=== PATIENT | male | born 1930 | race Caucasian/White ===

== ENCOUNTER 2017-02-02 10:00 | Inpatient (IN) | payer MEDICARE, BC ==
[~2017-02-02] VITALS: Ht 177.8 cm; Wt 102.8 kg
[2017-02-02] VITALS (46 sets, daily range): BP systolic 82–150; BP diastolic 52–92; PULSE 92–120; RESP 10–37; TEMP 97.6–97.9; O2SAT 94–99; Ht 177.8 cm; Wt 102.8 kg
[~2017-02-02 10:00] MED LIST: ASCO500T10 PO; ASPI325T PO; ATOR40TA64 PO; CALC-191 PO; CIPR-212 PO; CLOP75TA33 PO; FERR-67 PO; FEXO-118 PO; METF10002 PO; METO25TA6 PO; NITR0.4T PO; PANT40TA27 PO
--- OUTSIDE RECORDS SUMMARY | 2017-02-02 10:16 | XMS REPORT | Summary of Care ---
Author Author Dillan Rader M.D. Unknown Address [address] [place] [address] [place] [address] Phone Unavailable Care Team Providers Care Welding Setter Name Role Phone Dillan Rader M.D. 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9) Status: Active Presence of indwelling urethral catheter (V45.89, Z96.0) Status: Active Urethral 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, 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) Status: Active Urethral trauma (867.0, S37.30XA) Status: Active Mechanical complication of urethral catheter (996.31, T83.091A) Status: Active Clot retention of urine (788.29, R33.8) Status: Active Medications Name Dates Details Brenda TABS Active Aspirin EC 325 MG Oral Tablet Delayed Release * Refills: 0 Active Lipitor 40 MG Oral Tablet * Refills: 0 Active Calcium 500 + D TABS * Refills: 0 Active Plavix TABS * Refills: 0 Active Ferrous Sulfate 325 MG CAPS * Refills: 0 Active MetFORMIN HCl - 1000 MG Oral Tablet * Refills: 0 Active Metoprolol Tartrate TABS * Refills: 0 Active Milk of Magnesia SUSP * Refills: 0 Active Nitroglycerin 0.4 MG Sublingual Tablet Sublingual * Refills: 0 Active Erie 5-325 MG Oral Tablet * Refills: 0 Active Protonix 40 MG Oral Tablet Delayed Release * Refills: 0 Active Vitamin C Oral Liquid * Refills: 0 Active Allergies and Adverse Reactions Name Dates Details lisinopril (Allergy) Status: Active Past Medical History Name Dates Details History of BPH (benign prostatic hypertrophy) (600.00, N40.0) Status: Resolved History of bronchitis (V12.69, Z87.09) Status: Resolved History of Cataracts, bilateral (366.9, H26.9) Status: Resolved History of diabetes mellitus (V12.29, Z86.39) Status: Resolved History of Dyslipidemia (272.4, E78.5) Status: Resolved History of non-Hodgkin's lymphoma (V10.79, Z85.72) Status: Resolved History of osteoarthritis (V13.4, Z87.39) Status: Resolved Procedures Procedure Dates Details History of CABG History of Cataract Surgery History of Knee Surgery Procedures not documented Immunization Name Dates Details Immunizations not documented Family History Name Dates Details Family history of cerebrovascular accident (CVA) (V17.1, Z82.3) Status: Active Name Dates Details Family history of cerebrovascular accident (CVA) (V17.1, Z82.3) Status: Active Name Dates Details Family history of malignant neoplasm (V16.9, Z80.9) Status: Active Family history of diabetes mellitus (V18.0, Z83.3) Status: Active Social History Name Dates Details - Status: Name Dates Details Never smoker Vital Signs Date Test Result Details 01-Sep-2016 10:00 BP Systolic 131 mm[Hg] Status: Comments: Location: ; Position: BP Diastolic 105 mm[Hg] Status: Comments: Location: ; Position: Heart Rate 79 /min Status: Comments: Location: ; Height 70 in Status: Weight 210 lb Status: Body Mass Index Calculated 30.13 kg/m2 Status: Body Surface Area Calculated 2.13 m2 Status: 03-Aug-2016 14:09 BP Systolic 108 mm[Hg] Status: Comments: Location: ; Position: BP Diastolic 77 mm[Hg] Status: Comments: Location: ; Position: Heart Rate 105 /min Status: Comments: Location: ; Height 70 in Status: Weight 210 lb Status: Body Mass Index Calculated 30.13 kg/m2 Status: Body Surface Area Calculated 2.13 m2 Status: Results Date Description Value Details Results not documented Plan of Care Name Dates Details Planned Observations Planned Goals not documented Planned Encounters Appointment; Provider: Dillan Rader M.D. On 05-Oct-2016 10:15 Appointment; Provider: Dillan Rader M.D. On 02-Sep-2016 09:45 Instructions Name Dates Details Instructions not documented Encounters Appointment; Dillan Rader M.D. Encounter Diagnosis: Problem not documented On 03-Aug-2016 14:15
--- OUTSIDE RECORDS SUMMARY | 2017-02-02 10:16 | XMS REPORT | Continuity of Care Document ---
Author Author [facility] Organization [facility] Address Unknown Phone Unavailable Support Name Relationship Address Phone SWEETIE WALDROP MD Caregiver [address] [place] [address] [address] [place] [address] Unavailable SWEETIE WALDROP MD Caregiver [address] [place] [address] [place] [address] Unavailable FEBRUARY, CHARANJIT Mccauley DO Caregiver [address] [place] [address] Unavailable TEODORA TAVERAS DO Caregiver Unknown Unavailable LEE ANN ANTON Next Of Kin [address] [id number] Insurance Providers Guarantor Keegan Anton Address [address] [place], [place] [id number] G-DTR Email DENIED/NO TO PT PORTAL Payer Medicare Policy Number [id number] Subscriber's Name Keegan Anton Relationship 18 Self Effective Date 97 Payer [facility] Policy Number [id number] Subscriber's Name Keegan Anton Relationship 18 Self Group Number [id number] Advance Directives Directive Response Recorded Date/Time Advanced Directives Type Unable to Obtain 07/27/16 6:46pm Ordered Resuscitation Status Do Not Resuscitate 07/27/16 7:50pm Resuscitation Documents on File Y on file at [facility] 07/27/16 9:15pm DPOA for Healthcare Only Y Yue Zamora 07/28/16 11:03am Living Will No 07/27/16 9:15pm Chief Complaint and Reason for Visit Chief Complaint ATRIAL FIBRILLATION WITH RVR Reason for Visit Atrial fibrillation Chronic constipation Persistent atrial fibrillation Problems Active Problems Medical Problem Onset Date Status Abnormal urinalysis Unknown Acute Acute Coronary Syndrome Unknown Resolved Acute encephalopathy Unknown Resolved Acute hypokalemia Unknown Acute Allergic rhinitis Unknown Chronic Anemia ~05/10/2016 Acute Anemia due to GI blood loss Unknown Chronic Aortic stenosis, mild Unknown Chronic Aortic stenosis, moderate Unknown Chronic Atherosclerosis of coronary artery bypass graft of [place] heart without angina pectoris Unknown Chronic Atrial fibrillation Unknown Chronic BPH (benign prostatic hypertrophy) Unknown Chronic Back pain Unknown Acute Bacteremia due to Staphylococcus aureus ~02/2016 Resolved CAD (coronary artery disease) Unknown Chronic Cataracts, bilateral Unknown Chronic Chronic constipation Unknown Chronic Confusion Unknown Resolved Constipation Unknown Chronic Coronary artery disease Unknown Chronic Diabetes mellitus Unknown Chronic Elevated troponin Unknown Acute GERD (gastroesophageal reflux disease) Unknown Chronic History of CO (myocardial infarction) Unknown Chronic History of anemia Unknown Chronic History of non-Hodgkin's lymphoma Unknown Chronic History of non-ST elevation myocardial infarction (NSTEMI) Unknown Resolved History of non-ST elevation myocardial infarction (NSTEMI) Unknown Resolved Hypercalcemia Unknown Resolved Hypercholesterolemia Unknown Chronic Hypertension Unknown Chronic Hypokalemia Unknown Resolved Hypomagnesemia Unknown Acute Lumbar spinal stenosis Unknown Chronic Mixed hyperlipidemia Unknown Chronic NSTEMI (non-ST elevation myocardial infarction) Unknown Acute Nonrheumatic aortic valve stenosis Unknown Chronic OA (osteoarthritis) Unknown Chronic Paroxysmal atrial fibrillation Unknown Chronic Persistent atrial fibrillation Unknown Chronic Pulmonary edema cardiac cause Unknown Acute Rash and nonspecific skin eruption Unknown Resolved Scrotal mass Unknown Acute Sepsis Unknown Resolved Stage II pressure ulcer of buttock Unknown Chronic Thrombocytopenia Unknown Resolved Tricuspid valvular regurgitation Unknown Chronic Type II diabetes mellitus Unknown Chronic Urinary retention Unknown Chronic Urinary tract infection Unknown Acute Surgical Problem Onset Date Status S/P coronary artery stent placement Unknown Chronic Past Problems Medical Problem Onset Date Abnormal EKG Unknown Atrial fibrillation with RVR Unknown Atrial fibrillation with RVR Unknown Elevated troponin Unknown Encounter for urinary catheter Unknown Strong catheter problem Unknown Malfunction of Strong catheter Unknown Non-STEMI (non-ST elevated myocardial infarction) ~04/2016 Severe anemia Unknown UTI (urinary tract infection) Unknown UTI (urinary tract infection) due to urinary indwelling catheter Unknown Medications Current Home Medications Medication Dose Units Route Directions Days Qty Instructions Start Date Ascorbic Acid 500 Mg Tablet 500 Mg Oral Bedtime 05/10/16 Aspirin 325 Mg Tablet 325 Mg Oral Daily 01/11/16 Atorvastatin Calcium 40 Mg Tablet 40 Mg Oral Bedtime 05/10/16 Calcium Carbonate/Vitamin D3 (Calcium + Vitamin D Tablet) 1 Each Tablet 1 Tab Oral Bedtime 01/28/16 Ciprofloxacin Hcl (Cipro) 500 Mg Tablet 500 Mg Oral Every 12 Hours 20 Tablet 07/26/16 Clopidogrel Bisulfate (Clopidogrel) 75 Mg Tablet 75 Mg Oral Daily 05/10/16 Ferrous Sulfate (Iron Supplement) 325 Mg Tablet 325 Mg Oral Bedtime 05/10/16 Fexofenadine Hcl 180 Mg Tablet 180 Mg Oral Daily 05/10/16 Metformin Hcl 1,000 Mg Tablet 1,000 Mg Oral Twice Daily With Meals 01/28/16 Metoprolol Tartrate 25 Mg Tablet 25 Mg Oral Twice Daily With Meals 30 Days 60 Tablet 07/29/16 Nitroglycerin (Nitrostat) 0.4 Mg Tablet 0.4 Mg Oral Every 5 Minutes X 3 as needed for Chest Pain 07/27/16 Pantoprazole Sodium 40 Mg Tablet. 40 Mg Oral Before Meals Twice A Day 01/12/16 Past Home Medications Medication Directions Ordered Status Acetaminophen (Tylenol Extra Strength) 500 Mg Tablet, 500-1000 Mg Oral Every 8 Hours as needed for Pain 12/10/15 Discontinued Acetaminophen (Acetaminophen Extra Strength) 500 Mg Tablet, 1-2 Tab Oral Every 8 Hours as needed for Pain 09/13/15 Discontinued Acetaminophen (Tylenol Extra Strength) 500 Mg Tablet, 500 Mg Oral As Needed 04/01/10 Discontinued Allopurinol 300 Mg Tablet, 300 Mg Oral Daily 05/27/13 Discontinued Ascorbic Acid (Vitamin C) 500 Mg Tablet, 1 Tab Oral Give With Supper Discontinued Ascorbic Acid (Vitamin C) 500 Mg Tablet, 500 Mg Oral Daily 04/01/10 Discontinued Aspirin (Ecotrin) 81 Mg Tablet, 81 Mg Oral Daily 11/27/15 Discontinued Aspirin (Ecotrin) 325 Mg Tablet, 325 Mg Oral Daily 11/11/15 Discontinued Aspirin (Aspir 81) 81 Mg Tablet., 1 Tab Oral Daily 04/01/10 Discontinued Atorvastatin Calcium (Lipitor) 40 Mg Tablet, 1 Tab Oral Bedtime 02/02/15 Discontinued Bisacodyl (Dulcolax) 10 Mg Supp, 10 Mg Rectally Daily as needed for Constipation 12/10/15 Discontinued Bisacodyl (Dulcolax) 5 Mg Tablet, 5-10 Mg Oral Daily as needed for Constipation 12/10/15 Discontinued Bisacodyl (Dulcolax) 10 Mg Supp, 10 Mg Rectally As Needed as needed for Constipation 11/27/15 Discontinued Calcium Carbonate/Vitamin D3 (Calcium + Vitamin D Tablet) 1 Each Tablet, 1 Tab Oral Daily 02/02/15 Discontinued Calcium Carbonate/Vitamin D3 (Calcium + D 600 Mg Tablet) 1 Tab Tablet, 1 Tab Oral Daily 04/01/10 Discontinued Carvedilol 6.25 Mg Tablet, 0.5 Tab Oral Twice Daily With Meals 09/10/15 Discontinued Ciprofloxacin Hcl (Cipro) 250 Mg Tablet, 250 Mg Oral Every 12 Hours 11/27/15 Discontinued Clopidogrel Bisulfate (Plavix) 75 Mg Tablet, 1 Tab Oral Daily 11/10/15 Discontinued Clopidogrel Bisulfate (Plavix) 75 Mg Tablet, 1 Tab Oral Daily 02/02/15 Discontinued Diphenhydramine Hcl (Benadryl) 25 Mg Capsule, 25 Mg Oral Every 6 Hours as needed for Itching 03/02/16 Discontinued Ferrous Sulfate 325 Mg Tablet.dr, 1 Tab Oral Give With Breakfast for Anemia 09/13/15 Discontinued Fexofenadine Hcl (Brenda) 180 Mg Tablet, 1 Tab Oral Daily 03/12/13 Discontinued Finasteride 5 Mg Tablet, 1 Tab Oral Bedtime 02/02/15 Discontinued Glucos-Msm/Chondro Leonard A (Pvisaznyzhr-Qirwefsqe-Mdp Cap) 1 Cap Capsule, 1 Cap Oral Daily 04/01/10 Discontinued Hydrocodone/Acetaminophen (Hydrocodon-Acetaminophen 5-325) 1 Tab Tablet, 1-2 Tab Oral Every 5 Hours as needed for Pain 12/10/15 Discontinued Insulin Lispro (Humalog) 100 Unit/Ml Inj, 0 Unit Sub-Q Sliding Scale as needed for Diabetes 12/10/15 Discontinued Insulin Lispro (Humalog) 100 Unit/Ml Inj, 0 Unit Sub-Q Sliding Scale as needed for Diabetes 12/10/15 Discontinued Ipratropium/Albuterol Sulfate (Iprat-Albut 0.5-3(2.5) Mg/3 Ml) 3 Ml Solution, 3 Ml Aerosol Tx. Every 4 Hours as needed for Shortness Of Air 03/02/16 Discontinued Lidocaine (Lidoderm) 1 Removal Patch, 1 Removal Topically 2100 for Pain 03/02 Discontinued Lorazepam (Ativan) 0.5 Mg Tablet, 0.5-1 Mg Oral Every 4 Hours as needed for Angina 12/10/15 Discontinued Losartan Potassium 25 Mg Tablet, 0.5 Tab Oral Daily 03/12/13 Discontinued Magnesium Hydroxide (Milk Of Magnesia) 30 Ml Suspension, 30 Ml Oral Daily as needed for Constipation 12/10/15 Discontinued Magnesium Hydroxide (Milk Of Magnesia) 30 Ml Suspension, 30 Ml Oral As Needed as needed for Constipation 11/27/15 Discontinued Menthol/Zinc Oxide (Calmoseptine Ointment) 113 Applic/113 G Oint, 1 Applic Topically Three Times A Day 12/10/15 Discontinued Menthol/Zinc Oxide (Calmoseptine Ointment) 113 Applic/113 G Oint, 1 Applic Topically Three Times A Day 11/27/15 Discontinued Metformin Hcl 1,000 Mg Tablet, 1 Tab Oral Twice A Day 01/11/16 Discontinued Metformin Hcl 1,000 Mg Tablet, 1 Tab Oral Twice Daily With Meals 09/10/15 Discontinued Metoprolol Tartrate 25 Mg Tablet, 12.5 Mg Oral Twice Daily With Meals Discontinued Metoprolol Tartrate 25 Mg Tablet, 25 Mg Oral Twice Daily With Meals 03/02/16 Discontinued Nitroglycerin (Nitrostat) 0.4 Mg Tablet, 0.4 Mg Sublingual Every 5 Minutes X 3 as needed for Ang 11/27/15 Discontinued Nystatin 15 Applic/15 G Bottle, 1 Applic Topically Three Times A Day Discontinued Pantoprazole Sodium (Protonix) 40 Mg Tablet, 40 Mg Oral Twice A Day Breakfast & Supper 09/13/15 Discontinued Pantoprazole Sodium (Protonix) 40 Mg Tablet, 40 Mg Oral Before Meals Twice A Day 11/27/15 Discontinued Pantoprazole Sodium (Protonix) 40 Mg Tablet.dr, 1 Tab Oral Daily 02/02/15 Discontinued Polyethylene Glycol 3350 (Miralax) 17 Gm Packet, 17 Gm Oral Daily 11/27/15 Discontinued Prednisone 10 Mg Tablet, 10 Mg Oral Daily 11/15/11 Discontinued Renexa , 1000 Mg Oral Twice A Day 10/06/15 Discontinued Simvastatin 20 Mg Tablet, 20 Mg Oral Bedtime 04/01/10 Discontinued Sitagliptin Phos/Metformin Hcl (Janumet 50-500 Mg Tablet) 1 Tab Tablet, 1 Tab Oral Twice A Day 11/15/11 Discontinued Sitagliptin Phosphate (Januvia) 100 Mg Tablet, 50 Mg Oral Daily 01/11/16 Discontinued Sitagliptin Phosphate (Januvia) 100 Mg Tablet, 0.5 Tab Oral Daily 09/10/15 Discontinued Tamsulosin Hcl (Flomax) 0.4 Mg Cap.sr.24h, 1 Tab Oral Daily 03/12/13 Discontinued Tramadol Hcl 50 Mg Tablet, 50 Mg Oral As Needed 11/15/11 Discontinued Tramadol Hcl 50 Mg Tablet, 50 Mg Oral As Needed 04/01/10 Discontinued Social History Social History Problem Response Recorded Date/Time Onset Date Status Reason for Hospitalization NSTEMI, Afib with RVR 07/29/2016 9:41am Not Applicable Not Applicable Chewing Tobacco Status No 06/24/2013 3:28pm Not Applicable Not Applicable Hx Substance Use No 07/27/2016 8:12pm Not Applicable Not Applicable Hx Alcohol Use No 07/27/2016 8:12pm Not Applicable Not Applicable Has the pt used tobacco in the last 12 months No 07/27/2016 9:19pm Not Applicable Not Applicable Tobacco Usage none 05/11/2016 8:09am Not Applicable Not Applicable Query Response Start Date Stop Date Smoking Status Never smoker Hospital Discharge Instructions No hospital discharge instructions. Plan of Care Discharge Date 07/29/16 10:11am Disposition 01 DISCHARGED HOME, SELF-CARE Instructions/Education Provided [facility] Heart Cath Trans Rad Cardiac Catheterization Prescriptions See Medication Section Additional Instructions/Education Do NOT take Metformin until 07/31/16 then can resume at usual dose Functional Status Query Response Date Recorded Mobility Status Ambulatory w/assist July 29, 2016 9:41am Assistive Devices canes July 29, 2016 9:41am Activity Limitations Weakness July 29, 2016 9:41am Feeding Ability Independent July 29, 2016 9:41am Toileting Ability Assist July 29, 2016 9:41am Grooming Ability Independent July 29, 2016 9:41am Dressing Ability Independent July 29, 2016 9:41am Driving Ability Dependent July 29, 2016 9:41am Stair Climbing Ability Assist July 29, 2016 9:41am Ability to complete ADL's impeded by Impaired Mobility No change July 29, 2016 9:41am Cognitive/Perceptual Impairments None July 29, 2016 9:41am Allergies, Adverse Reactions, Alerts Allergen Type Severity Reaction Status Last Updated Lisinopril Adverse Reaction Unknown COUGH Active 07/27/16 Immunizations Immunization Event Date Type Not Given Reason Dose Number Lot Number Cleaner VIS Given Influenza, high dose seasonal 07/28/16 Administered 1 [id number] [employer] P[employer] 07/28/16 Query Response on File Recorded Date/Time Hx Influenza Vaccination Y 2014 per pt. (unknown date) 07/27/16 9:19pm Hx Pneumococcal Vaccination Y 2014 per pt. (unknown date) 07/27/16 9:19pm Hx Influenza Vaccination Y 2014 per pt. (unknown date) 07/27/16 9:19pm Influenza Vaccine Hx jul 28 2016 07/28/16 12:47pm Vital Signs Acute Vital Signs Vital Response Date/Time Temperature (Fahrenheit) 97.9 deg F (96.8 - 99.1) 07/29/2016 7:40am Temperature (Calculated Celsius) 36.01180 degrees C (36.0 - 37.3) 07/29/2016 7:40am Temperature Source Temporal 07/29/2016 7:38am Pulse Rate (adult) 97 bpm (60 - 100) 07/29/2016 7:41am Respiratory Rate 20 breaths/min (10 - 20) 07/29/2016 7:40am O2 Sat by Pulse Oximetry 97 % (90 - 100) 07/29/2016 7:40am Oxygen Delivery Method Room Air 07/29/2016 7:38am Oxygen Delivery Method Room Air 07/29/2016 7:40am Blood Pressure 121/83 mm Hg 07/29/2016 7:40am Blood Pressure Source Automatic Cuff 07/29/2016 7:40am Height (Feet) 5 feet 07/29/2016 9:31am Height (Inches) 10.00 inches 07/29/2016 9:31am Weight (Kilograms) 96.000 kg 07/29/2016 8:00am Body Mass Index (BMI) 30.7 07/27/2016 9:14pm Results Laboratory Results Test Name Result Units Flags Reference Collection Date/Time Result Date/ Time Comments Total Bilirubin 0.50 MG/DL 0.20-1.30 07/26/2016 10:33am 07/26/2016 11: 06am Alkaline Phosphatase 97 U/L 38-126 07/26/2016 10:33am 07/26/2016 11: 06am Total Protein 7.6 G/DL 6.3-8.2 07/26/2016 10:33am 07/26/2016 11:06am Albumin 3.7 G/DL 3.5-5.0 07/26/2016 10:33am 07/26/2016 11:06am Globulin 3.9 G/DL H 2.4-3.6 07/26/2016 10:33am 07/26/2016 11:06am Albumin/Globulin Ratio 0.9 RATIO L 1.1-2.2 07/26/2016 10:33am 2015 11:06am Aspartate Amino Transf (AST/SGOT) 20 U/L 17-59 07/26/2016 10:33am 07/26 11:06am Alanine Aminotransferase (ALT/SGPT) 26 U/L 21-72 07/26/2016 10:33am 01/2016 11:06am White Blood Count 9.4 T/MM3 4.5-11.0 07/29/2016 4:am 07/29/2016 5: 19am Red Blood Count 3.60 M/MM3 L 4.50-5.90 07/29/2016 4:19am 07/29/2016 5: 19am Hemoglobin 10.5 GM/DL L 13.5-17.5 07/29/2016 4:19am 07/29/2016 5:19am Hematocrit 33.3 % L 41-53 07/29/2016 4:19am 07/29/2016 5:19am Mean Corpuscular Volume 92.5 UM3 80-100 07/29/2016 4:am 07/29/2016 5: 19am Mean Corpuscular Hemoglobin 29.2 UUG 26-34 07/29/2016 4:am 2015 5:19am Mean Corpuscular Hemoglobin Concent 31.5 GM/DL 31-37 07/29/2016 4:am 07/29/2016 5:19am RDW Standard Deviation 46.3 FL 36.9-50.2 07/29/2016 4:am 07/29/2016 5 :19am Platelet Count 186 T/MM3 130-400 07/29/2016 4:am 07/29/2016 5:19am Mean Platelet Volume 11.1 UM3 9.4-12.4 07/29/2016 4:am 07/29/2016 5: 19am Neutrophils (%) (Auto) 62.1 % 33-66 07/29/2016 4:19am 07/29/2016 5: 19am Lymphocytes (%) (Auto) 20.1 % L 23-45 07/29/2016 4:am 07/29/2016 5: 19am Monocytes (%) (Auto) 14.7 % H 0-9.0 07/29/2016 4:19am 07/29/2016 5:19am Eosinophils (%) (Auto) 2.6 % 0-4 07/29/2016 4:19am 07/29/2016 5:19am Basophils (%) (Auto) 0.4 % 0-2 07/29/2016 4:19am 07/29/2016 5:19am Immature Granulocyte % (Auto) 0.1 % 0.0-0.5 07/29/2016 4:19am 2015 5:19am Absolute Neutrophils (auto) 5.8 T/MM3 1.8-7.7 07/29/2016 4:19am 2015 5:19am Absolute Lymphocytes (auto) 1.9 T/MM3 1-4.8 07/29/2016 4:19am 2015 5:19am Absolute Monocytes (auto) 1.4 T/MM3 H 0-0.8 07/29/2016 4:19am 2015 5:19am Absolute Eosinophils (auto) 0.2 T/MM3 0-0.5 07/29/2016 4:19am 2015 5:19am Absolute Basophils (auto) 0.0 T/MM3 0-0.2 07/29/2016 4:19am 07/29/2016 5:19am Absolute Immature Granulocyte (auto 0.01 T/MM3 0.00-0.03 07/29/2016 4: 19am 07/29/2016 5:19am Neutrophils % (Manual) 88.0 % H 33-66 07/27/2016 7:02pm 07/27/2016 7: 47pm Lymphocytes % (Manual) 11.0 % L 23-45 07/27/2016 7:02pm 07/27/2016 7: 47pm Monocytes % (Manual) 1.0 % 0-9.0 07/27/2016 7:02pm 07/27/2016 7:47pm Absolute Neutrophils (Manual) 14.7 T/MM3 H 1.8-7.7 07/27/2016 7:02pm 02/2016 7:47pm Lymphocytes # (Manual) 1.8 T/MM3 1-4.8 07/27/2016 7:02pm 07/27/2016 7: 47pm Monocytes # (Manual) 0.2 T/MM3 0-0.8 07/27/2016 7:02pm 07/27/2016 7: 47pm Red Cell Morphology Comment NORMAL 07/27/2016 7:02pm 07/27/2016 7: 47pm Icterus Index < 2 0-7 07/29/2016 4:07/29/2016 5:37am Chemistry Specimen Hemolysis < 15 0-25 07/29/2016 4:07/29/2016 5 :37am 0-25: Specimen Exhibited No Hemolysis. Turbidity < 20 0-20 07/29/2016 4:07/29/2016 5:37am Sodium Level 142 MEQ/L 134-144 07/29/2016 4:07/29/2016 5:37am Potassium Level 4.5 MEQ/L 3.6-5 07/29/2016 4:07/29/2016 5:37am Chloride Level 105 MEQ/L 98-107 07/29/2016 4:07/29/2016 5:37am Carbon Dioxide Level 24 MEQ/L 22-30 07/29/2016 4:07/29/2016 5: 37am Anion Gap 13 MEQ/L 5-15 07/29/2016 4:07/29/2016 5:37am Blood Urea Nitrogen 15.0 MG/DL 9-20 07/29/2016 4:07/29/2016 5: 37am Creatinine 0.7 MG/DL L 0.8-1.5 07/29/2016 4:07/29/2016 5:37am BUN/Creatinine Ratio 21 RATIO 6-26 07/29/2016 4:07/29/2016 5:37am Glomerular Filtration Rate Calc 107 07/29/2016 4:07/29/2016 5: 37am Glucose Level 140 MG/DL H 75-110 07/29/2016 4:07/29/2016 5:37am Calculated Osmolality 276 MOSM/KG 261-280 07/29/2016 4:07/29/2016 5:37am Calcium Level 9.0 MG/DL 8.4-10.2 07/29/2016 4:07/29/2016 5:37am Cholesterol Level 95 MG/DL L 132-199 07/28/2016 4:07/28/2016 5: 23am Triglycerides Level 57 MG/DL 40-160 07/28/2016 4:07/28/2016 5: 47am HDL Cholesterol Direct 35 MG/DL L 40-60 07/28/2016 4:07/28/2016 5: 23am LDL Cholesterol, Calculated 48.6 L 66-159 07/28/2016 4:26am 2015 5:47am VLDL Cholesterol 11.4 MG/DL 0-28 07/28/2016 4:26am 07/28/2016 5:47am Cholesterol/HDL Ratio 2.7 RATIO 0-5.0 07/28/2016 4:26am 07/28/2016 5: 23am Troponin I 0.920 ng/ml H 0-0.12 07/28/2016 3:49pm 07/28/2016 4:25pm Troponin values greater than 0.120 ng/ml are considered a critical value. Troponin values with a difference of 55% increase from orginal troponin value represent a true biological DELTA value. (%increase Calc=Orginal Troponin value, divided by subsequent Troponin value, multiplied by 100) Magnesium Level 1.6 MG/DL 1.6-2.3 07/28/2016 4:26am 07/28/2016 5:23am Thyroid Stimulating Hormone (TSH) 1.79 MIU/L 0.47-4.68 07/28/2016 4: 26am 07/28/2016 5:53am Urine Collection Type CLEANCATCH-MIDSTREAM 07/28/2016 5:33am 2015 5:59am Urine Color YELLOW YELLOW 07/28/2016 5:33am 07/28/2016 5:59am Urine Turbidity SL CLOUDY CLEAR 07/28/2016 5:33am 07/28/2016 5:59am Urine Specific [place] 1.025 1.015-1.025 07/28/2016 5:33am 2015 5:59am Urine pH 5.5 5.0-8.0 07/28/2016 5:33am 07/28/2016 5:59am Urine Leukocyte Esterase 1+ A NEGATIVE 07/28/2016 5:33am 07/28/2016 5: 59am Urine Nitrite NEGATIVE NEGATIVE 07/28/2016 5:33am 07/28/2016 5:59am Urine Protein 1+ A NEGATIVE 07/28/2016 5:33am 07/28/2016 5:59am Urine Glucose (UA) NEGATIVE NEGATIVE 07/28/2016 5:33am 07/28/2016 5: 59am Urine Ketones NEGATIVE NEGATIVE 07/28/2016 5:33am 07/28/2016 5:59am Urine Urobilinogen 0.2 EU/DL NORMAL 07/28/2016 5:33am 07/28/2016 5: 59am Urine Bilirubin NEGATIVE NEGATIVE 07/28/2016 5:33am 07/28/2016 5: 59am Urine Blood 3+ A NEGATIVE 07/28/2016 5:33am 07/28/2016 5:59am Urine WBC 30-50 /HPF H 0-5 07/28/2016 5:33am 07/28/2016 6:18am Urine WBC Clumps MODERATE H 07/28/2016 5:33am 07/28/2016 6:18am Urine RBC TNTC /HPF 0-3 07/28/2016 5:33am 07/28/2016 6:18am Urine Bacteria TRACE H NEGATIVE 07/28/2016 5:33am 07/28/2016 6:18am Urine Culture Indicated CULT NOT INDICATED 07/28/2016 5:33am 2015 6:18am Glucometer 143 mg/dL H 75-110 07/29/2016 5:49am 07/29/2016 5:57am Microbiology Results Procedure Source Organism/Result Collection Date/Time Result Date/Time Result Status Urine Culture Urine, Strong Indwelling PROVIDENCIA RETTGERI 07/26/2016 11: 06am 07/28/2016 11:27am Final Name: KEEGAN ANTON Unit #: [id number] : 1930 Sex: M DISCHARGE SUMMARY Admit Date: 07/28/16 Report #: [id number] [facility] GROSSSUZIE JARRELL MSASIMO 07/29/16 0931: General Date Date DATE: 07/29/16 TIME: 09:28 Attending Physician Sweetie Waldrop MD Admitting Physician Sweetie Waldrop MD Consulting Physician Marcela Mathur MD Admitting Diagnosis atrial fibrillation with RVR Discharge Diagnosis Afib with RVR, NSTEMI, CAD, Aortic stenosis, HTN, mixed hyperlipidemia, urine retention, urethral bleeding, scrotal mass, hx of non Hodgkins lymphoma Procedures July 28, 2016 The patient is a pleasant 85-year-old gentleman who was admitted with chest pain and non-ST elevation myocardial infarction and was referred for further evaluation by cardiac catheterization and possible intervention. Informed consent was obtained after explaining the procedure and the potential risks to the patient who agreed to proceed with the procedure. PROCEDURE 1. Left heart catheterization. 2. Coronary angiography. 3. PTCA and thrombectomy of the vein graft to RCA. TECHNIQUE The patient was prepped and draped in the usual sterile techniques. 1% lidocaine was used for local anesthesia. Using modified Seldinger technique, arterial access was obtained into the left radial artery with placement of a 6-Cam[place]onian arterial sheath. 3000 units of heparin, 2.5 mg of verapamil, and 300 mcg of nitroglycerin were given through the arterial sheath. CORONARY ANGIOGRAPHY Left main was free of significant lesions. Left anterior descending artery was occluded proximally. Left circumflex artery had about 20%-30% stenosis. Ramus intermedius had 80%-90 % eccentric lesion proximally. Right coronary artery was occluded from previous catheterization and it was not directly engaged. A vein graft to obtuse marginal was occluded. A vein graft to diagonal was occluded. A vein graft to right coronary artery was occluded which appeared to be the fresh occlusion recently. NAVARRO was not visualized since it was patent from previous cath. After reviewing the angiograms, we decided to proceed with intervention on vein graft to RCA. A 6- Cam[place]onian RCB guide was advanced to the ostium of the graft. A Whisper wire was used to recanalize the vessel. The wire was advanced into PDA. Multiple inflations were performed using a 2.0 x 20 balloon throughout the graft. However, we did not see opening of the vessel. Next, we used a thrombectomy catheter and we tried to aspirate thrombus. However, were not able to get any flow back and therefore the case was terminated. Patient tolerated the procedure well with no complications. IMPRESSION Coronary artery disease as described above. PLAN Will continue medical management for now. One might consider ramus intermedius percutaneous intervention in future. Laboratory Laboratory Tests Test 07/27/16 19:02 07/28/16 04:26 07/28/16 05:33 07/28/16 05:35 White Blood Count 16.7T/MM3 15.0T/MM3 Red Blood Count 4.23M/MM3 3.60M/MM3 Hemoglobin 12.5GM/DL 10.7GM/DL Hematocrit 38.4% 33.3% Mean Corpuscular Volume 90.8UM3 92.5UM3 Mean Corpuscular Hemoglobin 29.6UUG 29.7UUG Mean Corpuscular Hemoglobin Concent 32.6GM/DL 32.1GM/DL RDW Standard Deviation 45.9FL 46.0FL Platelet Count 229T/MM3 199T/MM3 Mean Platelet Volume 10.6UM3 11.1UM3 Immature Granulocyte % (Auto) % 0.2% Neutrophils (%) (Auto) % 72.9% Lymphocytes (%) (Auto) % 14.6% Monocytes (%) (Auto) % 11.4% Eosinophils (%) (Auto) % 0.6% Basophils (%) (Auto) % 0.3% Absolute Immature Granulocyte (auto T/MM3 0.03T/MM3 Absolute Neutrophils (auto) T/MM3 10.9T/MM3 Absolute Lymphocytes (auto) T/MM3 2.2T/MM3 Absolute Monocytes (auto) T/MM3 1.7T/MM3 Absolute Eosinophils (auto) T/MM3 0.1T/MM3 Absolute Basophils (auto) T/MM3 0.0T/MM3 Neutrophils % (Manual) 88.0% Lymphocytes % (Manual) 11.0% Monocytes % (Manual) 1.0% Absolute Neutrophils (Manual) 14.7T/MM3 Lymphocytes # (Manual) 1.8T/MM3 Monocytes # (Manual) 0.2T/MM3 Red Cell Morphology Comment Normal Turbidity < 20 < 20 Sodium Level 138MEQ/L 140MEQ/L Potassium Level 4.6MEQ/L 4.3MEQ/L Chloride Level 101MEQ/L 105MEQ/L Carbon Dioxide Level 20MEQ/L 24MEQ/L Anion Gap 17MEQ/L 11MEQ/L Blood Urea Nitrogen 23.0MG/DL 17.0MG/DL Creatinine 0.8MG/DL 0.7MG/DL Glomerular Filtration Rate Calc 92 107 BUN/Creatinine Ratio 29RATIO 24RATIO Glucose Level 247MG/DL 136MG/DL Calculated Osmolality 278MOSM/KG 273MOSM/KG Calcium Level 9.9MG/DL 9.6MG/DL Icterus Index < 2 < 2 Troponin I 0.022ng/ml 1.660ng/ml Chemistry Specimen Hemolysis < 15 < 15 Magnesium Level 1.6MG/DL Triglycerides Level 57MG/DL Cholesterol Level 95MG/DL LDL Cholesterol, Calculated 48.6 VLDL Cholesterol 11.4MG/DL HDL Cholesterol Direct 35MG/DL Cholesterol/HDL Ratio 2.7RATIO Thyroid Stimulating Hormone (TSH) 1.79MIU/L Urine Collection Type Cleancatch-midstream Urine Color Yellow Urine Turbidity Sl cloudy Urine pH 5.5 Urine Specific [place] 1.025 Urine Protein 1+ Urine Glucose (UA) Negative Urine Ketones Negative Urine Blood 3+ Urine Nitrite Negative Urine Bilirubin Negative Urine Urobilinogen 0.2EU/DL Urine Leukocyte Esterase 1+ Urine RBC Tntc/HPF Urine WBC 30-50/HPF Urine WBC Clumps Moderate Urine Bacteria Trace Urine Culture Indicated Cult not indicated Glucometer 157mg/dL Test 07/28/16 09:48 07/28/16 11:36 07/28/16 15:49 07/28/16 18:36 Troponin I 1.400ng/ml 0.920ng/ml Chemistry Specimen Hemolysis < 15 < 15 Glucometer 138mg/dL 156mg/dL Test 07/28/16 20:55 07/29/16 04:19 07/29/16 05:49 Glucometer 199mg/dL 143mg/dL White Blood Count 9.4T/MM3 Red Blood Count 3.60M/MM3 Hemoglobin 10.5GM/DL Hematocrit 33.3% Mean Corpuscular Volume 92.5UM3 Mean Corpuscular Hemoglobin 29.2UUG Mean Corpuscular Hemoglobin Concent 31.5GM/DL RDW Standard Deviation 46.3FL Platelet Count 186T/MM3 Mean Platelet Volume 11.1UM3 Immature Granulocyte % (Auto) 0.1% Neutrophils (%) (Auto) 62.1% Lymphocytes (%) (Auto) 20.1% Monocytes (%) (Auto) 14.7% Eosinophils (%) (Auto) 2.6% Basophils (%) (Auto) 0.4% Absolute Immature Granulocyte (auto 0.01T/MM3 Absolute Neutrophils (auto) 5.8T/MM3 Absolute Lymphocytes (auto) 1.9T/MM3 Absolute Monocytes (auto) 1.4T/MM3 Absolute Eosinophils (auto) 0.2T/MM3 Absolute Basophils (auto) 0.0T/MM3 Turbidity < 20 Sodium Level 142MEQ/L Potassium Level 4.5MEQ/L Chloride Level 105MEQ/L Carbon Dioxide Level 24MEQ/L Anion Gap 13MEQ/L Blood Urea Nitrogen 15.0MG/DL Creatinine 0.7MG/DL Glomerular Filtration Rate Calc 107 BUN/Creatinine Ratio 21RATIO Glucose Level 140MG/DL Calculated Osmolality 276MOSM/KG Calcium Level 9.0MG/DL Icterus Index < 2 Chemistry Specimen Hemolysis < 15 Laboratory Tests Test 07/28/16 04:26 07/28/16 05:33 07/28/16 05:35 07/28/16 09:48 White Blood Count 15.0T/MM3 (4.5-11.0) Red Blood Count 3.60M/MM3 (4.50-5.90) Hemoglobin 10.7GM/DL (13.5-17.5) Hematocrit 33.3% (41-53) Mean Corpuscular Volume 92.5UM3 (80-100) Mean Corpuscular Hemoglobin 29.7UUG (26-34) Mean Corpuscular Hemoglobin Concent 32.1GM/DL (31-37) RDW Standard Deviation 46.0FL (36.9-50.2) Platelet Count 199T/MM3 (130-400) Mean Platelet Volume 11.1UM3 (9.4-12.4) Immature Granulocyte % (Auto) 0.2% (0.0-0.5) Neutrophils (%) (Auto) 72.9% (33-66) Lymphocytes (%) (Auto) 14.6% (23-45) Monocytes (%) (Auto) 11.4% (0-9.0) Eosinophils (%) (Auto) 0.6% (0-4) Basophils (%) (Auto) 0.3% (0-2) Absolute Immature Granulocyte (auto 0.03T/MM3 (0.00-0.03) Absolute Neutrophils (auto) 10.9T/MM3 (1.8-7.7) Absolute Lymphocytes (auto) 2.2T/MM3 (1-4.8) Absolute Monocytes (auto) 1.7T/MM3 (0-0.8) Absolute Eosinophils (auto) 0.1T/MM3 (0-0.5) Absolute Basophils (auto) 0.0T/MM3 (0-0.2) Turbidity < 20 (0-20) Sodium Level 140MEQ/L (134-144) Potassium Level 4.3MEQ/L (3.6-5) Chloride Level 105MEQ/L (98-107) Carbon Dioxide Level 24MEQ/L (22-30) Anion Gap 11MEQ/L (5-15) Blood Urea Nitrogen 17.0MG/DL (9-20) Creatinine 0.7MG/DL (0.8-1.5) Glomerular Filtration Rate Calc 107 BUN/Creatinine Ratio 24RATIO (6-26) Glucose Level 136MG/DL (75-110) Calculated Osmolality 273MOSM/KG (261-280) Calcium Level 9.6MG/DL (8.4-10.2) Magnesium Level 1.6MG/DL (1.6-2.3) Icterus Index < 2 (0-7) Troponin I 1.660ng/ml (0-0.12) 1.400ng/ml (0-0.12) Triglycerides Level 57MG/DL (40-160) Cholesterol Level 95MG/DL (132-199) LDL Cholesterol, Calculated 48.6 (66-159) VLDL Cholesterol 11.4MG/DL (0-28) HDL Cholesterol Direct 35MG/DL (40-60) Cholesterol/HDL Ratio 2.7RATIO (0-5.0) Thyroid Stimulating Hormone (TSH) 1.79MIU/L (0.47-4.68) Chemistry Specimen Hemolysis < 15 (0-25) < 15 (0-25) Urine Collection Type Cleancatch-midstream Urine Color Yellow (YELLOW) Urine Turbidity Sl cloudy (CLEAR) Urine pH 5.5 (5.0-8.0) Urine Specific [place] 1.025 (1.015-1.025) Urine Protein 1+ (NEGATIVE) Urine Glucose (UA) Negative (NEGATIVE) Urine Ketones Negative (NEGATIVE) Urine Blood 3+ (NEGATIVE) Urine Nitrite Negative (NEGATIVE) Urine Bilirubin Negative (NEGATIVE) Urine Urobilinogen 0.2EU/DL (NORMAL) Urine Leukocyte Esterase 1+ (NEGATIVE) Urine RBC Tntc/HPF (0-3) Urine WBC 30-50/HPF (0-5) Urine WBC Clumps Moderate Urine Bacteria Trace (NEGATIVE) Urine Culture Indicated Cult not indicated Glucometer 157mg/dL (75-110) Test 07/28/16 11:36 07/28/16 15:49 07/28/16 18:36 07/28/16 20:55 Glucometer 138mg/dL (75-110) 156mg/dL (75-110) 199mg/dL (75-110) Troponin I 0.920ng/ml (0-0.12) Chemistry Specimen Hemolysis < 15 (0-25) Test 07/29/16 04:19 07/29/16 05:49 White Blood Count 9.4T/MM3 (4.5-11.0) Red Blood Count 3.60M/MM3 (4.50-5.90) Hemoglobin 10.5GM/DL (13.5-17.5) Hematocrit 33.3% (41-53) Mean Corpuscular Volume 92.5UM3 (80-100) Mean Corpuscular Hemoglobin 29.2UUG (26-34) Mean Corpuscular Hemoglobin Concent 31.5GM/DL (31-37) RDW Standard Deviation 46.3FL (36.9-50.2) Platelet Count 186T/MM3 (130-400) Mean Platelet Volume 11.1UM3 (9.4-12.4) Immature Granulocyte % (Auto) 0.1% (0.0-0.5) Neutrophils (%) (Auto) 62.1% (33-66) Lymphocytes (%) (Auto) 20.1% (23-45) Monocytes (%) (Auto) 14.7% (0-9.0) Eosinophils (%) (Auto) 2.6% (0-4) Basophils (%) (Auto) 0.4% (0-2) Absolute Immature Granulocyte (auto 0.01T/MM3 (0.00-0.03) Absolute Neutrophils (auto) 5.8T/MM3 (1.8-7.7) Absolute Lymphocytes (auto) 1.9T/MM3 (1-4.8) Absolute Monocytes (auto) 1.4T/MM3 (0-0.8) Absolute Eosinophils (auto) 0.2T/MM3 (0-0.5) Absolute Basophils (auto) 0.0T/MM3 (0-0.2) Turbidity < 20 (0-20) Sodium Level 142MEQ/L (134-144) Potassium Level 4.5MEQ/L (3.6-5) Chloride Level 105MEQ/L (98-107) Carbon Dioxide Level 24MEQ/L (22-30) Anion Gap 13MEQ/L (5-15) Blood Urea Nitrogen 15.0MG/DL (9-20) Creatinine 0.7MG/DL (0.8-1.5) Glomerular Filtration Rate Calc 107 BUN/Creatinine Ratio 21RATIO (6-26) Glucose Level 140MG/DL (75-110) Calculated Osmolality 276MOSM/KG (261-280) Calcium Level 9.0MG/DL (8.4-10.2) Icterus Index < 2 (0-7) Chemistry Specimen Hemolysis < 15 (0-25) Glucometer 143mg/dL (75-110) Radiology 07/28/16 US TESTICULAR REASON FOR EXAM: SCROTAL MASS FINDINGS: Both testicles are present in expected location. The testicles demonstrate a homogenous echotexture without intratesticular mass. The right testicle measures 4 x 2.5 x 3.3 cm, and the left testicle measures 4.7 x 2.2 x 2.5 cm. Color Doppler imaging demonstrates symmetric, arterial flow throughout both testicles. Normal pulsed Doppler arterial and venous waveforms were obtained from each testicle. Both epididymis are enlarged with thickening and hyperemia. No abnormal intrascrotal fluid collections. Scrotal skin thickening and edema. IMPRESSION: No testicular mass or evidence of testicular torsion. Abnormally enlarged hyperemic epididymal heads could be due to epididymitis, although the patient was reportedly nontender. 07/27/16 CHEST 1 VIEW Findings: Prior sternotomy changes with fractured sternotomy sutures. Worsening interstitial opacities bilaterally with pulmonary vascular congestion. No pneumothorax or definite effusion. Right costophrenic angle is not entirely included. Moderate enlargement of the cardiac silhouette is stable. Mediastinal contours are unchanged. Impression: Increased interstitial markings with suggestion of pulmonary vascular congestion could be due to mild CHF or possibly atypical/viral pneumonia. History of Present Illness Keegan is an 85 y/o male well known to Dr. Waldrop with CAD, multiple stents and Afib. He was brought to the ED last evening with c/o left scapular pain and feeling dizzy. His monitor in the ED showed Afib with RVR -- HR 130+ and was treated with IV Cardizem with improvement in his HR. The ED provider reported ST depression in V3-4-5. He had a slight elevation in his troponin so he was admitted for further evaluation and treatment. He states that his scapular discomfort started yesterday afternoon about 2 hours before coming in. It started at rest. He denies syncope, SOA or diaphoresis. Another problem that Keegan was experiencing was bleeding around his Strong catheter. He wears a chronic indwelling Strong for urinary retention and the ED provider thought that it had gotten pulled so replaced it. There were clots that required irrigation but this improved his urine flow. Dr. Devries had been his urologist. The family said that Keegan had been seen by Dr. [place] in [place] but he does not have privileges here at [facility]. The nurses this morning report concerns about patient having a scrotal mass. The patient denies knowledge of a mass nor does he report pain in his testicles or scrotum. He is on Plavix and Aspirin for his cardiac stents which can be contributing to his bleeding. Office records and previous hospitalization notes reviewed. Patient is NOT on anticoagulation for his Afib due to bleeding that has required transfusion as recently as April 2016. Objective Vital Signs Vital signs Vital Signs 07/29/16 07/29/16 07/29/16 07/29/16 00:38 04:06 07:38 07:40 Temp 98.1 97.8 97.9 97.9 Pulse 115 99 97 97 Resp 18 24 20 20 B/P 120/83 128/88 121/83 121/83 Pulse Ox 95 95 97 97 O2 Delivery Room Air Room Air Room Air Room Air 07/29/16 07:41 Pulse 97 Telemetry Rhythm: Atrial Fibrillation Height (Feet): 5 Height (Inches): 10.00 Weight (Kilograms): 96.000 General Alert, Cooperative, No Acute Distress Eyes (Brief) EOMI ENMT (Brief) mucosa moist Respiratory (Brief) clear all villaseñor, equal bilaterally, NOT FOUND: rales, wheezes Cardiovascular (Brief) murmur (3/6), NOT FOUND: pedal edema, peripheral edema (Brief) Comments No obvious clots in strong tubing. Still has some bleeding around urethral meatus Extremities (Brief) Extremity : Comments Left TR site w/o redness or drainage or hematoma. Radial pulse is strong. Fingers warm with intact sensation Psychiatric (Brief) alert, attentive, normal affect Laboratory Laboratory Laboratory Tests Test 07/27/16 19:02 07/28/16 04:26 07/28/16 05:33 07/28/16 05:35 White Blood Count 16.7T/MM3 15.0T/MM3 Red Blood Count 4.23M/MM3 3.60M/MM3 Hemoglobin 12.5GM/DL 10.7GM/DL Hematocrit 38.4% 33.3% Mean Corpuscular Volume 90.8UM3 92.5UM3 Mean Corpuscular Hemoglobin 29.6UUG 29.7UUG Mean Corpuscular Hemoglobin Concent 32.6GM/DL 32.1GM/DL RDW Standard Deviation 45.9FL 46.0FL Platelet Count 229T/MM3 199T/MM3 Mean Platelet Volume 10.6UM3 11.1UM3 Immature Granulocyte % (Auto) % 0.2% Neutrophils (%) (Auto) % 72.9% Lymphocytes (%) (Auto) % 14.6% Monocytes (%) (Auto) % 11.4% Eosinophils (%) (Auto) % 0.6% Basophils (%) (Auto) % 0.3% Absolute Immature Granulocyte (auto T/MM3 0.03T/MM3 Absolute Neutrophils (auto) T/MM3 10.9T/MM3 Absolute Lymphocytes (auto) T/MM3 2.2T/MM3 Absolute Monocytes (auto) T/MM3 1.7T/MM3 Absolute Eosinophils (auto) T/MM3 0.1T/MM3 Absolute Basophils (auto) T/MM3 0.0T/MM3 Neutrophils % (Manual) 88.0% Lymphocytes % (Manual) 11.0% Monocytes % (Manual) 1.0% Absolute Neutrophils (Manual) 14.7T/MM3 Lymphocytes # (Manual) 1.8T/MM3 Monocytes # (Manual) 0.2T/MM3 Red Cell Morphology Comment Normal Turbidity < 20 < 20 Sodium Level 138MEQ/L 140MEQ/L Potassium Level 4.6MEQ/L 4.3MEQ/L Chloride Level 101MEQ/L 105MEQ/L Carbon Dioxide Level 20MEQ/L 24MEQ/L Anion Gap 17MEQ/L 11MEQ/L Blood Urea Nitrogen 23.0MG/DL 17.0MG/DL Creatinine 0.8MG/DL 0.7MG/DL Glomerular Filtration Rate Calc 92 107 BUN/Creatinine Ratio 29RATIO 24RATIO Glucose Level 247MG/DL 136MG/DL Calculated Osmolality 278MOSM/KG 273MOSM/KG Calcium Level 9.9MG/DL 9.6MG/DL Icterus Index < 2 < 2 Troponin I 0.022ng/ml 1.660ng/ml Chemistry Specimen Hemolysis < 15 < 15 Magnesium Level 1.6MG/DL Triglycerides Level 57MG/DL Cholesterol Level 95MG/DL LDL Cholesterol, Calculated 48.6 VLDL Cholesterol 11.4MG/DL HDL Cholesterol Direct 35MG/DL Cholesterol/HDL Ratio 2.7RATIO Thyroid Stimulating Hormone (TSH) 1.79MIU/L Urine Collection Type Cleancatch-midstream Urine Color Yellow Urine Turbidity Sl cloudy Urine pH 5.5 Urine Specific [place] 1.025 Urine Protein 1+ Urine Glucose (UA) Negative Urine Ketones Negative Urine Blood 3+ Urine Nitrite Negative Urine Bilirubin Negative Urine Urobilinogen 0.2EU/DL Urine Leukocyte Esterase 1+ Urine RBC Tntc/HPF Urine WBC 30-50/HPF Urine WBC Clumps Moderate Urine Bacteria Trace Urine Culture Indicated Cult not indicated Glucometer 157mg/dL Test 07/28/16 09:48 07/28/16 11:36 07/28/16 15:49 07/28/16 18:36 Troponin I 1.400ng/ml 0.920ng/ml Chemistry Specimen Hemolysis < 15 < 15 Glucometer 138mg/dL 156mg/dL Test 07/28/16 20:55 07/29/16 04:19 07/29/16 05:49 Glucometer 199mg/dL 143mg/dL White Blood Count 9.4T/MM3 Red Blood Count 3.60M/MM3 Hemoglobin 10.5GM/DL Hematocrit 33.3% Mean Corpuscular Volume 92.5UM3 Mean Corpuscular Hemoglobin 29.2UUG Mean Corpuscular Hemoglobin Concent 31.5GM/DL RDW Standard Deviation 46.3FL Platelet Count 186T/MM3 Mean Platelet Volume 11.1UM3 Immature Granulocyte % (Auto) 0.1% Neutrophils (%) (Auto) 62.1% Lymphocytes (%) (Auto) 20.1% Monocytes (%) (Auto) 14.7% Eosinophils (%) (Auto) 2.6% Basophils (%) (Auto) 0.4% Absolute Immature Granulocyte (auto 0.01T/MM3 Absolute Neutrophils (auto) 5.8T/MM3 Absolute Lymphocytes (auto) 1.9T/MM3 Absolute Monocytes (auto) 1.4T/MM3 Absolute Eosinophils (auto) 0.2T/MM3 Absolute Basophils (auto) 0.0T/MM3 Turbidity < 20 Sodium Level 142MEQ/L Potassium Level 4.5MEQ/L Chloride Level 105MEQ/L Carbon Dioxide Level 24MEQ/L Anion Gap 13MEQ/L Blood Urea Nitrogen 15.0MG/DL Creatinine 0.7MG/DL Glomerular Filtration Rate Calc 107 BUN/Creatinine Ratio 21RATIO Glucose Level 140MG/DL Calculated Osmolality 276MOSM/KG Calcium Level 9.0MG/DL Icterus Index < 2 Chemistry Specimen Hemolysis < 15 Laboratory Tests 07/29/16 04:19 [Embedded Image Not Available] Laboratory Tests 07/29/16 04:19 [Embedded Image Not Available] EKG Telemetry shows Afib with HR in the 90s to 110s at rest that increases to 130s with exertion. Medications Current Medications Medications (Trade) Dose Ordered Sig/Jocelyne Start Time Stop Time Status Last Admin Dose Admin Morphine Sulfate (Morphine) 2-4 MG Q1H PRN 07/27/16 20:15 Ondansetron HCl (Zofran) 4 mg Q6H PRN 07/27/16 20:15 Enoxaparin Sodium (Lovenox) 40 mg DAILY 07/28/16 09:00 07/29/16 08:37 40 MG Ascorbic Acid (Vit. C) 500 mg HS 07/27/16 22:00 07/28/16 21:39 500 MG Aspirin (ASA) 325 mg DAILY 07/28/16 09:00 07/29/16 08:39 325 MG Atorvastatin Calcium (LIPITOR 40 mg) 40 mg HS 07/27/16 22:00 07/28/16 21:38 40 MG Ciprofloxacin (Cipro) 500 mg Q12HR 07/27/16 21:00 07/29/16 08:39 500 MG Clopidogrel Bisulfate (Plavix) 75 mg DAILY 10/6/16 09:00 07/29/16 08:39 75 MG Ferrous Sulfate (Feosol) 325 mg HS 07/27/16 22:00 07/28/16 06:24 DC 07/27/16 23:05 324 MG Fexofenadine HCl (Brenda) 180 mg DAILY 07/28/16 09:00 07/29/16 08:39 180 MG Metoprolol Tartrate (Lopressor) 12.5 mg BIDWM 07/28/16 08:00 07/29/16 08:36 DC 07/28/16 20:01 12.5 MG Nitroglycerin (Nitrostat) 0.4 mg Q5MIN PRN 07/27/16 20:30 Pantoprazole Sodium (Protonix) 40 mg ACBID 07/28/16 06:30 07/29/16 05:51 40 MG Ferrous Sulfate 324 mg 324 mg HS 07/28/16 06:24 07/28/16 21:39 324 MG Sodium Chloride (Normal Saline IV) 1,000 ml @ 75 mls/hr [id number] 07/28/16 13:00 07/29/16 02:19 DC 07/28/16 15:19 75 MLS/HR Atropine Sulfate (ATROPINE 1mg INJ) 0.5 mg Q5M PRN 07/28/16 17:15 Acetaminophen (Tylenol Regular Strength) 325-650 mg Q5H PRN 07/28/16 17:15 Morphine Sulfate (Morphine) 2-4 mg Q2H PRN 07/28/16 17:15 07/29/16 17:14 Morphine Sulfate (Morphine) 2-4 mg Q5MIN PRN 07/28/16 17:15 Acetaminophen/ Hydrocodone Bitart (Pequea 5/325) 1-2 tabs Q5H PRN 07/28/16 17:15 Promethazine HCl (Phenergan) 12.5-25 mg Q6H PRN 07/28/16 17:15 Nitroglycerin (Nitrostat) 0.4 mg Q5MIN PRN 07/28/16 17:15 Magnesium Hydroxide (Mom) 30 ml DAILY PRN 07/28/16 17:15 Bisacodyl (Dulcolax) 10 mg DAILY PRN 07/28/16 17:15 Bisacodyl (Dulcolax) 5-10 mg DAILY PRN 07/28/16 17:15 Al Hydroxide/Mg Hydroxide (Maalox) 30 ml Q3H PRN 07/28/16 17:15 Lorazepam (Ativan) 0.5-1 mg Q4H PRN 07/28/16 17:15 Lorazepam (Ativan) 0.5-1 mg Q4H PRN 07/28/16 17:15 Metoclopramide HCl (REGLAN Inj) 5-10 mg Q6H PRN 07/28/16 17:15 Ondansetron HCl (Zofran) 4 mg Q6H PRN 07/28/16 17:15 Metoprolol Tartrate (Lopressor) 25 mg BIDWM 07/29/16 17:30 Radiology 07/28/16 US TESTICULAR REASON FOR EXAM: SCROTAL MASS FINDINGS: Both testicles are present in expected location. The testicles demonstrate a homogenous echotexture without intratesticular mass. The right testicle measures 4 x 2.5 x 3.3 cm, and the left testicle measures 4.7 x 2.2 x 2.5 cm. Color Doppler imaging demonstrates symmetric, arterial flow throughout both testicles. Normal pulsed Doppler arterial and venous waveforms were obtained from each testicle. Both epididymis are enlarged with thickening and hyperemia. No abnormal intrascrotal fluid collections. Scrotal skin thickening and edema. IMPRESSION: No testicular mass or evidence of testicular torsion. Abnormally enlarged hyperemic epididymal heads could be due to epididymitis, although the patient was reportedly nontender. 07/27/16 CHEST 1 VIEW Findings: Prior sternotomy changes with fractured sternotomy sutures. Worsening interstitial opacities bilaterally with pulmonary vascular congestion. No pneumothorax or definite effusion. Right costophrenic angle is not entirely included. Moderate enlargement of the cardiac silhouette is stable. Mediastinal contours are unchanged. Impression: Increased interstitial markings with suggestion of pulmonary vascular congestion could be due to mild CHF or possibly atypical/viral pneumonia. Hospital Course 07/28/16 Not a candidate for anticoagulation for Afib due to anemia Afib rate controlled after IV Cardizem 10mg in ED; continue to monitor and adjust meds as indicated Slight elevation in troponin noted; already trending down this morning Has Hx CABG and multiple stents; kept NPO pending cath continue home statin and BP meds; hold metformin pending cath Consulted Dr. Mathur for urologist consult of bleeding around meatus and clots in catheter as well as for the scrotal mass. At his request I ordered a scrotal sonogram. The patient and family understand that Dr. Mathur will not be available to see the patient until tomorrow. (arrangements for this took approx 3 hours due to multiple phone calls and discussions as to urology coverage at [facility] today vs consulting hospitalist vs outpatient f/u). Problems: (1) NSTEMI (non-ST elevation myocardial infarction) Status: Acute Assessment & Plan: Had slight increase in troponin but no acute ST changes on EKG. (2) Elevated troponin Status: Acute Assessment & Plan: Slight elevation in troponin noted; already trending down this morning (3) Coronary artery disease Status: Chronic Assessment & Plan: See Heart cath report for details. (4) Atrial fibrillation with RVR Status: Chronic Assessment & Plan: Increased metoprolol to 25mg BID for better rate control (5) History of anemia Status: Chronic (6) Nonrheumatic aortic valve stenosis Status: Chronic (7) Hypertension Status: Chronic (8) Mixed hyperlipidemia Status: Chronic (9) Type II diabetes mellitus Status: Chronic (10) Urinary retention Status: Chronic (11) BPH (benign prostatic hypertrophy) Status: Chronic (12) Scrotal mass Status: Acute Assessment & Plan: Consulted Dr. Mathur on 07/28/16 but he is only available to see patient in the hospital on 2 days a week. At the patient's and family's request, I called and talked with him this morning regarding evaluation of his urethral bleeding and the scrotal mass. I read to him the US Scrotum report and he did not think that this needed attention in the hospital but will see in office next week. So I made appointment for Keegan to see Dr. Mathur at his [facility] on 08/03/16 at 2:15 p.m. Thank you, Dr. Mathur for your assistance! (13) History of non-Hodgkin's lymphoma Status: Chronic Code Status Do Not Resuscitate Home Meds Active Scripts Metoprolol Tartrate (Metoprolol Tartrate) 25 Mg Tablet, 25 MG PO BIDWM for 30 Days, #60 TAB 11 Refills Prov:SUZIE GROSS APRN 07/29/16 Ciprofloxacin HCl (Cipro) 500 Mg Tablet, 500 MG PO Q12HR, #20 TAB Prov:ROSITA BIRD MD 07/26/16 Reported Medications Nitroglycerin (Nitrostat) 0.4 Mg Tablet, 0.4 MG PO Q5MIN Y for CHEST PAIN 07/27/16 Ferrous Sulfate (Iron Supplement) 325 Mg Tablet, 325 MG PO HS 05/10/16 Ascorbic Acid (Ascorbic Acid) 500 Mg Tablet, 500 MG PO HS 05/10/16 Atorvastatin Calcium (Atorvastatin Calcium) 40 Mg Tablet, 40 MG PO HS 05/10/16 Clopidogrel Bisulfate (Clopidogrel) 75 Mg Tablet, 75 MG PO DAILY 05/10/16 Fexofenadine HCl (Fexofenadine HCl) 180 Mg Tablet, 180 MG PO DAILY 05/10/16 Calcium Carbonate/Vitamin D3 (Calcium + Vitamin D Tablet) 1 Each Tablet, 1 TAB PO HS 01/28/16 Metformin HCl (Metformin HCl) 1,000 Mg Tablet, 1000 MG PO BIDWM 01/28/16 Pantoprazole Sodium (Pantoprazole Sodium) 40 Mg Tablet.dr, 40 MG PO ACBID 01/12/16 Aspirin (Aspirin) 325 Mg Tablet, 325 MG PO DAILY 01/11/16 Discontinued Reported Medications Metoprolol Tartrate (Metoprolol Tartrate) 25 Mg Tablet, 12.5 MG PO BIDWM 05/10/16 Discharge Disposition Dismissed in good and stable condition to home with family assisting. Copies To 1: TEODORA TAVERAS DO Copies To 2: MARCELA MATHUR MD, HOSSEIN MD 07/29/16 1236: Hospital Course Home Meds Active Scripts Metoprolol Tartrate (Metoprolol Tartrate) 25 Mg Tablet, 25 MG PO BIDWM for 30 Days, #60 TAB 11 Refills Prov:SUZIE GROSS PIPE CLEANER 07/29/16 Ciprofloxacin HCl (Cipro) 500 Mg Tablet, 500 MG PO Q12HR, #20 TAB Prov:ROSITA BIRD MD 07/26/16 Reported Medications Nitroglycerin (Nitrostat) 0.4 Mg Tablet, 0.4 MG PO Q5MIN Y for CHEST PAIN 07/27/16 Ferrous Sulfate (Iron Supplement) 325 Mg Tablet, 325 MG PO HS 05/10/16 Ascorbic Acid (Ascorbic Acid) 500 Mg Tablet, 500 MG PO HS 05/10/16 Atorvastatin Calcium (Atorvastatin Calcium) 40 Mg Tablet, 40 MG PO HS 05/10/16 Clopidogrel Bisulfate (Clopidogrel) 75 Mg Tablet, 75 MG PO DAILY 05/10/16 Fexofenadine HCl (Fexofenadine HCl) 180 Mg Tablet, 180 MG PO DAILY 05/10/16 Calcium Carbonate/Vitamin D3 (Calcium + Vitamin D Tablet) 1 Each Tablet, 1 TAB PO HS 01/28/16 Metformin HCl (Metformin HCl) 1,000 Mg Tablet, 1000 MG PO BIDWM 01/28/16 Pantoprazole Sodium (Pantoprazole Sodium) 40 Mg Tablet.dr, 40 MG PO ACBID 01/12/16 Aspirin (Aspirin) 325 Mg Tablet, 325 MG PO DAILY 01/11/16 Discontinued Reported Medications Metoprolol Tartrate (Metoprolol Tartrate) 25 Mg Tablet, 12.5 MG PO BIDWM 05/10/16 Discharge Disposition After examining the patient I agree with the above assessment. I am involved in the formulation of the patient's plan of care. Copies To 1: TEODORA TAVERAS DO Copies To 2: MARCELA MATHUR MD, KAREN S APRN Jul 29, 2016 09:31 SWEETIE WALDROP MD Jul 29, 2016 12:36 Procedures Procedure Status Date Provider(s) CARDIAC REHAB/MONITOR Completed 01/28/16 CARDIAC REHAB/MONITOR Completed 01/28/16 CARDIAC REHAB/MONITOR Completed 01/28/16 CARDIAC REHAB/MONITOR Completed 01/28/16 CARDIAC REHAB/MONITOR Completed 01/28/16 CARDIAC REHAB/MONITOR Completed 01/28/16 CARDIAC REHAB/MONITOR Completed 01/28/16 CARDIAC REHAB/MONITOR Completed 01/28/16 CARDIAC REHAB/MONITOR Completed 01/28/16 URINALYSIS AUTO W/SCOPE Completed 07/04/16 URINE CULTURE/COLONY COUNT Completed 07/04/16 EMERGENCY DEPT VISIT Completed 07/04/16 [id number] ITEM OR SERVICE Completed 07/04/16 EMERGENCY DEPT VISIT Completed 07/14/16 URINALYSIS AUTO W/SCOPE Completed 07/17/16 EMERGENCY DEPT VISIT Completed 07/17/16 ROUTINE VENIPUNCTURE Completed 07/26/16 COMPREHEN METABOLIC PANEL Completed 07/26/16 URINALYSIS AUTO W/SCOPE Completed 07/26/16 COMPLETE CBC W/AUTO DIFF WBC Completed 07/26/16 CULTURE AEROBIC IDENTIFY Completed 07/26/16 URINE CULTURE/COLONY COUNT Completed 07/26/16 MICROBE SUSCEPTIBLE SUMMER Completed 07/26/16 EMERGENCY DEPT VISIT Completed 07/26/16 Encounters Encounter Location Arrival/Admit Date Discharge/Depart Date Attending Provider Discharged Inpatient [facility] 07/28/16 9:57am 07/29/16 10:11am SWEETIE WALDROP MD Departed Emergency Room [facility] 07/26/16 8:53am 07/26/16 12: 18pm ROSITA BIRD MD Departed Emergency Room [facility] 07/17/16 2:30pm 07/17/16 5: 25pm GWEN LAFLEUR MD Departed Emergency Room [facility] 07/14/16 1:36pm 07/14/16 4: 38pm FEBRUARYCHARANJIT DO Departed Emergency Room [facility] 07/04/16 2:36am 07/04/16 4: 53am KERRY EDWARDS MD Discharged Recurring [facility] 01/28/16 10:31am 06/21/16 11: 59pm ALEX HERMAN MD Recent Diagnosis Atrial fibrillation Chronic constipation Persistent atrial fibrillation
--- OUTSIDE RECORDS SUMMARY | 2017-02-02 10:18 | XMS REPORT ---
Author Author [facility], [facility] Unknown Address Unknown Phone Unavailable Allergies, Adverse Reactions, Alerts * lisinopril causes Cough. * No Latex Allergy. * No IV Contrast Allergy. Problems * Diabetes Mellitus* Status:Active. * Pain* Status:Active. * Tissue Perfusion Impairment* Status:Active. Procedures No relevant procedures performed. Medication It is the responsibility of the patient or patient advertising sales representative to confirm the list of medications with either the patient's personal care provider or the patient's follow-up care provider to ensure the patient has an appropriate list of medications to take at home. Discharge medications* ascorbic acid 500 mg Tablet, Ordered By: Leeanne Faria Directions: 1 tablet oral daily at bedtime * aspirin 81 mg tablet,delayed release (DR/EC), Ordered By: Leeanne Hicks Faria Directions: 1 tablet oral daily * ferrous sulfate 325 mg (65 mg iron) Tablet, Ordered By: Leeanne Cheung Directions: 1 tablet oral daily every evening * fexofenadine (Brenda) 180 mg Tablet, Ordered By: Leeanne Cheung Directions: 1 tablet oral daily * finasteride 5 mg Tablet, Ordered By: Leeanne HicksFaria Directions: 1 tablet oral daily at bedtime * losartan 25 mg Tablet, Ordered By: Leeanne Cheung Directions: 0.5 tablet oral daily at bedtime * metFORMIN 500 mg Tablet, Ordered By: Leeanne Cheung Directions: 1 tablet oral twice a day Additional Instructions: START 9-6 * sitaGLIPtin (JanUVIA) 100 mg Tablet, Ordered By: Leeanne Cheung Directions: 0.5 tablet oral daily * tamsuLOSIN (FLOmax) 0.4 mg capsule,extended release 24hr, Ordered By: Leeanne Cheung Directions: 1 capsule oral daily * atorvastatin (Lipitor) 20 mg Tablet, Ordered By: Leeanne Cheung Directions: 1 tablet oral daily at bedtime Additional Instructions: FORMULARY SUB FOR SIMVASTATIN 40 MG DAILY (ZOCOR) * carvedilol 3.125 mg Tablet, Ordered By: Leeanne Cheung Directions: 1 tablet oral twice a day during meal HOLD FOR SBP < 90 OR HR < 55 * clopidogrel (Plavix) 75 mg Tablet, Ordered By: Leeanne Cheung Directions: 1 tablet oral daily * isosorbide mononitrate (Imdur) 30 mg Tablet Extended Release 24 hr, Ordered By : Leeanne Cheung Directions: 0.5 tablet oral daily HOLD FOR SBP < 90 * pantoprazole 40 mg tablet,delayed release (DR/EC), Ordered By: Leeanne Cleaning Directions: 1 tablet oral daily before breakfast * warfarin (Coumadin) 5 mg Tablet, Ordered By: Leeanne Cheung Directions: 1 tablet oral Daily at 5 PM _ Stopped medications* OTC CENTRUM SILVER-MEN, 1 TABLET TAKEN ORALLY DAILY LAST TAKEN AT HOME 06/24/2013 AM * omeprazole (PriLOSEC) 20 mg capsule,delayed release(DR/EC) Directions: 1 capsule oral daily * OMEGA Q PLUS, 1 CAPSULE TAKEN ORALLY TWICE DAILY LAST TAKEN AT HOME 06/24/2013 AM * OTC VITAMIN D 1 CAPSULE TAKEN ORALLY DAILY LAST TAKEN AT HOME 06/24/2013 AM * simvastatin (Zocor) 40 mg Tablet Directions: 1 tablet oral daily at bedtime * atenolol 25 mg Tablet Directions: 0.5 tablet oral daily every evening Results LAB--BEDSIDE TESTING from 06/25/2013 1:00 PMActivated Clotting Time NPT 164 secs H (100-146 secs) LAB--BEDSIDE TESTING from 06/25/2013 2:03 PMActivated Clotting Time NPT 125 secs ( 100-146 secs) LAB--CHEMISTRY from 06/25/2013 3:58 PMCKMB Mass 3.6 ng/ml (0.0-6.3 ng/ml) CKMB Index 4.9 % H (0.0-2.5 %) Creatine Kinase (CPK) 74 U/L (49-397 U/L) Troponin 0.11 ng/mL HH (-<0.06 ng/mL) LAB--CHEMISTRY from 06/26/2013 11:46 AMAnion Gap 6 (3-20 ) BUN 11 mg/dL (4-20 mg/dL) Calcium 9.5 mg/dL (8.6-10.0 mg/dL) Chloride 106 mEq/L (99-109 mEq/L) CO2 29 mEq/L (22-32 mEq/L) Creatinine 0.72 mg/dL (0.64-1.27 mg/dL) eGFR >60 (>60- ) Glucose 145 mg/dL H (70-100 mg/dL) Potassium 4.4 mEq/L (3.6-5.1 mEq/L) Sodium 141 mEq/L (136-144 mEq/L) LAB--COAG STUDIES from 06/25/2013 10:43 AMINR 1.0 (0.9-1.2 ) PTT 78.8 sec H (25.0-35.0 sec) LAB--COAG STUDIES from 06/26/2013 11:46 AMINR 1.0 (0.9-1.2 ) LAB--COAG STUDIES from 06/27/2013 5:18 AMINR 1.0 (0.9-1.2 ) LAB--HEMATOLOGY from 06/26/2013 11:46 AMHCT 39.5 % L (42.0-52.0 %) HGB 13.0 g/dl L (14.0-18.0 g/dl) MCH 28.9 pg (27.0-32.0 pg) MCHC 32.9 g/dL (32.0-36.0 g/dL) MCV 87.8 fL (82.0-99.0 fL) MPV 10.7 fL (9.4-12.3 fL) Platelet Count 182 K/uL (150-400 K/uL) RBC 4.50 M/uL L (4.60-6.20 M/uL) RDW 16.4 % H (11.5-14.5 %) WBC 7.9 K/uL (4.8-10.8 K/uL) LAB--HEMATOLOGY from 06/27/2013 5:18 AMHCT 38.8 % L (42.0-52.0 %) HGB 12.5 g/dl L (14.0-18.0 g/dl) MCH 28.4 pg (27.0-32.0 pg) MCHC 32.2 g/dL (32.0-36.0 g/dL) MCV 88.2 fL (82.0-99.0 fL) MPV 10.8 fL (9.4-12.3 fL) Platelet Count 177 K/uL (150-400 K/uL) RBC 4.40 M/uL L (4.60-6.20 M/uL) RDW 16.4 % H (11.5-14.5 %) WBC 6.5 K/uL (4.8-10.8 K/uL)
--- OUTSIDE RECORDS SUMMARY | 2017-02-02 10:18 | XMS REPORT | Summary of Care ---
Author Author Dillan Rader M.D. Unknown Address [address] [place] [address] [place] [address] Phone Unavailable Care Team Providers Care Heating Element Builder Name Role Phone Dillan Rader M.D. 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: Active Clot retention of urine (788.29, R33.8) Status: Active Hematuria (599.70, R31.9) Status: Active Urinary retention (788.20, R33.9) Status: Active Presence of indwelling urethral catheter (V45.89, Z96.0) Status: Active Medications Name Dates Details Brenda [...] Sublingual Tablet Sublingual * Refills: 0 Active [place] 5-325 MG Oral Tablet * Refills: 0 [...] smoker Vital Signs Date Test Result Details No Known Vitals to report Results Date Description Value Details Results not documented Plan of Care Name Dates Details Planned Observations Planned Goals not documented Planned Encounters Appointment; Provider: Dillan Rader M.D. On 04-Nov-2016 10:30 Instructions Name Dates Details Instructions not documented Encounters Appointment; Dillan Rader M.D. Encounter Diagnosis: Problem not documented On 01-Sep-2016 10:15 Appointment; Dillan Rader M.D. Encounter Diagnosis: Problem not documented On 03-Aug-2016 14:15
--- OUTSIDE RECORDS SUMMARY | 2017-02-02 10:18 | XMS REPORT | Continuity of Care Document ---
Author Author [facility] Organization [facility] Address Unknown Phone Unavailable Support Name Relationship Address Phone GRACE VICTOR MD Caregiver [facility] [address] , [facility] [address] [place] [phone] DONOVAN CARRILLO MD Caregiver [address] [place] [address] [address] [place] [phone] LEE ANN BEE Next Of Kin [address] [place] [address] Insurance Providers Payer Name Policy Number Subscriber Name Relationship Medicare [id number] Keegan Bee 19 Self [facility] [id number] Keegan Bee 19 Self Advance Directives Directive Response Recorded Date/Time Ordered Resuscitation Status Full Code 02/02/15 3:45pm Resuscitation Documents on File No 02/02/15 3:20pm Problems Medical Problems Problem Onset Date Status Acute Coronary Syndrome Unknown Active Medications Medication Dose Route Sig Days/Qty Instructions Order Date Discontinued Date Status Simvastatin 20 Mg PO BEDTIME 04/01/10 03/12/13 Discontinued Aspirin 81 Mg PO DAILY 04/01/10 Active Acetaminophen 500 Mg PO NEEDED 04/01/10 11/14/11 Discontinued Tramadol Hcl 50 Mg PO NEEDED 04/01/10 11/14/11 Discontinued Calcium Carbonate/Vitamin D3 1 Tab PO DAILY 04/01/10 03/13/13 Discontinued Ascorbic Acid 500 Mg PO DAILY 04/01/10 03/12/13 Discontinued Glucos-Msm/Chondro Leonard A 1 Cap PO DAILY 04/01/10 03/12/13 Discontinued Sitagliptin Phos/Metformin Hcl 1 Tab PO TWICE A DAY 11/15/11 Discontinued Prednisone 10 Mg PO DAILY 11/15/11 03/12/13 Discontinued Tramadol Hcl 50 Mg PO NEEDED 11/15/11 03/12/13 Discontinued Tamsulosin Hcl 0.4 Mg PO DAILY 03/12/13 Active Losartan Potassium 12.5 Mg PO DAILY 03/12/13 Active Fexofenadine Hcl 180 Mg PO DAILY 03/12/13 Active Metformin Hcl 1,000 Mg PO TWICE A DAY 03/12/13 Active Allopurinol 300 Mg PO DAILY 05/27/13 05/28/13 Discontinued Ascorbic Acid 500 Mg PO DAILY 05/27/13 Active Sitagliptin Phosphate 50 Mg PO DAILY 02/02/15 Active Clopidogrel Bisulfate 75 Mg PO DAILY 02/02/15 Active Isosorbide Mononitrate 15 Mg PO DAILY 02/02/15 Active Pantoprazole Sodium 40 Mg PO BEFORE BREAKFAST Take 1 tablet, by mouth, one time a day before breakfast. 02/02/15 Active Carvedilol 1 Tab PO TWICE DAILY WITH MEALS 02/02/15 Active Atorvastatin Calcium 40 Mg PO BEDTIME 02/02/15 Active Finasteride 1 Tab PO BEDTIME 02/02/15 Active Ferrous Sulfate 1 Tab PO BEDTIME BEST WITH FOOD. 02/02/15 Active Calcium Carbonate/Vitamin D3 1 Tab PO DAILY 02/02/15 Active Ranolazine 1,000 Mg PO TWICE A DAY 02/02/15 Active Social History Social History Problem Response Recorded Date/Time Chewing Tobacco Status No 06/24/2013 3:28pm Hx Substance Use No 02/02/2015 3:21pm Hx Alcohol Use No 02/02/2015 3:21pm Has the pt used tobacco in the last 12 months No 02/02/2015 3:21pm Query Response Start Date Stop Date Smoking Status Never smoker Hospital Discharge Instructions No hospital discharge instructions. Plan of Care No plan of care. Functional Status No functional status results. Allergies, Adverse Reactions, Alerts Allergen Type Severity Reaction Status Last Updated Lisinopril Adverse Reaction COUGH Active 05/27/13 Immunizations Name Given Type Hx Influenza Vaccination No Historical Hx Pneumococcal Vaccination No Historical Hx Influenza Vaccination No Historical Vital Signs Acute Vital Signs Vital Response Date/Time Temperature (Fahrenheit) 97.0 deg F (96.8 - 99.1) Temperature (Calculated Celsius) 36.49383 degrees C (36.0 - 37.3) Temperature Source Temporal Pulse Rate (adult) 56 bpm (60 - 100) Respiratory Rate 16 breaths/min (10 - 20) O2 Sat by Pulse Oximetry 100 % (90 - 100) Oxygen Delivery Method Room Air Blood Pressure 142/78 mm Hg Blood Pressure Source Automatic Cuff Height 5 ft 9 in Weight 226 lb Body Mass Index 33.0 kg/m^2 Results Test Source Date Result Interp. Ref. Range Comments Platelet Function P2Y12 React Units February 03, 2015 6:29am 239 PRU - PRU reference range for non-treated is 194-418.Post Drug Results: Lower PRU levels are associated with antiplatelet effect. PRU results <194 are highly indicative of a P2Y12 inhibitor effect. PRU of >237 corresponds to previously recommended pre-surgical level of <20% inhibition. NOTE: Test not reliable with NSAID use or low platelet counts. Not for use with inherited platelet disorders. Activated Partial Thromboplast Time June 24, 2013 3:50pm 29.7 SEC N 24-36 Alanine Aminotransferase (ALT/SGPT) June 24, 2013 3:50pm 34 U/L N 21-72 Albumin June 24, 2013 3:50pm 4.1 G/DL N 3.5-5.0 Albumin/Globulin Ratio June 24, 2013 3:50pm 1.5 RATIO N 1.1-2.2 Alkaline Phosphatase June 24, 2013 3:50pm 89 U/L N 38-126 Anion Gap January 14, 2015 10:25am 12 MEQ/L N 5-15 Aspartate Amino Transf (AST/SGOT) June 24, 2013 3:50pm 28 U/L N 17- 59 BUN/Creatinine Ratio January 14, 2015 10:25am 18 RATIO N 6-26 Band Neutrophils # January 09, 2013 4:25am 1.3 T/MM3 - Band Neutrophils % January 09, 2013 4:25am 9.0 % H 0-6 Basophils # (Auto) May 28, 2013 6:15am 0.1 T/MM3 N 0-0.2 COMMENT SCU WILL CALL Basophils # (Manual) June 23, 2010 8:50am 0.0 T/MM3 N 0-0.2 Basophils % (Manual) June 23, 2010 8:50am 0.0 % N 0-2 Basophils (%) (Auto) May 28, 2013 6:15am 0.7 % N 0-2 COMMENT SCU WILL CALL Blood Urea Nitrogen January 14, 2015 10:25am 14.0 MG/DL N 9-20 C-Reactive Protein April 30, 2013 5:58am 39.6 MG/L H 0-9 Calcium Level January 14, 2015 10:25am 9.4 MG/DL N 8.4-10.2 Calculated Osmolality January 14, 2015 10:25am 255 MOSM/KG L 261-280 Carbon Dioxide Level January 14, 2015 10:25am 26 MEQ/L N 22-30 Chemistry Specimen Hemolysis January 14, 2015 10:25am < 15 0-25 0-25: No Hemolysis.26-70: Slight Hemolysis - can falsely elevate K and Urine Protein. 71-285: Moderate Hemolysis - can falsely elevate K, Troponin I, CA 19-9, PTH, CSF GLucose, and Urine Protein, and can falsely decrease Phenytoin. 286-999: Gross Hemolysis - can falsely elevate K, Troponin I, CA 19-9, PTH, CSF Glucose, and Urine Protine, and can falsely decrease Phenytoin. Recommend specimen recollection. Chloride Level January 14, 2015 10:25am 93 MEQ/L L 98-107 Creatinine January 14, 2015 10:25am 0.8 MG/DL N 0.8-1.5 Differential Total Cells Counted October 19, 2010 3:00pm 100 % - Eosinophils # (Auto) May 28, 2013 6:15am 0.3 T/MM3 N 0-0.5 COMMENT SCU WILL CALL Eosinophils # (Manual) June 24, 2013 3:50pm 0.3 T/MM3 N 0-0.5 Eosinophils % (Manual) June 24, 2013 3:50pm 4.0 % N 0-4 Eosinophils (%) (Auto) May 28, 2013 6:15am 4.5 % H 0-4 COMMENT SCU WILL CALL Erythrocyte Sedimentation Rate April 30, 2013 5:58am 31 MM/HR H 0-15 Ferritin April 27, 2013 1:00pm 37.1 NG/ML N 18-464 COMMENT juan Globulin June 24, 2013 3:50pm 2.7 G/DL N 2.4-3.6 Glomerular Filtration Rate Calc January 14, 2015 10:25am 92 - Glucometer February 03, 2015 6:29am 136 mg/dL H 75-110 Glucose Level January 14, 2015 10:25am 113 MG/DL H 75-110 Hematocrit June 24, 2013 3:50pm 39.0 % L 41-53 Hemoglobin June 24, 2013 3:50pm 13.2 GM/DL L 13.5-17.5 Icterus Index January 14, 2015 10:25am < 2 0-7 Immature Granulocyte # (Auto) May 28, 2013 6:15am 0.01 T/MM3 N 0.00- 0.03 COMMENT SCU WILL CALL Immature Granulocyte % (Auto) May 28, 2013 6:15am 0.1 % N 0.0-0.5 COMMENT SCU WILL CALL Iron Level April 27, 2013 1:00pm 41 UG/DL L 49-181 COMMENT juan Lab Scanned Report January 14, 2015 10:47am LAB TEST FORM REQUEST - Lactate Dehydrogenase June 10, 2010 9:40am 459 U/L N 313-618 Lymphocytes # (Auto) May 28, 2013 6:15am 2.6 T/MM3 N 1-4.8 COMMENT SCU WILL CALL Lymphocytes # (Manual) June 24, 2013 3:50pm 1.8 T/MM3 N 1-4.8 Lymphocytes % (Manual) June 24, 2013 3:50pm 23.0 % N 23-45 Lymphocytes (%) (Auto) May 28, 2013 6:15am 34.4 % N 23-45 COMMENT SCU WILL CALL MRSA Specimen Source April 27, 2013 9:58am Nasal - COMMENT NASAL SWAB FOR MRSA Magnesium Level June 24, 2013 3:50pm 1.9 MG/DL N 1.6-2.3 Mean Corpuscular Hemoglobin June 24, 2013 3:50pm 29.4 UUG N 26-34 Mean Corpuscular Hemoglobin Concent June 24, 2013 3:50pm 33.8 GM/DL N 31-37 Mean Corpuscular Volume June 24, 2013 3:50pm 86.9 UM3 N 80-100 Mean Platelet Volume June 24, 2013 3:50pm 10.9 UM3 N 9.4-12.4 Metamyelocytes # October 12, 2010 9:30am 0.2 T/MM3 - Metamyelocytes % October 12, 2010 9:30am 2.0 % H 0-0 Methicillin-Resist S.aureus DNA PCR April 27, 2013 9:58am Negative - COMMENT NASAL SWAB FOR MRSA Monocytes # (Auto) May 28, 2013 6:15am 1.0 T/MM3 H 0-0.8 COMMENT SCU WILL CALL Monocytes # (Manual) June 24, 2013 3:50pm 0.5 T/MM3 N 0-0.8 Monocytes % (Manual) June 24, 2013 3:50pm 7.0 % N 0-9.0 Monocytes (%) (Auto) May 28, 2013 6:15am 13.4 % H 0-9.0 COMMENT SCU WILL CALL HL-Iof-X-Type Natriuretic Peptide January 14, 2015 10:25am 203 PG/ML H 0- 175 Rule in cut points: <50 years old=450; 50-75 years old=900; >75 years old=1800; When utilizing ProBNP rule-in cut points, adjustment for impaired renal function is typically not required. Neutrophils # (Auto) May 28, 2013 6:15am 3.6 T/MM3 N 1.8-7.7 COMMENT SCU WILL CALL Neutrophils # (Manual) June 24, 2013 3:50pm 5.1 T/MM3 N 1.8-7.7 Neutrophils % (Manual) June 24, 2013 3:50pm 66.0 % N 33-66 Neutrophils (%) (Auto) May 28, 2013 6:15am 46.9 % N 33-66 COMMENT SCU WILL CALL Platelet Count June 24, 2013 3:50pm 181 T/MM3 N 130-400 Potassium Level January 14, 2015 10:25am 4.7 MEQ/L N 3.6-5 Prealbumin January 07, 2013 3:48pm 15.8 MG/DL L 17.6-36.0 Prostate Specific Antigen March 08, 2010 10:49am 1.05 NG/ML N 0-4.0 Prothromb Time International Ratio June 24, 2013 3:50pm 0.97 N 0.86 -1.10 THERAPUTIC RANGE=2.00-3.00 FOR ANTI-THROMBOSIS THERAPUTIC RANGE=2.50- 3.50 FOR IMPLANTED VALVE RDW Standard Deviation June 24, 2013 3:50pm 50.9 FL H 36.9-50.2 Reactive Lymphocytes # October 12, 2010 9:30am 0.2 T/MM3 H 0-0 Reactive Lymphocytes % October 19, 2010 3:00pm 1.0 % H 0-0 Red Blood Count June 24, 2013 3:50pm 4.49 M/MM3 L 4.50-5.90 Serum Immunofixation March 08, 2010 10:49am Send out - Sodium Level January 14, 2015 10:25am 131 MEQ/L L 134-144 Thyroid Stimulating Hormone (TSH) January 07, 2013 3:48pm 2.41 MIU/L N 0.47-4.68 Total Bilirubin June 24, 2013 3:50pm 0.30 MG/DL N 0.20-1.30 Total Iron Binding Capacity April 27, 2013 1:00pm 277 UG/DL N 261-497 COMMENT juan Total Protein June 24, 2013 3:50pm 6.8 G/DL N 6.3-8.2 Toxic Granulation July 13, 2010 2:55pm 1+ - Troponin I June 24, 2013 3:50pm 0.125 ng/ml PH 0-0.12 Y@ DAGOBERTO (Y or N): Turbidity January 14, 2015 10:25am < 20 0-20 Urine Bacteria January 07, 2013 4:30pm 4+ H - COMMENT *SET UP CULTURE IF INDICATED*Has specimen been collected/obtained? Y Urine Bilirubin January 07, 2013 4:30pm Negative - COMMENT *SET UP CULTURE IF INDICATED*Has specimen been collected/obtained? Y Urine Blood January 07, 2013 4:30pm 4+ H - COMMENT *SET UP CULTURE IF INDICATED*Has specimen been collected/obtained? Y Urine Collection Type January 07, 2013 4:30pm Voided - COMMENT *SET UP CULTURE IF INDICATED*Has specimen been collected/obtained? Y Urine Color January 07, 2013 4:30pm Brown - COMMENT *SET UP CULTURE IF INDICATED*Has specimen been collected/obtained? Y Urine Culture Indicated January 07, 2013 4:30pm Cult reflexed &setup - COMMENT *SET UP CULTURE IF INDICATED*Has specimen been collected/obtained? Y Urine Glucose (UA) January 07, 2013 4:30pm Negative - COMMENT *SET UP CULTURE IF INDICATED*Has specimen been collected/obtained? Y Urine Ketones January 07, 2013 4:30pm Negative - COMMENT *SET UP CULTURE IF INDICATED*Has specimen been collected/obtained? Y Urine Leukocyte Esterase January 07, 2013 4:30pm 2+ H - COMMENT *SET UP CULTURE IF INDICATED*Has specimen been collected/obtained? Y Urine Nitrite January 07, 2013 4:30pm Positive H - COMMENT *SET UP CULTURE IF INDICATED*Has specimen been collected/obtained? Y Urine Protein January 07, 2013 4:30pm 3+ H - COMMENT *SET UP CULTURE IF INDICATED*Has specimen been collected/obtained? Y Urine RBC January 07, 2013 4:30pm 50-200 /HPF H - COMMENT *SET UP CULTURE IF INDICATED*Has specimen been collected/obtained? Y Urine Specific Hannacroix January 07, 2013 4:30pm 1.020 - COMMENT *SET UP CULTURE IF INDICATED*Has specimen been collected/obtained? Y Urine Turbidity January 07, 2013 4:30pm Bloody - COMMENT *SET UP CULTURE IF INDICATED*Has specimen been collected/obtained? Y Urine Urobilinogen January 07, 2013 4:30pm Normal EU/DL - COMMENT *SET UP CULTURE IF INDICATED*Has specimen been collected/obtained? Y Urine WBC January 07, 2013 4:30pm Tntc /HPF H - COMMENT *SET UP CULTURE IF INDICATED*Has specimen been collected/obtained? Y Urine pH January 07, 2013 4:30pm 6.0 - COMMENT *SET UP CULTURE IF INDICATED*Has specimen been collected/obtained? Y Vancomycin Level Trough April 29, 2013 3:54am 13.67 UG/ML L 15-20 Vitamin B12 Level January 07, 2013 3:48pm 880 PG/ML N 239-931 White Blood Count June 24, 2013 3:50pm 7.8 T/MM3 N 4.5-11.0 Urine Culture Urine, Clean Catch Voided January 07, 2013 5:04pm Staphylococcus Aureus Gram Stain Finger-Left Second May 28, 2013 8:16am Procedures Procedure Status Date Provider(s) METABOLIC PANEL TOTAL CA completed 01/14/15 ASSAY OF NATRIURETIC PEPTIDE completed 01/14/15 Colonoscopy completed 02/03/15 GRACE VICTOR MD Encounters Encounter Location Date/Time Registered Clinic [facility] 01/14/15 10:33am
--- OUTSIDE RECORDS SUMMARY | 2017-02-02 10:19 | XMS REPORT | Summary of Care ---
Author Author Dillan Rader M.D. Unknown Address [address] [place] [address] [place] [address] Phone Unavailable Care Team Providers Care Board Certified Music Therapist Name Role Phone Dillan Rader M.D. Unavailable [...] Status: Active Hematuria (599.70, R31.9) Status: Active Chronic anticoagulation (V58.61, Z79.01) Status: Active Urinary retention (788.20, R33.9) Status: Active Urinary catheter (Alvarez) change required (V53.6, Z46.6) Status: Active Presence of indwelling urethral catheter [...] Sublingual Tablet Sublingual * Refills: 0 Active [place] 5-325 MG Oral Tablet * Refills: 0 [...] Encounters Appointment; Provider: Dillan Rader M.D. On 03-Feb-2017 10:30 Instructions Name Dates Details Instructions not documented Encounters Appointment; Dillan Rader M.D. Encounter Diagnosis: Problem not documented On 02-Dec-2016 09:00 Appointment; Dillan Rader M.D. Encounter Diagnosis: Problem not documented On 04-Nov-2016 10:30 Appointment; Dillan Rader M.D. Encounter Diagnosis: Problem not documented On 05-Oct-2016 10:15 Appointment; Dillan Rader M.D. Encounter Diagnosis: Problem not documented On 01-Sep-2016 10:15 Appointment; Dillan Rader M.D. Encounter Diagnosis: Problem not documented On 03-Aug-2016 14:15
--- OUTSIDE RECORDS SUMMARY | 2017-02-02 10:19 | XMS REPORT | Summary of Care ---
Author Author Dillan Rader M.D. Unknown Address [address] [place] [address] [place] [address] Phone Unavailable Care Team Providers Care Molder Name Role Phone Dillan Rader M.D. Unavailable [...] Status: Active Hematuria (599.70, R31.9) Status: Active Presence of indwelling urethral catheter (V45.89, Z96.0) Status: Active Urinary catheter (Alvarez) change required (V53.6, Z46.6) Status: Active Urinary retention (788.20, R33.9) Status: Active Chronic anticoagulation (V58.61, Z79.01) Status: Active Medications Name Dates Details Brenda [...] Sublingual Tablet Sublingual * Refills: 0 Active [place] 5-325 MG Oral Tablet * Refills: 0 [...] Encounters Appointment; Provider: Dillan Rader M.D. On 02-Dec-2016 09:00 Instructions Name Dates Details Instructions not documented Encounters Appointment; Dillan Rader M.D. Encounter Diagnosis: Problem not documented On 05-Oct-2016 10:15 Appointment; Dillan Rader M.D. Encounter Diagnosis: Problem not documented On 01-Sep-2016 10:15 Appointment; Dillan Rader M.D. Encounter Diagnosis: Problem not documented On 03-Aug-2016 14:15
--- OUTSIDE RECORDS SUMMARY | 2017-02-02 10:19 | XMS REPORT | Continuity of Care Document ---
Author Author [facility] Organization [facility] Address Unknown Phone Unavailable Allergies Active Description Code Type Severity Reaction Onset Reported/Identified Relationship to Patient Clinical Status Yes lisinopril NKMA N/A Cough 02/19/2014 Medications Problems Procedures Results Test Result Range CBC With Platelet and Differential - 05/20/16 09:23 Absolute Basophils 0.04 10*3/uL 0.00- 0.30 Absolute Eosinophils 0.14 10*3 0.00-0.60 Absolute Lymphocytes 1.58 10*3 1.00-4.00 Absolute Monocytes 0.94 10*3 0.20-0.80 Absolute Neutrophils 3.83 10*3 2.50-7.00 Basophils 1 % 0-2 Eosinophils 2 % 0-6 HCT 33.8 % 40.0-54.0 HGB 10.7 g/dL 12.0-16.0 Lymphocytes 24 % 20-40 MCH 30.8 pg 26.0-34.0 MCHC 31.7 g/dL 32.0-36.0 MCV 97.4 fL 80.0-96.0 Monocytes 14 % 4-8 MPV 9.8 fL 8.8-14.8 Neutrophils 59 % 50-70 Platelet Count 230 K/uL 150-400 RBC 3.47 10*6/uL 3.70-5.20 RDW 17.0 % 0.0-14.5 WBC 6.5 K/uL 5.0-10.0 Hemoglobin A1C - 05/30/16 11:06 Hemoglobin A1C 5.1 % 4.1-5.6 Estimated Average Glucose - 05/30/16 11:06 Estimated Average Glucose 99.7 mg/dL Encounters ACCT No. Visit Date/Time Discharge Status Pt. Type Provider Facility Loc./Unit Complaint [id number] 12/09/2013 09:18:00 12/09/2013 23 :59:59 [facility] Outpatient [id number] 12/03/2013 10:08:00 12/03/2013 23 :59:59 [facility] [id number] 11/25/2013 10:04:00 11/25/2013 23 :59:59 [facility] [id number] 09/24/2013 16:11:00 09/24/2013 23 :59:59 [facility] Out[facility] [id number] 08/14/2013 11:17:00 08/14/2013 23 :59:59 [facility] Out[facility]
--- OUTSIDE RECORDS SUMMARY | 2017-02-02 10:20 | XMS REPORT | Summary of Care ---
Author Author Dillan Rader M.D. Unknown Address [address] [place] [address] [place] [address] Phone Unavailable Care Team Providers Care Manufacturing Assistant Name Role Phone Dillan Rader M.D. Unavailable [...] Status: Active Hematuria (599.70, R31.9) Status: Active Medications Name Dates Details Brenda [...] Sublingual Tablet Sublingual * Refills: 0 Active [place] 5-325 MG Oral Tablet * Refills: 0 [...] of Cataract Surgery History of Knee Surgery URINE CULTURE [id number] Ordered: 01-Sep-2016 Immunization Name Dates Details Immunizations not documented [...] Provider: Dillan Rader M.D. On 05-Oct-2016 10:15 Interventions Provided Labs/Procedures/Imaging* URINE CULTURE [id number]; To be Done: 01 Sep 2016 Instructions Name Dates Details Instructions not documented Encounters Appointment; Dillan Rader M.D. Encounter Diagnosis: Problem not documented On 03-Aug-2016 14:15
--- OUTSIDE RECORDS SUMMARY | 2017-02-02 10:20 | XMS REPORT | Summary of Care ---
Author Author Dillan Rader M.D. Unknown Address [address] [place] [address] [place] [address] Phone Unavailable Care Team Providers Care Review Analyst Name Role Phone Dillan Rader M.D. Unavailable [...] indwelling urethral catheter (V45.89, Z96.0) Status: Active Chronic anticoagulation (V58.61, Z79.01) Status: Active Urinary catheter (Alvaerz) change required (V53.6, Z46.6) Status: Active Urinary retention (788.20, R33.9) Status: Active Medications Name Dates Details Brenda [...] Sublingual Tablet Sublingual * Refills: 0 Active [place] 5-325 MG Oral Tablet * Refills: 0 [...] Encounters Appointment; Provider: Dillan Rader M.D. On 30-Dec-2016 08:30 Instructions Name Dates Details Instructions not documented Encounters Appointment; Dillan Rader M.D. Encounter Diagnosis: Problem not documented On 04-Nov-2016 10:30 Appointment; Dillan Rader M.D. Encounter Diagnosis: Problem not documented On 05-Oct-2016 10:15 Appointment; Dillan Rader M.D. Encounter Diagnosis: Problem not documented On 01-Sep-2016 10:15 Appointment; Dillan Rader M.D. Encounter Diagnosis: Problem not documented On 03-Aug-2016 14:15
--- OUTSIDE RECORDS SUMMARY | 2017-02-02 10:21 | XMS REPORT | Summary of Care ---
Author Author Dillan Rader M.D. Unknown Address [address] [place] [address] [place] [address] Phone Unavailable Care Team Providers Care Manager Materials Management Name Role Phone Hank Maddenley Unavailable Unavailable Unavailable Unavailable Functional Status Name [...] Sublingual Tablet Sublingual * Refills: 0 Active [place] 5-325 MG Oral Tablet * Refills: 0 [...] m2 Status: Results Date Description Value Details 03-Sep-2016 15:56 URINE CULTURE [id number] Comments: [employer] [facility], [address] [place] [address], [address], Elastic Tape Inserter: Dillan Downey D.O., MPHQuest Collection Date/Time: [id number] Results Received Date/Time: [id number] Reported Date/Time: [id number] FASTING:[employer] performed at: [facility], [address] [place], [address], Elastic Tape Inserter: Dillan Downey D.O., MPHQuest Collection Date/Time: [id number] Results Received Date/Time: [id number] Reported Date/Time: FASTING:NO CULTURE, URINE, ROUTINE SEE NOTE (Abnormal) Comments: CULTURE, URINE, ROUTINE MICRO NUMBER: [id number] TEST STATUS: FINAL SPECIMEN SOURCE : URINE, CATHETER SPECIMEN QUALITY: ADEQUATE RESULT: Greater than 100,000 CFU/mL of Enterococcus species Enterococcus sp. INT SUMMER AMPICILLIN S <=2 NITROFURANTOIN S <=16 VANCOMYCIN S 1S=Susceptible I=Intermediate R= Resistant *=Not TestedNR=Not Reported NN=See Therapy Comments[IN]----- Plan of Care Name Dates Details Planned Observations Planned Goals not documented Planned Encounters Appointment; Provider: Dillan Rader M.D. On 05-Oct-2016 10:15 Instructions Name Dates Details Instructions not documented Encounters Appointment; Dillan Rader M.D. Encounter Diagnosis: Problem not documented On 01-Sep-2016 10:15 Appointment; Dillan Rader M.D. Encounter Diagnosis: Problem not documented On 03-Aug-2016 14:15
--- OUTSIDE RECORDS SUMMARY | 2017-02-02 10:21 | XMS REPORT | Referral Summary ---
Author Author [facility] Organization [facility] Address Unknown Phone Unavailable Care Team Providers Care Mold Clamper Name Role Phone Leah Madden Primary Care Physician [phone] Encounter VC Date(s): 07/18/16 - 07/18/16 [facility] [address] [place] [address] ROSA Par[place] [id number] Discharge Diagnosis: Gross hematuria Discharge Diagnosis: Urinary retention Discharge Disposition: 01-Home or Self Care Attending Physician: Terrance Beltran MD Admitting Physician: Terrance Beltran MD Vital Signs Most recent to 1 oldest [Reference Range]: Peripheral Pulse 84 bpm Rate [60-100 bpm] (07/18/16 2:26 PM) Blood Pressure 104/78 mmHg [90-140/60-90 mmHg] (07/18/16 2:26 PM) Problem List Condition Effective Dates Status Health Status Informant Allergic rhinitis Active (disorder)(Confirmed ) Allergic Active rhinitis/Hay Fever(Confirmed) Allergy(Confirmed) Resolved Anemia(Confirmed) Active Angina Active pectoris(Confirmed) BPH(Confirmed) Resolved Bronchitis(Confirmed Resolved ) Cataracts(Confirmed) Resolved Constipation Active (disorder)(Confirmed ) CAD (coronary artery Active disease)(Confirmed) Coronary Active atherosclerosis of unspecified type of bypass graft(Confirmed) Generalized Active osteoarthritis (disorder)(Confirmed ) Diabetes(Confirmed) Resolved Hearing loss Active (disorder)(Confirmed ) Hearing Resolved loss(Confirmed) Dyslipidemia, goal Resolved LDL below 70(Confirmed) Non-Hodgkins Resolved lymphoma(Confirmed) Urinary Active retention(Confirmed) Obesity(Confirmed) Active patient Osteoarthritis(Confi Resolved rmed) Paroxysmal atrial Active fibrillation(Confirm ed) PSVT (paroxysmal Active supraventricular tachycardia)(Confirm ed) Sacral decubitus Active ulcer, stage II(Confirmed) Decubitus ulcer of Active buttock, stage 2(Confirmed) Prostatism(Confirmed Active )1, 2 sun exposure Active mild/severe sunburn(Confirmed) UTI with Active MRSA(Confirmed) 1please ignored previous comment. 2misspelled - please check Chart Abs Allergies, Adverse Reactions, Alerts Substance Reaction Severity Status lisinopril Cough Active Medications Brenda 180 mg, Oral, Daily, 0 Refill(s) Start Date: 03/25/14 Status: Ordered Aspirin Low Dose 325 mg, Oral, Daily, 0 Refill(s) Start Date: 10/30/15 Status: Ordered atorvastatin 40 mg oral tablet 40 mg 1 tabs, Oral, Daily, # 90 tabs, 3 Refill(s), Pharmacy: [facility] [id number], 1 tabs Oral Daily Start Date: 09/10/15 Status: Ordered calcium (as carbonate)-vitamin D 500 mg-400 intl units oral tablet 1 tabs, Oral, Daily, 0 Refill(s) Start Date: 03/18/16 Status: Ordered clopidogrel 75 mg oral tablet 75 mg 1 tabs, Oral, Daily, # 30 tabs, 0 Refill(s) Start Date: 10/30/15 Status: Ordered ferrous sulfate 325 mg, Oral, Daily, 0 Refill(s) Start Date: 10/21/15 Status: Ordered finasteride 5 mg oral tablet See Instructions, TAKE ONE TABLET BY MOUTH ONCE DAILY, # 30 tabs, 2 Refill(s), eRx: [facility], TAKE ONE TABLET BY MOUTH ONCE DAILY Start Date: 03/30/16 Status: Ordered metFORMIN 1000 mg oral tablet See Instructions, TAKE ONE TABLET BY MOUTH TWICE DAILY, # 60 tabs, 2 Refill(s), eRx: [facility], TAKE ONE TABLET BY MOUTH TWICE DAILY Start Date: 06/30/16 Status: Ordered metoprolol tartrate 25 mg oral tablet 12.5 mg, Oral, BID, # 30 tabs, 3 Refill(s), Pharmacy: [facility] [address] Start Date: 04/26/16 Status: Ordered Milk of Magnesia 8% oral suspension 2.4 g 30 mL, Oral, Bedtime (once a day), 0 Refill(s) Start Date: 12/14/15 Status: Ordered Miscellaneous DME DME Item Catheter Overnight Bag/Bedtime/Continuous, See Instructions, # 4 Each, 2 Refill(s), Pharmacy: [facility], Catheter Overnight Bag/Bedtime/Continuous , Supply, MAIL TO PATIENT AT: [address] [place] [address] Start Date: 02/02/16 Status: Ordered Miscellaneous DME DME Item Catheter Leg Bag/Daily/Continuous, See Instructions, # 4 Each, 2 Refill (s), Pharmacy: [facility], Catheter Leg Bag/Daily/Continuous, Supply, MAIL TO PATIENT AT: [address] [place] [address] Start Date: 02/02/16 Status: Ordered Nitrostat 0.4 mg sublingual tablet 0.4 mg 1 tabs, SubLingual, q5min, as needed for chest pain, # 25 tabs, 1 Refill( s), Pharmacy: [facility], 1 tabs SubLingual q5min,PRN:as needed for chest pain Start Date: 09/10/15 Status: Ordered [place] 5 mg-325 mg oral tablet 1-2 tabs, Oral, q5hr, as needed for pain, # 120 tabs, 0 Refill(s) Start Date: 12/15/15 Status: Ordered pantoprazole 40 mg oral delayed release tablet 40 mg 1 tabs, Oral, BID, # 60 tabs, 11 Refill(s), Pharmacy: [facility], 1 tabs Oral BID Start Date: 12/30/15 Status: Ordered tamsulosin 0.4 mg oral capsule See Instructions, TAKE ONE CAPSULE BY MOUTH ONCE DAILY 1/2 HOUR FOLLOWING THE SAME MEAL EACH DAY., # 30 caps, 1 Refill(s), Pharmacy: [facility], TAKE ONE CAPSULE BY MOUTH ONCE DAILY 1/2 HOUR FOLLOWING THE SAME MEAL EACH DAY. Start Date: 06/30/16 Status: Ordered Vitamin C 500 mg, Oral, Daily, 0 Refill(s) Start Date: 03/25/14 Status: Ordered Results No data available for this section Immunizations Vaccine Date Refusal Reason influenza virus vaccine, live 08/05/13 influenza virus vaccine, live 08/08/12 pneumococcal 13-valent conjugate vaccine1 12/04/15 pneumococcal 23-polyvalent vaccine 09/25/14 pneumococcal 23-polyvalent vaccine 06/03/11 tetanus-diphth toxoids (Td) adult/adol 08/15/01 1Location History: given at [facility] Procedures Procedure Date Related Diagnosis Body Site CABG - Coronary artery bypass graft Cataract extraction for both left and right [facility] Joint replacement2 Knee replacement3 1UTI with MRSA 2See Conversion document 3Right knee Social History Social History Type Response Smoking Status Never smoker Assessment and Plan Extracted from: Title: Office Visit Note Author: Terrance Beltran MD Date: 07/18/16 Assessment/Plan Gross hematuria Now subsided. Advised him regarding hydration. If he develops hematuria with large clotsoccluding the cathetershe didn't go to the emergency her come and see me in the office. Urinary retention We willtry to get the connecting tubing between the catheter and a leg bagto prevent episodes of leakage. There follow up with me in 2 weeks for her next catheter change.
--- NOTE | 2017-02-02 10:24 | NUR ---
PROVIDER DR. BACH AT BEDSIDE FOR EXAM.
[2017-02-02] MEDS ORDERED: METO25TA6 PO (10:48)
--- NOTE | 2017-02-02 10:49 | NUR ---
XRAY PORTABLE XRAY AT BEDSIDE.
[2017-02-02 10:50] LABS: BASOPHILS % (AUTO) 0.1 % (0-2); EOSINOPHILS % (AUTO) 0.3 % (0-4); HCT - HEMATOCRIT 29.4 % (41-53); HGB - HEMOGLOBIN 9.4 GM/DL (13.5-17.5); IMMATURE GRANULOCYTE # (AUTO) 0.03 T/MM3 (0.00-0.03); IMMATURE GRANULOCYTE % (AUTO) 0.2 % (0.0-0.5); LYMPHOCYTES # (AUTO) 2.3 T/MM3 (1-4.8); LYMPHOCYTES % (AUTO) 17.1 % (23-45); MEAN CORPUSCULAR HGB 30.9 UUG (26-34); MEAN CORPUSCULAR VOLUME 96.7 UM3 (80-100); MEAN PLATELET VOLUME 11.5 UM3 (9.4-12.4); MONOCYTES # (AUTO) 1.4 T/MM3 (0-0.8); MONOCYTES % (AUTO) 10.6 % (0-9.0); NEUTROPHILS #(AUTO)-ABSOLUTE 9.6 T/MM3 (1.8-7.7); NEUTROPHILS % (AUTO) 71.7 % (33-66); RED BLOOD COUNT 3.04 M/MM3 (4.50-5.90); WBC - WHITE BLOOD COUNT 13.4 T/MM3 (4.5-11.0)
--- OUTSIDE RECORDS SUMMARY | 2017-02-02 10:52 | XMS REPORT | Continuity of Care Document ---
Author Author [facility] Organization [facility] Address Unknown Phone Unavailable Support Name Relationship Address Phone GRACE VICTOR MD Caregiver [facility] [address] , [facility] [address] [place] [phone] DONOVAN CARRILLO MD Caregiver [address] [place] [address] [address] [place] [phone] LEE ANN BEE Next Of Kin [address] [place] [address] Insurance Providers Payer Name Policy Number Subscriber Name Relationship Medicare [id number] Keegan Bee 19 Self [facility] [id number] Keegan Bee 19 Self Advance Directives Directive [...] F (96.8 - 99.1) Temperature (Calculated Celsius) 36.61204 degrees C (36.0 - 37.3) Temperature Source [...] % H 0-9.0 COMMENT SCU WILL CALL UN-Xym-D-Type Natriuretic Peptide January 14, 2015 10:25am 203 [...] INDICATED*Has specimen been collected/obtained? Y Urine Specific [place] January 07, 2013 4:30pm 1.020 - COMMENT [...] MD Encounters Encounter Location Date/Time Registered Clinic [facility] 01/14/15 10:33am
--- OUTSIDE RECORDS SUMMARY | 2017-02-02 10:52 | XMS REPORT ---
Author Author [facility], [facility] Unknown Address Unknown Phone Unavailable Allergies, Adverse Reactions, Alerts * lisinopril causes Cough. * No Latex Allergy. * No IV Contrast Allergy. Problems * Diabetes Mellitus* Status:Active. * Pain* Status:Active. * Tissue Perfusion Impairment* Status:Active. Procedures No relevant procedures performed. Medication It is the responsibility of the patient or patient outside energy sales representatives to confirm the list of medications with [...] metFORMIN 500 mg Tablet, Ordered By: Leeanne Chenug Directions: 1 tablet oral twice a day [...]
--- OUTSIDE RECORDS SUMMARY | 2017-02-02 10:53 | XMS REPORT | Continuity of Care Document ---
Author Author [facility] Organization [facility] Address Unknown Phone Unavailable Allergies Active Description [...] Status Pt. Type Provider Facility Loc./Unit Complaint [id number] 12/09/2013 09:18:00 12/09/2013 23 :59:59 [facility] Outpatient [id number] 12/03/2013 10:08:00 12/03/2013 23 :59:59 [facility] Out[facility] [id number] 11/25/2013 10:04:00 11/25/2013 23 :59:59 [facility] Outpatient [id number] 09/24/2013 16:11:00 09/24/2013 23 :59:59 [facility] Outpatient [id number] 08/14/2013 11:17:00 08/14/2013 23 :59:59 [facility] Outpatient
--- NOTE | 2017-02-02 11:04 | NUR ---
CT PT TO CT BY CART AT THIS TIME.
--- NOTE | 2017-02-02 11:11 | NUR ---
RETURN PT RETURNED FROM CT BY CART AT THIS TIME.
--- NOTE | 2017-02-02 11:13 | DI ---
Indication: ITS.REASON: sob PROCEDURE: CHEST 1 VIEW: Encounter: Initial Comparison: July 27, 2016 Findings: Prior CABG. Large hiatal hernia with a partially intrathoracic stomach. No focal pneumonia, pleural effusion or pneumothorax. Moderate enlargement of the cardiac silhouette is unchanged. Mediastinal contours are stable. Pulmonary vascularity appears normal. Impression: No focal pneumonia or congestive failure. .
[2017-02-02 11:28] LABS: BLOOD, URINE TRACE-LYSED (NEGATIVE); LEUKOCYTE ESTERASE ,URINE TRACE (NEGATIVE); NITRITE,URINE POSITIVE (NEGATIVE); UROBILINOGEN,URINE 0.2 EU/DL (NORMAL)
--- NOTE | 2017-02-02 11:31 | DI ---
Indication: ITS.REASON: confusion PROCEDURE: CT HEAD W/O CONTRAST: Encounter: Initial Comparison: Brain MRI dated March 31, 2011 Technique: Axial CT images through the head were performed without contrast. Iterative Reconstruction dose reducing technique was utilized. FINDINGS: Mild generalized atrophy. 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 The ventricles are of normal size, shape, and contour for the patient's age. There are scattered areas of low attenuation in the white matter which most likely represent changes from chronic microvascular ischemia. The brainstem, cerebellum, and cerebral hemispheres otherwise have a normal morphology and CT attenuation. There is no evidence of midline displacement. No hemorrhage, signs of acute territorial stroke, mass effect, mass lesions, or edema is evident. The visualized portions of the skull base, midface, and calvarium demonstrate no abnormality. The paranasal sinuses are well aerated and free of significant disease. The tympanic and mastoid cavities appear normal. IMPRESSION: No acute intracranial abnormality or hemorrhage. .
[2017-02-02 11:36] LABS: BACTERIA,URINE 4+ (NEGATIVE); COLOR,URINE YELLOW (YELLOW); RBC,URINE NONE SEEN /HPF (0-3); TRIPLE PHOSPHATE CRYSTAL,UR MANY
[2017-02-02 11:38] LABS: ALBUMIN 3.7 G/DL (3.5-5.0); ALBUMIN/GLOBULIN RATIO 1.2 RATIO (1.1-2.2); ALKALINE PHOSPHATASE 69 U/L (38-126); ALT (SGPT) 23 U/L (21-72); ANION GAP 19 MEQ/L (5-15); AST (SGOT) 27 U/L (17-59); BUN/CREATININE RATIO 66 RATIO (6-26); CALCIUM 10.3 MG/DL (8.4-10.2); CHLORIDE 106 MEQ/L (98-107); CO2 - CARBON DIOXIDE 16 MEQ/L (22-30); CREATININE 0.9 MG/DL (0.8-1.5); GLOMERULAR FILTRATION RATE 80; GLUCOSE 317 MG/DL (75-110); POTASSIUM 4.9 MEQ/L (3.6-5); SODIUM 141 MEQ/L (134-144); TOTAL PROTEIN 6.9 G/DL (6.3-8.2)
--- NOTE | 2017-02-02 12:02 | NUR ---
LAB AT BEDSIDE FOR BLOOD CULTURES.
[2017-02-02] MEDS ORDERED: CEFTRIAXONE I.V. (ER USE ONLY) 1 G in NORMAL SALINE 100 ML IV ONE (12:15)
[2017-02-02] MEDS ORDERED: NORMAL SALINE 1,000 ML IV ONE ×4 (12:15→12:30)
[2017-02-02] MEDS ORDERED: PANTOPRAZOLE 40mg INJECTION IV ONE (12:30)
[2017-02-02] MEDS ORDERED: NORMAL SALINE 100 ML IV ONE (12:30)
--- OUTSIDE RECORDS SUMMARY | 2017-02-02 12:36 | XMS REPORT | Continuity of Care Document ---
Author Author [facility] Organization [facility] Address Unknown Phone Unavailable Allergies Active Description [...] Status Pt. Type Provider Facility Loc./Unit Complaint [id number] 12/09/2013 09:18:00 12/09/2013 23 :59:59 [facility] Outpatient [id number] 12/03/2013 10:08:00 12/03/2013 23 :59:59 [facility] Outpatient [id number] 11/25/2013 10:04:00 11/25/2013 23 :59:59 [facility] Outpatient [id number] 09/24/2013 16:11:00 09/24/2013 23 :59:59 [facility] Outpatient [id number] 08/14/2013 11:17:00 08/14/2013 23 :59:59 [facility] Outpatient
--- OUTSIDE RECORDS SUMMARY | 2017-02-02 12:36 | XMS REPORT | Continuity of Care Document ---
Author Author [facility] Organization [facility] Address Unknown Phone Unavailable Support Name Relationship Address Phone GRACE VICTOR MD Caregiver [facility] [address] , [facility] [address] [place] [phone] DONOVAN CARRILLO MD Caregiver [address] [place] [address] [address] [place] [phone] LEE ANN BEE Next Of Kin [address] [place] [address] Insurance Providers Payer Name Policy Number Subscriber Name Relationship Medicare [id number] Keegan Bee 19 Self [facility] [id number] Keegan Bee 19 Self Advance Directives Directive [...] F (96.8 - 99.1) Temperature (Calculated Celsius) 36.55168 degrees C (36.0 - 37.3) Temperature Source [...] % H 0-9.0 COMMENT SCU WILL CALL ET-Api-W-Type Natriuretic Peptide January 14, 2015 10:25am 203 [...] INDICATED*Has specimen been collected/obtained? Y Urine Specific [place] January 07, 2013 4:30pm 1.020 - COMMENT [...] MD Encounters Encounter Location Date/Time Registered Clinic [facility] 01/14/15 10:33am
--- OUTSIDE RECORDS SUMMARY | 2017-02-02 12:36 | XMS REPORT ---
Author Author [place], [facility] Unknown Address Unknown Phone Unavailable Allergies, Adverse Reactions, Alerts * lisinopril causes Cough. * No Latex Allergy. * No IV Contrast Allergy. Problems * Diabetes Mellitus* Status:Active. * Pain* Status:Active. * Tissue Perfusion Impairment* Status:Active. Procedures No relevant procedures performed. Medication It is the responsibility of the patient or patient retail wireless sales representative to confirm the list of [...]
--- NOTE | 2017-02-02 12:46 | ERPDOC ---
Departure Disposition Decision Date: Feb 02, 2017 Disposition Decision Time: 12:00 Disposition: 02 TO [facility] Impression Impression Impression: Primary Impression: Urinary tract infection Urinary tract infection type: site unspecified Hematuria presence: with hematuria Qualified Codes: N39.0 - Urinary tract infection, site not specified ; R31.9 - Hematuria, unspecified Additional Impressions: Sepsis Sepsis type: sepsis due to unspecified organism Qualified Codes: A41.9 - Sepsis, unspecified organism Atrial fibrillation Atrial fibrillation type: chronic Qualified Codes: I48.2 - Chronic atrial fibrillation Elevated troponin Severity: Severe Condition: Improved Seen By: Physician only Referrals: TEODORA TAVERAS DO (Family) Problems/Meds/Labs Reviewed?: Yes Medications reviewed and manag: Yes Follow up care ordered?: Yes Mental Status: Alert, Oriented Critical Care Note Total Time (mins): 42 Critical Care Spent: [id number] care of pt, Reviewing test results, Discuss the case w/staff, Documenting the MR, Discussion w/ family/DPOA During this visit the pt was: Critically Ill, At Risk of Deterioration Sepsis SIRS Criteria: Pulse >= 90 beats/min, WBC >=12,000 or <=4,000 Severe Sepsis Criteria: Lactate >=2.0 mg/dL Septic Shock Criteria: Lactate >4 HPI - General Medical General Chief Complaint: Dyspnea/Respdistress Stated Complaint: UTI, SEPSIS Time Seen by Provider: 10:13 Source: patient, family Exam Limitations: no limitations HPI - General Medical Initial Comments 86-year-old male presents to the emergency department with a chief complaint of dyspnea. Patient states that he has been more short of breath with exertion over the past "couple of days.". Patient lives at home with his grand-daughter who helps watch over the patient. Patient denies any current pain or discomfort. Patient states that his dyspnea improves with rest. Patient denies being ill recently. Patient was at home when his symptoms began. Symptoms have had a gradual progression in nature since onset. Patient's granddaughter arrives to the emergency department note that the patient has been more confused than normal over the past several days. She states that the patient behaves this way when he has a urinary tract infection or is ill. No other complaints or associated symptoms are currently present. Patient is noted to have a chronic indwelling Alvarez catheter. Occurred At: home Onset: Gradual Allergies: Coded Allergies: lisinopril (Verified Adverse Reaction, Unknown, COUGH, 02/02/17) Past History Patient Surgical History RUDY was negative for vegetation on 02/29/16 Multiple recent cardiac catheterizations per Dr. Lovell: 01/19/16: PTCA and stent of vein graft to RCA and posterolateral artery using drug-eluting stents and 1 bare metal stent 01/12/16: Unsuccessful attempt at PTCA of the graft to the RCA. 11/10/15: Ramus intermedius PTCA and stent with a drug-eluting stent. 10/19/15: Multivessel coronary artery disease EGD 10/06/15: normal except for GERD (Dr. Paula) Colonoscopy 02/03/15 (Dr Paula); multiple colonoscopies; 2005 colonoscopy showed redundant colon and sigmoid colon diverticulosis; other colonosopy in 2011 resulted in polypectomy for 2 tubular adenoma colon polyps Barium enema in 09/15/2015 showed redundant colon and sigmoid colon diverticulosis CABG--4 vessel-1992 Dr. Acosta Right Total Knee Replacement 2009 Dr. Sparrow Bone biopsy right pelvis 2009 Dr. 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 Landrum for osteomyelitis Cardiac catheterization in [address] Dickinson for NSTEMI. EF 40-45%. Past Medical History Metabolic: cancer, diabetes, hypercholesterolemia, hypertension ENMT: allergies, cataracts Cardiac: A-fib, CAD, CHF, PR, echocardiogram, other GI: GERD, constipation Male: BPH, other Musculoskeletal: back pain, osteoarthritis Hematologic: anemia Surgical History General: EGD, colonoscopy Cardiac: cardiac bypass, cardiac stent Joint: knee Family History Family PMH: FOUND: CVA, cancer, diabetes, hypertension, other Vaccines Hx Influenza Vaccination: Yes (2015 per pt. (unknown date)) Hx Pneumococcal Vaccination: Yes (2015 per pt. (unknown date)) Social History Smoking Status: Never smoker Does patient use chewing tobac: No Second Hand Exposure: No Substance Use Type: does not use Alcohol Intake: none Marital Status: Single Housing: apartment Review of Systems Constitutional Constitutional: DENIES: chills, fever Eyes General: DENIES: erythema, exudate Lids/Accessories: DENIES: erythema, swelling Vision: DENIES: acuity, blurring ENMT Ears: DENIES: drainage, erythema Hearing: DENIES: hearing loss Balance: DENIES: ataxia, falling to one side Sinuses: DENIES: congestion, pain Nose: DENIES: nosebleeds, pain Mouth/Throat: DENIES: painful swallowing, sore throat Teeth: DENIES: pain Jaw: DENIES: pain Cardiovascular Cardiac: dyspnea on exertion, DENIES: chest pain Rhythm/Rate: DENIES: irregular beat, palpitations Vascular: DENIES: pedal edema, unilateral swelling Pulmonary Respiratory: dyspnea, DENIES: cough, pleuritic chest pain, sputum GI Upper Abdomen: DENIES: nausea, pain, vomiting Lower Abdomen: DENIES: diarrhea, pain General: DENIES: dysuria, frequency Musculoskeletal General: DENIES: joint pain, tenderness Integumentary Skin: DENIES: itching, rash Neurological General: DENIES: headache, numbness, weakness Psychiatric Psychiatric: DENIES: emotional instability, irritability Endocrine Endocrine: DENIES: polydipsia, polyphagia Hematologic/Lymphatic Hematologic/Lymphatic: DENIES: frequent nosebleeds, lymphadenopathy Allergic/Immunological Allergic/Immunoligical: DENIES: allergic reactions, hives Physical Exam General General Nourishment: well nourished, well developed, appears stated age, no acute distress, adult General Body Habitus: well groomed Vitals and Pain First Documented Vital Signs Date Time Temp Pulse Resp B/P Pulse Ox O2 Delivery O2 Flow Rate FiO2 02/02/17 10:11 98.0 126 18 127/87 97 Room Air Weight: Kilograms: 101.900 Height (feet): 5 Height (inches): 10.00 Triage Pain Scale: RN VS reviewed by Provider: Yes Normal Exams: Head: Normocephalic w/o trauma Eyes: Pupils are PERRLA w/ EOMI, No scleral icterus, irritation, or foreign bodies noted ENMT: No facial trauma, nasal exudates, pharyngeal erythema, or exudates are noted Dental: No fractured, loose, or missing teeth noted Neck: Full range of motion, without adenopathy, JVD, bruits or thyromegaly Chest/Resp: Clear all villaseñor, with good airflow, and symmetry bilaterally CV: Regular rate and rhythm, without murmur or gallop, Pulses 2+ all extremities, capillary refill, <2 seconds all ext., no pedal edema noted Abdomen: Bowel sounds positive, soft, non-tender, non-distended, no hepatosplenomegaly, masses or bruits noted Lymphatic: No lymphadenopathy, or lymphedema noted Musculoskeletal: No tenderness, or deformity noted, good range of motion, all extremities Integumentary: No rashes, hives, or bruising noted, hair and nails, without abnormality Neurologic: Patient is alert, and oriented, cranial nerves, motor/sensory/ cerebellar, exams w/o gross deficits, to observation Psychiatric: Patient exhibits, appropriate attention, emotion and affect (brief) Comments Rectal Exam - heme positive black stool noted on rectal examination. Differential Diagnoses Considering: Acute PR, Hypo/Hyperglycemia, Meningitis, Metabolic, UTI Progress Results/Orders Orders Procedure Category Date Status Time Cbc W/Auto LAB 02/02/17 Complete Diff-Reflex Manual Cmp - Comprehensive LAB 02/02/17 Complete Metabolic Troponin I W LAB 02/02/17 Complete Hemolysis Index EKG EKG 02/02/17 Taken Chest 1 View RAD 02/02/17 Resulted 10:21 Probnp LAB 02/02/17 Complete 10:21 Ct Head W/O Contrast CT 02/02/17 Resulted 10:30 Rejected Specimen LAB 02/02/17 Complete 10:52 UA, LAB 02/02/17 Complete Dip&Micro(Complete) & 11:22 Urine Culture SUMMER 02/02/17 In Process 11:37 Blood Culture SUMMER 02/02/17 In Process 11:49 Procalcitonin LAB 02/02/17 Complete 11:49 Lactate - Lactic Acid LAB 02/02/17 Complete Lactate - Lactic Acid LAB 02/02/17 Logged 16:19 Lab Results Laboratory Tests Test 02/02/17 10:38 02/02/17 10:52 02/02/17 11:02 02/02/17 11:22 White Blood Count 13.4T/MM3 Red Blood Count 3.04M/MM3 Hemoglobin 9.4GM/DL Hematocrit 29.4% Mean Corpuscular Volume 96.7UM3 Mean Corpuscular Hemoglobin 30.9UUG Mean Corpuscular Hemoglobin Concent 32.0GM/DL RDW Standard Deviation 49.6FL Platelet Count 156T/MM3 Mean Platelet Volume 11.5UM3 Immature Granulocyte % (Auto) 0.2% Neutrophils (%) (Auto) 71.7% Lymphocytes (%) (Auto) 17.1% Monocytes (%) (Auto) 10.6% Eosinophils (%) (Auto) 0.3% Basophils (%) (Auto) 0.1% Absolute Immature Granulocyte (auto 0.03T/MM3 Absolute Neutrophils (auto) 9.6T/MM3 Absolute Lymphocytes (auto) 2.3T/MM3 Absolute Monocytes (auto) 1.4T/MM3 Absolute Eosinophils (auto) 0.0T/MM3 Absolute Basophils (auto) 0.0T/MM3 Specimen Comment (Misc) Lab to recollect Tests Not Done Trop bmp bnp Reason Tests Not Done Hemolyzed specimen Turbidity < 20 Sodium Level 141MEQ/L Potassium Level 4.9MEQ/L Chloride Level 106MEQ/L Carbon Dioxide Level 16MEQ/L Anion Gap 19MEQ/L Blood Urea Nitrogen 59.0MG/DL Creatinine 0.9MG/DL Glomerular Filtration Rate Calc 80 BUN/Creatinine Ratio 66RATIO Glucose Level 317MG/DL Calculated Osmolality 300MOSM/KG Calcium Level 10.3MG/DL Total Bilirubin 0.60MG/DL Icterus Index < 2 Aspartate Amino Transf (AST/SGOT) 27U/L Alanine Aminotransferase (ALT/SGPT) 23U/L Alkaline Phosphatase 69U/L Troponin I 0.202ng/ml DD-Ffs-L-Type Natriuretic Peptide 1190PG/ML Total Protein 6.9G/DL Albumin 3.7G/DL Globulin 3.2G/DL Albumin/Globulin Ratio 1.2RATIO Chemistry Specimen Hemolysis < 15 Urine Collection Type Alvarez indwelling Urine Color Yellow Urine Turbidity Cloudy Urine pH 8.5 Urine Specific [place] 1.010 Urine Protein Trace Urine Glucose (UA) 3+ Urine Ketones Negative Urine Blood Trace-lysed Urine Nitrite Positive Urine Bilirubin Negative Urine Urobilinogen 0.2EU/DL Urine Leukocyte Esterase Trace Urine RBC None seen/HPF Urine WBC 5-10/HPF Urine Triple Phosphate Crystals Many Urine Amorphous Phosphates Many Urine Bacteria 4+ Urine Culture Indicated Cult reflexed &setup Test 02/02/17 12:08 Plasma Lactate 4.6MMOL/L Procalcitonin < 0.05NG/ML Progress Progress Labs / imaging were discussed in detail with the patient and family and questions are answered. Patient has already taken his aspirin and Plavix medications today prior to arrival to the emergency Department. Patient was noted to have heme positive black stool on rectal examination which was performed after noting the elevated BUN and anemia lab draw. Patient is given Protonix 40 mg IV times one. Type and screen is ordered. Patient is admitted to the intensive care unit in improved condition. Patient will receive the 30 mL/kg IV of normal saline due to a lactic acid of 4.6. Repeat lactic acid is pending. Patient was ordered Rocephin 1 g intravenously at approximately 12:15 when sepsis was considered. Source of the sepsis is a urinary tract infection. Patient is admitted to the intensive care unit in improved condition. No further orders from accepting or consulting physicians who are in agreement with the current plan of management. Patient is discussed with his granulator operator Dr. Lovell who is in agreement with the current plan of management. He will see the patient in consultation. Critical care time was assessed to the patient in the amount of 42 minutes due to the elevated troponin. Patient was admitted to the ICU. Patient required repeated assessment at bedside, complex medical decision-making, and had potential for decompensation. Patient will be admitted to the service of Dr. Bashir Denise after discussion with Dr. Catalan. EKG EKG : Rate: >100 Rhythm: atrial fibrillation Kennan: left ST/T: other (ST depression in V4/5/6 consistent with prior EKG. No STEMI.) Interpreted by: signing physician Xray Xray : Xray: CXR Portable Interpretation: Normal, Reviewed Written Report CT CT : CT: Head no contrast Interpretation: Normal, Reviewed Written Report AMOL BACH DO Feb 02, 2017 12:46
--- NOTE | 2017-02-02 12:58 | NUR ---
REPORT THIS NURSE RECEIVED REPORT FROM SABRA POST AT THIS TIME.
--- NOTE | 2017-02-02 13:19 | NUR ---
ROOM SPOKE WITH SEJAL WETZEL ON CCU. ADVISED PT WILL GO TO BED 2 ON ARRIVAL.
--- NOTE | 2017-02-02 13:20 | NUR ---
PROVIDER Liu JEAN BAPTISTE APRN AT BEDSIDE.
--- NOTE | 2017-02-02 13:52 | HPPDOC ---
ARY JEAN BAPTISTE V DOVETAILER 02/02/17 1352: HPI - Adult Date DATE: 02/02/17 TIME: 13:40 General Chief Complaint: weakness, shortness of breath, back pain History of Present Illness Patient is a 86-year-old male who resides independently at home and [place]. It is reported that he had an onset of shortness of breath and back pain with weakness starting yesterday. He contacted EMS today for transport to [facility] emergency room for further evaluation and treatment. Laboratory studies did reveal severe sepsis with an elevated white count of 13.4, RBCs 3.04 , hemoglobin 9.4, hematocrit 29.4, platelet count 156, neutrophils 71%. Sodium is 141, potassium 4.9, BUN 59, creatinine 0.9, carbon dioxide 16, and in 19, glucose 317. Calcium is found to be elevated at 10.3. This lactate was found to be significantly elevated at 4.6, pro calcitonin less than 0.05. Troponin is 0.202, proBNP 1190. Patient does have a chronic indwelling Strong catheter and a urinalysis was obtained showing a pH of 8.0, specific gravity 1.010, trace protein, 3+ glucose, trace blood, positive nitrates, trace leukocyte esterase with 5-10 WBCs and 4+ bacteria. Chest x-ray was obtained showing no acute pneumonia or failure. CT scan of the head did not reveal any intracranial abnormality or hemorrhage. He is tachycardic on arrival with a heart rate in the 120s and he is found to be in atrial fibrillation with RVR. He is afebrile at 98.0, blood pressure 127/87, room air saturations are adequate at 97%. He is mildly tachypnea at 26 per minute. Rectal exam did reveal guaiac positive. He was started with IV fluid bolus and given IV Rocephin for antimicrobial coverage. And findings of severe sepsis, UTI, tachycardia, leukocytosis and elevated lactate. The hospitalist services were contacted and accepted patient for inpatient admission for further evaluation and treatment. It is expected that his stay will be greater than 2 overnights. Past Medical History Past Medical History Non-Hodgkin's lympthoma [place]-age 62 NIDDM Hypertension Hypercholesterolemia Allergic rhinitis Cataracts Atrial Fibrillation Aortic stenosis CAD Constipation GERD Osteoarthritis Lumbar stenosis Anemia MRSA bacteremia in 02/2016 Surgical History Patient's Surgical History: RUDY was negative for vegetation on 02/29/16 Multiple recent cardiac catheterizations per Dr. Lovell: 01/19/16: PTCA and stent of vein graft to RCA and posterolateral artery using drug-eluting stents and 1 bare metal stent 01/12/16: Unsuccessful attempt at PTCA of the graft to the RCA. 11/10/15: Ramus intermedius PTCA and stent with a drug-eluting stent. 10/19/15: Multivessel coronary artery disease EGD 10/06/15: normal except for GERD (Dr. Paula) Colonoscopy 02/03/15 (Dr Paula); multiple colonoscopies; 2005 colonoscopy showed redundant colon and sigmoid colon diverticulosis; other colonosopy in 2011 resulted in polypectomy for 2 tubular adenoma colon polyps Barium enema in 09/15/2015 showed redundant colon and sigmoid colon diverticulosis CABG--4 vessel-1992 Dr. Acosta Right Total Knee Replacement 2009 Dr. Sparrow Bone biopsy right pelvis 2009 Dr. 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 Landrum for osteomyelitis Cardiac catheterization [place] [address] Dickinson for NSTEMI. EF 40-45%. Current Medications Home Meds Reported Medications Metoprolol Tartrate (Metoprolol Tartrate) 25 Mg Tablet, 25 MG PO BID 02/02/17 Nitroglycerin (Nitrostat) 0.4 Mg Tablet, 0.4 MG PO Q5MIN Y for CHEST PAIN 07/27/16 Ferrous Sulfate (Iron Supplement) 325 Mg Tablet, 325 MG PO HS 05/10/16 Ascorbic Acid (Ascorbic Acid) 500 Mg Tablet, 500 MG PO HS 05/10/16 Atorvastatin Calcium (Atorvastatin Calcium) 40 Mg Tablet, 40 MG PO HS 05/10/16 Clopidogrel Bisulfate (Clopidogrel) 75 Mg Tablet, 75 MG PO AM 05/10/16 Fexofenadine HCl (Fexofenadine HCl) 180 Mg Tablet, 180 MG PO AM 05/10/16 Calcium Carbonate/Vitamin D3 (Calcium + Vitamin D Tablet) 1 Each Tablet, 1 TAB PO HS 01/28/16 Metformin HCl (Metformin HCl) 1,000 Mg Tablet, 1000 MG PO BID 01/28/16 Pantoprazole Sodium (Pantoprazole Sodium) 40 Mg Tablet.dr, 40 MG PO BID 01/12/16 Aspirin (Aspirin) 325 Mg Tablet, 325 MG PO AM 01/11/16 Allergies: Coded Allergies: lisinopril (Verified Adverse Reaction, Unknown, COUGH, 02/02/17) Family History Family History: Mother-hypertension, CVA, diabetes Fatherdiabetes Brotherliver cancer Brotherlung cancer Brother - colon carcinoma Social History Does patient use chewing tobac: No Second Hand Exposure: No Substance Use Type: does not use Alcohol Intake: none Marital Status: Single Housing: apartment Social History Comments PCP Dr Madden Cardiology Dr Lovell Review of Systems Constitutional: REPORTS: fatigue, weakness GI Upper Abdomen: vomiting (last evening) All Other Systems All Other Systems: Reviewed (remainder of 10-point ROS Neg.) Physical Exam General General Nourishment: well nourished, well developed Vital Signs Vital Signs Date Time Temp Pulse Resp B/P Pulse Ox O2 Delivery O2 Flow Rate FiO2 02/02/17 13:00 114 25 121/73 99 Room Air 02/02/17 10:11 98.0 Height (Feet): 5 Height (Inches): 10.00 Eyes Brief: FOUND: PERRL Respiratory Brief: FOUND: clear all villaseñor, equal bilaterally Cardiovascular (brief) Cardiac Brief: FOUND: regular rate, regular rhythm Abdomen (brief) Abdominal Brief: FOUND: BS normo active x4, soft Integumentary (brief) Integumentary Brief: FOUND: dry, pink, warm Neurologic (brief) Neurological Brief: FOUND: cranial 2-12 intact Neurologic RN Documented GCS Eye Opening: (4)Spontaneous Verbal: (4)Confused Motor: (6)Obeys Commands Total: Psychiatric (brief) FOUND: alert, attentive, normal affect, oriented Laboratory Laboratory Tests Test 02/02/17 10:38 02/02/17 10:52 02/02/17 11:02 02/02/17 11:22 White Blood Count 13.4T/MM3 Red Blood Count 3.04M/MM3 Hemoglobin 9.4GM/DL Hematocrit 29.4% Mean Corpuscular Volume 96.7UM3 Mean Corpuscular Hemoglobin 30.9UUG Mean Corpuscular Hemoglobin Concent 32.0GM/DL RDW Standard Deviation 49.6FL Platelet Count 156T/MM3 Mean Platelet Volume 11.5UM3 Immature Granulocyte % (Auto) 0.2% Neutrophils (%) (Auto) 71.7% Lymphocytes (%) (Auto) 17.1% Monocytes (%) (Auto) 10.6% Eosinophils (%) (Auto) 0.3% Basophils (%) (Auto) 0.1% Absolute Immature Granulocyte (auto 0.03T/MM3 Absolute Neutrophils (auto) 9.6T/MM3 Absolute Lymphocytes (auto) 2.3T/MM3 Absolute Monocytes (auto) 1.4T/MM3 Absolute Eosinophils (auto) 0.0T/MM3 Absolute Basophils (auto) 0.0T/MM3 Specimen Comment ([facility] [place]) Lab to recollect Tests Not Done Trop bmp bnp Reason Tests Not Done Hemolyzed specimen Turbidity < 20 Sodium Level 141MEQ/L Potassium Level 4.9MEQ/L Chloride Level 106MEQ/L Carbon Dioxide Level 16MEQ/L Anion Gap 19MEQ/L Blood Urea Nitrogen 59.0MG/DL Creatinine 0.9MG/DL Glomerular Filtration Rate Calc 80 BUN/Creatinine Ratio 66RATIO Glucose Level 317MG/DL Calculated Osmolality 300MOSM/KG Calcium Level 10.3MG/DL Total Bilirubin 0.60MG/DL Icterus Index < 2 Aspartate Amino Transf (AST/SGOT) 27U/L Alanine Aminotransferase (ALT/SGPT) 23U/L Alkaline Phosphatase 69U/L Troponin I 0.202ng/ml FH-Obc-H-Type Natriuretic Peptide 1190PG/ML Total Protein 6.9G/DL Albumin 3.7G/DL Globulin 3.2G/DL Albumin/Globulin Ratio 1.2RATIO Chemistry Specimen Hemolysis < 15 Urine Collection Type Strong indwelling Urine Color Yellow Urine Turbidity Cloudy Urine pH 8.5 Urine Specific [place] 1.010 Urine Protein Trace Urine Glucose (UA) 3+ Urine Ketones Negative Urine Blood Trace-lysed Urine Nitrite Positive Urine Bilirubin Negative Urine Urobilinogen 0.2EU/DL Urine Leukocyte Esterase Trace Urine RBC None seen/HPF Urine WBC 5-10/HPF Urine Triple Phosphate Crystals Many Urine Amorphous Phosphates Many Urine Bacteria 4+ Urine Culture Indicated Cult reflexed &setup Test 02/02/17 12:08 Plasma Lactate 4.6MMOL/L Procalcitonin < 0.05NG/ML Sepsis Diagnostic Criteria Sepsis Confirmed/Suspected Infection: Yes SIRS Criteria: Pulse >= 90 beats/min, WBC >=12,000 or <=4,000, RR > or = to 20 Septic Shock Septic Shock Criteria: Lactate >4 Assessment & Plan Problems: (1) Severe sepsis Status: Acute Assessment & Plan: Manifestations of severe sepsis include the following 1. Urinary tract infection. 2. Leukocytosis, white blood count 13.3. 3. Tachycardia, 125 4. Elevated venous lactate - 4.6 (2) Urinary tract infection Status: Acute Assessment & Plan: Present on admission, indwelling Strong catheter present (3) Atrial fibrillation with RVR Status: Acute (4) GI bleed Status: Acute Assessment & Plan: Present on admission, Hemoccult positive (5) Aortic stenosis, mild Status: Chronic (6) Elevated troponin Status: Acute Assessment & Plan: Present on admission, troponin 0.202 (7) Aortic stenosis, moderate Status: Chronic (8) CAD (coronary artery disease) Status: Chronic (9) Hypertension Status: Chronic (10) Diabetes mellitus Status: Chronic (11) Hypercholesterolemia Status: Chronic (12) Allergic rhinitis Status: Chronic (13) GERD (gastroesophageal reflux disease) Status: Chronic (14) OA (osteoarthritis) Status: Chronic (15) BPH (benign prostatic hypertrophy) Status: Chronic (16) History of [place] (myocardial infarction) Status: Resolved Plan/Intensity of Service Admit patient to inpatient status under the care of Dr. Bird pmo consultant hospitalist for severe sepsis, urinary tract infection and elevated troponin. That is protocol was initiated in the emergency room, blood cultures drawn, IV fluid boluses given and patient initiated on Rocephin IV daily for antimicrobial coverage. Cultures and urine culture pending. Obtain serial lactate levels. In light of sepsis protocol. In light of atrial fibrillation with RVR and elevated troponin. Will consult patient's cardiology, Dr. Lovell for further cardiac evaluation and recommendations. Will recheck serial troponins 3 every 6 hours and monitor patient on cardiac telemetry. Hemoccult was positive in the emergency room. Hemoglobin low at 9.4. Patient does have a history of anemia. Will need to hold off on anticoagulation at this time. Will discuss further with attending. Protonix 40 milligrams IV twice a day for GI protection. Once severe sepsis and atrial fibrillation RVR are more controlled. Will need to further evaluate heme-positive stools and GI bleed Monitor Accu-Cheks fasting and 2 hours postprandial. Will hold home Metformin and utilize sliding scale NovoLog. She may have 2000 calorie ADA diet SCDs to bilateral lower extremity for DVT prophylaxis Recheck CBC and BMP tomorrow morning to follow blood counts, renal function and electrolytes. We'll discuss further orders and plan of care with attending, At time of discharge medical care will return to primary care provider, Dr. Madden DVT Prophylaxis: SCD'S Code Status Full Code Hospital Course Summary Disclaimer The hospital course summary below is not to be considered part of the above Progress Note. Hospital Course Summary Admit patient to inpatient status under the care of Dr. Bird pmo consultant hospitalist for severe sepsis, urinary tract infection and elevated troponin. That is protocol was initiated in the emergency room, blood cultures drawn, IV fluid boluses given and patient initiated on Rocephin IV daily for antimicrobial coverage. Cultures and urine culture pending. Obtain serial lactate levels. In light of sepsis protocol. In light of atrial fibrillation with RVR and elevated troponin. Will consult patient's cardiology, Dr. Lovell for further cardiac evaluation and recommendations. Will recheck serial troponins 3 every 6 hours and monitor patient on cardiac telemetry. Hemoccult was positive in the emergency room. Hemoglobin low at 9.4. Patient does have a history of anemia. Will need to hold off on anticoagulation at this time. Will discuss further with attending. Protonix 40 milligrams IV twice a day for GI protection. Once severe sepsis and atrial fibrillation RVR are more controlled. Will need to further evaluate heme-positive stools and GI bleed Monitor Accu-Cheks fasting and 2 hours postprandial. Will hold home Metformin and utilize sliding scale NovoLog. She may have 2000 calorie ADA diet SCDs to bilateral lower extremity for DVT prophylaxis Recheck CBC and BMP tomorrow morning to follow blood counts, renal function and electrolytes. We'll discuss further orders and plan of care with attending, At time of discharge medical care will return to primary care provider, Dr. Maryanne BIRD,ROSITA Bowman MD 02/02/17 8825: Past Medical History Current Medications Home Meds Reported Medications Metoprolol Tartrate (Metoprolol Tartrate) 25 Mg Tablet, 25 MG PO BID 02/02/17 Nitroglycerin (Nitrostat) 0.4 Mg Tablet, 0.4 MG PO Q5MIN Y for CHEST PAIN 07/27/16 Ferrous Sulfate (Iron Supplement) 325 Mg Tablet, 325 MG PO HS 05/10/16 Ascorbic Acid (Ascorbic Acid) 500 Mg Tablet, 500 MG PO HS 05/10/16 Atorvastatin Calcium (Atorvastatin Calcium) 40 Mg Tablet, 40 MG PO HS 05/10/16 Clopidogrel Bisulfate (Clopidogrel) 75 Mg Tablet, 75 MG PO AM 05/10/16 Fexofenadine HCl (Fexofenadine HCl) 180 Mg Tablet, 180 MG PO AM 05/10/16 Calcium Carbonate/Vitamin D3 (Calcium + Vitamin D Tablet) 1 Each Tablet, 1 TAB PO HS 01/28/16 Metformin HCl (Metformin HCl) 1,000 Mg Tablet, 1000 MG PO BID 01/28/16 Pantoprazole Sodium (Pantoprazole Sodium) 40 Mg Tablet.dr, 40 MG PO BID 01/12/16 Aspirin (Aspirin) 325 Mg Tablet, 325 MG PO AM 01/11/16 Allergies: Coded Allergies: lisinopril (Verified Adverse Reaction, Unknown, COUGH, 02/02/17) Assessment & Plan Assessment Addendum: I have independently interviewed and examined patient. Above note reviewed, case discussed with Ary Jean Baptiste APRN. Consulted Dr. Watts and discussed case with him as well. CC: weakness HPI:86 yo male presents with SOA and weakness increasing over 36 hours. Pt has indwelling strong cath and hx of GI bleed. Stool noted to be tarry black. Pt nauseated and has not had any fluids for >24 hours. PMH, MEDS, ALL, SOC, FX and ROS reviewed in above note and agree with note. PHYSICAL: Lungs clear to auscultation, cardiac regular irregular rate and rhythm, abdomen mildly tender suprapubic. Labs reviewed, initial hemoglobin 9.4, white count elevated, lactate greater than 4. Assessment and plan 1 sepsis. Patient started on Rocephin and Levaquin for urosepsis. Blood cultures and urine culture obtained. Strong catheter was changed due to indwelling status. Urine repeated and no improvement noted. Patient given fluid resuscitation of 3 L through the ER. 2 anemia. Hemoglobin repeated at 6 hour don to rule out GI bleed, guaiac positive stool noted in ED. 3 SCDs for prophylaxis. Rosita Bird M.D. 5:45 PM as history and physical was being dictated, labs were reviewed. Hemoglobin decreased to 7.6. Patient's blood pressure is stable, but systolic at [address] Watts was consulted regarding GI bleed, we will continue with every 6 hours hemoglobin overnight and he will see the patient in the morning assuming patient stable overnight. This was reviewed with the patient and his daughter are both aware of the plan and approve of it. Rosita Bird M.D. Hospital Course Summary Hospital Course Summary 5:45 PM as history and physical was being dictated, labs were reviewed. Hemoglobin decreased to 7.6. Patient's blood pressure is stable, but systolic at [address] Watts was consulted regarding GI bleed, we will continue with every 6 hours hemoglobin overnight and he will see the patient in the morning assuming patient stable overnight. This was reviewed with the patient and his daughter are both aware of the plan and approve of it. ARY Hager M.D., APRN Feb 02, 2017 13:52 ROSITA BIRD MD Feb 02, 2017 17:45
--- NOTE | 2017-02-02 14:00 | NUR ---
ADMIT PT TAKEN TO CCU, BED 2 BY CART WITH FLUIDS CONTINUING TO INFUSE. BEDSIDE REPORT GIVEN TO SEJAL STEVEN. DENIES QUESTIONS. PT TRANSFERRED TO CCU BED WITH SLIDE BOARD, PT TOLERATES ACTIVITY WELL.
[2017-02-02] MEDS ORDERED: DILTIAZEM 25mg/5ml INJECTION IV ONE (14:15)
--- NOTE | 2017-02-02 15:13 | CONSPD ---
ZULEIMA EDMONDS DARKLIGHT INSPECTOR 02/02/17 1403: Consultation Info Date DATE: 02/02/17 TIME: 14:02 Date of Consultation: Feb 02, 2017 Attending Physician: Trenton Denise MD Reason for Consultation: elevated troponin, afib RVR HPI - Adult Date DATE: 02/02/17 TIME: 14:02 General Date of Admission Date of Admission: Feb 02, 2017 at 12:11 Chief Complaint: weakness, shortness of breath, back pain History of Present Illness Keegan is a 86-year-old male who is well known to Dr. Waldrop with a history of persistent atrial fibrillation, non rheumatic aortic valve stenosis, HTN, HLDand DM II who resides independently at home in [place]. He had an onset of shortness of breath and back pain with weakness starting yesterday. He contacted EMS today for transport to [facility] for further evaluation and treatment. Laboratory studies did reveal severe sepsis, Troponin is 0.202, and proBNP 1190. He has a chronic indwelling Alvarez catheter and a urinalysis showed a pH of 8.0, specific gravity 1.010, trace protein, 3+ glucose, trace blood, positive nitrates, trace leukocyte esterase with 5-10 WBCs and 4+ bacteria. Chest x-ray shows no acute pneumonia or failure. He is tachycardic on arrival with a heart rate in the 120s and he is found to be in atrial fibrillation with RVR. He is mildly tachypnea at 26 per minute. Rectal exam did reveal guaiac positive. The hospitalist services were contacted and accepted patient for inpatient admission for further evaluation and treatment. Dr. Waldrop is being consulted for elevated troponin and AFib RVR. Past Medical History Past Medical History Metabolic: cancer, diabetes, hypercholesterolemia, hypertension ENMT: allergies, cataracts Cardiac: A-fib, CAD, CHF, UT, echocardiogram, other GI: GERD, constipation Male: BPH, other Musculoskeletal: back pain, osteoarthritis Hematologic: anemia Surgical History General: EGD, colonoscopy Cardiac: cardiac bypass, cardiac stent Joint: knee Current Medications Home Meds Reported Medications Oxymetazoline HCl (Afrin) 15 Ml Mist, 1 SPRAY NS DAILY 02/05/17 Metoprolol Tartrate (Metoprolol Tartrate) 25 Mg Tablet, 25 MG PO BID 02/02/17 Nitroglycerin (Nitrostat) 0.4 Mg Tablet, 0.4 MG PO Q5MIN Y for CHEST PAIN 07/27/16 Ferrous Sulfate (Iron Supplement) 325 Mg Tablet, 325 MG PO HS 05/10/16 Ascorbic Acid (Ascorbic Acid) 500 Mg Tablet, 500 MG PO HS 05/10/16 Atorvastatin Calcium (Atorvastatin Calcium) 40 Mg Tablet, 40 MG PO HS 05/10/16 Clopidogrel Bisulfate (Clopidogrel) 75 Mg Tablet, 75 MG PO AM 05/10/16 Fexofenadine HCl (Fexofenadine HCl) 180 Mg Tablet, 180 MG PO AM 05/10/16 Calcium Carbonate/Vitamin D3 (Calcium + Vitamin D Tablet) 1 Each Tablet, 1 TAB PO HS 01/28/16 Metformin HCl (Metformin HCl) 1,000 Mg Tablet, 1000 MG PO BID 01/28/16 Pantoprazole Sodium (Pantoprazole Sodium) 40 Mg Tablet.dr, 40 MG PO BID 01/12/16 Aspirin (Aspirin) 325 Mg Tablet, 325 MG PO AM 01/11/16 Allergies: Coded Allergies: lisinopril (Verified Adverse Reaction, Unknown, COUGH, 02/02/17) Family History FOUND: CVA, cancer, diabetes, hypertension, other Vaccines 07/2016 wants PN vac if needed 2014 per pt. (unknown date) Social History Does patient use chewing tobac: No Second Hand Exposure: No Substance Use Type: does not use Alcohol Intake: none Marital Status: Single Housing: apartment Review of Systems Constitutional: DENIES: chills, dizziness, fever, weakness ENMT Balance: DENIES: vertigo Sinuses: NOT FOUND: rhinorrhea Mouth/Throat: DENIES: sore throat Cardiovascular chest pain (a couple days ago), dyspnea on exertion, murmur (12/26), DENIES: paroxysmal nocturnal dysp Rhythm/Rate: irregular beat, tachycardia, DENIES: palpitations Vascular: pedal edema Pulmonary Respiratory: cough, sputum (brown) GI Upper Abdomen: nausea, vomiting Lower Abdomen: blood in stool, diarrhea Integumentary Skin: rash Neurological General: DENIES: headache, numbness, seizures, syncope, weakness All Other Systems All Other Systems: Reviewed (remainder of 10-point ROS Neg.) Physical Exam General General Nourishment: well nourished, obese, apparent age Vital Signs Vital Signs Date Time Temp Pulse Resp B/P Pulse Ox O2 Delivery O2 Flow Rate FiO2 02/02/17 13:00 114 25 121/73 99 Room Air 02/02/17 10:11 98.0 Height (Feet): 5 Height (Inches): 10.00 Telemetry Rhythm: Atrial Fibrillation ENMT Brief: FOUND: mucosa moist Neck Brief: NOT FOUND: JVD, carotid bruits Respiratory Brief: FOUND: equal bilaterally, rales (bibasilar), NOT FOUND: clear all villaseñor Cardiovascular (brief) Cardiac Brief: FOUND: murmur (3/6), pedal edema, NOT FOUND: regular rate, regular rhythm Abdomen (brief) Abdominal Brief: FOUND: BS normo active x4, soft, NOT FOUND: tender Integumentary (brief) Integumentary Brief: FOUND: dry, warm Neurologic RN Documented GCS Eye Opening: (4)Spontaneous Verbal: (4)Confused Motor: (6)Obeys Commands Total: Psychiatric (brief) FOUND: alert, attentive, oriented Laboratory Laboratory Tests Test 02/02/17 10:38 02/02/17 10:52 02/02/17 11:02 02/02/17 11:22 White Blood Count 13.4T/MM3 Red Blood Count 3.04M/MM3 Hemoglobin 9.4GM/DL Hematocrit 29.4% Mean Corpuscular Volume 96.7UM3 Mean Corpuscular Hemoglobin 30.9UUG Mean Corpuscular Hemoglobin Concent 32.0GM/DL RDW Standard Deviation 49.6FL Platelet Count 156T/MM3 Mean Platelet Volume 11.5UM3 Immature Granulocyte % (Auto) 0.2% Neutrophils (%) (Auto) 71.7% Lymphocytes (%) (Auto) 17.1% Monocytes (%) (Auto) 10.6% Eosinophils (%) (Auto) 0.3% Basophils (%) (Auto) 0.1% Absolute Immature Granulocyte (auto 0.03T/MM3 Absolute Neutrophils (auto) 9.6T/MM3 Absolute Lymphocytes (auto) 2.3T/MM3 Absolute Monocytes (auto) 1.4T/MM3 Absolute Eosinophils (auto) 0.0T/MM3 Absolute Basophils (auto) 0.0T/MM3 Specimen Comment (Misc) Lab to recollect Tests Not Done Trop bmp bnp Reason Tests Not Done Hemolyzed specimen Turbidity < 20 Sodium Level 141MEQ/L Potassium Level 4.9MEQ/L Chloride Level 106MEQ/L Carbon Dioxide Level 16MEQ/L Anion Gap 19MEQ/L Blood Urea Nitrogen 59.0MG/DL Creatinine 0.9MG/DL Glomerular Filtration Rate Calc 80 BUN/Creatinine Ratio 66RATIO Glucose Level 317MG/DL Calculated Osmolality 300MOSM/KG Calcium Level 10.3MG/DL Total Bilirubin 0.60MG/DL Icterus Index < 2 Aspartate Amino Transf (AST/SGOT) 27U/L Alanine Aminotransferase (ALT/SGPT) 23U/L Alkaline Phosphatase 69U/L Troponin I 0.202ng/ml AR-Xsm-L-Type Natriuretic Peptide 1190PG/ML Total Protein 6.9G/DL Albumin 3.7G/DL Globulin 3.2G/DL Albumin/Globulin Ratio 1.2RATIO Chemistry Specimen Hemolysis < 15 Urine Collection Type Alvarez indwelling Urine Color Yellow Urine Turbidity Cloudy Urine pH 8.5 Urine Specific [place] 1.010 Urine Protein Trace Urine Glucose (UA) 3+ Urine Ketones Negative Urine Blood Trace-lysed Urine Nitrite Positive Urine Bilirubin Negative Urine Urobilinogen 0.2EU/DL Urine Leukocyte Esterase Trace Urine RBC None seen/HPF Urine WBC 5-10/HPF Urine Triple Phosphate Crystals Many Urine Amorphous Phosphates Many Urine Bacteria 4+ Urine Culture Indicated Cult reflexed &setup Test 02/02/17 12:08 Plasma Lactate 4.6MMOL/L Procalcitonin < 0.05NG/ML Laboratory Tests Test 02/02/17 10:38 02/02/17 10:52 02/02/17 11:02 02/02/17 11:22 White Blood Count 13.4T/MM3 Red Blood Count 3.04M/MM3 Hemoglobin 9.4GM/DL Hematocrit 29.4% Mean Corpuscular Volume 96.7UM3 Mean Corpuscular Hemoglobin 30.9UUG Mean Corpuscular Hemoglobin Concent 32.0GM/DL RDW Standard Deviation 49.6FL Platelet Count 156T/MM3 Mean Platelet Volume 11.5UM3 Immature Granulocyte % (Auto) 0.2% Neutrophils (%) (Auto) 71.7% Lymphocytes (%) (Auto) 17.1% Monocytes (%) (Auto) 10.6% Eosinophils (%) (Auto) 0.3% Basophils (%) (Auto) 0.1% Absolute Immature Granulocyte (auto 0.03T/MM3 Absolute Neutrophils (auto) 9.6T/MM3 Absolute Lymphocytes (auto) 2.3T/MM3 Absolute Monocytes (auto) 1.4T/MM3 Absolute Eosinophils (auto) 0.0T/MM3 Absolute Basophils (auto) 0.0T/MM3 Specimen Comment (Misc) Lab to recollect Tests Not Done Trop bmp bnp Reason Tests Not Done Hemolyzed specimen Turbidity < 20 Sodium Level 141MEQ/L Potassium Level 4.9MEQ/L Chloride Level 106MEQ/L Carbon Dioxide Level 16MEQ/L Anion Gap 19MEQ/L Blood Urea Nitrogen 59.0MG/DL Creatinine 0.9MG/DL Glomerular Filtration Rate Calc 80 BUN/Creatinine Ratio 66RATIO Glucose Level 317MG/DL Calculated Osmolality 300MOSM/KG Calcium Level 10.3MG/DL Total Bilirubin 0.60MG/DL Icterus Index < 2 Aspartate Amino Transf (AST/SGOT) 27U/L Alanine Aminotransferase (ALT/SGPT) 23U/L Alkaline Phosphatase 69U/L Troponin I 0.202ng/ml OM-Rwm-Y-Type Natriuretic Peptide 1190PG/ML Total Protein 6.9G/DL Albumin 3.7G/DL Globulin 3.2G/DL Albumin/Globulin Ratio 1.2RATIO Chemistry Specimen Hemolysis < 15 Urine Collection Type Alvarez indwelling Urine Color Yellow Urine Turbidity Cloudy Urine pH 8.5 Urine Specific [place] 1.010 Urine Protein Trace Urine Glucose (UA) 3+ Urine Ketones Negative Urine Blood Trace-lysed Urine Nitrite Positive Urine Bilirubin Negative Urine Urobilinogen 0.2EU/DL Urine Leukocyte Esterase Trace Urine RBC None seen/HPF Urine WBC 5-10/HPF Urine Triple Phosphate Crystals Many Urine Amorphous Phosphates Many Urine Bacteria 4+ Urine Culture Indicated Cult reflexed &setup Test 02/02/17 12:08 Plasma Lactate 4.6MMOL/L Procalcitonin < 0.05NG/ML EKG AFib RVR, HR 112, LAD Radiology DATE OF EXAM: 02/02/17 ORDERING DOCTOR: AMOL BACH DO TYPE OF EXAM: CHEST 1 VIEW REASON FOR EXAM: sob Indication: ITS.REASON: sob PROCEDURE: CHEST 1 VIEW: Encounter: Initial Comparison: July 27, 2016 Findings: Prior CABG. Large hiatal hernia with a partially intrathoracic stomach. No focal pneumonia, pleural effusion or pneumothorax. Moderate enlargement of the cardiac silhouette is unchanged. Mediastinal contours are stable. Pulmonary vascularity appears normal. Impression: No focal pneumonia or congestive failure. Impression/Recommendation Problems: (1) Persistent atrial fibrillation Status: Chronic Assessment & Plan: Cardizem 10mg IV given X1 (2) Elevated troponin Status: Acute Assessment & Plan: Reports chest pain a couple of days ago. Heart cath last July showed CAD. Left main was free of significant lesions. Left anterior descending artery was occluded proximally. Left circumflex artery had about 20%-30% stenosis. Ramus intermedius had 80%-90 % eccentric lesion proximally. Right coronary artery was occluded from previous catheterization and it was not directly engaged. A vein graft to obtuse marginal was occluded. A vein graft to diagonal was occluded. A vein graft to right coronary artery was occluded which appeared to be the fresh occlusion recently. NAVARRO was not visualized since it was patent from previous cath. After reviewing the angiograms, we decided to proceed with intervention on vein graft to RCA. A 6-Grenadian RCB guide was advanced to the ostium of the graft. A Whisper wire was used to recanalize the vessel. The wire was advanced into PDA. Multiple inflations were performed using a 2.0 x 20 balloon throughout the graft. However, we did not see opening of the vessel. Next, we used a thrombectomy catheter and we tried to aspirate thrombus. However, were not able to get any flow back and therefore the case was terminated. Patient tolerated the procedure well with no complications. Will trend troponin levels and continue to monitor. (3) History of non-ST elevation myocardial infarction (NSTEMI) Status: Resolved (4) Atherosclerosis of coronary artery bypass graft of [place] heart without angina pectoris Status: Chronic Assessment & Plan: Heart cath last July showed CAD. Left main was free of significant lesions. Left anterior descending artery was occluded proximally. Left circumflex artery had about 20%-30% stenosis. Ramus intermedius had 80%-90 % eccentric lesion proximally. Right coronary artery was occluded from previous catheterization and it was not directly engaged. A vein graft to obtuse marginal was occluded. A vein graft to diagonal was occluded. A vein graft to right coronary artery was occluded which appeared to be the fresh occlusion recently. NAVARRO was not visualized since it was patent from previous cath. After reviewing the angiograms, we decided to proceed with intervention on vein graft to RCA. A 6-Grenadian RCB guide was advanced to the ostium of the graft. A Whisper wire was used to recanalize the vessel. The wire was advanced into PDA. Multiple inflations were performed using a 2.0 x 20 balloon throughout the graft. However, we did not see opening of the vessel. Next, we used a thrombectomy catheter and we tried to aspirate thrombus. However, were not able to get any flow back and therefore the case was terminated. Patient tolerated the procedure well with no complications. 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 Needs PRBCs Recommendation AFib RVR: Rate 120s, Cardizem 10mg IV X1 given. HR now 90-100. Will trend troponin levels and continue to monitor. With patient's degree of CAD his HGB should be kept around 10. Needs PRBCs. Thank you for allowing us to participate in the care of this patient, we will follow along with you SWEETIE WALDROP MD 02/06/17 1636: Past Medical History Current Medications Home Meds Reported Medications Oxymetazoline HCl (Afrin) 15 Ml Mist, 1 SPRAY NS DAILY 02/05/17 Metoprolol Tartrate (Metoprolol Tartrate) 25 Mg Tablet, 25 MG PO BID 02/02/17 Nitroglycerin (Nitrostat) 0.4 Mg Tablet, 0.4 MG PO Q5MIN Y for CHEST PAIN 07/27/16 Ferrous Sulfate (Iron Supplement) 325 Mg Tablet, 325 MG PO HS 05/10/16 Ascorbic Acid (Ascorbic Acid) 500 Mg Tablet, 500 MG PO HS 05/10/16 Atorvastatin Calcium (Atorvastatin Calcium) 40 Mg Tablet, 40 MG PO HS 05/10/16 Clopidogrel Bisulfate (Clopidogrel) 75 Mg Tablet, 75 MG PO AM 05/10/16 Fexofenadine HCl (Fexofenadine HCl) 180 Mg Tablet, 180 MG PO AM 05/10/16 Calcium Carbonate/Vitamin D3 (Calcium + Vitamin D Tablet) 1 Each Tablet, 1 TAB PO HS 01/28/16 Metformin HCl (Metformin HCl) 1,000 Mg Tablet, 1000 MG PO BID 01/28/16 Pantoprazole Sodium (Pantoprazole Sodium) 40 Mg Tablet.dr, 40 MG PO BID 01/12/16 Aspirin (Aspirin) 325 Mg Tablet, 325 MG PO AM 01/11/16 Allergies: Coded Allergies: lisinopril (Verified Adverse Reaction, Unknown, COUGH, 02/02/17) Impression/Recommendation Recommendation After examining the patient I agree with the above assessment. I am involved in the formulation of the patient's plan of care. ZULEIMA EDMONDS APRN Feb 02, 2017 14:03 SWEETIE WALDROP MD Feb 06, 2017 16:36
--- NOTE | 2017-02-02 15:57 | NUR ---
Admit/Status Pt admitted to CCU bed 2 from ER. Pt was brought over via cart and slide board was used to transfer pt over into bed. IV fluids running wide open, pt on RA, VS and pulse was tachy upon arrival. Bath was provided as well as extensive jes care. Jes area is bright red with yellow mucous like drainage. Alvarez was completely changed per orders. Pt tolerated well. Pt also has a red spot on bottom. Shins bilaterally are scratched up. Pt is a/o x3 and has been having appropriate conversations with staff and family. a 1 time Cardizem push was given per orders HR has come down some, sitting mostly at 95 bpm. Family has remained at bedside. RN visited with pt regarding DNR status. Pt had signed one in February of 2016. Pt re-read DNR with granddaughter-DPOA and stated he wished to continue as DNR. Will continue to monitor.
[2017-02-02 16:00] LABS: BLOOD, URINE 2+ (NEGATIVE); COLOR,URINE YELLOW (YELLOW); LEUKOCYTE ESTERASE ,URINE 3+ (NEGATIVE); NITRITE,URINE POSITIVE (NEGATIVE); UROBILINOGEN,URINE 0.2 EU/DL (NORMAL)
[2017-02-02] MEDS: LEVOFLOXACIN 750 mg IVPB 750 MG in D5W 150 ML IV SCH (16:10)
[2017-02-02 16:21] LABS: BACTERIA,URINE 4+ (NEGATIVE); RBC,URINE TNTC /HPF (0-3); SQUAMOUS EPITHELIAL CELL,UR NONE SEEN; WBC,URINE 30-50 /HPF (0-5)
[2017-02-02 16:22] LABS: TRIPLE PHOSPHATE CRYSTAL,UR MANY
[2017-02-02 17:08] LABS: HCT - HEMATOCRIT 23.6 % (41-53); HGB - HEMOGLOBIN 7.6 GM/DL (13.5-17.5); MEAN CORPUSCULAR HGB CONC(MCHC 32.2 GM/DL (31-37); MEAN CORPUSCULAR VOLUME 96.3 UM3 (80-100); MEAN PLATELET VOLUME 11.6 UM3 (9.4-12.4); RED BLOOD COUNT 2.45 M/MM3 (4.50-5.90); WBC - WHITE BLOOD COUNT 10.7 T/MM3 (4.5-11.0)
[2017-02-02] MEDS: INSULIN ASPART 100 UNIT/ML SQ PRN (17:13)
[2017-02-02] MEDS: PANTOPRAZOLE 40mg INJECTION IV SCH (21:24)
[2017-02-02] MEDS: ATORVASTATIN 40 MG TABLET PO SCH (21:25)
[2017-02-02 22:59] LABS: BASOPHILS % (AUTO) 0.3 % (0-2); EOSINOPHILS # (AUTO) 0.2 T/MM3 (0-0.5); EOSINOPHILS % (AUTO) 2.2 % (0-4); HCT - HEMATOCRIT 23.1 % (41-53); HGB - HEMOGLOBIN 7.5 GM/DL (13.5-17.5); IMMATURE GRANULOCYTE # (AUTO) 0.03 T/MM3 (0.00-0.03); IMMATURE GRANULOCYTE % (AUTO) 0.3 % (0.0-0.5); LYMPHOCYTES # (AUTO) 2.5 T/MM3 (1-4.8); LYMPHOCYTES % (AUTO) 27.7 % (23-45); MEAN CORPUSCULAR HGB 31.1 UUG (26-34); MEAN CORPUSCULAR HGB CONC(MCHC 32.5 GM/DL (31-37); MEAN CORPUSCULAR VOLUME 95.9 UM3 (80-100); MEAN PLATELET VOLUME 11.2 UM3 (9.4-12.4); MONOCYTES # (AUTO) 1.2 T/MM3 (0-0.8); MONOCYTES % (AUTO) 12.8 % (0-9.0); NEUTROPHILS #(AUTO)-ABSOLUTE 5.2 T/MM3 (1.8-7.7); NEUTROPHILS % (AUTO) 56.7 % (33-66); RED BLOOD COUNT 2.41 M/MM3 (4.50-5.90); WBC - WHITE BLOOD COUNT 9.1 T/MM3 (4.5-11.0)
[2017-02-03] VITALS (70 sets, daily range): BP systolic 73–128; BP diastolic 40–78; PULSE 79–105; RESP 0–33; TEMP 97.7–98.3; O2SAT 84–98
[2017-02-03] MEDS: NORMAL SALINE 1,000 ML IV SCH ×3 (03:00→17:11)
[2017-02-03 03:42] LABS: BASOPHILS % (AUTO) 0.2 % (0-2); EOSINOPHILS # (AUTO) 0.2 T/MM3 (0-0.5); EOSINOPHILS % (AUTO) 1.7 % (0-4); HCT - HEMATOCRIT 25.2 % (41-53); HGB - HEMOGLOBIN 8.2 GM/DL (13.5-17.5); IMMATURE GRANULOCYTE # (AUTO) 0.01 T/MM3 (0.00-0.03); IMMATURE GRANULOCYTE % (AUTO) 0.1 % (0.0-0.5); LYMPHOCYTES # (AUTO) 2.1 T/MM3 (1-4.8); LYMPHOCYTES % (AUTO) 24.6 % (23-45); MEAN CORPUSCULAR HGB 30.9 UUG (26-34); MEAN CORPUSCULAR HGB CONC(MCHC 32.5 GM/DL (31-37); MEAN CORPUSCULAR VOLUME 95.1 UM3 (80-100); MEAN PLATELET VOLUME 11.6 UM3 (9.4-12.4); MONOCYTES % (AUTO) 11.9 % (0-9.0); NEUTROPHILS #(AUTO)-ABSOLUTE 5.3 T/MM3 (1.8-7.7); NEUTROPHILS % (AUTO) 61.5 % (33-66); RED BLOOD COUNT 2.65 M/MM3 (4.50-5.90); WBC - WHITE BLOOD COUNT 8.7 T/MM3 (4.5-11.0)
--- NOTE | 2017-02-03 07:39 | CONSPD ---
Consultation Info Date DATE: 02/03/17 TIME: 07:26 Date of Consultation: Feb 03, 2017 HPI - Adult Date DATE: 02/03/17 TIME: 07:26 General Chief Complaint: weakness, shortness of breath, back pain History of Present Illness Per Dr. Watts Past Medical History Past Medical History Non-Hodgkin's lympthoma [place]-age 62 NIDDM Hypertension Hypercholesterolemia Allergic rhinitis Cataracts Atrial Fibrillation Aortic stenosis CAD Constipation GERD Osteoarthritis Lumbar stenosis Anemia MRSA bacteremia in 02/2016 Surgical History Patient's Surgical History: 10-06-15 EGD for anemia, =normal =Chai 02-03-15 colonoscopy, diverticulosis F/H colon cancer= Angelika 09-15-15 barium enema =showed redundant colon and sigmoid colon diverticulosis 11-15-11 colonoscopy, tubular adenomas x2, diverticulosis = Chai 2005 colonoscopy =Chai RUDY was negative for vegetation on 02/29/16 Multiple recent cardiac catheterizations per Dr. Lovell: 01/19/16: PTCA and stent of vein graft to RCA and posterolateral artery using drug-eluting stents and 1 bare metal stent 01/12/16: Unsuccessful attempt at PTCA of the graft to the RCA. 11/10/15: Ramus intermedius PTCA and stent with a drug-eluting stent. 10/19/15: Multivessel coronary artery disease CABG--4 vessel-1992 Dr. Acosta Right Total Knee Replacement 2009 Dr. Sparrow Bone biopsy right pelvis 2009 Dr. 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 Landrum for osteomyelitis Cardiac catheterization in [address] Dickinson for NSTEMI. EF 40-45%. Current Medications Home Meds Reported Medications Metoprolol Tartrate (Metoprolol Tartrate) 25 Mg Tablet, 25 MG PO BID 02/02/17 Nitroglycerin (Nitrostat) 0.4 Mg Tablet, 0.4 MG PO Q5MIN Y for CHEST PAIN 07/27/16 Ferrous Sulfate (Iron Supplement) 325 Mg Tablet, 325 MG PO HS 05/10/16 Ascorbic Acid (Ascorbic Acid) 500 Mg Tablet, 500 MG PO HS 05/10/16 Atorvastatin Calcium (Atorvastatin Calcium) 40 Mg Tablet, 40 MG PO HS 05/10/16 Clopidogrel Bisulfate (Clopidogrel) 75 Mg Tablet, 75 MG PO AM 05/10/16 Fexofenadine HCl (Fexofenadine HCl) 180 Mg Tablet, 180 MG PO AM 05/10/16 Calcium Carbonate/Vitamin D3 (Calcium + Vitamin D Tablet) 1 Each Tablet, 1 TAB PO HS 01/28/16 Metformin HCl (Metformin HCl) 1,000 Mg Tablet, 1000 MG PO BID 01/28/16 Pantoprazole Sodium (Pantoprazole Sodium) 40 Mg Tablet.dr, 40 MG PO BID 01/12/16 Aspirin (Aspirin) 325 Mg Tablet, 325 MG PO AM 01/11/16 Allergies: Coded Allergies: lisinopril (Verified Adverse Reaction, Unknown, COUGH, 02/02/17) Family History Family History: Mother-hypertension, CVA, diabetes Fatherdiabetes Brotherliver cancer Brotherlung cancer Brother - colon carcinoma Social History Smoking Status: Never smoker Does patient use chewing tobac: No Second Hand Exposure: No Substance Use Type: does not use Alcohol Intake: none Marital Status: Single Housing: apartment Advance Directives: Yes DPOA for Healthcare Only (Yue Neil) Review of Systems Ear, Nose, and Throat REPORTS hearing problems Cardiovascular REPORTS other (murmur) Respiratory REPORTS sleep apnea Gastrointestional REPORTS other (see HPI) Genitourinary REPORTS difficulty urinating (BPH) Musculoskeletal REPORTS back pain, REPORTS joint pain (feet) Endocrine REPORTS diabetes Hematologic REPORTS easy bruising, REPORTS use of blood thinners 10-point Review of Systems otherwise negative except HPI GS Physical Exam Vital Signs Date Time Temp Pulse Resp B/P Pulse Ox O2 Delivery O2 Flow Rate FiO2 02/03/17 06:00 88 25 110/64 96 Room Air 02/03/17 03:15 97.7 Height (Feet): 5 Height (Inches): 10.00 Weight (Kilograms): 98.700 BMI 31.2 Laboratory Laboratory Tests 02/02/17 11:02 Laboratory Tests 02/02/17 10:38 02/02/17 16:49 02/02/17 22:51 02/03/17 03:26 AURELIO BAILEY 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
[2017-02-03 08:16] LABS: ANION GAP 9 MEQ/L (5-15); BUN/CREATININE RATIO 49 RATIO (6-26); CALCIUM 8.5 MG/DL (8.4-10.2); CHLORIDE 112 MEQ/L (98-107); CO2 - CARBON DIOXIDE 22 MEQ/L (22-30); CREATININE 0.7 MG/DL (0.8-1.5); GLOMERULAR FILTRATION RATE 107; GLUCOSE 161 MG/DL (75-110); POTASSIUM 3.7 MEQ/L (3.6-5); SODIUM 143 MEQ/L (134-144)
[2017-02-03] MEDS: PANTOPRAZOLE 40mg INJECTION IV SCH ×2 (08:29→21:36)
[2017-02-03] MEDS: LEVOFLOXACIN 750 mg IVPB 750 MG in D5W 150 ML IV SCH (08:29)
[2017-02-03] MEDS: FEXOFENADINE 180 MG TABLET PO SCH ×2 (08:29→10:13)
--- NOTE | 2017-02-03 09:28 | NUR ---
Physician: Dr. Denise is here to see the patient and talk with the family. See orders.
[2017-02-03] MEDS ORDERED: NITROGLYCERIN 0.4 MG SUBLINGUAL TABLET SL PRN (09:30)
--- NOTE | 2017-02-03 10:13 | ECHOF ---
ECHOCARDIOGRAM REPORT DATE OF PROCEDURE February 02, [address] Alonso Catalan This is a two-dimensional echo with spectral Doppler, color-flow and M-mode. It was obtained in a patient with elevated troponin. Left atrial dimension is increased. Left ventricle end-diastolic dimension is normal. Left ventricle wall thickness is increased. LV systolic function is reduced with inferior septum and posterior [id number] with ejection fraction of about 25-30%. Right atrium is dilated. Right ventricle is normal. Aortic root dimension is increased. Mitral valve annulus is calcified. Mitral valve leaflets are sclerotic with no stenosis. Mild mitral regurgitation is present. Aortic valve shows fibrocalcific changes with restriction on opening motion. Transaortic velocities are increased at 3 m/sec with a peak gradient of 35 and mean gradient of 25. Aortic valve area is calculated at 1.03 cm2. Mild aortic insufficiency is present. Tricuspid valve shows mild tricuspid regurgitation with normal estimated pulmonary artery systolic pressure of 31. Pulmonary valve shows mild pulmonary insufficiency. There is no pericardial effusion. IMPRESSION 1. Wall motion abnormalities as described above with ejection fraction of about 25-30%. 2. Biatrial dilation. 3. Left ventricular hypertrophy. 4. Aortic root dilation. 5. Mitral annulus calcification with mitral sclerosis and mild mitral regurgitation. 6. Moderate aortic stenosis with a valve area of 1.03 cm2 with mild aortic insufficiency. 7. Mild tricuspid regurgitation with normal estimated pulmonary artery systolic pressure of 31. 8. Mild pulmonary insufficiency. MTDD
[2017-02-03 10:31] LABS: BASOPHILS % (AUTO) 0.3 % (0-2); EOSINOPHILS # (AUTO) 0.2 T/MM3 (0-0.5); EOSINOPHILS % (AUTO) 1.9 % (0-4); HCT - HEMATOCRIT 26.1 % (41-53); HGB - HEMOGLOBIN 8.4 GM/DL (13.5-17.5); IMMATURE GRANULOCYTE # (AUTO) 0.02 T/MM3 (0.00-0.03); IMMATURE GRANULOCYTE % (AUTO) 0.2 % (0.0-0.5); LYMPHOCYTES # (AUTO) 1.9 T/MM3 (1-4.8); LYMPHOCYTES % (AUTO) 21.2 % (23-45); MEAN CORPUSCULAR HGB CONC(MCHC 32.2 GM/DL (31-37); MEAN CORPUSCULAR VOLUME 96.3 UM3 (80-100); MONOCYTES # (AUTO) 0.9 T/MM3 (0-0.8); NEUTROPHILS #(AUTO)-ABSOLUTE 5.9 T/MM3 (1.8-7.7); NEUTROPHILS % (AUTO) 66.4 % (33-66); RED BLOOD COUNT 2.71 M/MM3 (4.50-5.90); WBC - WHITE BLOOD COUNT 8.9 T/MM3 (4.5-11.0)
--- NOTE | 2017-02-03 11:49 | PNPDOC ---
Subjective Date DATE: 02/03/17 TIME: 11:23 Subjective Resting comfortably this am. No chest pain, no n/v. Had blood transfusion with out issue overnight. Alvarez draining. Objective Vital Signs Vital signs Vital Signs Date Time Temp Pulse Resp B/P Pulse Ox O2 Delivery O2 Flow Rate FiO2 02/03/17 08:15 90 16 02/03/17 08:12 98.1 107/65 97 Room Air Telemetry Rhythm: Atrial Fibrillation Height (Feet): 5 Height (Inches): 10.00 Weight (Kilograms): 98.600 General General Appearance: Alert, Orientated x 3 Respiratory (Brief) Respiratory: FOUND: clear all villaseñor, equal bilaterally, NOT FOUND: rales, wheezes Cardiovascular (Brief) Cardiac: FOUND: pedal edema, regular rate, regular rhythm Capillary Refill: <2 sec Abdomen (Brief) Abdominal: FOUND: BS normo active x4, soft, tender (mild, diffuse) (Brief) Comments Alvarez in place. Draining Extremities (Brief) Extremity : Comments trade edema bilat, no c/c Lymphatic (Brief) Lymphatic: NOT FOUND: adenopathy Laboratory Laboratory Laboratory Tests 02/02/17 11:02 02/03/17 07:58 Laboratory Tests 02/02/17 10:38 02/02/17 16:49 02/02/17 22:51 02/03/17 03:26 02/03/17 10:18 Microbiology Microbiology Microbiology Date/Time Source Procedure Growth Status 02/02/17 12:08 Peripheral/Iv Start Blood Culture - Preliminary CULTURE INITIATED - RESULTS PENDING Resulted 02/02/17 12:08 Peripheral/Iv Start Blood Culture - Preliminary CULTURE INITIATED - RESULTS PENDING Resulted 02/02/17 16:22 Urine, Alvarez Indwelling Urine Culture - Preliminary CULTURE INITIATED - RESULTS PENDING Resulted 02/02/17 11:37 Urine, Alvarez Indwelling Urine Culture - Preliminary CULTURE INITIATED - RESULTS PENDING Resulted Sepsis Diagnostic Criteria Sepsis Confirmed/Suspected Infection: Yes SIRS Criteria: Pulse >= 90 beats/min, WBC >=12,000 or <=4,000, RR > or = to 20 Severe Sepsis Lactate >=2.0 mg/dL Septic Shock Septic Shock Criteria: Lactate >4 Additional Information Comments Symptoms improving today. Vitals improved. Assessment & Plan Problems: (1) Severe sepsis Status: Acute Assessment & Plan: Manifestations of severe sepsis include the following 1. Urinary tract infection. 2. Leukocytosis, white blood count 13.3. 3. Tachycardia, 125 4. Elevated venous lactate - 4.6 (2) Urinary tract infection Status: Acute Assessment & Plan: Present on admission, indwelling Alvarez catheter present (3) Atrial fibrillation with RVR Status: Acute (4) GI bleed Status: Acute Assessment & Plan: Present on admission, Hemoccult positive (5) Aortic stenosis, mild Status: Chronic (6) Elevated troponin Status: Acute Assessment & Plan: Present on admission, troponin 0.202 (7) Aortic stenosis, moderate Status: Chronic (8) CAD (coronary artery disease) Status: Chronic (9) Hypertension Status: Chronic (10) Diabetes mellitus Status: Chronic (11) Hypercholesterolemia Status: Chronic (12) Allergic rhinitis Status: Chronic (13) GERD (gastroesophageal reflux disease) Status: Chronic (14) OA (osteoarthritis) Status: Chronic (15) BPH (benign prostatic hypertrophy) Status: Chronic (16) History of NC (myocardial infarction) Status: Resolved Assessment Addendum: I have independently interviewed and examined patient. Above note reviewed, case discussed with Caron Ayoub APRN. Consulted Dr. Watts and discussed case with him as well. Plan/Intensity of Service GI bleed--patient was stable overnight after getting one unit of PRBC. Hemoglobin 8.7 this morning. No abdominal pain, no nausea vomiting. Diet advanced as tolerated. Continue with every 6 hours H&H today. Continue Protonix IV. UTI/ sepsis--lactate reordered and is decreasing, down to 2.6 today. Recheck lactate again tomorrow. Urine culture and blood culture neg at this time, 48 hour results pending. AFIB with RVR--Rate stable, Cardiology on consult. Elevated troponin- began trending down this am, no chest pain. D/C plan-- Pt will require admission until 48 hour cultures return and he is stable. AM labs ordered. Trenton iBrd MD Code Status Do Not Resuscitate Hospital Course Summary Disclaimer The hospital course summary below is not to be considered part of the above Progress Note. Hospital Course Summary Admit patient to inpatient status under the care of Dr. Bird sew on operator hospitalist for severe sepsis, urinary tract infection and elevated troponin. That is protocol was initiated in the emergency room, blood cultures drawn, IV fluid boluses given and patient initiated on Rocephin IV daily for antimicrobial coverage. Cultures and urine culture pending. Obtain serial lactate levels. In light of sepsis protocol. In light of atrial fibrillation with RVR and elevated troponin. Will consult patient's cardiology, Dr. Lovell for further cardiac evaluation and recommendations. Will recheck serial troponins 3 every 6 hours and monitor patient on cardiac telemetry. Hemoccult was positive in the emergency room. Hemoglobin low at 9.4. Patient does have a history of anemia. Will need to hold off on anticoagulation at this time. Will discuss further with attending. Protonix 40 milligrams IV twice a day for GI protection. Once severe sepsis and atrial fibrillation RVR are more controlled. Will need to further evaluate heme-positive stools and GI bleed Monitor Accu-Cheks fasting and 2 hours postprandial. Will hold home Metformin and utilize sliding scale NovoLog. She may have 2000 calorie ADA diet SCDs to bilateral lower extremity for DVT prophylaxis Recheck CBC and BMP tomorrow morning to follow blood counts, renal function and electrolytes. We'll discuss further orders and plan of care with attending, 5:45 PM as history and physical was being dictated, labs were reviewed. Hemoglobin decreased to 7.6. Patient's blood pressure is stable, but systolic at [address] Watts was consulted regarding GI bleed, we will continue with every 6 hours hemoglobin overnight and he will see the patient in the morning assuming patient stable overnight. This was reviewed with the patient and his daughter are both aware of the plan and approve of it. Trenton Bird M.D. 02/03/17 GI bleed--patient was stable overnight after getting one unit of PRBC. Hemoglobin 8.7 this morning. No abdominal pain, no nausea vomiting. Diet advanced as tolerated. Continue with every 6 hours H&H today. Continue Protonix IV. UTI/ sepsis--lactate reordered and is decreasing, down to 2.6 today. Recheck lactate again tomorrow. Urine culture and blood culture neg at this time, 48 hour results pending. AFIB with RVR--Rate stable, Cardiology on consult. Elevated troponin- began trending down this am, no chest pain. D/C plan-- Pt will require admission until 48 hour cultures return and he is stable. Trenton BIRD,TRENTON Bowman MD Feb 03, 2017 11:26
[2017-02-03] MEDS: INSULIN ASPART 100 UNIT/ML SQ PRN ×3 (12:18→21:46)
--- NOTE | 2017-02-03 13:42 | NUR ---
Dm screen Diet: CC 1999; intake: 100%; Home DM meds: Metformin, 2000 mg; BGM: 142-216 mg/dl. Pt lives alone. Does not SMBG; frequently eats out for BF. Eats two meals daily, supper in the late afternoon.
--- NOTE | 2017-02-03 14:34 | PNPDOC ---
ZULEIMA EDMONDS ANATOMIC PATHOLOGY ASSISTANT 02/03/17 1418: Subjective Date DATE: 02/03/17 TIME: 14:13 Subjective Keegan is in his bed in CCU, he is alert and oriented. He denies cardiac complaints Objective Vital Signs Vital signs Vital Signs 02/03/17 02/03/17 02/03/17 02/03/17 02:15 02:30 02:45 03:00 Pulse 97 89 92 93 Resp 17 24 26 B/P 113/59 102/56 116/61 110/59 Pulse Ox 97 94 92 94 O2 Delivery Room Air Room Air Room Air Room Air 02/03/17 02/03/17 02/03/17 02/03/17 03:15 03:30 03:30 03:45 Temp 97.7 Pulse 92 98 89 92 Resp 14 15 B/P 98/55 108/63 106/63 Pulse Ox 97 97 96 O2 Delivery Room Air Room Air Room Air 02/03/17 02/03/17 02/03/17 02/03/17 04:00 04:15 04:30 05:00 Pulse 86 85 93 91 Resp 26 25 23 20 B/P 106/72 113/63 109/64 109/69 Pulse Ox 95 94 94 94 O2 Delivery Room Air Room Air Room Air Room Air 02/03/17 02/03/17 02/03/17 02/03/17 05:15 05:30 05:45 06:00 Pulse 84 92 88 88 Resp 24 26 23 25 B/P 111/65 126/71 126/60 110/64 Pulse Ox 96 92 97 96 O2 Delivery Room Air Room Air Room Air Room Air 02/03/17 02/03/17 02/03/17 02/03/17 07:01 07:30 08:12 08:15 Temp 98.1 Pulse 101 92 97 90 Resp 26 19 20 16 B/P 117/60 121/65 107/65 Pulse Ox 93 96 97 O2 Delivery Room Air Room Air Room Air 02/03/17 02/03/17 02/03/17 02/03/17 09:00 09:30 10:00 10:30 Pulse 104 100 105 96 Resp 20 29 31 25 B/P 112/56 121/78 107/61 96/60 Pulse Ox 94 84 O2 Delivery Room Air Room Air Room Air Room Air 02/03/17 02/03/17 02/03/1717 11:00 11:30 12:00 12:03 Temp 97.7 Pulse 79 79 82 80 Resp 22 28 B/P 87/67 82/51 73/40 100/55 Pulse Ox 95 98 96 96 O2 Delivery Room Air Room Air Room Air Room Air 02/03/17 12:12 Pulse 82 Resp 24 Telemetry Rhythm: Atrial Fibrillation Height (Feet): 5 Height (Inches): 10.00 Weight (Kilograms): 98.600 General Alert, Orientated x 3, Cooperative ENMT (Brief) mucosa moist Neck (Brief) NOT FOUND: JVD, carotid bruits Respiratory (Brief) equal bilaterally, rales (bibasilar), NOT FOUND: clear all villaseñor, wheezes Cardiovascular (Brief) murmur (3/6), pedal edema (trace), regular rate, NOT FOUND: click, gallop, regular rhythm, rub Abdomen (Brief) BS normo active x4, soft, NOT FOUND: tender Integumentary (Brief) dry, pink, warm Psychiatric (Brief) alert, oriented Laboratory Laboratory Laboratory Tests Test 02/02/17 10:38 02/02/17 10:52 02/02/17 11:02 02/02/17 11:22 White Blood Count 13.4T/MM3 Red Blood Count 3.04M/MM3 Hemoglobin 9.4GM/DL Hematocrit 29.4% Mean Corpuscular Volume 96.7UM3 Mean Corpuscular Hemoglobin 30.9UUG Mean Corpuscular Hemoglobin Concent 32.0GM/DL RDW Standard Deviation 49.6FL Platelet Count 156T/MM3 Mean Platelet Volume 11.5UM3 Immature Granulocyte % (Auto) 0.2% Neutrophils (%) (Auto) 71.7% Lymphocytes (%) (Auto) 17.1% Monocytes (%) (Auto) 10.6% Eosinophils (%) (Auto) 0.3% Basophils (%) (Auto) 0.1% Absolute Immature Granulocyte (auto 0.03T/MM3 Absolute Neutrophils (auto) 9.6T/MM3 Absolute Lymphocytes (auto) 2.3T/MM3 Absolute Monocytes (auto) 1.4T/MM3 Absolute Eosinophils (auto) 0.0T/MM3 Absolute Basophils (auto) 0.0T/MM3 Specimen Comment (Misc) Lab to recollect Tests Not Done Trop bmp bnp Reason Tests Not Done Hemolyzed specimen Turbidity < 20 Sodium Level 141MEQ/L Potassium Level 4.9MEQ/L Chloride Level 106MEQ/L Carbon Dioxide Level 16MEQ/L Anion Gap 19MEQ/L Blood Urea Nitrogen 59.0MG/DL Creatinine 0.9MG/DL Glomerular Filtration Rate Calc 80 BUN/Creatinine Ratio 66RATIO Glucose Level 317MG/DL Calculated Osmolality 300MOSM/KG Calcium Level 10.3MG/DL Total Bilirubin 0.60MG/DL Icterus Index < 2 Aspartate Amino Transf (AST/SGOT) 27U/L Alanine Aminotransferase (ALT/SGPT) 23U/L Alkaline Phosphatase 69U/L Troponin I 0.202ng/ml [id number] Natriuretic Peptide 1190PG/ML Total Protein 6.9G/DL Albumin 3.7G/DL Globulin 3.2G/DL Albumin/Globulin Ratio 1.2RATIO Chemistry Specimen Hemolysis < 15 Urine Collection Type Alvarez indwelling Urine Color Yellow Urine Turbidity Cloudy Urine pH 8.5 Urine Specific [place] 1.010 Urine Protein Trace Urine Glucose (UA) 3+ Urine Ketones Negative Urine Blood Trace-lysed Urine Nitrite Positive Urine Bilirubin Negative Urine Urobilinogen 0.2EU/DL Urine Leukocyte Esterase Trace Urine RBC None seen/HPF Urine WBC 5-10/HPF Urine Triple Phosphate Crystals Many Urine Amorphous Phosphates Many Urine Bacteria 4+ Urine Culture Indicated Cult reflexed &setup Test 02/02/17 12:08 02/02/17 15:49 02/02/17 16:48 02/02/17 16:49 Plasma Lactate 4.6MMOL/L 3.1MMOL/L Procalcitonin < 0.05NG/ML Urine Collection Type Alvarez indwelling Urine Color Yellow Urine Turbidity Cloudy Urine pH 8.5 Urine Specific [place] 1.015 Urine Protein 2+ Urine Glucose (UA) Trace Urine Ketones Negative Urine Blood 2+ Urine Nitrite Positive Urine Bilirubin Negative Urine Urobilinogen 0.2EU/DL Urine Leukocyte Esterase 3+ Urine RBC Tntc/HPF Urine WBC 30-50/HPF Urine Squamous Epithelial Cells None seen Urine Triple Phosphate Crystals Many Urine Amorphous Phosphates Many Urine Bacteria 4+ Urine Culture Indicated Cult reflexed &setup White Blood Count 10.7T/MM3 Red Blood Count 2.45M/MM3 Hemoglobin 7.6GM/DL Hematocrit 23.6% Mean Corpuscular Volume 96.3UM3 Mean Corpuscular Hemoglobin 31.0UUG Mean Corpuscular Hemoglobin Concent 32.2GM/DL RDW Standard Deviation 48.2FL Platelet Count 124T/MM3 Mean Platelet Volume 11.6UM3 Troponin I 0.380ng/ml Chemistry Specimen Hemolysis < 15 Test 02/02/17 17:05 02/02/17 21:23 02/02/17 22:51 02/03/17 03:26 Glucometer 209mg/dL 142mg/dL White Blood Count 9.1T/MM3 8.7T/MM3 Red Blood Count 2.41M/MM3 2.65M/MM3 Hemoglobin 7.5GM/DL 8.2GM/DL Hematocrit 23.1% 25.2% Mean Corpuscular Volume 95.9UM3 95.1UM3 Mean Corpuscular Hemoglobin 31.1UUG 30.9UUG Mean Corpuscular Hemoglobin Concent 32.5GM/DL 32.5GM/DL RDW Standard Deviation 48.4FL 48.2FL Platelet Count 116T/MM3 108T/MM3 Mean Platelet Volume 11.2UM3 11.6UM3 Immature Granulocyte % (Auto) 0.3% 0.1% Neutrophils (%) (Auto) 56.7% 61.5% Lymphocytes (%) (Auto) 27.7% 24.6% Monocytes (%) (Auto) 12.8% 11.9% Eosinophils (%) (Auto) 2.2% 1.7% Basophils (%) (Auto) 0.3% 0.2% Absolute Immature Granulocyte (auto 0.03T/MM3 0.01T/MM3 Absolute Neutrophils (auto) 5.2T/MM3 5.3T/MM3 Absolute Lymphocytes (auto) 2.5T/MM3 2.1T/MM3 Absolute Monocytes (auto) 1.2T/MM3 1.0T/MM3 Absolute Eosinophils (auto) 0.2T/MM3 0.2T/MM3 Absolute Basophils (auto) 0.0T/MM3 0.0T/MM3 Troponin I 0.573ng/ml Chemistry Specimen Hemolysis < 15 Test 02/03/17 06:06 02/03/17 07:58 02/03/17 10:15 02/03/17 10:18 Glucometer 163mg/dL Turbidity < 20 Sodium Level 143MEQ/L Potassium Level 3.7MEQ/L Chloride Level 112MEQ/L Carbon Dioxide Level 22MEQ/L Anion Gap 9MEQ/L Blood Urea Nitrogen 34.0MG/DL Creatinine 0.7MG/DL Glomerular Filtration Rate Calc 107 BUN/Creatinine Ratio 49RATIO Glucose Level 161MG/DL Calculated Osmolality 286MOSM/KG Calcium Level 8.5MG/DL Icterus Index < 2 Troponin I 0.487ng/ml Chemistry Specimen Hemolysis < 15 Plasma Lactate 2.6MMOL/L White Blood Count 8.9T/MM3 Red Blood Count 2.71M/MM3 Hemoglobin 8.4GM/DL Hematocrit 26.1% Mean Corpuscular Volume 96.3UM3 Mean Corpuscular Hemoglobin 31.0UUG Mean Corpuscular Hemoglobin Concent 32.2GM/DL RDW Standard Deviation 48.7FL Platelet Count 125T/MM3 Mean Platelet Volume 11.0UM3 Immature Granulocyte % (Auto) 0.2% Neutrophils (%) (Auto) 66.4% Lymphocytes (%) (Auto) 21.2% Monocytes (%) (Auto) 10.0% Eosinophils (%) (Auto) 1.9% Basophils (%) (Auto) 0.3% Absolute Immature Granulocyte (auto 0.02T/MM3 Absolute Neutrophils (auto) 5.9T/MM3 Absolute Lymphocytes (auto) 1.9T/MM3 Absolute Monocytes (auto) 0.9T/MM3 Absolute Eosinophils (auto) 0.2T/MM3 Absolute Basophils (auto) 0.0T/MM3 Test 02/03/17 12:04 Glucometer 216mg/dL Laboratory Tests 02/03/17 07:58 Laboratory Tests 02/02/17 16:49 02/02/17 22:51 02/03/17 03:26 02/03/17 10:18 Medications Current Medications Ceftriaxone Sodium/Sodium Chloride (Rocephin/NS) 100 ml @ 100 mls/hr O ONCE IV Last administered on 02/02/17 12:38; Start 02/02/17 at 12:15; Stop at 13:14; Status DC Pantoprazole Sodium 40 mg 40 mg O ONCE IV Last administered on 02/02/17 12:35 ; Start 02/02/17 at 12:30; Stop 02/02/17 at 12:31; Status DC Sodium Chloride (NS) 100 ml @ 999 mls/hr Q6M ONCE IV Last administered on 02/02 14:18; Start 02/02/17 at 12:30; Stop 02/02/17 at 12:35; Status DC Pantoprazole Sodium (Protonix Iv) 40 mg BID IV Last administered on 02/03/17 08:29; Start 02/02/17 at 21:00 Diltiazem HCl (Cardizem) 10 mg O ONCE IV Last administered on 02/02/17 14:24 ; Start 02/02/17 at 14:15; Stop 02/02/17 at 14:25; Status DC Atorvastatin Calcium (LIPITOR 40 mg) 40 mg HS PO Last administered on 21:25; Start 02/02/17 at 22:00 Fexofenadine HCl (Brenda) 180 mg DAILY PO Last administered on 02/03/17 10:13 ; Start 02/03/17 at 09:00 Insulin Aspart SS PRN SQ Last administered on 02/03/17 12:18; Start at 15:00 Levofloxacin 750 mg/Dextrose/Water 150 ml @ 100 mls/hr DAILY IV Last administered on 02/03/17 08:29; Start 02/02/17 at 15:45 Sodium Chloride (Normal Saline IV) 1,000 ml @ 100 mls/hr Q10H IV Last administered on 02/03/17 06:01; Start 02/03/17 at 03:00 Metformin HCl (Glucophage) 1,000 mg BIDWM PO ; Start 02/03/17 at 17:30 Metoprolol Tartrate (Lopressor) 25 mg BIDWM PO Last administered on 02/03/17 10:13; Start 02/03/17 at 17:30 Nitroglycerin (Nitrostat) 0.4 mg Q5MIN PRN SL CHEST PAIN; Start 02/03/17 at 09: 30 Microbiology Microbiology Microbiology Date/Time Source Procedure Growth Status 02/02/17 12:08 Peripheral/Iv Start Blood Culture - Preliminary NO GROWTH AFTER 24 HOURS Resulted 02/02/17 12:08 Peripheral/Iv Start Blood Culture - Preliminary NO GROWTH AFTER 24 HOURS Resulted 02/02/17 11:37 Urine, Alvarez Indwelling Urine Culture - Preliminary Gram Negative Wilmer Resulted Sepsis Diagnostic Criteria Sepsis Confirmed/Suspected Infection: Yes SIRS Criteria: Pulse >= 90 beats/min, WBC >=12,000 or <=4,000, RR > or = to 20 Severe Sepsis Lactate >=2.0 mg/dL Septic Shock Septic Shock Criteria: Lactate >4 Assessment & Plan Problems: (1) Persistent atrial fibrillation Status: Chronic Assessment & Plan: Cardizem 10mg IV given X1 (2) Elevated troponin Status: Acute Assessment & Plan: Reports chest pain a couple of days ago. Heart cath last July showed CAD. Left main was free of significant lesions. Left anterior descending artery was occluded proximally. Left circumflex artery had about 20%-30% stenosis. Ramus intermedius had 80%-90 % eccentric lesion proximally. Right coronary artery was occluded from previous catheterization and it was not directly engaged. A vein graft to obtuse marginal was occluded. A vein graft to diagonal was occluded. A vein graft to right coronary artery was occluded which appeared to be the fresh occlusion recently. NAVARRO was not visualized since it was patent from previous cath. After reviewing the angiograms, we decided to proceed with intervention on vein graft to RCA. A 6-[place] RCB guide was advanced to the ostium of the graft. A Whisper wire was used to recanalize the vessel. The wire was advanced into PDA. Multiple inflations were performed using a 2.0 x 20 balloon throughout the graft. However, we did not see opening of the vessel. Next, we used a thrombectomy catheter and we tried to aspirate thrombus. However, were not able to get any flow back and therefore the case was terminated. Patient tolerated the procedure well with no complications. Will trend troponin levels and continue to monitor. 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 Left main was free of significant lesions. Left anterior descending artery was occluded proximally. Left circumflex artery had about 20%-30% stenosis. Ramus intermedius had 80%-90 % eccentric lesion proximally. Right coronary artery was occluded from previous catheterization and it was not directly engaged. A vein graft to obtuse marginal was occluded. A vein graft to diagonal was occluded. A vein graft to right coronary artery was occluded which appeared to be the fresh occlusion recently. NAVARRO was not visualized since it was patent from previous cath. After reviewing the angiograms, we decided to proceed with intervention on vein graft to RCA. A 6-[place] RCB guide was advanced to the ostium of the graft. A Whisper wire was used to recanalize the vessel. The wire was advanced into PDA. Multiple inflations were performed using a 2.0 x 20 balloon throughout the graft. However, we did not see opening of the vessel. Next, we used a thrombectomy catheter and we tried to aspirate thrombus. However, were not able to get any flow back and therefore the case was terminated. Patient tolerated the procedure well with no complications. 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 Needs PRBCs Plan/Intensity of Service 02/03/17 AFib RVR: Rate 120s, Cardizem 10mg IV X1 given. HR now 90-100. Will trend troponin levels and continue to monitor. With patient's degree of CAD his HGB should be kept around 10. Needs PRBCs. 02/04/17 stop Metoprolol. Goal hemoglobin is 10 or above Thank you for allowing us to participate in the care of this patient, we will follow along with you SWEETIE WALDROP MD 02/06/17 1641: Assessment & Plan Plan/Intensity of Service After examining the patient I agree with the above assessment. I am involved in the formulation of the patient's plan of care. ZULEIMA EDMONDS APRN Feb 03, 2017 14:18 SWEETIE WALDROP MD Feb 06, 2017 16:41
[2017-02-03] MEDS ORDERED: NORMAL SALINE 500 ML IV SCH (14:36)
--- NOTE | 2017-02-03 15:58 | CONSF ---
DATE OF CONSULTATION 02/03/2017 FINDINGS Mr. Cazares is an 86-year-old gentleman who I was asked to see as a result of his finding of progressive anemia upon laboratory evaluation. The patient was actually brought into our emergency room facility yesterday as a result of increasing shortness of breath, back pain and increasing weakness. During the process of evaluation the patient was found to have urosepsis and was admitted to the hospital for further evaluation. The patient did receive several liters of IV fluids during the process of resuscitation of his sepsis. It was noted that the patient's hemoglobin did drift downward fairly precipitously and therefore a consult was put forth to myself. Upon my entering the room today the patient was sitting upright. He was conversant and did not appear to be in acute distress. Upon questioning, the patient denies any prior history for peptic ulcer disease. The patient's family member states that he has undergone a colonoscopy in the not too distant past. He denied any element of abdominal pain or discomfort. Patient does have a known history for significant coronary artery disease. Patient denied any recent history for melena, hematochezia, nor does he have any history for hematemesis. He states he has been having some "loose stools." PAST MEDICAL HISTORY Performed by my nurse practitioner, Jace Hua. PAST SURGICAL HISTORY Performed by my nurse practitioner, Jace Hua. MEDICATIONS Performed by my nurse practitioner, Jace Hua. ALLERGIES Performed by my nurse practitioner, Jace Hua. SOCIAL HISTORY Performed by my nurse practitioner, Jace Hua. FAMILY HISTORY Performed by my nurse practitioner, Jace Hua. REVIEW OF SYSTEMS Performed by my nurse practitioner, Jace Hua. PHYSICAL EXAMINATION Mr. Cazares is an 86-year-old gentleman who does not appear to be in acute distress. VITALS: Temperature 97.7, pulse 82, respirations 24, blood pressure 100/55, SaO2 96% on room air. HEENT: Normocephalic. Pupils equal, round, reactive to light and accommodation. NECK: Supple without lymphadenopathy. CHEST: Clear to auscultation bilaterally. HEART: Regular rate and rhythm. Normal S1 and S2 without gallops, murmurs or clicks. ABDOMEN: Soft, nontender throughout. No evidence for hepatomegaly or other abnormal masses. EXTREMITIES: Without clubbing, cyanosis, or edema. NEURO: Cranial nerves II-XII grossly intact. Patient is without focal motor or sensory deficits. LABORATORY/RADIOGRAPH EVALUATION Patient was admitted with a hemoglobin of 9.4. After receiving about 3 liters of fluid, his hemoglobin did drift down to 7.6. The patient has received some blood given his known significant coronary artery disease. His hemoglobin today was 8.4. BMP and troponin level were obtained. Troponin level has been elevated at 0.573. Plasma lactate was elevated today at 2.6. I did go back and review the chart electronically and found that in 2017 the patient had a history of severe anemia at that time with a hemoglobin around 6. I do see that Dr. Paula had performed a prior colonoscopy upon the patient. Colonoscope was unable to be completely advanced to the cecum and a subsequent barium enema was obtained that did not reveal any additional abnormalities. EGD was also performed that did not reveal any abnormalities. There appeared to be no GI source for his anemia at that time. ASSESSMENT An 86-year-old gentleman with significant associated medical comorbidities who presented with urosepsis and was to have progressive anemia following fluid resuscitation. Patient without signs of active GI bleed. Patient with known history for anemia. PLAN Agree with current management of this patient. The patient has been treated empirically for peptic ulcer disease and was placed on Protonix 40 mg IV b.i.d. I would not recommend EGD at this point in time given the fact that he is on Plavix, the elevated troponin level, the fact that he has a known history for anemia in the past and has in the not too distant past underwent bidirectional endoscopy for evaluation of his anemia. If the patient would begin to develop richa melena, hematochezia or hematemesis or if his hemoglobin would continue on a downward trend, then at that point time and one may wish to proceed with endoscopic evaluation if he is deemed stable from a medical standpoint. I would recommend following the patient at this point in time from a clinical and laboratory standpoint. I will not plan on seeing the patient over the course of the upcoming holiday weekend. Please contact Dr. Paula who will be on surgical call over the weekend if needed. DEBI
[2017-02-03] MEDS: METFORMIN 1,000 MG TABLET PO SCH (17:08)
--- NOTE | 2017-02-03 17:44 | NUR ---
CM SPOKE WITH PT, INTRODUCED SELF, EXPLAINED ROLE, PROVIDED CONTACT INFO. PT STATED HE LIVES ALONE IN [place]. HE SAID HE WANTS TO RETURN HOME BUT IS WORRIED BECAUSE HE FEELS WEAK. THIS WORKER EXPLAINED THIS WILL BE ADDRESSED DURING HIS STAY. HE HAD NO QUESTIONS/NEEDS FOR THIS WORKER. Addendum: 02/03/17 at 1745 by ELIZA VENCES Amended: Links added.
--- NOTE | 2017-02-03 17:47 | NUR ---
MESERET BATES IS 9 Addendum: 02/03/17 at 1748 by ELZIA VENCES Amended: Links added.
[2017-02-03 17:48] LABS: BASOPHILS % (AUTO) 0.2 % (0-2); EOSINOPHILS # (AUTO) 0.2 T/MM3 (0-0.5); EOSINOPHILS % (AUTO) 2.1 % (0-4); HCT - HEMATOCRIT 26.4 % (41-53); HGB - HEMOGLOBIN 8.6 GM/DL (13.5-17.5); IMMATURE GRANULOCYTE # (AUTO) 0.02 T/MM3 (0.00-0.03); IMMATURE GRANULOCYTE % (AUTO) 0.2 % (0.0-0.5); LYMPHOCYTES # (AUTO) 2.9 T/MM3 (1-4.8); LYMPHOCYTES % (AUTO) 28.7 % (23-45); MEAN CORPUSCULAR HGB 31.3 UUG (26-34); MEAN CORPUSCULAR HGB CONC(MCHC 32.6 GM/DL (31-37); MEAN PLATELET VOLUME 10.7 UM3 (9.4-12.4); NEUTROPHILS #(AUTO)-ABSOLUTE 5.9 T/MM3 (1.8-7.7); NEUTROPHILS % (AUTO) 58.8 % (33-66); RED BLOOD COUNT 2.75 M/MM3 (4.50-5.90)
--- NOTE | 2017-02-03 18:00 | NUR ---
Status: The patient is sitting up in the bed and eating. Voices no c/o at this time.
[2017-02-03] MEDS: ATORVASTATIN 40 MG TABLET PO SCH (21:36)
[2017-02-03 22:56] LABS: HGB - HEMOGLOBIN 9.1 GM/DL (13.5-17.5)
--- NOTE | 2017-02-03 23:00 | NUR ---
Blood 1 unit blood transfused without incident. Increased Hgb to 9.1 from 8.6.
[2017-02-04] VITALS (30 sets, daily range): BP systolic 89–147; BP diastolic 52–85; PULSE 87–113; RESP 14–34; TEMP 97.6–98.4; O2SAT 84–98
[2017-02-04] MEDS: NORMAL SALINE 1,000 ML IV SCH ×2 (04:11→11:19)
[2017-02-04 04:42] LABS: BASOPHILS % (AUTO) 0.2 % (0-2); EOSINOPHILS # (AUTO) 0.2 T/MM3 (0-0.5); EOSINOPHILS % (AUTO) 1.9 % (0-4); HCT - HEMATOCRIT 29.5 % (41-53); HGB - HEMOGLOBIN 9.6 GM/DL (13.5-17.5); IMMATURE GRANULOCYTE # (AUTO) 0.03 T/MM3 (0.00-0.03); IMMATURE GRANULOCYTE % (AUTO) 0.3 % (0.0-0.5); LYMPHOCYTES % (AUTO) 18.4 % (23-45); MEAN CORPUSCULAR HGB CONC(MCHC 32.5 GM/DL (31-37); MEAN CORPUSCULAR VOLUME 95.2 UM3 (80-100); MEAN PLATELET VOLUME 11.3 UM3 (9.4-12.4); MONOCYTES # (AUTO) 1.3 T/MM3 (0-0.8); MONOCYTES % (AUTO) 11.6 % (0-9.0); NEUTROPHILS #(AUTO)-ABSOLUTE 7.4 T/MM3 (1.8-7.7); NEUTROPHILS % (AUTO) 67.6 % (33-66); WBC - WHITE BLOOD COUNT 10.9 T/MM3 (4.5-11.0)
[2017-02-04 04:57] LABS: LACTATE - LACTIC ACID 1.8 MMOL/L (0.6-2.2)
[2017-02-04 05:01] LABS: ALBUMIN 2.9 G/DL (3.5-5.0); ALKALINE PHOSPHATASE 62 U/L (38-126); ALT (SGPT) 31 U/L (21-72); ANION GAP 11 MEQ/L (5-15); AST (SGOT) 31 U/L (17-59); BUN/CREATININE RATIO 33 RATIO (6-26); C-REACTIVE PROTEIN 14.1 MG/L (0-9); CALCIUM 8.3 MG/DL (8.4-10.2); CHLORIDE 112 MEQ/L (98-107); CO2 - CARBON DIOXIDE 20 MEQ/L (22-30); CREATININE 0.7 MG/DL (0.8-1.5); GLOMERULAR FILTRATION RATE 107; GLUCOSE 148 MG/DL (75-110); POTASSIUM 3.5 MEQ/L (3.6-5); SODIUM 143 MEQ/L (134-144); TOTAL PROTEIN 5.8 G/DL (6.3-8.2)
--- NOTE | 2017-02-04 05:34 | NUR ---
Shift Report Patient has slept well during the night and hasn't reported pain, nausea, or SOA. VSS. BP 110-130s/60-70s, HR 90-100s AFib, O2 low 90s at RA, Resp 20-30s. Wheezes heard right upper lobe posterior. Urine output has been adequate. No BM during the night. Hgb this morning after 1 unit of blood was 9.6. Patient is confused at times, but has been orientated to person, place.
[2017-02-04] MEDS: INSULIN ASPART 100 UNIT/ML SQ PRN ×2 (06:14→17:53)
[2017-02-04] MEDS: LEVOFLOXACIN 750 mg IVPB 750 MG in D5W 150 ML IV SCH (08:16)
[2017-02-04] MEDS: PANTOPRAZOLE 40mg INJECTION IV SCH ×2 (08:16→22:04)
[2017-02-04] MEDS: METFORMIN 1,000 MG TABLET PO SCH ×2 (08:16→18:04)
[2017-02-04] MEDS: FEXOFENADINE 180 MG TABLET PO SCH (08:16)
--- NOTE | 2017-02-04 11:56 | PNPDOC ---
Subjective Date DATE: 02/04/17 TIME: 11:44 Subjective The patient states that he is feeling well. He states he ate 3 large meals yesterday. He denies having any chest pains or shortness of breath. He denies any abdominal pain, nausea or vomiting. He states his stools were dark about 3 days ago. He did not see any gross blood. He has a chronic indwelling Alvarez and it was changed when he came in to the hospital this admission. He does admit to feeling weak and is not certain he can get up out of bed without help. Objective Vital Signs Vital signs Vital Signs Date Time Temp Pulse Resp B/P Pulse Ox O2 Delivery O2 Flow Rate FiO2 02/04/17 10:00 100 31 120/71 97 Room Air 02/04/17 08:01 98.4 I&O yesterday equals 3455/1334 GEN-alert, oriented, no acute distress HEENT-sclera anicteric, pupils equal, oropharynx is moist NECK-supple, no JVD, no bruits CV-irregularly irregular with controlled rate in the 90s CHEST-clear to auscultation bilaterally ABD-soft, obese, nontender, nondistended with positive bowel sounds -Alvarez in place with good colored urine EXT-trace edema NEURO-alert, no focal deficits SKIN-warm and dry and without rashes Telemetry Rhythm: Atrial Fibrillation Height (Feet): 5 Height (Inches): 10.00 Weight (Kilograms): 94.200 Laboratory Laboratory Item Value Date Time Troponin I 0.487 ng/ml H 02/03/17 0758 Troponin I 0.573 ng/ml H 02/02/17 2251 Troponin I 0.380 ng/ml H # 02/02/17 1649 Plasma Lactate 1.8 MMOL/L 02/04/17 0410 Plasma Lactate 2.6 MMOL/L H 02/03/17 1015 Plasma Lactate 3.1 MMOL/L H 02/02/17 1648 Plasma Lactate 4.6 MMOL/L *H 02/02/17 1208 Laboratory Tests 02/03/17 07:58 02/04/17 04:10 Laboratory Tests 02/02/17 16:49 02/02/17 22:51 02/03/17 03:26 02/03/17 10:18 02/03/17 17:37 02/03/17 22:48 02/04/17 04:10 Microbiology Microbiology Microbiology Date/Time Source Procedure Growth Status 02/02/17 12:08 Peripheral/Iv Start Blood Culture - Preliminary NO GROWTH AFTER 24 HOURS Resulted 02/02/17 12:08 Peripheral/Iv Start Blood Culture - Preliminary NO GROWTH AFTER 24 HOURS Resulted 02/02/17 11:37 Urine, Alvarez Indwelling Urine Culture - Final Providencia Rettgeri Complete Sepsis Diagnostic Criteria Sepsis Confirmed/Suspected Infection: Yes SIRS Criteria: Pulse >= 90 beats/min, WBC >=12,000 or <=4,000, RR > or = to 20 Severe Sepsis Lactate >=2.0 mg/dL Septic Shock Septic Shock Criteria: Lactate >4 Assessment & Plan Problems: (1) Septic shock Status: Resolved Assessment & Plan: Manifestations of severe sepsis include the following 1. Urinary tract infection. 2. Leukocytosis, white blood count 13.3. 3. Tachycardia, 125 4. Elevated venous lactate - 4.6 (2) Urinary tract infection Status: Acute Assessment & Plan: Present on admission, indwelling Alvarez catheter present (3) Atrial fibrillation with RVR Status: Acute (4) GI bleed Status: Acute Assessment & Plan: Present on admission, Hemoccult positive (5) Aortic stenosis, mild Status: Chronic (6) Elevated troponin Status: Acute Assessment & Plan: Present on admission, troponin 0.202 (7) Aortic stenosis, moderate Status: Chronic (8) CAD (coronary artery disease) Status: Chronic (9) Hypertension Status: Chronic (10) Diabetes mellitus Status: Chronic (11) Hypercholesterolemia Status: Chronic (12) Allergic rhinitis Status: Chronic (13) GERD (gastroesophageal reflux disease) Status: Chronic (14) OA (osteoarthritis) Status: Chronic (15) BPH (benign prostatic hypertrophy) Status: Chronic (16) History of AK (myocardial infarction) Status: Resolved Assessment 02/04/2017-Dr. Reza Septic shock with lactate over 4-resolved UTI with providentia-sensitive to Levaquin currently on day 3 GI bleed-patient has received 2 units of blood total. Hemoglobin is up to 9.6. No signs of active bleeding. He did have elevated BUN up to 59 that is now down to 23. No abdominal pain, no nausea vomiting. Tolerating regular diet. Recheck hemoglobin at 2 PM. Continue Protonix IV. AFIB with RVR--rate improved. Metoprolol on hold. Discuss with cardiology today. Elevated troponin- Dr. Lovell following Generalized weakness-PT OT consult CAD/A. fib-aspirin and Plavix are still on hold due to possible GI bleed Mild aortic stenosis Diabetes-metformin restarted, patient is tolerating well. Probable transfer out of the unit today. Start nystatin powder for yeast infection of groin Recheck lab tomorrow. DVT Prophylaxis: SCD'S Code Status Do Not Resuscitate Hospital Course Summary Disclaimer The hospital course summary below is not to be considered part of the above Progress Note. Hospital Course Summary Admit patient to inpatient status under the care of Dr. Denise information security consultant hospitalist for severe sepsis, urinary tract infection and elevated troponin. That is protocol was initiated in the emergency room, blood cultures drawn, IV fluid boluses given and patient initiated on Rocephin IV daily for antimicrobial coverage. Cultures and urine culture pending. Obtain serial lactate levels. In light of sepsis protocol. In light of atrial fibrillation with RVR and elevated troponin. Will consult patient's cardiology, Dr. Lovell for further cardiac evaluation and recommendations. Will recheck serial troponins 3 every 6 hours and monitor patient on cardiac telemetry. Hemoccult was positive in the emergency room. Hemoglobin low at 9.4. Patient does have a history of anemia. Will need to hold off on anticoagulation at this time. Will discuss further with attending. Protonix 40 milligrams IV twice a day for GI protection. Once severe sepsis and atrial fibrillation RVR are more controlled. Will need to further evaluate heme-positive stools and GI bleed Monitor Accu-Cheks fasting and 2 hours postprandial. Will hold home Metformin and utilize sliding scale NovoLog. She may have 2000 calorie ADA diet SCDs to bilateral lower extremity for DVT prophylaxis Recheck CBC and BMP tomorrow morning to follow blood counts, renal function and electrolytes. We'll discuss further orders and plan of care with attending, 5:45 PM as history and physical was being dictated, labs were reviewed. Hemoglobin decreased to 7.6. Patient's blood pressure is stable, but systolic at [address] Watts was consulted regarding GI bleed, we will continue with every 6 hours hemoglobin overnight and he will see the patient in the morning assuming patient stable overnight. This was reviewed with the patient and his daughter are both aware of the plan and approve of it. Trenton Denise M.D. 02/03/17 GI bleed--patient was stable overnight after getting one unit of PRBC. Hemoglobin 8.7 this morning. No abdominal pain, no nausea vomiting. Diet advanced as tolerated. Continue with every 6 hours H&H today. Continue Protonix IV. UTI/ sepsis--lactate reordered and is decreasing, down to 2.6 today. Recheck lactate again tomorrow. Urine culture and blood culture neg at this time, 48 hour results pending. AFIB with RVR--Rate stable, Cardiology on consult. Elevated troponin- began trending down this am, no chest pain. D/C plan-- Pt will require admission until 48 hour cultures return and he is stable. DIANE Lopez MD, MD Feb 04, 2017 11:47
--- NOTE | 2017-02-04 14:50 | NUR ---
transfer Pt transferred from CCU bed 2 to medical room 140 via . Pt used BSC without success prior to going via to medical. Pt stood and pivoted with assistance of 2 from into bed. All personal belongings sent with pt. Report given prior.
--- NOTE | 2017-02-04 14:55 | NUR ---
TRANSFER PT TO RM 140 PER W/C AFTER REPORT RECEIVED FROM SEJAL STEVEN. PT ALERT AND ORIENTED. DENIES PAIN OR SHORTNESS OF BREATH. VITALS OBTAINED. RESPIRATIONS ELEVATED AT 24/MINUTE. O2 SAT 97% ROOM AIR. PT ORIENTED TO CALL BARBER. PT DENIES NEEDS. WILL MONITOR.
[2017-02-04] MEDS: NYSTATIN POWDER 15gm BOTTLE TOP SCH ×2 (15:00→22:05)
--- NOTE | 2017-02-04 18:30 | NUR ---
STATUS PT EATING SUPPER. SLIDING SCALE INSULIN GIVEN FOR ELEVATED BGM BEFORE [id number]. PT CONTINUES TO DENY C/O'S. NO NEW CONCERNS.
[2017-02-04] MEDS: ASCORBIC ACID 500 MG TABLET PO SCH (22:03)
[2017-02-04] MEDS: ATORVASTATIN 40 MG TABLET PO SCH (22:03)
[2017-02-04] MEDS: FERROUS SULFATE 324 MG TABLET PO SCH (22:03)
[2017-02-05] VITALS (9 sets, daily range): BP systolic 96–133; BP diastolic 63–80; PULSE 76–100; RESP 18–28; TEMP 97.2–99.4; O2SAT 93–100
[2017-02-05 05:43] LABS: HCT - HEMATOCRIT 29.1 % (41-53); HGB - HEMOGLOBIN 9.4 GM/DL (13.5-17.5); MEAN CORPUSCULAR HGB 30.7 UUG (26-34); MEAN CORPUSCULAR HGB CONC(MCHC 32.3 GM/DL (31-37); MEAN CORPUSCULAR VOLUME 95.1 UM3 (80-100); MEAN PLATELET VOLUME 11.4 UM3 (9.4-12.4); RED BLOOD COUNT 3.06 M/MM3 (4.50-5.90); WBC - WHITE BLOOD COUNT 9.6 T/MM3 (4.5-11.0)
[2017-02-05 05:52] LABS: ANION GAP 13 MEQ/L (5-15); BUN/CREATININE RATIO 20 RATIO (6-26); CHLORIDE 109 MEQ/L (98-107); CO2 - CARBON DIOXIDE 21 MEQ/L (22-30); CREATININE 0.7 MG/DL (0.8-1.5); GLOMERULAR FILTRATION RATE 107; POTASSIUM 3.3 MEQ/L (3.6-5); SODIUM 143 MEQ/L (134-144)
[2017-02-05 05:53] LABS: CALCIUM 8.6 MG/DL (8.4-10.2); GLUCOSE 134 MG/DL (75-110)
[2017-02-05 06:36] LABS: EOSINOPHILS # (MANUAL) 0.1 T/MM3 (0-0.5); LYMPHOCYTES # (MANUAL) 1.5 T/MM3 (1-4.8); MONOCYTES # (MANUAL) 1.2 T/MM3 (0-0.8); NEUTROPHILS #(MANUAL)-ABSOLUTE 6.8 T/MM3 (1.8-7.7); NUCLEATED RED BLOOD CELLS 2; TOTAL CELLS COUNTED 100 %
[2017-02-05 06:37] LABS: ANISOCYTOSIS 1+
[2017-02-05] MEDS: INSULIN ASPART 100 UNIT/ML SQ PRN ×3 (06:57→23:42)
[2017-02-05] MEDS: LEVOFLOXACIN 750 MG TABLET PO SCH (06:57)
[2017-02-05] MEDS: POTASSIUM CHLORIDE 20 MEQ TABLET PO SCH (06:57)
--- NOTE | 2017-02-05 08:41 | NUR ---
shift summary pt is a/o x2-3 and up with 2 stand and pivot. pt takes pills well and IVL. pt denies any soa, n/v or pain. pt assist x1 for being turned in bed and on RA. Addendum: 02/05/17 at 0844 by SAYRA MARTINO RN pt had adequate output in [place].
[2017-02-05] MEDS: FEXOFENADINE 180 MG TABLET PO SCH (08:56)
[2017-02-05] MEDS: METFORMIN 1,000 MG TABLET PO SCH ×2 (08:56→18:24)
[2017-02-05] MEDS: PANTOPRAZOLE 40mg INJECTION IV SCH ×2 (08:57→20:30)
[2017-02-05] MEDS: NYSTATIN POWDER 15gm BOTTLE TOP SCH ×3 (08:57→20:29)
--- NOTE | 2017-02-05 15:22 | PNPDOC ---
ARY JEAN BAPTISTE V MASSIMO 02/05/17 1517: Subjective Date DATE: 02/05/17 TIME: 15:14 Subjective Mr Cazares is seen today in follow up while finishing up lunch. He is alert, orientated and pleasant. He remembers seeing me several days ago in the CCU. He is currently on room air at 96% and without evidence of distress. He denies having pain or feeling short of breath. He is concerned that he is weak and is worried about discharge home independently. Hemoglobin was stable. 9.4. Objective Vital Signs Vital signs Vital Signs Date Time Temp Pulse Resp B/P Pulse Ox O2 Delivery O2 Flow Rate FiO2 02/05/17 12:00 98.0 95 20 128/79 96 Room Air Telemetry Rhythm: Atrial Fibrillation Height (Feet): 5 Height (Inches): 10.00 Weight (Kilograms): 104.300 General General Appearance: Alert, Orientated x 3, Cooperative, No Acute Distress Eyes (Brief) Eyes: FOUND: EOMI ENMT (Brief) ENMT: FOUND: mucosa moist, normal dentition, NOT FOUND: pharnyx erythema Neck (Brief) Neck: FOUND: midline, NOT FOUND: adenopathy, carotid bruits, tracheal deviation Respiratory (Brief) Respiratory: FOUND: clear all villaseñor, equal bilaterally, NOT FOUND: wheezes Cardiovascular (Brief) Cardiac: FOUND: regular rate, regular rhythm, NOT FOUND: murmur, pedal edema Capillary Refill: <2 sec Abdomen (Brief) Abdominal: FOUND: BS normo active x4, soft, NOT FOUND: distended, tender Lymphatic (Brief) Lymphatic: NOT FOUND: adenopathy Musculoskeletal (Brief) Musculoskeletal: NOT FOUND: tenderness Integumentary (Brief) Integumentary: FOUND: dry, pink, warm Neurologic (Brief) Neurological: FOUND: cranial 2-12 intact Psychiatric (Brief) Psychiatric: FOUND: alert, attentive, normal affect, oriented Laboratory Laboratory Laboratory Tests 02/04/17 04:10 02/05/17 04:30 Laboratory Tests 02/03/17 17:37 02/03/17 22:48 02/04/17 04:10 02/05/17 04:30 Sepsis Diagnostic Criteria Sepsis Confirmed/Suspected Infection: Yes SIRS Criteria: Pulse >= 90 beats/min, WBC >=12,000 or <=4,000, RR > or = to 20 Severe Sepsis Lactate >=2.0 mg/dL Septic Shock Septic Shock Criteria: Lactate >4 Assessment & Plan Problems: (1) Septic shock Status: Resolved Assessment & Plan: Manifestations of severe sepsis include the following 1. Urinary tract infection. 2. Leukocytosis, white blood count 13.3. 3. Tachycardia, 125 4. Elevated venous lactate - 4.6 (2) Urinary tract infection Status: Acute Assessment & Plan: Present on admission, indwelling Alvarez catheter present (3) Atrial fibrillation with RVR Status: Acute (4) GI bleed Status: Acute Assessment & Plan: Present on admission, Hemoccult positive (5) Aortic stenosis, mild Status: Chronic (6) Elevated troponin Status: Acute Assessment & Plan: Present on admission, troponin 0.202 (7) Aortic stenosis, moderate Status: Chronic (8) CAD (coronary artery disease) Status: Chronic (9) Hypertension Status: Chronic (10) Diabetes mellitus Status: Chronic (11) Hypercholesterolemia Status: Chronic (12) Allergic rhinitis Status: Chronic (13) GERD (gastroesophageal reflux disease) Status: Chronic (14) OA (osteoarthritis) Status: Chronic (15) BPH (benign prostatic hypertrophy) Status: Chronic (16) History of VT (myocardial infarction) Status: Resolved Plan/Intensity of Service 02/05/17 Day 4 of Levaquin for treatment of Providencia Rettgeri UTI. Hgb has remained stable at 9.4. No active GI bleeding. Continue on PPI Protonix BID for Gi protection. Monitor blood sugars. Metformin BID. Fasting BGM this morning was 134. Patient verbalized concern about being weak and returning home independently. Will have PT/OT evaluate again tomorrow. May need to increase activity. Continue mild Hypokalemia. Continue with oral potassium supplementation Recheck CBC and BMP tomorrow to follow blood counts, renal function and electrolytes. Code Status Do Not Resuscitate Hospital Course Summary Disclaimer The hospital course summary below is not to be considered part of the above Progress Note. Hospital Course Summary Admit patient to inpatient status under the care of Dr. Denise documentation engineer hospitalist for severe sepsis, urinary tract infection and elevated troponin. That is protocol was initiated in the emergency room, blood cultures drawn, IV fluid boluses given and patient initiated on Rocephin IV daily for antimicrobial coverage. Cultures and urine culture pending. Obtain serial lactate levels. In light of sepsis protocol. In light of atrial fibrillation with RVR and elevated troponin. Will consult patient's cardiology, Dr. Lovell for further cardiac evaluation and recommendations. Will recheck serial troponins 3 every 6 hours and monitor patient on cardiac telemetry. Hemoccult was positive in the emergency room. Hemoglobin low at 9.4. Patient does have a history of anemia. Will need to hold off on anticoagulation at this time. Will discuss further with attending. Protonix 40 milligrams IV twice a day for GI protection. Once severe sepsis and atrial fibrillation RVR are more controlled. Will need to further evaluate heme-positive stools and GI bleed Monitor Accu-Cheks fasting and 2 hours postprandial. Will hold home Metformin and utilize sliding scale NovoLog. She may have 2000 calorie ADA diet SCDs to bilateral lower extremity for DVT prophylaxis Recheck CBC and BMP tomorrow morning to follow blood counts, renal function and electrolytes. We'll discuss further orders and plan of care with attending, 5:45 PM as history and physical was being dictated, labs were reviewed. Hemoglobin decreased to 7.6. Patient's blood pressure is stable, but systolic at [address] Watts was consulted regarding GI bleed, we will continue with every 6 hours hemoglobin overnight and he will see the patient in the morning assuming patient stable overnight. This was reviewed with the patient and his daughter are both aware of the plan and approve of it. Trenton Denise M.D. 02/03/17 GI bleed--patient was stable overnight after getting one unit of PRBC. Hemoglobin 8.7 this morning. No abdominal pain, no nausea vomiting. Diet advanced as tolerated. Continue with every 6 hours H&H today. Continue Protonix IV. UTI/ sepsis--lactate reordered and is decreasing, down to 2.6 today. Recheck lactate again tomorrow. Urine culture and blood culture neg at this time, 48 hour results pending. AFIB with RVR--Rate stable, Cardiology on consult. Elevated troponin- began trending down this am, no chest pain. D/C plan-- Pt will require admission until 48 hour cultures return and he is stable. Trenton Denise MD 02/04/2017-Dr. Reza Septic shock with lactate over 4-resolved UTI with providentia-sensitive to Levaquin currently on day 3 GI bleed-patient has received 2 units of blood total. Hemoglobin is up to 9.6. No signs of active bleeding. He did have elevated BUN up to 59 that is now down to 23. No abdominal pain, no nausea vomiting. Tolerating regular diet. Recheck hemoglobin at 2 PM. Continue Protonix IV. AFIB with RVR--rate improved. Metoprolol on hold. Discuss with cardiology today. Elevated troponin- Dr. Lovell following Generalized weakness-PT OT consult CAD/A. fib-aspirin and Plavix are still on hold due to possible GI bleed Mild aortic stenosis Diabetes-metformin restarted, patient is tolerating well. Probable transfer out of the unit today. Start nystatin powder for yeast infection of groin Recheck lab tomorrow. 02/05/17 Day 4 of Levaquin for treatment of Providencia Rettgeri UTI. Hgb has remained stable at 9.4. No active GI bleeding. Continue on PPI Protonix BID for Gi protection. Monitor blood sugars. Metformin BID. Fasting BGM this morning was 134. Patient verbalized concern about being weak and returning home independently. Will have PT/OT evaluate again tomorrow. May need to increase activity. Continue mild Hypokalemia. Continue with oral potassium supplementation Recheck CBC and BMP tomorrow to follow blood counts, renal function and electrolytes. DIANE REZA MD 02/05/17 4191: Assessment & Plan Assessment 02/05/2017-I reviewed this chart, the patient history, and the ATM SERVICER's/PA's documented findings as above. We discussed and formulated the assessment and plan as above with the additions below.-Dr. Reza Patient feels better today. He is eating and drinking well. He denies any pain today. He states he did have some low back pain yesterday but that has resolved. He states his legs are pretty weak and it's hard for him to stand. He denies any shortness of breath. He denies any nausea or vomiting. He has a chronic indwelling Alvarez. On exam he is alert and oriented. Chest is clear to auscultation. Cardiovascular reveals a 2/6 systolic murmur with a regular rhythm. Abdomen is soft, obese, nontender and nondistended with positive bowel sounds. Extremities are free of edema. The patient is able to lift both legs off the bed without difficulties. Continue with Levaquin for UTI. Continue to hold Plavix and aspirin for now due to recent GI bleed. A. fib is rate controlled. Regarding weakness, recommend PT and OT to see tomorrow. Check phosphorus and magnesium today. If he is too weak to discharge to home, I would recommend either an IRU screen or consideration for group home. Patient states that he would probably rather go back to the group home unit in [place]. If weakness is significant, may need to consider neurology consult. ARY JEAN BAPTISTE V ATM SERVICER Feb 05, 2017 15:17 DIANE REZA MD Feb 05, 2017 16:21
[2017-02-05] MEDS ORDERED: OXYM15MI2 NS (15:41)
[2017-02-05 16:35] LABS: MAGNESIUM 1.7 MG/DL (1.6-2.3); PHOSPHORUS 3.1 MG/DL (2.5-4.5)
--- NOTE | 2017-02-05 18:42 | NUR ---
SHIFT PT HAS BEEN PLEASANT AND COOPERATIVE ALL SHIFT. PT IS A&OX2, OCCASIONALLY TIMES 3. PT DENIES PAIN, N/V AND SOA. PT IS ON ROOM AIR. PT HAS BEEN TURNED Q2H AND HAS BEEN UP TO COMMODE WITH SIT TO STAND. BACA IN PLACE TO DD, DRAINING CLEAR YELLOW URINE IN LARGE AMOUNTS. NO OTHER CHANGES SINCE PREVIOUS SHIFT. ALARMS IN USE AND CALL LIGHT WITH IN REACH.
[2017-02-05] MEDS: ASCORBIC ACID 500 MG TABLET PO SCH (21:12)
[2017-02-05] MEDS: FERROUS SULFATE 324 MG TABLET PO SCH (21:13)
[2017-02-05] MEDS: ATORVASTATIN 40 MG TABLET PO SCH (21:13)
--- NOTE | 2017-02-05 22:01 | NUR ---
TELEMETRY - LONG PAUSE: TELEMETRY CALLED TO SAY THAT THE PATIENT HAD A LONG PAUSE (6.6). ASSESSED PT, PT STATED NO PAIN (I HAD JUST BEEN IN THE PT'S ROOM AND ADMINISTERED PT'S EVENING MEDICATIONS). PAGED DR. WALDROP'S OFFICE, REC'D CALL BACK FROM ZULEIMA EDMONDS. SHE SAID TO MONITOR AND CALL HER IF PT IS SYMPTOMATIC. WILL CONTINUE TO MONITOR.
[2017-02-06] VITALS (14 sets, daily range): BP systolic 116–142; BP diastolic 69–82; PULSE 75–107; RESP 17–22; TEMP 96.1–98.6; O2SAT 95–98
--- NOTE | 2017-02-06 04:56 | NUR ---
SHIFT SUMMARY: PT IS A&OX2, PLEASANT AND COOPERATIVE, SLEPT WELL DURING THE NIGHT. PT HAD A 6 RUN ASYSTOLE (SEE PREVIOUS NURSE NOTE). PT DENIES PAIN, N/V, OR SOA. 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 PT IS ON TELEMETRY, HAS BGM'S, AND IS TURNED Q2HRS. 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 BOWEL MOVEMENT WAS BLACK AND WATERY. CALL LIGHT WITHIN REACH, BED ALARM ON.
[2017-02-06] MEDS: LEVOFLOXACIN 750 MG TABLET PO SCH (05:52)
[2017-02-06] MEDS: FEXOFENADINE 180 MG TABLET PO SCH (08:03)
[2017-02-06] MEDS: POTASSIUM CHLORIDE 20 MEQ TABLET PO SCH (08:04)
[2017-02-06] MEDS: PANTOPRAZOLE 40mg INJECTION IV SCH (08:04)
[2017-02-06] MEDS: METFORMIN 1,000 MG TABLET PO SCH ×2 (08:05→18:59)
[2017-02-06] MEDS: NYSTATIN POWDER 15gm BOTTLE TOP SCH ×3 (08:06→23:16)
--- NOTE | 2017-02-06 11:16 | PNPDOC ---
SUZIE CHRISTINE CURRICULUM DEVELOPMENT SPECIALIST 02/06/17 1107: Subjective Date DATE: 02/06/17 TIME: 11:04 Subjective Keegan is feeling much better overall, but is still a little weak. His granddaughter and needle loom operator helper, Yue, is visiting, and stated that he walked to the nursing station today. That's the first time he's been out walking since . He did fairly well, but got a little short of breath. He denies any chest pain. No abdominal pain or GI complaints. He's had a good appetite. He denies feeling dizzy or lightheaded. He would very much like to go home, if possible. His granddaughter is concerned about his safety at home, and wants to make sure he can ambulate and use stairs before he's dismissed. Neither of them are opposed to rehab or a care home facility if needed. Objective Vital Signs Vital signs Vital Signs Date Time Temp Pulse Resp B/P Pulse Ox O2 Delivery O2 Flow Rate FiO2 02/06/17 08:14 81 18 02/06/17 07:41 96.3 125/74 98 Room Air Telemetry Rhythm: Atrial Fibrillation Height (Feet): 5 Height (Inches): 10.00 Weight (Kilograms): 104.300 General General Appearance: Alert, Orientated x 3, Well Nourished, Well Developed, No Acute Distress Eyes (Brief) Eyes: FOUND: PERRL, NOT FOUND: scleral icterus ENMT (Brief) ENMT: FOUND: mucosa moist, NOT FOUND: pharnyx erythema Respiratory (Brief) Respiratory: FOUND: clear all villaseñor, equal bilaterally Cardiovascular (Brief) Cardiac: FOUND: murmur, regular rate, regular rhythm Abdomen (Brief) Abdominal: FOUND: BS normo active x4, soft, NOT FOUND: distended, tender (Brief) Comments Alvarez in place Extremities (Brief) Extremity : Side: Bilateral Extremity Finding: NOT FOUND: edema Musculoskeletal (Brief) Musculoskeletal: NOT FOUND: deformity, tenderness Integumentary (Brief) Integumentary: FOUND: dry, pink, warm Psychiatric (Brief) Psychiatric: FOUND: alert, attentive, normal affect, oriented Laboratory Laboratory Laboratory Tests 02/05/17 04:30 Laboratory Tests 02/05/17 04:30 Sepsis Diagnostic Criteria Sepsis Confirmed/Suspected Infection: Yes SIRS Criteria: Pulse >= 90 beats/min, WBC >=12,000 or <=4,000, RR > or = to 20 Severe Sepsis Lactate >=2.0 mg/dL Septic Shock Septic Shock Criteria: Lactate >4 Assessment & Plan Problems: (1) Urinary tract infection Status: Acute Assessment & Plan: Present on admission, indwelling Alvarez catheter present (2) Septic shock Status: Resolved Assessment & Plan: Manifestations of severe sepsis include the following 1. Urinary tract infection. 2. Leukocytosis, white blood count 13.3. 3. Tachycardia, 125 4. Elevated venous lactate - 4.6 (3) Atrial fibrillation with RVR Status: Acute (4) GI bleed Status: Acute Assessment & Plan: Present on admission, Hemoccult positive (5) Aortic stenosis, mild Status: Chronic (6) Elevated troponin Status: Acute Assessment & Plan: Present on admission, troponin 0.202 (7) Aortic stenosis, moderate Status: Chronic (8) CAD (coronary artery disease) Status: Chronic (9) Hypertension Status: Chronic (10) Diabetes mellitus Status: Chronic (11) Hypercholesterolemia Status: Chronic (12) Allergic rhinitis Status: Chronic (13) GERD (gastroesophageal reflux disease) Status: Chronic (14) OA (osteoarthritis) Status: Chronic (15) BPH (benign prostatic hypertrophy) Status: Chronic (16) History of CT (myocardial infarction) Status: Resolved Plan/Intensity of Service Sinus pause of 6.6 seconds - awaiting Dr. Lovell's recommendations. GI bleed - hgb improved to 9.4 as of yesterday. Will change Protonix to oral route. Repeat CBC now. Plavix and ASA on hold. Hypokalemic yesterday with oral replacement - re-assess BMP now. PT/OT eval pending. This will help determine discharge plans - home, home with home health, SNF, or IRU. Levaquin Day #5 for UTI. T2DM with hyperglycemia - he's on Metformin; may need to begin long-acting insulin. discussed with Dr. Catalan. DVT Prophylaxis: SCD'S Code Status Do Not Resuscitate Hospital Course Summary Disclaimer The hospital course summary below is not to be considered part of the above Progress Note. Hospital Course Summary Admit patient to inpatient status under the care of Dr. Denise weatherization specialist hospitalist for severe sepsis, urinary tract infection and elevated troponin. That is protocol was initiated in the emergency room, blood cultures drawn, IV fluid boluses given and patient initiated on Rocephin IV daily for antimicrobial coverage. Cultures and urine culture pending. Obtain serial lactate levels. In light of sepsis protocol. In light of atrial fibrillation with RVR and elevated troponin. Will consult patient's cardiology, Dr. Lovell for further cardiac evaluation and recommendations. Will recheck serial troponins 3 every 6 hours and monitor patient on cardiac telemetry. Hemoccult was positive in the emergency room. Hemoglobin low at 9.4. Patient does have a history of anemia. Will need to hold off on anticoagulation at this time. Will discuss further with attending. Protonix 40 milligrams IV twice a day for GI protection. Once severe sepsis and atrial fibrillation RVR are more controlled. Will need to further evaluate heme-positive stools and GI bleed Monitor Accu-Cheks fasting and 2 hours postprandial. Will hold home Metformin and utilize sliding scale NovoLog. She may have 2000 calorie ADA diet SCDs to bilateral lower extremity for DVT prophylaxis Recheck CBC and BMP tomorrow morning to follow blood counts, renal function and electrolytes. We'll discuss further orders and plan of care with attending, 5:45 PM as history and physical was being dictated, labs were reviewed. Hemoglobin decreased to 7.6. Patient's blood pressure is stable, but systolic at [address] Watts was consulted regarding GI bleed, we will continue with every 6 hours hemoglobin overnight and he will see the patient in the morning assuming patient stable overnight. This was reviewed with the patient and his daughter are both aware of the plan and approve of it. Trenton Denise M.D. 02/03/17 GI bleed--patient was stable overnight after getting one unit of PRBC. Hemoglobin 8.7 this morning. No abdominal pain, no nausea vomiting. Diet advanced as tolerated. Continue with every 6 hours H&H today. Continue Protonix IV. UTI/ sepsis--lactate reordered and is decreasing, down to 2.6 today. Recheck lactate again tomorrow. Urine culture and blood culture neg at this time, 48 hour results pending. AFIB with RVR--Rate stable, Cardiology on consult. Elevated troponin- began trending down this am, no chest pain. D/C plan-- Pt will require admission until 48 hour cultures return and he is stable. Trenton Denise MD 02/04/2017-Dr. Reza Septic shock with lactate over 4-resolved UTI with providentia-sensitive to Levaquin currently on day 3 GI bleed-patient has received 2 units of blood total. Hemoglobin is up to 9.6. No signs of active bleeding. He did have elevated BUN up to 59 that is now down to 23. No abdominal pain, no nausea vomiting. Tolerating regular diet. Recheck hemoglobin at 2 PM. Continue Protonix IV. AFIB with RVR--rate improved. Metoprolol on hold. Discuss with cardiology today. Elevated troponin- Dr. Lovell following Generalized weakness-PT OT consult CAD/A. fib-aspirin and Plavix are still on hold due to possible GI bleed Mild aortic stenosis Diabetes-metformin restarted, patient is tolerating well. Probable transfer out of the unit today. Start nystatin powder for yeast infection of groin Recheck lab tomorrow. 02/05/17 Day 4 of Levaquin for treatment of Providencia Rettgeri UTI. Hgb has remained stable at 9.4. No active GI bleeding. Continue on PPI Protonix BID for Gi protection. Monitor blood sugars. Metformin BID. Fasting BGM this morning was 134. Patient verbalized concern about being weak and returning home independently. Continue mild Hypokalemia. Continue with oral potassium supplementation 02/06/17 Sinus pause of 6.6 seconds - awaiting Dr. Lovell's recommendations. GI bleed - hgb improved to 9.4 as of yesterday. Will change Protonix to oral route. Repeat CBC now. Plavix and ASA on hold. Hypokalemic yesterday with oral replacement - re-assess BMP now. PT/OT eval pending. This will help determine discharge plans - home, home with home health, SNF, or IRU. Levaquin Day #5 for UTI. T2DM with hyperglycemia - he's on Metformin; may need to begin long-acting insulin. RICHMOND CATALAN MD 02/06/171941: Assessment & Plan Problems: (1) Urinary tract infection Status: Acute Assessment & Plan: Present on admission, indwelling Alvarez catheter present (2) Sinus pause Status: Acute Assessment & Plan: 02/06-Pacemaker placed (3) Septic shock Status: Resolved Assessment & Plan: Manifestations of severe sepsis include the following 1. Urinary tract infection. 2. Leukocytosis, white blood count 13.3. 3. Tachycardia, 125 4. Elevated venous lactate - 4.6 (4) Atrial fibrillation with RVR Status: Acute (5) GI bleed Status: Acute Assessment & Plan: Present on admission, Hemoccult positive (6) Aortic stenosis, mild Status: Chronic (7) Elevated troponin Status: Acute Assessment & Plan: Present on admission, troponin 0.202 (8) Aortic stenosis, moderate Status: Chronic (9) CAD (coronary artery disease) Status: Chronic (10) Hypertension Status: Chronic (11) Diabetes mellitus Status: Chronic (12) Hypercholesterolemia Status: Chronic (13) Allergic rhinitis Status: Chronic (14) GERD (gastroesophageal reflux disease) Status: Chronic (15) OA (osteoarthritis) Status: Chronic (16) BPH (benign prostatic hypertrophy) Status: Chronic (17) History of CT (myocardial infarction) Status: Resolved Plan/Intensity of Service Have independently interviewed and examined pt. Chart reviewed. Case discussed with Dr Lovell and my CURRICULUM DEVELOPMENT SPECIALIST. Care plan developed with my supervision; agree with above. 6 second sinus pause earlier. Taken for pacemaker this evening. Tolerated procedure well. Lungs: decrease, no distress CV: irregular Plan: Post pacemaker care. Concern with upper ext restrictions post pacemaker, functional ability will be limited. Discussed with family about need for more therapy before return to home (likely longterm). Will follow up with CM tomorrow regarding this. Monitor lab. SUZIE CHRISTINE APRN Feb 06, 2017 11:07 RICHMOND CATALAN MD Feb 06, 2017 19:42
[2017-02-06 11:51] LABS: BASOPHILS % (AUTO) 0.4 % (0-2); EOSINOPHILS # (AUTO) 0.4 T/MM3 (0-0.5); EOSINOPHILS % (AUTO) 4.4 % (0-4); HCT - HEMATOCRIT 29.9 % (41-53); HGB - HEMOGLOBIN 9.8 GM/DL (13.5-17.5); IMMATURE GRANULOCYTE # (AUTO) 0.03 T/MM3 (0.00-0.03); IMMATURE GRANULOCYTE % (AUTO) 0.4 % (0.0-0.5); LYMPHOCYTES # (AUTO) 1.8 T/MM3 (1-4.8); LYMPHOCYTES % (AUTO) 21.7 % (23-45); MEAN CORPUSCULAR HGB 31.4 UUG (26-34); MEAN CORPUSCULAR HGB CONC(MCHC 32.8 GM/DL (31-37); MEAN CORPUSCULAR VOLUME 95.8 UM3 (80-100); MEAN PLATELET VOLUME 10.9 UM3 (9.4-12.4); MONOCYTES % (AUTO) 12.7 % (0-9.0); NEUTROPHILS % (AUTO) 60.4 % (33-66); RED BLOOD COUNT 3.12 M/MM3 (4.50-5.90); WBC - WHITE BLOOD COUNT 8.2 T/MM3 (4.5-11.0)
[2017-02-06 12:05] LABS: ANION GAP 12 MEQ/L (5-15); BUN/CREATININE RATIO 20 RATIO (6-26); CALCIUM 8.4 MG/DL (8.4-10.2); CHLORIDE 108 MEQ/L (98-107); CO2 - CARBON DIOXIDE 22 MEQ/L (22-30); CREATININE 0.7 MG/DL (0.8-1.5); GLOMERULAR FILTRATION RATE 107; GLUCOSE 126 MG/DL (75-110); SODIUM 142 MEQ/L (134-144)
--- NOTE | 2017-02-06 12:17 | PNPDOC ---
ZULEIMA EDMONDS BOTANICAL TECHNICAL OFFICER 02/06/17 1212: Subjective Date DATE: 02/06/17 TIME: 10:09 Subjective Keegan is sitting up in the recliner this morning. When asked how he feels he states "not good but not too bad." He denies chest pain, palpitations, dyspnea or dizziness. Objective Vital Signs Vital signs Vital Signs 02/06/17 02/06/17 02/06/17 02/06/17 04:10 07:41 08:14 11:34 Temp 97.1 96.3 96.8 Pulse 75 81 81 80 Resp 18 B/P 116/76 125/74 119/69 Pulse Ox 97 98 98 O2 Delivery Room Air Room Air Room Air Telemetry Rhythm: Sinus Rhythm Comments had 6.6 second pause this morning Height (Feet): 5 Height (Inches): 10.00 Weight (Kilograms): 104.300 General Alert, Orientated x 3, Cooperative ENMT (Brief) mucosa moist Neck (Brief) NOT FOUND: JVD, carotid bruits Respiratory (Brief) clear all villaseñor, equal bilaterally, NOT FOUND: rales, wheezes Cardiovascular (Brief) murmur (3/6), pedal edema (trace), regular rate, regular rhythm, NOT FOUND: click, gallop, rub Abdomen (Brief) BS normo active x4, soft Integumentary (Brief) dry, pink, warm Psychiatric (Brief) alert, oriented Laboratory Laboratory Laboratory Tests Test 02/04/17 17:00 02/04/17 21:48 02/05/17 04:27 02/05/17 04:30 Glucometer 171mg/dL 198mg/dL Phosphorus Level 3.1MG/DL Magnesium Level 1.7MG/DL White Blood Count 9.6T/MM3 Red Blood Count 3.06M/MM3 Hemoglobin 9.4GM/DL Hematocrit 29.1% Mean Corpuscular Volume 95.1UM3 Mean Corpuscular Hemoglobin 30.7UUG Mean Corpuscular Hemoglobin Concent 32.3GM/DL RDW Standard Deviation 47.6FL Platelet Count 164T/MM3 Mean Platelet Volume 11.4UM3 Neutrophils % (Manual) 71.0% Lymphocytes % (Manual) 16.0% Monocytes % (Manual) 12.0% Eosinophils % (Manual) 1.0% Absolute Neutrophils (Manual) 6.8T/MM3 Lymphocytes # (Manual) 1.5T/MM3 Monocytes # (Manual) 1.2T/MM3 Eosinophils # (Manual) 0.1T/MM3 Nucleated Red Blood Cells 2 Anisocytosis 1+ Red Cell Morphology Comment Abnormal Turbidity < 20 Sodium Level 143MEQ/L Potassium Level 3.3MEQ/L Chloride Level 109MEQ/L Carbon Dioxide Level 21MEQ/L Anion Gap 13MEQ/L Blood Urea Nitrogen 14.0MG/DL Creatinine 0.7MG/DL Glomerular Filtration Rate Calc 107 BUN/Creatinine Ratio 20RATIO Glucose Level 134MG/DL Calculated Osmolality 278MOSM/KG Calcium Level 8.6MG/DL Icterus Index < 2 Chemistry Specimen Hemolysis < 15 Test 02/05/17 06:06 02/05/17 11:13 02/05/17 17:34 02/05/17 21:19 Glucometer 154mg/dL 188mg/dL 144mg/dL 200mg/dL Test 02/06/17 05:59 02/06/17 11:26 02/06/17 11:38 Glucometer 137mg/dL 139mg/dL White Blood Count 8.2T/MM3 Red Blood Count 3.12M/MM3 Hemoglobin 9.8GM/DL Hematocrit 29.9% Mean Corpuscular Volume 95.8UM3 Mean Corpuscular Hemoglobin 31.4UUG Mean Corpuscular Hemoglobin Concent 32.8GM/DL RDW Standard Deviation 49.0FL Platelet Count 170T/MM3 Mean Platelet Volume 10.9UM3 Immature Granulocyte % (Auto) 0.4% Neutrophils (%) (Auto) 60.4% Lymphocytes (%) (Auto) 21.7% Monocytes (%) (Auto) 12.7% Eosinophils (%) (Auto) 4.4% Basophils (%) (Auto) 0.4% Absolute Immature Granulocyte (auto 0.03T/MM3 Absolute Neutrophils (auto) 5.0T/MM3 Absolute Lymphocytes (auto) 1.8T/MM3 Absolute Monocytes (auto) 1.0T/MM3 Absolute Eosinophils (auto) 0.4T/MM3 Absolute Basophils (auto) 0.0T/MM3 Turbidity < 20 Sodium Level 142MEQ/L Potassium Level 4.0MEQ/L Chloride Level 108MEQ/L Carbon Dioxide Level 22MEQ/L Anion Gap 12MEQ/L Blood Urea Nitrogen 14.0MG/DL Creatinine 0.7MG/DL Glomerular Filtration Rate Calc 107 BUN/Creatinine Ratio 20RATIO Glucose Level 126MG/DL Calculated Osmolality 276MOSM/KG Calcium Level 8.4MG/DL Icterus Index < 2 Chemistry Specimen Hemolysis < 15 Laboratory Tests 02/06/17 11:26 Laboratory Tests 02/06/17 11:26 Medications Current Medications Ceftriaxone Sodium/Sodium Chloride (Rocephin/NS) 100 ml @ 100 mls/hr O ONCE IV Last administered on 02/02/17 12:38; Start 02/02/17 at 12:15; Stop at 13:14; Status DC Pantoprazole Sodium (Protonix Iv) 40 mg BID IV Last administered on 02/06/17 08:04; Start 02/02/17 at 21:00; Stop 02/06/17 at 11:13; Status DC Diltiazem HCl (Cardizem) 10 mg O ONCE IV Last administered on 02/02/17 14:24 ; Start 02/02/17 at 14:15; Stop 02/02/17 at 14:25; Status DC Atorvastatin Calcium (LIPITOR 40 mg) 40 mg HS PO Last administered on 21:13; Start 02/02/17 at 22:00 Fexofenadine HCl (Brenda) 180 mg DAILY PO Last administered on 02/06/17 08:03 ; Start 02/03/17 at 09:00 Insulin Aspart SS PRN SQ Last administered on 02/05/17 23:42; Start at 15:00 Levofloxacin 750 mg/Dextrose/Water 150 ml @ 100 mls/hr DAILY IV Last administered on 02/04/17 08:16; Start 02/02/17 at 15:45; Stop 02/04/17 at 13:05 ; Status DC Sodium Chloride (Normal Saline IV) 1,000 ml @ 100 mls/hr Q10H IV Last administered on 02/04/17 04:11; Start 02/03/17 at 03:00; Stop 02/04/17 at 11:21 ; Status DC Metformin HCl (Glucophage) 1,000 mg BIDWM PO Last administered on 02/06/17 08: 05; Start 02/03/17 at 17:30; Status Future hold Nitroglycerin 0.4 mg 0.4 mg Q5MIN PRN SL CHEST PAIN; Start 02/03/17 at 09:30 Sodium Chloride (NS) 500 ml @ 0 mls/hr Q0M IV ; Start 02/03/17 at 14:36 Nystatin (Nystatin Powder) 1 applic TID TOP Last administered on 02/06/17 08: 06; Start 02/04/17 at 15:00 Metoprolol Tartrate (Lopressor) 25 mg BIDWM PO Last administered on 02/06/17 08:05; Start 02/04/17 at 17:30 Levofloxacin (LEVAQUIN 750 mg tablet) 750 mg ACB PO Last administered on 05:52; Start 02/05/17 at 06:30 Ascorbic Acid (VITAMIN C 500 mg Tablet) 500 mg HS PO Last administered on 21:12; Start 02/04/17 at 22:00 Potassium Chloride (Kdur) 20 meq WB PO Last administered on 02/06/17 08:04; Start 02/05/17 at 08:00 Ferrous Sulfate (Feosol) 324 mg HS PO ; Start 02/06/17 at 22:00 Pantoprazole Sodium (Protonix) 40 mg ACBID PO ; Start 02/06/17 at 17:00 Radiology DATE OF EXAM: 02/02/17 ORDERING DOCTOR: AMOL BACH DO TYPE OF EXAM: CT HEAD W/O CONTRAST REASON FOR EXAM: confusion Indication: ITS.REASON: confusion PROCEDURE: CT HEAD W/O CONTRAST: Encounter: Initial Comparison: Brain MRI dated March 31, 2011 Technique: Axial CT images through the head were performed without contrast. Iterative Reconstruction dose reducing technique was utilized. FINDINGS: Mild generalized atrophy. 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 The ventricles are of normal size, shape, and contour for the patient's age. There are scattered areas of low attenuation in the white matter which most likely represent changes from chronic microvascular ischemia. The brainstem, cerebellum, and cerebral hemispheres otherwise have a normal morphology and CT attenuation. There is no evidence of midline displacement. No hemorrhage, signs of acute territorial stroke, mass effect, mass lesions, or edema is evident. The visualized portions of the skull base, midface, and calvarium demonstrate no abnormality. The paranasal sinuses are well aerated and free of significant disease. The tympanic and mastoid cavities appear normal. IMPRESSION: No acute intracranial abnormality or hemorrhage. DATE OF EXAM: 02/02/17 ORDERING DOCTOR: AMOL BACH DO TYPE OF EXAM: CHEST 1 VIEW REASON FOR EXAM: sob Indication: ITS.REASON: sob PROCEDURE: CHEST 1 VIEW: Encounter: Initial Comparison: July 27, 2016 Findings: Prior CABG. Large hiatal hernia with a partially intrathoracic stomach. No focal pneumonia, pleural effusion or pneumothorax. Moderate enlargement of the cardiac silhouette is unchanged. Mediastinal contours are stable. Pulmonary vascularity appears normal. Impression: No focal pneumonia or congestive failure. Sepsis Diagnostic Criteria Sepsis Confirmed/Suspected Infection: Yes SIRS Criteria: Pulse >= 90 beats/min, WBC >=12,000 or <=4,000, RR > or = to 20 Severe Sepsis Lactate >=2.0 mg/dL Septic Shock Septic Shock Criteria: Lactate >4 Assessment & Plan Problems: (1) Sinus pause Status: Resolved Assessment & Plan: 6.6 second pause. Plan to place single chamber permanent pacemaker today (2) Persistent atrial fibrillation Status: Chronic Assessment & Plan: Cardizem 10mg IV given X1 (3) Elevated troponin Status: Acute Assessment & Plan: Reports chest pain a couple of days ago. Heart cath last July showed CAD. Left main was free of significant lesions. Left anterior descending artery was occluded proximally. Left circumflex artery had about 20%-30% stenosis. Ramus intermedius had 80%-90 % eccentric lesion proximally. Right coronary artery was occluded from previous catheterization and it was not directly engaged. A vein graft to obtuse marginal was occluded. A vein graft to diagonal was occluded. A vein graft to right coronary artery was occluded which appeared to be the fresh occlusion recently. NAVARRO was not visualized since it was patent from previous cath. After reviewing the angiograms, we decided to proceed with intervention on vein graft to RCA. A 6-[place] RCB guide was advanced to the ostium of the graft. A Whisper wire was used to recanalize the vessel. The wire was advanced into PDA. Multiple inflations were performed using a 2.0 x 20 balloon throughout the graft. However, we did not see opening of the vessel. Next, we used a thrombectomy catheter and we tried to aspirate thrombus. However, were not able to get any flow back and therefore the case was terminated. Patient tolerated the procedure well with no complications. Will trend troponin levels and continue to monitor. 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 Left main was free of significant lesions. Left anterior descending artery was occluded proximally. Left circumflex artery had about 20%-30% stenosis. Ramus intermedius had 80%-90 % eccentric lesion proximally. Right coronary artery was occluded from previous catheterization and it was not directly engaged. A vein graft to obtuse marginal was occluded. A vein graft to diagonal was occluded. A vein graft to right coronary artery was occluded which appeared to be the fresh occlusion recently. NAVARRO was not visualized since it was patent from previous cath. After reviewing the angiograms, we decided to proceed with intervention on vein graft to RCA. A 6-[place] RCB guide was advanced to the ostium of the graft. A Whisper wire was used to recanalize the vessel. The wire was advanced into PDA. Multiple inflations were performed using a 2.0 x 20 balloon throughout the graft. However, we did not see opening of the vessel. Next, we used a thrombectomy catheter and we tried to aspirate thrombus. However, were not able to get any flow back and therefore the case was terminated. Patient tolerated the procedure well with no complications. 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 Needs PRBCs Plan/Intensity of Service 02/03/17 AFib RVR: Rate 120s, Cardizem 10mg IV X1 given. HR now 90-100. Will trend troponin levels and continue to monitor. With patient's degree of CAD his HGB should be kept around 10. Needs PRBCs. 02/04/17 stop Metoprolol. Goal hemoglobin is 10 or above 02/06/17 6.6 second pause[address] Plan to place single chamber permanent pacemaker today. Plan to not restart Plavix as it was 1 year post stent in 12/2016. Thank you for allowing us to participate in the care of this patient, we will follow along with you SWEETIE WALDROP MD 02/10/17 1333: Assessment & Plan Plan/Intensity of Service After examining the patient I agree with the above assessment. I am involved in the formulation of the patient's plan of care. ZULEIMA EDMONDS APRN Feb 06, 2017 12:12 SWEETIE WALDROP MD Feb 10, 2017 13:33
--- NOTE | 2017-02-06 12:19 | NUR ---
Status Received call from staff reported that Yue from cardiology told them that pt. is to be NPO. Went in to speak with pt. and he informed this RN that they are thinking about putting in a pacemaker. Informed pt. and dietary about NPO status. Will continue to monitor.
--- NOTE | 2017-02-06 14:53 | NUR ---
Status Received word from Christine Cole from [employer] that pt. is going to have pacemaker placement this afternoon. Will notify pt. and family. Will continue to monitor.
--- NOTE | 2017-02-06 16:00 | NUR ---
Dr./Procedure Dr. Lovell and Yue Wilson in to see pt. and family to explain pacemaker procedure. This RN asked Yue about pre-op orders and she said this RN could go ahead and start NS @ 75cc/hr. Will continue to monitor.
[2017-02-06] MEDS ORDERED: NORMAL SALINE 500 ML IV ONE (16:06)
[2017-02-06] MEDS ORDERED: CEFAZOLIN 1 GRAM INJECTION IV ONE (16:15)
--- NOTE | 2017-02-06 16:20 | NUR ---
Consent Reviewed consent with pt. and daughter. Pt. requested daughter sign consent since she is the DPOA. Reviewed and had daughter sign consent for procedure and blood transfusion. Will continue to monitor.
[2017-02-06] MEDS ORDERED: BISACODYL 5 MG E.C. TABLET PO PRN (17:30)
[2017-02-06] MEDS ORDERED: ACETAMINOPHEN 325 MG TABLET PO PRN (17:30)
[2017-02-06] MEDS ORDERED: MAG-AL + SIM LIQUID 30 ML UDC PO PRN (17:30)
[2017-02-06] MEDS ORDERED: ACETAMINOPHEN/CODEINE 300mg/30mg TABLET PO PRN (17:30)
[2017-02-06] MEDS: NORMAL SALINE 1,000 ML IV SCH (17:47)
[2017-02-06] MEDS ORDERED: WATER FOR INJECTION 20 ML ONE (18:30)
[2017-02-06] MEDS ORDERED: FENTANYL 100mcg/2ml INJECTION ONE (18:30)
[2017-02-06] MEDS ORDERED: CEFAZOLIN 1 GRAM INJECTION ONE ×2 (18:30→18:34)
[2017-02-06] MEDS ORDERED: MIDAZOLAM 2mg/2ml INJECTION ONE ×2 (18:31→19:01)
[2017-02-06] MEDS ORDERED: LIDOCAINE 1% (10mg/ml) 30ml SDV ONE (18:31)
[2017-02-06] MEDS ORDERED: BACITRACIN INJ. 50,000 UNITS VL ONE (18:31)
[2017-02-06] MEDS ORDERED: SALINE FLUSH 10ml SYRINGE ONE (18:31)
--- NOTE | 2017-02-06 18:36 | NUR ---
Surgery VS's stable. Pt. has denied pain all shift. Family is present. I/O adequate. Pt. is taken to pre-op via cart for pacemaker placement at this time. Will pass on report.
[2017-02-06] MEDS: PANTOPRAZOLE 40 MG TABLET PO SCH (18:58)
--- NOTE | 2017-02-06 19:55 | NUR ---
RETURN FROM PACEMAKER PLACEMENT. @ 1955 DENIES PAIN, DENIES SOA, DENIES NAUSEA.
[2017-02-06] MEDS ORDERED: FERROUS SULFATE 324 MG TABLET PO SCH (22:00)
[2017-02-06] MEDS: ASCORBIC ACID 500 MG TABLET PO SCH (23:08)
[2017-02-06] MEDS: ATORVASTATIN 40 MG TABLET PO SCH (23:08)
[2017-02-06] MEDS: CEFAZOLIN 1 G in NORMAL SALINE 100 ML IV SCH (23:15)
[2017-02-07] MEDS: NORMAL SALINE 1,000 ML IV SCH ×2 (03:28→13:28)
[2017-02-07 04:35] VITALS: BP 126/76; PULSE 80; RESP 18; TEMP 98.1; O2SAT 96
[2017-02-07 05:29] LABS: ANION GAP 12 MEQ/L (5-15); BUN/CREATININE RATIO 23 RATIO (6-26); CALCIUM 8.4 MG/DL (8.4-10.2); CHLORIDE 110 MEQ/L (98-107); CO2 - CARBON DIOXIDE 20 MEQ/L (22-30); CREATININE 0.6 MG/DL (0.8-1.5); GLOMERULAR FILTRATION RATE 128; GLUCOSE 117 MG/DL (75-110); POTASSIUM 3.7 MEQ/L (3.6-5); SODIUM 142 MEQ/L (134-144)
[2017-02-07 05:39] LABS: BASOPHILS % (AUTO) 0.3 % (0-2); EOSINOPHILS # (AUTO) 0.3 T/MM3 (0-0.5); EOSINOPHILS % (AUTO) 3.7 % (0-4); HCT - HEMATOCRIT 30.4 % (41-53); HGB - HEMOGLOBIN 9.6 GM/DL (13.5-17.5); IMMATURE GRANULOCYTE # (AUTO) 0.04 T/MM3 (0.00-0.03); IMMATURE GRANULOCYTE % (AUTO) 0.4 % (0.0-0.5); LYMPHOCYTES # (AUTO) 1.6 T/MM3 (1-4.8); MEAN CORPUSCULAR HGB 30.8 UUG (26-34); MEAN CORPUSCULAR HGB CONC(MCHC 31.6 GM/DL (31-37); MEAN CORPUSCULAR VOLUME 97.4 UM3 (80-100); MEAN PLATELET VOLUME 10.7 UM3 (9.4-12.4); MONOCYTES # (AUTO) 1.1 T/MM3 (0-0.8); MONOCYTES % (AUTO) 12.1 % (0-9.0); NEUTROPHILS #(AUTO)-ABSOLUTE 5.9 T/MM3 (1.8-7.7); NEUTROPHILS % (AUTO) 65.5 % (33-66); RED BLOOD COUNT 3.12 M/MM3 (4.50-5.90)
--- NOTE | 2017-02-07 05:46 | NUR ---
SUMMARY PT IS ALERT AND ORIENTED, DENIES PAIN, DENIES SOA. SURGICAL INCISION TO THE UPPER LEFT CHEST, DRESSING DRY AND INTACT. IV IN THE RIGHT HAND RUNNING NS AT 100 ML/HR. IVL IN THE LEFT FOREARM, FLUSHES WELL.
[2017-02-07] MEDS: PANTOPRAZOLE 40 MG TABLET PO SCH (07:13)
[2017-02-07] MEDS: LEVOFLOXACIN 750 MG TABLET PO SCH (07:13)
[2017-02-07] MEDS: CEFAZOLIN 1 G in NORMAL SALINE 100 ML IV SCH (07:15)
[2017-02-07 07:49] VITALS: BP 116/75; PULSE 90; RESP 24; TEMP 96.8; O2SAT 97
[2017-02-07 08:00] VITALS: RESP 17
[2017-02-07] MEDS: FEXOFENADINE 180 MG TABLET PO SCH (08:12)
[2017-02-07] MEDS: POTASSIUM CHLORIDE 20 MEQ TABLET PO SCH (08:13)
[2017-02-07] MEDS: METFORMIN 1,000 MG TABLET PO SCH (08:13)
[2017-02-07] MEDS: NYSTATIN POWDER 15gm BOTTLE TOP SCH (08:14)
[2017-02-07] MEDS ORDERED: MINOCYCLINE 100 MG CAPSULE PO SCH (09:00)
[2017-02-07 09:01] VITALS: PULSE 90; RESP 18; O2SAT 97
--- NOTE | 2017-02-07 09:20 | DI ---
Indication: ITS.REASON: PPM PROCEDURE: CHEST 1 VIEW: Encounter: Initial Comparison: February 02, 2017 Findings: New single lead left pacemaker with a right ventricular lead. Prior CABG. No visible pneumothorax. Lungs are stable with some emphysema and mild fibrotic change. Cardiac silhouette remains enlarged. Prominent hiatal hernia. Pulmonary vascularity is stable. Impression: No pneumothorax. .
--- NOTE | 2017-02-07 09:22 | DI ---
INDICATION: ITS.REASON: PPM PROCEDURE: CHEST 2-VIEWS UPRIGHT (PA \T\ LAT) Encounter: Initial COMPARISON: February 06, 2017 FINDINGS: Single lead left cardiac pacemaker is unchanged in appearance. No pneumothorax seen. Lungs are stable. Small effusions. Cardiac silhouette remains enlarged. Mildly prominent central pulmonary vascularity. Impression: 1. No pneumothorax. 2. Mild congestive failure. .
--- NOTE | 2017-02-07 10:34 | NUR ---
IRU referral received. Met with patient and patient's daughter Lori at 1025. Reviewed programmatic expectations of IRU and patient acknowledged expectation of 3 hours of therapy, 5 days/week. Patient reported he has been at [facility] before. Daughter asked about [facility] and I acknowledged that patient has a choice on where he goes. Provided information on the differences between IRU and skilled. Discussed pacemaker implantation and associated restrictions. Will coordinate with medical and PT to see how long restrictions are in place. Provided contact information and will remain in contact as needed. Checked with PT/OT and they are comfortable to work w/ patient given his recent pacemaker implantation and subsequent restrictions. CM notified. Will coordinate admission w/ Dr. Denise if patient chooses IRU.
--- NOTE | 2017-02-07 10:37 | PNPDOC ---
SUZIE CHRISTINE CUSTOMER SUPPORT ANALYST 02/07/17 1021: Subjective Date DATE: 02/07/17 TIME: 10:18 Subjective Keegan is feeling pretty good this morning. His left arm is in a sling & he denies much soreness to the pacemaker site. He denies feeling short of breath. He denies abdominal pain or GI complaints, and has been eating well. He had a small liquid black BM this morning (and other mornings, but hgb has been stable) . He is a bit weak in general, and both Keegan and his granddaughter don't feel he is safe to go home since he has restrictions to his left arm. They are interested in IRU or going to [facility]. Objective Vital Signs Vital signs Vital Signs Date Time Temp Pulse Resp B/P Pulse Ox O2 Delivery O2 Flow Rate FiO2 02/07/17 09:01 90 18 97 Room Air 02/07/17 07:49 96.8 116/75 Telemetry Rhythm: Sinus Rhythm Height (Feet): 5 Height (Inches): 10.00 Weight (Kilograms): 102.800 General General Appearance: Alert, Orientated x 3, Well Nourished, Well Developed, No Acute Distress Eyes (Brief) Eyes: FOUND: PERRL, NOT FOUND: scleral icterus ENMT (Brief) ENMT: FOUND: mucosa moist, NOT FOUND: pharnyx erythema Respiratory (Brief) Respiratory: FOUND: clear all villaseñor, equal bilaterally, other (dressing to left upper chest - c/d/i) Cardiovascular (Brief) Cardiac: FOUND: murmur, regular rate, regular rhythm Abdomen (Brief) Abdominal: FOUND: BS normo active x4, soft, NOT FOUND: distended, tender (Brief) Comments Strong catheter Extremities (Brief) Extremity : Side: Bilateral Extremity Finding: NOT FOUND: edema Comments sling to left arm Musculoskeletal (Brief) Musculoskeletal: NOT FOUND: tenderness (calves nontender) Integumentary (Brief) Integumentary: FOUND: dry, pink, warm Psychiatric (Brief) Psychiatric: FOUND: alert, attentive, normal affect, oriented Laboratory Laboratory Laboratory Tests 02/06/17 11:26 02/07/17 04:41 Laboratory Tests 02/06/17 11:26 02/07/17 04:41 Sepsis Diagnostic Criteria Sepsis Confirmed/Suspected Infection: Yes SIRS Criteria: Pulse >= 90 beats/min, WBC >=12,000 or <=4,000, RR > or = to 20 Severe Sepsis Lactate >=2.0 mg/dL Septic Shock Septic Shock Criteria: Lactate >4 Assessment & Plan Problems: (1) Urinary tract infection Status: Acute Assessment & Plan: Present on admission, indwelling Strong catheter present (2) Sinus pause Status: Resolved Assessment & Plan: 02/06-Pacemaker placed (3) Septic shock Status: Resolved Assessment & Plan: Manifestations of severe sepsis include the following 1. Urinary tract infection. 2. Leukocytosis, white blood count 13.3. 3. Tachycardia, 125 4. Elevated venous lactate - 4.6 (4) Atrial fibrillation with RVR Status: Acute (5) GI bleed Status: Acute Assessment & Plan: Present on admission, Hemoccult positive (6) Aortic stenosis, mild Status: Chronic (7) Elevated troponin Status: Acute Assessment & Plan: Present on admission, troponin 0.202 (8) Aortic stenosis, moderate Status: Chronic (9) CAD (coronary artery disease) Status: Chronic (10) Hypertension Status: Chronic (11) Diabetes mellitus Status: Chronic (12) Hypercholesterolemia Status: Chronic (13) Allergic rhinitis Status: Chronic (14) GERD (gastroesophageal reflux disease) Status: Chronic (15) OA (osteoarthritis) Status: Chronic (16) BPH (benign prostatic hypertrophy) Status: Chronic (17) History of AK (myocardial infarction) Status: Resolved Plan/Intensity of Service UTI - continue Levaquin (day #6) S/P [employer] Single chamber Pacemaker for 6 sec sinus pause - precautions and care per Dr. Lovell. Will ask [employer] rep to help Yue with syncing the pacemaker with her phone. 7-day course of Minocycline and IVF started yesterday per cardiology. GI bleed - goal hgb is 10 d/t cardiac disease; remains stable at 9.6 following PRBC transfusion x2 on 02/03/17. Per Dr. Lovell, do not restart plavix (1 year post stent in 12/2016). Generalized debility with left arm limitations - IRU consult placed. 2nd preference is SNF at [facility]. DVT Prophylaxis: SCD'S Code Status Do Not Resuscitate Hospital Course Summary Disclaimer The hospital course summary below is not to be considered part of the above Progress Note. Hospital Course Summary Admit patient to inpatient status under the care of Dr. Denise community organization aide hospitalist for severe sepsis, urinary tract infection and elevated troponin. That is protocol was initiated in the emergency room, blood cultures drawn, IV fluid boluses given and patient initiated on Rocephin IV daily for antimicrobial coverage. Cultures and urine culture pending. Obtain serial lactate levels. In light of sepsis protocol. In light of atrial fibrillation with RVR and elevated troponin. Will consult patient's cardiology, Dr. Lovell for further cardiac evaluation and recommendations. Will recheck serial troponins 3 every 6 hours and monitor patient on cardiac telemetry. Hemoccult was positive in the emergency room. Hemoglobin low at 9.4. Patient does have a history of anemia. Will need to hold off on anticoagulation at this time. Will discuss further with attending. Protonix 40 milligrams IV twice a day for GI protection. Once severe sepsis and atrial fibrillation RVR are more controlled. Will need to further evaluate heme-positive stools and GI bleed Monitor Accu-Cheks fasting and 2 hours postprandial. Will hold home Metformin and utilize sliding scale NovoLog. She may have 2000 calorie ADA diet SCDs to bilateral lower extremity for DVT prophylaxis Recheck CBC and BMP tomorrow morning to follow blood counts, renal function and electrolytes. We'll discuss further orders and plan of care with attending, 5:45 PM as history and physical was being dictated, labs were reviewed. Hemoglobin decreased to 7.6. Patient's blood pressure is stable, but systolic at [address] Watts was consulted regarding GI bleed, we will continue with every 6 hours hemoglobin overnight and he will see the patient in the morning assuming patient stable overnight. This was reviewed with the patient and his daughter are both aware of the plan and approve of it. Trenton Denise M.D. 02/03/17 GI bleed--patient was stable overnight after getting one unit of PRBC. Hemoglobin 8.7 this morning. No abdominal pain, no nausea vomiting. Diet advanced as tolerated. Continue with every 6 hours H&H today. Continue Protonix IV. UTI/ sepsis--lactate reordered and is decreasing, down to 2.6 today. Recheck lactate again tomorrow. Urine culture and blood culture neg at this time, 48 hour results pending. AFIB with RVR--Rate stable, Cardiology on consult. Elevated troponin- began trending down this am, no chest pain. D/C plan-- Pt will require admission until 48 hour cultures return and he is stable. Trenton Denise MD 02/04/2017-Dr. Reza Septic shock with lactate over 4-resolved UTI with providentia-sensitive to Levaquin currently on day 3 GI bleed-patient has received 2 units of blood total. Hemoglobin is up to 9.6. No signs of active bleeding. He did have elevated BUN up to 59 that is now down to 23. No abdominal pain, no nausea vomiting. Tolerating regular diet. Recheck hemoglobin at 2 PM. Continue Protonix IV. AFIB with RVR--rate improved. Metoprolol discontinued per Dr. Lovell. Elevated troponin- Dr. Lovell following Generalized weakness-PT OT consult CAD/A. fib-aspirin and Plavix are still on hold due to possible GI bleed Mild aortic stenosis Diabetes-metformin restarted, patient is tolerating well. Probable transfer out of the unit today. Start nystatin powder for yeast infection of groin 02/05/17 Day 4 of Levaquin for treatment of Providencia Rettgeri UTI. Hgb has remained stable at 9.4. No active GI bleeding. Continue on PPI Protonix BID for Gi protection. Monitor blood sugars. Metformin BID. Fasting BGM this morning was 134. Patient verbalized concern about being weak and returning home independently. Continue mild Hypokalemia. Continue with oral potassium supplementation 02/06/17 Sinus pause of 6.6 seconds - Dr. Lovell placed a pacemaker. GI bleed - hgb improved to 9.4 as of yesterday. Will change Protonix to oral route. Repeat CBC now. Plavix and ASA on hold. Hypokalemic yesterday with oral replacement - re-assess BMP now. PT/OT eval pending. This will help determine discharge plans - home, home with home health, SNF, or IRU. Levaquin Day #5 for UTI. T2DM with hyperglycemia - he's on Metformin; may need to begin long-acting insulin. 02/07/17 UTI - continue Levaquin (day #6) S/P [employer] Single chamber Pacemaker for 6 sec sinus pause - precautions and care per Dr. Lovell. Will ask [employer] [facility] to help Yue with syncing the pacemaker with her phone. 7-day course of Minocycline and IVF started yesterday per cardiology. GI bleed - goal hgb is 10 d/t cardiac disease; remains stable at 9.6 following PRBC transfusion x2 on 02/03/17. Per Dr. Lovell, do not restart plavix (1 year post stent in 12/2016). Generalized debility with left arm limitations - IRU consult placed. 2nd preference is SNF at [facility]. RICHMOND WOODWARD MD 02/07/17 1148: Assessment & Plan Plan/Intensity of Service Have independently interviewed and examined pt. Chart reviewed. Case discussed with CM and my CUSTOMER SUPPORT ANALYST. Care plan developed with my supervision; agree with above. Doing well. No pain or discomfort at pacemaker site. Breathing well. No chest pressure or pain. No nausea. Passing stool-notes some dark stool. Lungs: clear CV: regular AB: Soft nt/nd +BS MSE: awake alert appropriate Plan; Will d/c to IRU for restorative care. Replace strong today. Continue Levaquin for 1 more day. Complete course of Minocycline. Post pacemaker upper ext restrictions. Add Carafate to Protonix to help GI protection. Hold ASA and Plavix due to anemia. Will start low dose Cozaar due to his cardiomyopathy - need to monitor electrolytes and renal status. Continue to monitor hemoglobin. Medically stable for IRU floor activities. SUZIE CHRISTINE APRN Feb 07, 2017 10:21 RICHMOND WOODWARD MD Feb 07, 2017 11:48
--- NOTE | 2017-02-07 11:00 | NUR ---
CM CM VISITED WITH PT AND FAMILY. PT HAS CHOSEN IRU. ADAN FROM IRU IS AWARE. DR BIRD HAS ACCEPTED PT. ADAN IS AWARE THAT DR LIRIANO IS ANTICIPATING D/C FOR TODAY. PT AND FAMILY ARE AWARE TO CONTACT CM IF NEEDS [facility]ISE.
--- NOTE | 2017-02-07 11:06 | PNPDOC ---
ZULEIMA EDMONDS BEADER TENDER 02/07/17 1102: Subjective Date DATE: 02/07/17 TIME: 10:58 Subjective Keegan is in his bed in his room, his family is at the bedside and has many questions about the restrictions and use of the pacemaker reader. I answered the questions to the best of my ability. Keegan denies pain, chest pain or dyspnea. Objective Vital Signs Vital signs Vital Signs 02/06/17 02/07/17 02/07/17 02/07/17 23:10 04:35 07:49 08:00 Temp 98.5 98.1 96.8 Pulse 83 80 90 Resp 18 24 17 B/P 135/80 126/76 116/75 Pulse Ox 97 96 97 O2 Delivery Room Air Room Air Room Air 02/07/17 09:01 Pulse 90 Resp 18 Pulse Ox 97 O2 Delivery Room Air Telemetry Rhythm: Sinus Rhythm Height (Feet): 5 Height (Inches): 10.00 Weight (Kilograms): 102.800 General Alert, Orientated x 3, Cooperative ENMT (Brief) mucosa moist Neck (Brief) NOT FOUND: JVD, carotid bruits Respiratory (Brief) clear all villaseñor, equal bilaterally, NOT FOUND: rales, wheezes Cardiovascular (Brief) murmur (3/6), regular rate, regular rhythm, NOT FOUND: click, gallop, pedal edema (trace), rub Abdomen (Brief) BS normo active x4, soft, NOT FOUND: tender Integumentary (Brief) dry, warm Psychiatric (Brief) alert, oriented Laboratory Laboratory Laboratory Tests Test 02/05/17 11:13 02/05/17 17:34 02/05/17 21:19 02/06/17 05:59 Glucometer 188mg/dL 144mg/dL 200mg/dL 137mg/dL Test 02/06/17 11:26 02/06/17 11:38 02/06/17 17:22 02/07/17 04:41 White Blood Count 8.2T/MM3 9.0T/MM3 Red Blood Count 3.12M/MM3 3.12M/MM3 Hemoglobin 9.8GM/DL 9.6GM/DL Hematocrit 29.9% 30.4% Mean Corpuscular Volume 95.8UM3 97.4UM3 Mean Corpuscular Hemoglobin 31.4UUG 30.8UUG Mean Corpuscular Hemoglobin Concent 32.8GM/DL 31.6GM/DL RDW Standard Deviation 49.0FL 50.3FL Platelet Count 170T/MM3 185T/MM3 Mean Platelet Volume 10.9UM3 10.7UM3 Immature Granulocyte % (Auto) 0.4% 0.4% Neutrophils (%) (Auto) 60.4% 65.5% Lymphocytes (%) (Auto) 21.7% 18.0% Monocytes (%) (Auto) 12.7% 12.1% Eosinophils (%) (Auto) 4.4% 3.7% Basophils (%) (Auto) 0.4% 0.3% Absolute Immature Granulocyte (auto 0.03T/MM3 0.04T/MM3 Absolute Neutrophils (auto) 5.0T/MM3 5.9T/MM3 Absolute Lymphocytes (auto) 1.8T/MM3 1.6T/MM3 Absolute Monocytes (auto) 1.0T/MM3 1.1T/MM3 Absolute Eosinophils (auto) 0.4T/MM3 0.3T/MM3 Absolute Basophils (auto) 0.0T/MM3 0.0T/MM3 Turbidity < 20 < 20 Sodium Level 142MEQ/L 142MEQ/L Potassium Level 4.0MEQ/L 3.7MEQ/L Chloride Level 108MEQ/L 110MEQ/L Carbon Dioxide Level 22MEQ/L 20MEQ/L Anion Gap 12MEQ/L 12MEQ/L Blood Urea Nitrogen 14.0MG/DL 14.0MG/DL Creatinine 0.7MG/DL 0.6MG/DL Glomerular Filtration Rate Calc 107 128 BUN/Creatinine Ratio 20RATIO 23RATIO Glucose Level 126MG/DL 117MG/DL Calculated Osmolality 276MOSM/KG 275MOSM/KG Calcium Level 8.4MG/DL 8.4MG/DL Icterus Index < 2 < 2 Chemistry Specimen Hemolysis < 15 17 Glucometer 139mg/dL 107mg/dL Test 02/07/17 06:03 Glucometer 116mg/dL Laboratory Tests 02/06/17 11:26 02/07/17 04:41 Laboratory Tests 02/06/17 11:26 02/07/17 04:41 Medications Current Medications Ceftriaxone Sodium/Sodium Chloride (Rocephin/NS) 100 ml @ 100 mls/hr O ONCE IV Last administered on 02/02/17 12:38; Start 02/02/17 at 12:15; Stop at 13:14; Status DC Pantoprazole Sodium (Protonix Iv) 40 mg BID IV Last administered on 02/06/17 08:04; Start 02/02/17 at 21:00; Stop 02/06/17 at 11:13; Status DC Diltiazem HCl (Cardizem) 10 mg O ONCE IV Last administered on 02/02/17 14:24 ; Start 02/02/17 at 14:15; Stop 02/02/17 at 14:25; Status DC Atorvastatin Calcium (LIPITOR 40 mg) 40 mg HS PO Last administered on 23:08; Start 02/02/17 at 22:00 Fexofenadine HCl (Brenda) 180 mg DAILY PO Last administered on 02/07/17 08:12 ; Start 02/03/17 at 09:00 Insulin Aspart SS PRN SQ Last administered on 02/05/17 23:42; Start at 15:00 Levofloxacin/ Dextrose/Water (LEVAQUIN 750 mg IVPB/D5W) 150 ml @ 100 mls/hr DAILY IV Last administered on 02/04/17 08:16; Start 02/02/17 at 15:45; Stop at 13:05; Status DC Metformin HCl (Glucophage) 1,000 mg BIDWM PO Last administered on 02/07/17 08: 13; Start 02/03/17 at 17:30; Status Future hold Nitroglycerin 0.4 mg 0.4 mg Q5MIN PRN SL CHEST PAIN; Start 02/03/17 at 09:30 Sodium Chloride (NS) 500 ml @ 0 mls/hr Q0M IV ; Start 02/03/17 at 14:36; Stop at 16:08; Status DC Nystatin (Nystatin Powder) 1 applic TID TOP Last administered on 02/07/17 08: 14; Start 02/04/17 at 15:00 Metoprolol Tartrate (Lopressor) 25 mg BIDWM PO Last administered on 02/07/17 08:13; Start 02/04/17 at 17:30 Levofloxacin (LEVAQUIN 750 mg tablet) 750 mg ACB PO Last administered on 07:13; Start 02/05/17 at 06:30 Ascorbic Acid (VITAMIN C 500 mg Tablet) 500 mg HS PO Last administered on 23:08; Start 02/04/17 at 22:00 Potassium Chloride (Kdur) 20 meq WB PO Last administered on 02/07/17 08:13; Start 02/05/17 at 08:00 Ferrous Sulfate (Feosol) 324 mg HS PO Last administered on 02/06/17 23:08; Start 02/06/17 at 22:00 Pantoprazole Sodium 40 mg 40 mg ACBID PO Last administered on 02/07/17 07:13; Start 02/06/17 at 17:00 Sodium Chloride (Normal Saline IV) 1,000 ml @ 100 mls/hr Q10H IV Last administered on 02/06/17 17:47; Start 02/06/17 at 17:28 Al Hydroxide/Mg Hydroxide 30 ml 30 ml Q3H PRN PO INDIGESTION; Start 02/06/17 at 17:30 Cefazolin Sodium/ Sodium Chloride (Kefzol/NS) 100 ml @ 200 mls/hr Q8H IV Last administered on 02/07/17 07:15; Start 02/06/17 at 23:00; Stop 02/07/17 at 07:29 ; Status DC Acetaminophen (Tylenol Regular Strength) 650 mg Q4H PRN PO PAIN; Start at 17:30 Acetaminophen/ Codeine Phosphate (Tylenol #3) prn Q4H PRN PO PAIN; Start at 17:30 Minocycline HCl (Minocin) 100 mg BID PO Last administered on 02/07/17 08:13; Start 02/07/17 at 09:00; Stop 02/14/17 at 08:59 Bisacodyl (Dulcolax) prn DAILY PRN PO ; Start 02/06/17 at 17:30 Cefazolin Sodium 1 g 1 g STK-MED ONCE .ROUTE ; Start 02/06/17 at 18:30; Stop at 18:31; Status DC Sterile Water (Sterile Water) 20 ml @ As Directed STK-MED ONCE .ROUTE ; Start at 18:30; Stop 02/06/17 at 18:31; Status DC Fentanyl (Fentanyl) 100 mcg STK-MED ONCE .ROUTE ; Start 02/06/17 at 18:30; Stop 02/06/17 at 18:31; Status DC Sodium Chloride (Iv Flush) 10 ml STK-MED ONCE .ROUTE ; Start 02/06/17 at 18:31; Stop 02/06/17 at 18:32; Status DC Lidocaine HCl (Xylocaine 1%) 300 mg STK-MED ONCE .ROUTE ; Start 02/06/17 at 18: 31; Stop 02/06/17 at 18:32; Status DC Bacitracin (Bacitracin) 50,000 unit STK-MED ONCE .ROUTE ; Start 02/06/17 at 18: 31; Stop 02/06/17 at 18:32; Status DC Cefazolin Sodium (Kefzol) 1 g STK-MED ONCE .ROUTE ; Start 02/06/17 at 18:34; Stop 02/06/17 at 18:35; Status DC Midazolam HCl (Versed) 2 mg STK-MED ONCE .ROUTE ; Start 02/06/17 at 19:01; Stop 02/06/17 at 19:02; Status DC Radiology DATE OF EXAM: 02/07/17 ORDERING DOCTOR: ZULEIMA EDMONDS APRN TYPE OF EXAM: CHEST, PA & LATERAL REASON FOR EXAM: PPM INDICATION: ITS.REASON: PPM PROCEDURE: CHEST 2-VIEWS UPRIGHT (PA \T\ LAT) Encounter: Initial COMPARISON: February 06, 2017 FINDINGS: Single lead left cardiac pacemaker is unchanged in appearance. No pneumothorax seen. Lungs are stable. Small effusions. Cardiac silhouette remains enlarged. Mildly prominent central pulmonary vascularity. Impression: 1. No pneumothorax. 2. Mild congestive failure. Sepsis Diagnostic Criteria Sepsis Confirmed/Suspected Infection: Yes SIRS Criteria: Pulse >= 90 beats/min, WBC >=12,000 or <=4,000, RR > or = to 20 Severe Sepsis Lactate >=2.0 mg/dL Septic Shock Septic Shock Criteria: Lactate >4 Assessment & Plan Problems: (1) Sinus pause Status: Resolved Assessment & Plan: 6.6 second pause. Plan to place single chamber permanent pacemaker today (2) Persistent atrial fibrillation Status: Chronic Assessment & Plan: Cardizem 10mg IV given X1 (3) Elevated troponin Status: Acute Assessment & Plan: Reports chest pain a couple of days ago. Heart cath last July showed CAD. Left main was free of significant lesions. Left anterior descending artery was occluded proximally. Left circumflex artery had about 20%-30% stenosis. Ramus intermedius had 80%-90 % eccentric lesion proximally. Right coronary artery was occluded from previous catheterization and it was not directly engaged. A vein graft to obtuse marginal was occluded. A vein graft to diagonal was occluded. A vein graft to right coronary artery was occluded which appeared to be the fresh occlusion recently. NAVARRO was not visualized since it was patent from previous cath. After reviewing the angiograms, we decided to proceed with intervention on vein graft to RCA. A 6-Italian RCB guide was advanced to the ostium of the graft. A Whisper wire was used to recanalize the vessel. The wire was advanced into PDA. Multiple inflations were performed using a 2.0 x 20 balloon throughout the graft. However, we did not see opening of the vessel. Next, we used a thrombectomy catheter and we tried to aspirate thrombus. However, were not able to get any flow back and therefore the case was terminated. Patient tolerated the procedure well with no complications. Will trend troponin levels and continue to monitor. 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 Left main was free of significant lesions. Left anterior descending artery was occluded proximally. Left circumflex artery had about 20%-30% stenosis. Ramus intermedius had 80%-90 % eccentric lesion proximally. Right coronary artery was occluded from previous catheterization and it was not directly engaged. A vein graft to obtuse marginal was occluded. A vein graft to diagonal was occluded. A vein graft to right coronary artery was occluded which appeared to be the fresh occlusion recently. NAVARRO was not visualized since it was patent from previous cath. After reviewing the angiograms, we decided to proceed with intervention on vein graft to RCA. A 6-Italian RCB guide was advanced to the ostium of the graft. A Whisper wire was used to recanalize the vessel. The wire was advanced into PDA. Multiple inflations were performed using a 2.0 x 20 balloon throughout the graft. However, we did not see opening of the vessel. Next, we used a thrombectomy catheter and we tried to aspirate thrombus. However, were not able to get any flow back and therefore the case was terminated. Patient tolerated the procedure well with no complications. 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 Needs PRBCs Plan/Intensity of Service 02/03/17 AFib RVR: Rate 120s, Cardizem 10mg IV X1 given. HR now 90-100. Will trend troponin levels and continue to monitor. With patient's degree of CAD his HGB should be kept around 10. Needs PRBCs. 02/04/17 stop Metoprolol. Goal hemoglobin is 10 or above 02/06/17 6.6 second pause[address] Plan to place single chamber permanent pacemaker today. Plan to not restart Plavix as it was 1 year post stent in 12/2016. 02/07/17 Keegan is doing well. Dressing removed, incision well approximated. Discussed with the patient and family his restrictions and when he should wear the sling. I also spoke to Keegan on IRU, Girma from case management and Elina in PT as well regarding when patient is to wear sling and restrictions. SWEETIE WALDROP MD 02/10/17 9735: Assessment & Plan Plan/Intensity of Service After examining the patient I agree with the above assessment. I am involved in the formulation of the patient's plan of care. ZULEIMA EDMONDS APRN Feb 07, 2017 11:02 SWEETIE WALDROP MD Feb 10, 2017 13:45
[2017-02-07 11:18] VITALS: BP 109/66; PULSE 76; RESP 20; TEMP 97.4; O2SAT 97
[2017-02-07] MEDS ORDERED: MINO100C43 PO (11:54)
[2017-02-07] MEDS ORDERED: LEVO750T20 PO (11:54)
[2017-02-07] MEDS ORDERED: SUCR1TAB PO (11:54)
[2017-02-07] MEDS ORDERED: NYST10PO TOP (11:54)
[2017-02-07] MEDS ORDERED: LOSA25TA2 PO (11:54)
[2017-02-07] MEDS ORDERED: ACET1TAB25 PO (11:54)
[2017-02-07] MEDS ORDERED: METO25TA6 PO (11:54)
[2017-02-07] MEDS ORDERED: METF1000 PO (11:54)
--- NOTE | 2017-02-07 12:18 | NUR ---
JUAN Received order to replace strong catheter. This RN provided direct supervision and direction as state tested nursing assistant Gricelda discontinued catheter and replaced with new 16 uzbek catheter per sterile technique. Patient tolerated well.
[2017-02-07] MEDS: INSULIN ASPART 100 UNIT/ML SQ PRN (12:32)
--- NOTE | 2017-02-07 14:20 | NUR ---
UPDATE PT IS GIVEN DISMISSAL INSTRUCTIONS, HE STATES UNDERSTANDING. PT STILL HAS IV TO R HAND BY IRU RN REQUEST. REPORT IS CALLED TO [facility] FOR CONTINUED CARE. PT IS A&OX3 AND DENIES ANY PAIN.
--- NOTE | 2017-02-07 14:46 | NUR ---
DISMISSAL UPDATE PT TRANSFERRED TO IRU AT THIS TIME BY WHEELCHAIR ALONG WITH BELONGINGS, [employer] BOX AND CARD, AND FOLDER WITH DISMISSAL INSTRUCTIONS.
--- NOTE | 2017-02-08 11:15 | DSF ---
ADMISSION DIAGNOSIS Severe sepsis. DISCHARGE DIAGNOSIS Severe sepsis/septic shock - resolved. ASSOCIATED CONDITIONS AND COMPLICATIONS Urinary tract infection with Providencia rettgeri. Atrial fibrillation with rapid ventricular response. Acute GI bleed. Anemia secondary acute GI blood loss. NSTEMI - type 2 ID secondary to sepsis. Sinus pause - status post pacemaker placement. Moderate aortic stenosis. Cardiomyopathy. Coronary artery disease. Hypertension. Type 2 diabetes mellitus. Hypercholesterolemia. Allergic rhinitis. GERD. Osteoarthritis. BPH . Chronic indwelling Alvarez catheter. Obesity. CONSULTS Ryan Lovell. - Cardiology Ty Watts MD - Surgery PT, OT. PROCEDURES 02/03/2017: Transfusion two units packed red cells. 02/06/2017: Pacemaker placement secondary to sinus pause. CLINICAL RESUME Mr. Cazares is an 87-year-old gentleman who resides independently at home in [place]. He presents to [facility] emergency room secondary to weakness, shortness of breath and back pain. It is reported he had onset of shortness of breath and back pain and weakness starting yesterday. He did contact [facility] and was transported to [facility] emergency room. There he was evaluated. White count was elevated at 13.4. Hemoglobin was 9.4. Calcium was elevated at 10.3. Lactate was elevated at 4.6. Troponin-I 0.202. He does have chronic indwelling Alvarez catheter. 5-10 WBC and 4+ bacteria were noted. Chest x-ray did not show acute pneumonia or failure. CT scan of brain did not show any intracranial abnormality. Upon arrival he was tachycardic with a heart rate in the 120s - was found to be in atrial fibrillation with RVR. He was guaiac positive per rectal exam. In the emergency room he was given IV fluid bolus and started on Rocephin for antimicrobial coverage. Given his findings of severe sepsis/septic shock, UTI, tachycardia leukocytosis, elevated lactate, hospitalist service was contacted and patient was subsequently placed in inpatient admission status at [facility] CCU for further evaluation and treatment. For complete details of the H&P refer to that document. LABORATORY White blood count 13.4 with hemoglobin 9.4, hematocrit 29.4, MCV 96.7 and platelets 156,000. Serum sodium is 141, potassium 4.9, chloride 106, CO2 16, BUN 59 with creatinine 0.9, GFR 80 and blood glucose 317. Transaminases are unremarkable. Troponin-I is 0.202. C-reactive protein is 14.1. ProBNP is 1190. Lactate is 4.6 with procalcitonin less than 0.05. UA reveals elevated pH at 8.5 with low specific gravity at 1.010 along with trace protein, 3+ glucose, trace blood, positive nitrite, trace leukocyte esterase with 5-10 WBC/HPF and 4+ bacteria; urine culture did grow out Providencia rettgeri resistant to ampicillin, cefazolin and nitrofurantoin. HOSPITAL COURSE The patient was placed in inpatient admission status at [facility] under the care of the hospitalist. He was placed in CCU for close monitoring and supportive measures. IV fluid resuscitation was given. He was initially started on Rocephin 1 g IV daily for antimicrobial coverage of urinary pathogens. Serial lactates were monitored. In light of his atrial fibrillation with RVR, Dr. Lovell was consulted for further evaluation. We did monitor serial troponins. In light of his heme-positive stool in the emergency room and low hemoglobin, we did hold off on anticoagulation for suspected GI bleed. Protonix was initiated at 40 mg IV b.i.d. for GI protection. Blood sugars were monitored. SCDs were initiated for DVT prophylaxis. Hemoglobin was monitored and by afternoon of day of presentation, hemoglobin dropped down to 7.6 with recheck being 7.5. Transfusion was ordered which was given pyrotechnician of hospital day #1. Transfusion was tolerated well and hemoglobin did improve to 8.4 following. Hemoglobin remained stable thereafter and he did not require further transfusion. Dr. Watts was consulted secondary to potential GI blood loss. In light of severe sepsis and NSTEMI. Dr. Watts did not feel endoscopic procedures were prudent secondary to his overall cardiovascular status. Fortunately, hemoglobin did stabilize and no further transfusion was needed. Antimicrobial therapy was changed to Levaquin for better coverage. PT and OT were consulted to help increase strength and functional status. Sepsis did resolve. Initially his metformin was held but we were able to reinstitute this once sepsis syndrome improved. He gradually did make interval gains in strength and functional ability. Conversation was made with the patient about discharge options; he was hopeful to be able to return home but in light of his acute illness we did wonder about possible need for longterm versus IRU. Unfortunately, on 02/06/2017 he did develop sinus pause of 6.[address] Lovell was notified and arrangements for pacemaker placement were made. He did receive informed consent prior to pacemaker placement. Pacemaker was placed on the evening of the without adverse effect. In light of need for diminished upper extremity movements following pacemaker placement, we did feel more care than just what could be provided at home would be prudent. We did look into IRU and skilled. The patient was accepted to IRU and we did feel this would be a good transition for him. He is able to be discharged there on the . By the , he has had six days of Levaquin which should almost provide complete coverage for his urinary tract infection. We did ask nursing to re-change Alvarez catheter (new catheter had been placed at time of presentation) with the hope that re-changing Alvarez catheter would decrease likelihood of further urinary infection. His hemoglobin was stable and he was eating and drinking well. He was afebrile. His vitals were stable as well. In light of his interval improvement, he was able to be discharged to IRU where he will maximize his strength and functional abilities. Narrative disclaimer: Above narrative is a brief summary of the patient's hospitalization; for complete details of the hospital course, refer to the medical record. DISCHARGE CONDITION Stable/good. DIET 2000 kilocalorie ADA low sodium. ACTIVITIES Increase as able; routine post pacemaker restrictions. MEDICATIONS Levaquin 750 mg p.o. x1 - and then may discontinue. Minocycline 100 mg p.o. b.i.d. x 13 doses. Losartan 25 mg daily secondary to cardiomyopathy. Tylenol #3 one to two q.4h. p.r.n. pain. Metformin 1000 mg b.i.d. with meals. Metoprolol tartrate 25 mg b.i.d. with meals. Nystatin topically t.i.d. Carafate 1 g a.c. and h.s. Vitamin C 500 mg q.h.s. Lipitor 40 mg q.h.s. Calcium with vitamin D q.h.s. Ferrous sulfate 325 mg q.h.s. Brenda 180 mg daily. Protonix 40 mg b.i.d. NTG 0.4 mg p.r.n. chest pain. HOLD aspirin secondary to GI bleed. HOLD Plavix secondary GI bleed. FOLLOWUP The patient will followed by Dr. Denise for rehabilitation needs. Hospitalist service will follow for medical needs. The patient will follow with Dr. Caroline Concepcion one week after discharge from IRU. INSTRUCTIONS TO PATIENT Patient was instructed on his diagnosis and treatments provided. He received informed consent prior to blood product transfusion as well as pacemaker placement. We encouraged him on medication adherence. Encouraged on participating well with therapy to maximize his strength and functional status. He will watch for temperature elevation, difficulty breathing or problems with his pacemaker site. Should other problems or need occur he can be in contact with the nursing staff at IRU as well as his care providers. He voiced understanding of the above. Time spent with discharge greater than 35 minutes. DEBI
== END 2017-02-07 14:46 | DRG 871 ==
LOC: ED 10:00 → CCU 12:11 → EDHOLD 12:11 → MED 02-04 14:45
PROVIDERS: ADMIT Family Medicine; ATTEND Hospitalist
PROC: 30233N1 Transfusion of Nonautologous Red Blood Cells into Peripheral Vein, Percutaneous Approach (ICD-10-PCS; 2017-02-03)
PROC: 0JH604Z Insertion of Pacemaker, Single Chamber into Chest Subcutaneous Tissue and Fascia, Open Approach (ICD-10-PCS; principal; 2017-02-06)
PROC: 02HK3JZ Insertion of Pacemaker Lead into Right Ventricle, Percutaneous Approach (ICD-10-PCS; 2017-02-06)
DX: A41.9 Sepsis, unspecified organism (principal); I21.4 Non-ST elevation (NSTEMI) myocardial infarction; N39.0 Urinary tract infection, site not specified; K92.2 Gastrointestinal hemorrhage, unspecified; I48.1 Persistent atrial fibrillation; I42.9 Cardiomyopathy, unspecified; R65.20 Severe sepsis without septic shock; I49.5 Sick sinus syndrome; Z66 Do not resuscitate; D64.9 Anemia, unspecified; I11.0 Hypertensive heart disease with heart failure; I50.9 Heart failure, unspecified; I25.10 Atherosclerotic heart disease of native coronary artery without angina pectoris; I35.0 Nonrheumatic aortic (valve) stenosis; E78.00 Pure hypercholesterolemia, unspecified; K21.9 Gastro-esophageal reflux disease without esophagitis; K59.00 Constipation, unspecified; N40.0 Benign prostatic hyperplasia without lower urinary tract symptoms; M19.91 Primary osteoarthritis, unspecified site; I25.2 Old myocardial infarction; Z95.1 Presence of aortocoronary bypass graft; Z79.82 Long term (current) use of aspirin; E66.9 Obesity, unspecified; Z68.32 Body mass index [BMI] 32.0-32.9, adult
CPT/HCPCS: 36415; 80048; 80053; 81001; 82948; 83605; 83735; 83880; 84100; 84145; 84484; 85007; 85018; 85025; 85027; 86140; 86850; 86900; 86901; 86922; 87040; 87077; 87086; 87186; 93005; 93306

== ENCOUNTER 2017-02-07 14:47 | Inpatient (IN) | payer MEDICARE, BC ==
[~2017-02-07] VITALS: Ht 175.3 cm; Wt 102.1 kg
[~2017-02-07 14:47] MED LIST changes: +ACET1TAB25 PO; -CIPR-212 PO; +LEVO750T20 PO; +LOSA25TA2 PO; +METF1000 PO; +MINO100C43 PO; +NYST10PO TOP; +OXYM15MI2 NS; +SUCR1TAB PO
--- NOTE | 2017-02-07 14:47 | NUR ---
ADMIT NOTE PT ARRIVED FROM MEDICAL UNIT VIA WHEELCHAIR. PT WAS TRANSFERRED WITH [id number] LIFT. VS AND WEIGHT WERE GOTTEN. PT'S PERSONAL ITEMS INCLUDED THE PACEMAKER MONITOR. PT HAS IV TO RIGHT HAND, AND TELEMETRY. PT ALSO HAS CHRONIC BACA PLACED.
[2017-02-07 14:50] VITALS: BP 109/67; PULSE 79; RESP 14; TEMP 97.4; O2SAT 98; Ht 175.3 cm; Wt 102.1 kg
--- OUTSIDE RECORDS SUMMARY | 2017-02-07 15:47 | XMS REPORT ---
Author Author [place], [facility], [place] Unknown Address Unknown Phone Unavailable Allergies, Adverse Reactions, Alerts * lisinopril causes Cough. * No Latex Allergy. * No IV Contrast Allergy. Problems * Diabetes Mellitus* Status:Active. * Pain* Status:Active. * Tissue Perfusion Impairment* Status:Active. Procedures No relevant procedures performed. Medication It is the responsibility of the patient or patient medical center representative to confirm the list of medications [...]
--- OUTSIDE RECORDS SUMMARY | 2017-02-07 15:48 | XMS REPORT | Continuity of Care Document ---
Author Author [facility] Organization [facility] Address Unknown Phone Unavailable Allergies Active [...] Status Pt. Type Provider Facility Loc./Unit Complaint [id number] 12/09/2013 09:18:00 12/09/2013 23 :59:59 [facility] Outpatient [id number] 12/03/2013 10:08:00 12/03/2013 23 :59:59 [facility] [id number] 11/25/2013 10:04:00 11/25/2013 23 :59:59 [facility] Outpatient [id number] 09/24/2013 16:11:00 09/24/2013 23 :59:59 [facility] Outpatient [id number] 08/14/2013 11:17:00 08/14/2013 23 :59:59 [facility] Out[facility]
--- OUTSIDE RECORDS SUMMARY | 2017-02-07 15:48 | XMS REPORT | Continuity of Care Document ---
Author Author [facility] Organization [facility] Address Unknown Phone Unavailable Support Name Relationship Address Phone GRACE VICTOR MD Caregiver [facility] [address] , [facility] [address] [place] [phone] DONOVAN CARRILLO MD Caregiver [address] [place] [address] [address] [place] [phone] LEE ANN BEE Next Of Kin [address] [place] [address] Insurance Providers Payer Name Policy Number Subscriber Name Relationship Medicare [id number] Keegan Bee 19 Self [facility] [id number] Keegan Bee 19 Self Advance Directives Directive [...] F (96.8 - 99.1) Temperature (Calculated Celsius) 36.68549 degrees C (36.0 - 37.3) Temperature Source [...] % H 0-9.0 COMMENT SCU WILL CALL LW-Aac-W-Type Natriuretic Peptide January 14, 2015 10:25am 203 [...] INDICATED*Has specimen been collected/obtained? Y Urine Specific [place] January 07, 2013 4:30pm 1.020 - COMMENT [...] MD Encounters Encounter Location Date/Time Registered Clinic [facility] 01/14/15 10:33am
--- OUTSIDE RECORDS SUMMARY | 2017-02-07 15:51 | XMS REPORT | Continuity of Care Document ---
Author Author [facility] Organization [facility] Address Unknown Phone Unavailable Support Name Relationship Address Phone RICHMOND WOODWARD MD Caregiver [address] [place] [address] [place] [address] Unavailable AMOL BACH DO Caregiver [address] [place] [address] [place] [address] Unavailable ROSITA BIRD MD Caregiver [address] [place] [id number] Unavailable TEODORA MADDEN DO Caregiver Unknown Unavailable LEE ANN BEE Next Of Kin [address] [phone] Insurance Providers Guarantor Keegan Bee Address [address] [place], [place] [id number] G-DTR Email DENIED 17 Payer Medicare Policy Number [id number] Subscriber's Name Keegan Bee Relationship 18 Self Effective Date 97 Payer [facility] Policy Number [id number] Subscriber's Name Keegan Bee Relationship 18 Self Group Number [id number] Advance Directives Directive Response Recorded Date/Time Advanced Directives Type DNR Documentation Living Will DPOA for Healthcare 02/02/17 10:11am Dr Snow Resuscitation Status Do Not Resuscitate 02/02/17 4:18pm Resuscitation Documents on File Y DNR 02/02/17 3:11pm DPOA for Healthcare Only Y Yue Neil 02/03/17 7:39am Living Will Yes 02/02/17 3:11pm Chief Complaint and Reason for Visit Chief Complaint UTI, SEPSIS Reason for Visit 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 Problems Active Problems Medical Problem Onset Date Status Abnormal urinalysis Unknown Acute Acute Coronary Syndrome Unknown Resolved Acute encephalopathy Unknown Resolved Acute hypokalemia Unknown Acute Allergic rhinitis Unknown Chronic Anemia ~05/10/2016 Acute Anemia due to GI blood loss Unknown Chronic Aortic stenosis, mild Unknown Chronic Aortic stenosis, moderate Unknown Chronic 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 Chronic Atrial fibrillation Unknown Chronic Atrial fibrillation with RVR Unknown Acute BPH (benign prostatic hypertrophy) Unknown Chronic Back pain Unknown Acute Bacteremia due to Staphylococcus aureus ~02/2016 Resolved CAD (coronary artery disease) Unknown Chronic Cataracts, bilateral Unknown Chronic Chronic constipation Unknown Chronic Confusion Unknown Resolved Constipation Unknown Chronic Coronary artery disease Unknown Chronic Diabetes mellitus Unknown Chronic Elevated troponin Unknown Acute Elevated troponin Unknown GERD (gastroesophageal reflux disease) Unknown Chronic GI bleed Unknown Acute History of GA (myocardial infarction) Unknown Resolved History of anemia Unknown Chronic History of [...] Scrotal mass Unknown Acute Sepsis Unknown Resolved Septic shock Unknown Resolved Severe sepsis Unknown Acute Sinus pause Unknown Resolved Stage II pressure ulcer of buttock Unknown Chronic Thrombocytopenia Unknown Resolved Tricuspid valvular regurgitation Unknown Chronic Type II diabetes mellitus Unknown Chronic Urinary retention Unknown Chronic Urinary tract infection Unknown Acute Urinary tract infection Unknown Acute Surgical Problem Onset Date Status S/P coronary artery stent placement Unknown Chronic Past Problems Medical Problem Onset Date Abnormal EKG Unknown Atrial fibrillation with RVR Unknown Atrial fibrillation with RVR Unknown Elevated troponin Unknown Encounter for urinary catheter Unknown Baca catheter problem Unknown Malfunction of Baca catheter Unknown Non-STEMI (non-ST elevated myocardial infarction) ~04/2016 Severe anemia Unknown UTI (urinary tract infection) Unknown UTI (urinary tract infection) due to urinary indwelling catheter Unknown Medications Current Home Medications Medication Dose Units Route Directions Days Qty Instructions Start Date Acetaminophen With Codeine (Acetaminophen-Cod #3 Tablet) 300-30 Tablet 1-2 Tab Oral Every 4 Hours as needed for Pain 20 Tablet 02/07/17 Ascorbic Acid 500 Mg Tablet 500 Mg Oral Bedtime 05/10/16 Atorvastatin Calcium 40 Mg Tablet 40 Mg Oral Bedtime 05/10/16 Calcium Carbonate/Vitamin D3 (Calcium + Vitamin D Tablet) 1 Each Tablet 1 Tab Oral Bedtime 01/28/16 Ferrous Sulfate (Iron Supplement) 325 Mg Tablet 325 Mg Oral Bedtime 05/10/16 Fexofenadine Hcl 180 Mg Tablet 180 Mg Oral Am 05/10/16 Levofloxacin (Levaquin) 750 Mg Tablet 750 Mg Oral Before Breakfast 1 Tablet 02/07/17 Losartan Potassium (Cozaar) 25 Mg Tablet 25 Mg Oral Daily for Cardiomyopathy 30 02/07/17 Metformin Hcl (Glucophage) 1,000 Mg Tablet 1,000 Mg Oral Twice Daily With Meals 60 Tablet 02/07/17 Metoprolol Tartrate 25 Mg Tablet 25 Mg Oral Twice Daily With Meals 60 Tablet 02/07/17 Minocycline Hcl (Minocin) 100 Mg Capsule 100 Mg Oral Twice A Day 13 Capsule 02/07/17 Nitroglycerin (Nitrostat) 0.4 Mg Tablet 0.4 Mg Oral Every 5 Minutes X 3 as needed for Chest Pain 07/27/16 Nystatin 50,000,000 Unit Powder.ea. 1 Applic Topically Three Times A Day 1 Bottle 02/07/17 Pantoprazole Sodium 40 Mg Tablet.dr 40 Mg Oral Twice A Day Sucralfate 1 Gm Tablet 1 Gm Oral Before Meals And At Bedtime 120 Tablet Take 1 tablet, by mouth, 4 times a day (Before meals and at BEDTIME). 02/07/17 Past Home Medications Medication Directions Ordered Status Acetaminophen (Tylenol Extra Strength) 500 Mg Tablet, 500-1000 Mg Oral Every 8 Hours as needed for Pain 12/10/15 Discontinued Acetaminophen (Acetaminophen Extra Strength) 500 Mg Tablet, 1-2 Tab Oral Every 8 Hours as needed for Pain 09/13/15 Discontinued Acetaminophen (Tylenol Extra Strength) 500 Mg Tablet, 500 Mg Oral As Needed 04/01/10 Discontinued Acetaminophen/Hydrocodone Bitart (Geronimo 5-325 Tablet) 1 Tab Tablet, 1-2 Tab Oral Every 5 Hours as needed for Pain 12/10/15 Discontinued Allopurinol 300 Mg Tablet, 300 Mg Oral Daily 05/27/13 Discontinued Ascorbic Acid (Vitamin C) 500 Mg Tablet, 1 Tab Oral Give With Supper Discontinued Ascorbic Acid (Vitamin C) 500 Mg Tablet, 500 Mg Oral Daily 04/01/10 Discontinued Aspirin 325 Mg Tablet, 325 Mg Oral Am 01/11/16 Discontinued Aspirin (Ecotrin) 81 Mg Tablet, 81 Mg Oral Daily 11/27/15 Discontinued Aspirin (Ecotrin) 325 Mg Tablet, 325 Mg Oral Daily 11/11/15 Discontinued Aspirin (Aspir 81) 81 Mg Tablet.dr, 1 Tab Oral Daily 04/01/10 Discontinued Atorvastatin [...] Every 12 Hours 11/27/15 Discontinued Clopidogrel Bisulfate (Clopidogrel) 75 Mg Tablet, 75 Mg Oral Am 05/10/16 Discontinued Clopidogrel Bisulfate (Plavix) 75 Mg Tablet, [...] Oral Bedtime 02/02/15 Discontinued Glucos-Msm/Chondro Leonard A (Gwwlashmqmd-Rrzxuwfuh-Hvd Cap) 1 Cap Capsule, 1 Cap Oral Daily 04/01/10 Discontinued Insulin Lispro (Humalog) 100 Unit/Ml Inj, [...] 11/27/15 Discontinued Metformin Hcl 1,000 Mg Tablet, 1000 Mg Oral Twice A Day 01/28/16 Discontinued Metformin Hcl 1,000 Mg Tablet, 1 Tab Oral Twice A Day 01/11/16 Discontinued Metformin Hcl 1,000 Mg Tablet, 1 Tab Oral Twice Daily With Meals 09/10/15 Discontinued Metoprolol Tartrate 25 Mg Tablet, 25 Mg Oral Twice A Day 02/02/17 Discontinued Metoprolol Tartrate 25 Mg Tablet, 12.5 Mg Oral Twice Daily With Meals Discontinued Metoprolol Tartrate 25 Mg Tablet, 25 Mg Oral Twice Daily With Meals 03/02/16 Discontinued Nitroglycerin (Nitrostat) 0.4 Mg Tablet, 0.4 Mg Sublingual Every 5 Minutes X 3 as needed for Ang 11/27/15 Discontinued Nystatin 15 Applic/15 G Bottle, 1 Applic Topically Three Times A Day Discontinued Oxymetazoline Hcl (Afrin) 15 Ml Mist, 1 [place] Nasal Daily 02/05/17 Discontinued Pantoprazole Sodium (Protonix) 40 Mg Tablet, [...] Date/Time Onset Date Status Reason for Hospitalization Sepsis 02/07/2017 1:50pm Not Applicable Not Applicable Chewing Tobacco Status No 06/24/2013 3:28pm Not Applicable Not Applicable Hx Substance Use No 02/02/2017 10:30am Not Applicable Not Applicable Hx Alcohol Use No 02/02/2017 10:30am Not Applicable Not Applicable Has the pt used tobacco in the last 12 months No 02/02/2017 3:18pm Not Applicable Not Applicable Tobacco Usage none 05/11/2016 8:09am Not Applicable Not Applicable Query Response Start Date Stop Date Smoking Status Never smoker Hospital Discharge Instructions Instructions: Care Instructions: Reason for Hospitalization: Sepsis I was in the hospital because (patient own words): "i was getting weaker" Discharge Diet: 2000 KCAL ADA Discharge Activity: Up with assistance. Left arm in sling. Routine post pacemaker activities Follow Up Appointments: Dr Bird to follow for IRU care Hospitalist Service to follow for medical care F/U with Dr Madden 1 week post discharge from IRU Pending Lab / Results: No Pending Lab Wound/Incision Care: Routine post pacemaker wound care. Pain Management/Treatment: Tylenol #3/Tylenol as needed. Expected Signs/Symptoms: Improvement of functional status. Notify Physician If: Temp >100.4. Chest pain. Pain/Drainage at pacemaker site During Business Hours:: Nursing staff at IRU After Business Hours:: Nursing staff at IRU Condition at time of discharge: Good Plan of Care Discharge Date 02/07/17 2:46pm Disposition 63 TO [facility] Instructions/Education Provided Urinary Tract Infection in Men (DC) Sepsis (GEN) Prescriptions See Medication Section Care Plan and Goals See Discharge Instructions Section Functional Status Query Response Date Recorded Mobility Status Transfer w/assist February 07, 2017 1:50pm Assistive Devices Wheelchair February 07, 2017 1:50pm Activity Limitations Weakness Shortness of breath February 07, 2017 1:50pm Feeding Ability Independent February 07, 2017 1:50pm Toileting Ability Independent February 05, 2017 1:05pm Grooming Ability Independent February 07, 2017 1:50pm Dressing Ability Independent February 07, 2017 1:50pm Driving Ability Dependent February 07, 2017 1:50pm Housework Ability Dependent February 07, 2017 1:50pm Meal Preparation Ability Dependent February 07, 2017 1:50pm Stair Climbing Ability Dependent February 07, 2017 1:50pm Ability to complete ADL's impeded by Change in Behavior Impaired Mobility Change in Cognition Home Env. Factor February 07, 2017 1:50pm Cognitive/Perceptual Impairments Impaired vision February 07, 2017 1:50pm Visual Assistive Devices Glasses With patient February 05, 2017 1:05pm Allergies, Adverse Reactions, Alerts Allergen Type Severity Reaction Status Last Updated Lisinopril Adverse Reaction Unknown COUGH Active 02/02/17 Immunizations Query Response on File Recorded Date/Time Hx Influenza Vaccination Y 07/28/2016 02/02/17 3:18pm Hx Pneumococcal Vaccination No 02/02/17 3:18pm Hx Influenza Vaccination Y 07/28/2016 02/02/17 3:18pm Influenza Vaccine Hx 07/201602/03/17 12:42pm Vital Signs Acute Vital Signs Vital Response Date/Time Temperature (Fahrenheit) 97.4 deg F (96.8 - 99.1) 02/07/2017 11:18am Temperature (Calculated Celsius) 36.69982 degrees C (36.0 - 37.3) 02/07/2017 11:18am Pulse Rate (adult) 76 bpm (60 - 100) 02/07/2017 11:18am Respiratory Rate 20 breaths/min (10 - 20) 02/07/2017 11:18am O2 Sat by Pulse Oximetry 97 % (90 - 100) 02/07/2017 11:18am Oxygen Delivery Method Room Air 02/07/2017 11:18am Blood Pressure 109/66 mm Hg 02/07/2017 11:18am Blood Pressure Source Automatic Cuff 02/07/2017 11:18am Height (Feet) 5 feet 02/07/2017 11:06am Height (Inches) 10.00 inches 02/07/2017 11:06am Weight (Kilograms) 102.800 kg 02/07/2017 7:51am Body Mass Index (BMI) 31.2 02/02/2017 3:11pm Results Laboratory Results Test Name Result Units Flags Reference Collection Date/Time Result Date/ Time Comments White Blood Count 9.0 T/MM3 4.5-11.0 02/07/2017 4:41am 02/07/2017 5: 39am Red Blood Count 3.12 M/MM3 L 4.50-5.90 02/07/2017 4:41am 02/07/2017 5: 39am Hemoglobin 9.6 GM/DL L 13.5-17.5 02/07/2017 4:41am 02/07/2017 5:39am Hematocrit 30.4 % L 41-53 02/07/2017 4:41am 02/07/2017 5:39am Mean Corpuscular Volume 97.4 UM3 80-100 02/07/2017 4:41am 02/07/2017 5: 39am Mean Corpuscular Hemoglobin 30.8 UUG 26-34 02/07/2017 4:41am 2016 5:39am Mean Corpuscular Hemoglobin Concent 31.6 GM/DL 31-37 02/07/2017 4:41am 02/07/2017 5:39am RDW Standard Deviation 50.3 FL H 36.9-50.2 02/07/2017 4:41am 02/07/2017 5:39am Platelet Count 185 T/MM3 130-400 02/07/2017 4:41am 02/07/2017 5:39am Mean Platelet Volume 10.7 UM3 9.4-12.4 02/07/2017 4:41am 02/07/2017 5: 39am Neutrophils (%) (Auto) 65.5 % 33-66 02/07/2017 4:41am 02/07/2017 5: 39am Lymphocytes (%) (Auto) 18.0 % L 23-45 02/07/2017 4:41am 02/07/2017 5: 39am Monocytes (%) (Auto) 12.1 % H 0-9.0 02/07/2017 4:41am 02/07/2017 5:39am Eosinophils (%) (Auto) 3.7 % 0-4 02/07/2017 4:41am 02/07/2017 5:39am Basophils (%) (Auto) 0.3 % 0-2 02/07/2017 4:41am 02/07/2017 5:39am Immature Granulocyte % (Auto) 0.4 % 0.0-0.5 02/07/2017 4:41am 2016 5:39am Absolute Neutrophils (auto) 5.9 T/MM3 1.8-7.7 02/07/2017 4:41am 2016 5:39am Absolute Lymphocytes (auto) 1.6 T/MM3 1-4.8 02/07/2017 4:41am 2016 5:39am Absolute Monocytes (auto) 1.1 T/MM3 H 0-0.8 02/07/2017 4:41am 2016 5:39am Absolute Eosinophils (auto) 0.3 T/MM3 0-0.5 02/07/2017 4:41am 2016 5:39am Absolute Basophils (auto) 0.0 T/MM3 0-0.2 02/07/2017 4:41am 02/07/2017 5:39am Absolute Immature Granulocyte (auto 0.04 T/MM3 H 0.00-0.03 02/07/2017 4: 41am 02/07/2017 5:39am Neutrophils % (Manual) 71.0 % H 33-66 02/05/2017 4:30am 02/05/2017 6: 37am Lymphocytes % (Manual) 16.0 % L 23-45 02/05/2017 4:30am 02/05/2017 6: 37am Monocytes % (Manual) 12.0 % H 0-9.0 02/05/2017 4:30am 02/05/2017 6:37am Eosinophils % (Manual) 1.0 % 0-4 02/05/2017 4:30am 02/05/2017 6:37am Absolute Neutrophils (Manual) 6.8 T/MM3 1.8-7.7 02/05/2017 4:30am 02/05 6:37am Lymphocytes # (Manual) 1.5 T/MM3 1-4.8 02/05/2017 4:30am 02/05/2017 6: 37am Monocytes # (Manual) 1.2 T/MM3 H 0-0.8 02/05/2017 4:30am 02/05/2017 6: 37am Eosinophils # (Manual) 0.1 T/MM3 0-0.5 02/05/2017 4:30am 02/05/2017 6: 37am Nucleated Red Blood Cells 2 02/05/2017 4:30am 02/05/2017 6:37am Red Cell Morphology Comment ABNORMAL 02/05/2017 4:3002/05/2017 6 :37am Anisocytosis 1+ 02/05/2017 4:30am 02/05/2017 6:37am Icterus Index < 2 0-7 02/07/2017 4:4102/07/2017 5:29am Chemistry Specimen Hemolysis 17 0-25 02/07/2017 4:4102/07/2017 5: 29am 0-25: Specimen Exhibited No Hemolysis. Turbidity < 20 0-20 02/07/2017 4:4102/07/2017 5:29am Sodium Level 142 MEQ/L 134-144 02/07/2017 4:4102/07/2017 5:29am Potassium Level 3.7 MEQ/L 3.6-5 02/07/2017 4:4102/07/2017 5:29am Chloride Level 110 MEQ/L H 98-107 02/07/2017 4:4102/07/2017 5:29am Carbon Dioxide Level 20 MEQ/L L 22-30 02/07/2017 4:4102/07/2017 5: 29am Anion Gap 12 MEQ/L 5-15 02/07/2017 4:4102/07/2017 5:29am Blood Urea Nitrogen 14.0 MG/DL 9-20 02/07/2017 4:4102/07/2017 5: 29am Creatinine 0.6 MG/DL L 0.8-1.5 02/07/2017 4:41am 02/07/2017 5:29am BUN/Creatinine Ratio 23 RATIO 6-26 02/07/2017 4:41am 02/07/2017 5:29am Glomerular Filtration Rate Calc 128 02/07/2017 4:41am 02/07/2017 5: 29am Glucose Level 117 MG/DL H 75-110 02/07/2017 4:41am 02/07/2017 5:29am Calculated Osmolality 275 MOSM/KG 261-280 02/07/2017 4:4102/07/2017 5:29am Calcium Level 8.4 MG/DL 8.4-10.2 02/07/2017 4:41am 02/07/2017 5:29am Phosphorus Level 3.1 MG/DL 2.5-4.5 02/05/2017 4:27am 02/05/2017 4:35pm Total Bilirubin 0.60 MG/DL 0.20-1.30 02/04/2017 4:10a02/04/2017 5: 01am Alkaline Phosphatase 62 U/L 38-126 02/04/2017 4:02/04/2017 5:01am Total Protein 5.8 G/DL L 6.3-8.2 02/04/2017 4:02/04/2017 5:01am Albumin 2.9 G/DL L 3.5-5.0 02/04/2017 4:02/04/2017 5:01am Globulin 2.9 G/DL 2.4-3.6 02/04/2017 4:02/04/2017 5:01am Albumin/Globulin Ratio 1.0 RATIO L 1.1-2.2 02/04/2017 4:02/04/2017 5:01am Aspartate Amino Transf (AST/SGOT) 31 U/L 17-59 02/04/2017 4:2016 5:01am Alanine Aminotransferase (ALT/SGPT) 31 U/L 21-72 02/04/2017 4: 5:01am Troponin I 0.487 ng/ml H 0-0.12 02/03/2017 7:58am 02/03/2017 8:26am Troponin values greater than 0.120 ng/ml are considered a critical value. Troponin values with a difference of 55% increase from orginal troponin value represent a true biological DELTA value. (%increase Calc=Orginal Troponin value, divided by subsequent Troponin value, multiplied by 100) C-Reactive Protein 14.1 MG/L H 0-9 02/04/2017 4:10am 02/04/2017 5:01am GU-Bie-K-Type Natriuretic Peptide 1190 PG/ML H 0-175 02/02/2017 11:02am 02/02/2017 11:26am Rule in cut points: <50 years old=450; 50-75 years old=900; >75 years old=1800; When utilizing ProBNP rule-in cut points, adjustment for impaired renal function is typically not required. Magnesium Level 1.7 MG/DL 1.6-2.3 02/05/2017 4:27am 02/05/2017 4:35pm Plasma Lactate 1.8 MMOL/L 0.6-2.2 02/04/2017 4:10am 02/04/2017 4:57am Procalcitonin < 0.05 NG/ML 02/02/2017 12:08pm 02/02/2017 12:39pm PCT </=0.5 ng/mL - sepsis not likely; PCT >0.5 and </=2 ng/mL - sepsis possible; PCT >2 ng/mL - sepsis likely; PCT >/=10 ng/mL - systemic inflammatory response - sepsis or septic shock highly indicated. Reason Tests Not Done HEMOLYZED SPECIMEN 02/02/2017 10:52am 2016 10:53am Tests Not Done TROP BMP BNP 02/02/2017 10:52am 02/02/2017 10:53am Specimen Comment ([facility] [place] LAB TO RECOLLECT 02/02/2017 10:52am 2016 10:53am Urine Collection Type BACA INDWELLING 02/02/2017 3:49pm 2016 4:00pm Urine Color YELLOW YELLOW 02/02/2017 3:49pm 02/02/2017 4:00pm Urine Turbidity CLOUDY CLEAR 02/02/2017 3:49pm 02/02/2017 4:00pm Urine Specific [place] 1.015 1.015-1.025 02/02/2017 3:49pm 2016 4:00pm Urine pH 8.5 H 5.0-8.0 02/02/2017 3:49pm 02/02/2017 4:00pm Urine Leukocyte Esterase 3+ A NEGATIVE 02/02/2017 3:49pm 02/02/2017 4: 00pm Urine Nitrite POSITIVE A NEGATIVE 02/02/2017 3:49pm 02/02/2017 4:00pm Urine Protein 2+ A NEGATIVE 02/02/2017 3:49pm 02/02/2017 4:00pm Urine Glucose (UA) TRACE A NEGATIVE 02/02/2017 3:49pm 02/02/2017 4: 00pm Urine Ketones NEGATIVE NEGATIVE 02/02/2017 3:49pm 02/02/2017 4:00pm Urine Urobilinogen 0.2 EU/DL NORMAL 02/02/2017 3:49pm 02/02/2017 4: 00pm Urine Bilirubin NEGATIVE NEGATIVE 02/02/2017 3:49pm 02/02/2017 4: 00pm Urine Blood 2+ A NEGATIVE 02/02/2017 3:49pm 02/02/2017 4:00pm Urine WBC 30-50 /HPF H 0-5 02/02/2017 3:49pm 02/02/2017 4:22pm Urine RBC TNTC /HPF 0-3 02/02/2017 3:49pm 02/02/2017 4:22pm Urine Squamous Epithelial Cells NONE SEEN 02/02/2017 3:49pm 2016 4:22pm Urine Bacteria 4+ H NEGATIVE 02/02/2017 3:49pm 02/02/2017 4:22pm Urine Amorphous Phosphates MANY 02/02/2017 3:49pm 02/02/2017 4: 22pm Urine Triple Phosphate Crystals MANY 02/02/2017 3:49pm 02/02/2017 4 :22pm Urine Culture Indicated CULT REFLEXED &SETUP 02/02/2017 3:49pm 4:22pm Glucometer 157 mg/dL H 75-110 02/07/2017 11:15am 02/07/2017 11:26am Microbiology Results Procedure Source Organism/Result Collection Date/Time Result Date/Time Result Status Urine Culture Urine, Baca Indwelling PROVIDENCIA RETTGERI 02/02/2017 11: 37am 02/04/2017 6:44am Final Blood Culture Peripheral/Iv Start NO GROWTH AFTER 5 DAYS 02/02/2017 12: 08pm 02/07/2017 12:11pm Final Name: KEEGAN BEE Unit #: [id number] : 1930 Sex: M Admit Date: 02/02/17 Loc / Svc: MED Discharge Date: DIAGNOSTIC IMAGING REPORT Report #: [id number] [facility] ROSA Elliott INDICATION: ITS.REASON: PPM PROCEDURE: CHEST 2-VIEWS UPRIGHT (PA \\T\\ LAT) Encounter: Initial COMPARISON: February 06, 2017 FINDINGS: Single lead left cardiac pacemaker is unchanged in appearance. No pneumothorax seen. Lungs are stable. Small effusions. Cardiac silhouette remains enlarged. Mildly prominent central pulmonary vascularity. Impression: 1. No pneumothorax. 2. Mild congestive failure. . Procedures No known history of procedures. 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
[2017-02-07] MEDS ORDERED: PRN ORDERS MC (17:30)
[2017-02-07] MEDS ORDERED: NITROGLYCERIN 0.4 MG SUBLINGUAL TABLET SL PRN (17:30)
[2017-02-07] MEDS ORDERED: ACETAMINOPHEN/CODEINE 300mg/30mg TABLET PO PRN (17:30)
[2017-02-07] MEDS: METFORMIN 1,000 MG TABLET PO SCH (18:17)
[2017-02-07 19:26] VITALS: BP 122/61; PULSE 86; RESP 16; TEMP 98.5; O2SAT 98
--- NOTE | 2017-02-07 19:55 | NUR ---
SHIFT SUMMARY PT HAS BEEN PLEASANT AND COOPERATIVE. HAS BEEN OUT TO DINING ROOM FOR DINNER. PT IS ABLE TO PROPEL SELF TO DINING ROOM IN WHEELCHAIR. PIVOT TRANSFERS WITH ASSIST X1. TAKES MEDS WHOLE. HAS BACA CATHETER, CHRONIC PLACEMENT, WAS REPLACED TODAY PRIOR TO ARRIVAL ON THIS UNIT. PT WEARS SLING TO LEFT ARM TO REMIND HIM NOT TO BREAK PACEMAKER PRECAUTIONS. PT WORKED WITH PHYSICAL THERAPY THIS AFTERNOON BEFORE DINNER. ADMIT ASSESSMENT AND HISTORY WERE DONE WHEN DAUGHTER ZULEIMA ARRIVED. SHE ALSO BROUGHT SEVERAL CHANGES OF CLOTHES. PT IS CURRENTLY RESTING IN ROOM.
[2017-02-07 20:00] VITALS: PULSE 72; RESP 20
[2017-02-07] MEDS: NYSTATIN POWDER 15gm BOTTLE TOP SCH (21:00)
[2017-02-07] MEDS: ASCORBIC ACID 500 MG TABLET PO SCH (22:00)
[2017-02-07 22:17] VITALS: O2SAT 98
[2017-02-07] MEDS: FERROUS SULFATE 324 MG TABLET PO SCH (22:49)
[2017-02-07] MEDS: MINOCYCLINE 100 MG CAPSULE PO SCH (22:49)
[2017-02-07] MEDS: ATORVASTATIN 40 MG TABLET PO SCH (22:49)
[2017-02-07] MEDS: DOCUSATE SODIUM 100 MG CAPSULE PO SCH (22:49)
[2017-02-07] MEDS: SUCRALFATE 1 G TABLET PO SCH (22:53)
[2017-02-08] VITALS (10 sets, daily range): BP systolic 94–135; BP diastolic 61–90; PULSE 72–88; RESP 18–24; TEMP 97.6–98.5; O2SAT 97–99
--- NOTE | 2017-02-08 04:24 | NUR ---
24 hour check completed.
[2017-02-08 05:33] LABS: BASOPHILS % (AUTO) 0.2 % (0-2); EOSINOPHILS # (AUTO) 0.3 T/MM3 (0-0.5); EOSINOPHILS % (AUTO) 3.4 % (0-4); HCT - HEMATOCRIT 30.6 % (41-53); HGB - HEMOGLOBIN 9.9 GM/DL (13.5-17.5); IMMATURE GRANULOCYTE # (AUTO) 0.02 T/MM3 (0.00-0.03); IMMATURE GRANULOCYTE % (AUTO) 0.2 % (0.0-0.5); LYMPHOCYTES # (AUTO) 1.9 T/MM3 (1-4.8); LYMPHOCYTES % (AUTO) 20.9 % (23-45); MEAN CORPUSCULAR HGB CONC(MCHC 32.4 GM/DL (31-37); MEAN CORPUSCULAR VOLUME 95.9 UM3 (80-100); MEAN PLATELET VOLUME 10.7 UM3 (9.4-12.4); MONOCYTES # (AUTO) 1.2 T/MM3 (0-0.8); MONOCYTES % (AUTO) 13.3 % (0-9.0); NEUTROPHILS #(AUTO)-ABSOLUTE 5.6 T/MM3 (1.8-7.7); RED BLOOD COUNT 3.19 M/MM3 (4.50-5.90)
[2017-02-08 05:48] LABS: ANION GAP 11 MEQ/L (5-15); BUN/CREATININE RATIO 19 RATIO (6-26); CHLORIDE 110 MEQ/L (98-107); CO2 - CARBON DIOXIDE 23 MEQ/L (22-30); CREATININE 0.7 MG/DL (0.8-1.5); POTASSIUM 3.9 MEQ/L (3.6-5); SODIUM 144 MEQ/L (134-144)
[2017-02-08 05:49] LABS: CALCIUM 8.5 MG/DL (8.4-10.2); GLOMERULAR FILTRATION RATE 107; GLUCOSE 131 MG/DL (75-110)
[2017-02-08] MEDS: LEVOFLOXACIN 750 MG TABLET PO SCH (05:55)
[2017-02-08] MEDS: PANTOPRAZOLE 40 MG TABLET PO SCH ×2 (05:56→17:39)
[2017-02-08] MEDS: SUCRALFATE 1 G TABLET PO SCH ×4 (05:57→20:13)
--- NOTE | 2017-02-08 05:57 | NUR ---
END OF SHIFT SuMMARY; Alert aware and orientated X 3. Friendly and cooperative. Takes medications without difficulty. Steri-strips dry and intact to incision to left upper chest. He is careful about positioning his left arm. Sleeps well Denies pain. Telemetry and continuous resp monitor duriong the night. Occasional cough.
[2017-02-08] MEDS: DOCUSATE SODIUM 100 MG CAPSULE PO SCH ×2 (08:45→20:12)
[2017-02-08] MEDS: FEXOFENADINE 180 MG TABLET PO SCH (08:45)
[2017-02-08] MEDS: METFORMIN 1,000 MG TABLET PO SCH ×2 (08:45→17:38)
[2017-02-08] MEDS: MINOCYCLINE 100 MG CAPSULE PO SCH ×2 (08:45→20:12)
[2017-02-08] MEDS: LOSARTAN 50 MG TABLET PO SCH (08:45)
[2017-02-08] MEDS: NYSTATIN POWDER 15gm BOTTLE TOP SCH ×3 (09:00→20:14)
--- NOTE | 2017-02-08 09:06 | CONSPD ---
ARY JEAN BAPTISTE V 02/08/17 0844: Consultation Info Date DATE: 02/08/17 TIME: 08:41 Date of Consultation: Feb 08, 2017 Attending Physician: Hossein Reason for Consultation: UTI, S/P Pacemaker placement HPI - Adult Date DATE: 02/08/17 TIME: 08:41 General Chief Complaint: UTI, Anemia History of Present Illness Mr Anton is a pleasant 86 yr old male who is seen in consultation today in the IRU unit. He is known to the hospitalist services as he was recently admitted acutely for severe sepsis, urinary tract infection, anemia. He was found to have a 6 2nd sinus positive and had a pacemaker placed on 02/06/17 under the care of Dr. Lovell. Keegan lives independently, however due to the acute sepsis, infection and anemia he is significantly weaker. Is expected to the inpatient rehabilitation unit for ongoing therapy to improve his strength and better daily function. Did review this morning's laboratory studies WBC count 9.0, hemoglobin 9.9, hematocrit 30.6, platelet count 204.. Sodium is 144, potassium 3.9, BUN 13, creatinine 0.7, glucose 131. Vital signs this morning are stable. Niacin 0.6, pulse 88, respiration rate 18, blood pressure 135/90. Mr Anton is seen this morning while eating breakfast. He is alert, oriented and in no acute distress. He is comfortably breathing on room air, currently. He does complain of having some itching to his mid upper back. Otherwise denies having any chest pain, shortness of breath or GI complaints. Appetite is good. Fully catheter remains intact. Past Medical History Past Medical History Non-Hodgkin's lympthoma DC-age 62 NIDDM Hypertension Hypercholesterolemia Allergic rhinitis Cataracts Atrial Fibrillation Aortic stenosis CAD Constipation GERD Osteoarthritis Lumbar stenosis Anemia MRSA bacteremia in 02/2016 Surgical History Patient's Surgical History: 02/06/17- Heart Cath, pacemaker placement (Dr. Lovell) 10-06-15 EGD for anemia, normal (Chai) 02-03-15 colonoscopy, diverticulosis F/H colon cancer= [facility]ai 09-15-15 barium enema =showed redundant colon and sigmoid colon diverticulosis 11-15-11 colonoscopy, tubular adenomas x2, diverticulosis = [facility]ai 2005 colonoscopy =[facility] RUDY was negative for vegetation on 02/29/16 Multiple recent cardiac catheterizations per Dr. Lovell: 01/19/16: PTCA and stent of vein graft to RCA and posterolateral artery using drug-eluting stents and 1 bare metal stent 01/12/16: Unsuccessful attempt at PTCA of the graft to the RCA. 11/10/15: Ramus intermedius PTCA and stent with a drug-eluting stent. 10/19/15: Multivessel coronary artery disease CABG--4 vessel-1992 Dr. Acosta Right Total Knee Replacement 2009 Dr. Sparrow Bone biopsy right pelvis 2009 Dr. 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 Landrum for osteomyelitis Cardiac catheterization [place] [address] Dickinson for NSTEMI. EF 40-45%. Current Medications Home Meds Active Scripts Losartan Potassium (Cozaar) 25 Mg Tablet, 25 MG PO DAILY for Cardiomyopathy, #30 Prov:RICHMOND WOODWARD MD 02/07/17 Sucralfate (Sucralfate) 1 Gm Tablet, 1 GM PO ACHS, #120 TAB Take 1 tablet, by mouth, 4 times a day (Before meals and at BEDTIME). Prov:RICHMOND WOODWARD MD 02/07/17 Metformin HCl (Glucophage) 1,000 Mg Tablet, 1000 MG PO BIDWM, #60 TAB Prov:RICHMOND WOODWARD MD 02/07/17 Acetaminophen with Codeine (Acetaminophen-Cod #3 Tablet) 300-30 Tablet, 1-2 TAB PO Q4H Y for PAIN, #20 TAB Prov:RICHMOND WOODWARD MD 02/07/17 Metoprolol Tartrate (Metoprolol Tartrate) 25 Mg Tablet, 25 MG PO BIDWM, #60 TAB Prov:RICHMOND WOODWARD MD 02/07/17 Nystatin (Nystatin) 50,000,000 Unit Powder.ea., 1 APPLIC TOP TID, #1 BOTTLE Prov:RICHMOND WOODWARD MD 02/07/17 Minocycline HCl (Minocin) 100 Mg Capsule, 100 MG PO BID, #13 CAP Prov:RICHMOND WOODWARD MD 02/07/17 Levofloxacin (Levaquin) 750 Mg Tablet, 750 MG PO ACB, #1 TAB Prov:RICHMOND WOODWARD MD 02/07/17 Reported Medications Nitroglycerin (Nitrostat) 0.4 Mg Tablet, 0.4 MG PO Q5MIN Y for CHEST PAIN 07/27/16 Ferrous Sulfate (Iron Supplement) 325 Mg Tablet, 325 MG PO HS 05/10/16 Ascorbic Acid (Ascorbic Acid) 500 Mg Tablet, 500 MG PO HS 05/10/16 Atorvastatin Calcium (Atorvastatin Calcium) 40 Mg Tablet, 40 MG PO HS 05/10/16 Fexofenadine HCl (Fexofenadine HCl) 180 Mg Tablet, 180 MG PO AM 05/10/16 Calcium Carbonate/Vitamin D3 (Calcium + Vitamin D Tablet) 1 Each Tablet, 1 TAB PO HS 01/28/16 Pantoprazole Sodium (Pantoprazole Sodium) 40 Mg Tablet.dr, 40 MG PO BID 01/12/16 Discontinued Reported Medications Oxymetazoline HCl (Afrin) 15 Ml Mist, 1 SPRAY NS DAILY 02/05/17 Metoprolol Tartrate (Metoprolol Tartrate) 25 Mg Tablet, 25 MG PO BID 02/02/17 Clopidogrel Bisulfate (Clopidogrel) 75 Mg Tablet, 75 MG PO AM 05/10/16 Metformin HCl (Metformin HCl) 1,000 Mg Tablet, 1000 MG PO BID 01/28/16 Aspirin (Aspirin) 325 Mg Tablet, 325 MG PO AM 01/11/16 Allergies: Coded Allergies: lisinopril (Verified Adverse Reaction, Unknown, COUGH, 02/02/17) Family History Family History: Mother-hypertension, CVA, diabetes Fatherdiabetes Brotherliver cancer Brotherlung cancer Brother - colon carcinoma Social History Does patient use chewing tobac: No Second Hand Exposure: No Substance Use Type: does not use Alcohol Intake: none Marital Status: Single Housing: apartment Advance Directives: Yes DPOA for Healthcare Only (Yue Zamora) Social History Comments PCP - Dr Madden Income Tax Preparer- Dr Lovell Review of Systems Integumentary Skin: other (itching to back) All Other Systems All Other Systems: Reviewed (remainder of 10-point ROS Neg.) Physical Exam General General Nourishment: well nourished, well developed Vital Signs Vital Signs Date Time Temp Pulse Resp B/P Pulse Ox O2 Delivery O2 Flow Rate FiO2 02/08/17 07:17 97.6 88 18 135/90 Room Air 02/08/17 00:40 98 Height (Feet): 5 Height (Inches): 9.00 Eyes Brief: FOUND: EOMI Respiratory Brief: FOUND: clear all villaseñor, equal bilaterally, NOT FOUND: wheezes Abdomen (brief) Abdominal Brief: FOUND: BS normo active x4, soft, NOT FOUND: distended, tender Integumentary (brief) Integumentary Brief: FOUND: dry, pink, warm Neurologic (brief) Neurological Brief: FOUND: cranial 2-12 intact Neurologic RN Documented GCS Eye Opening: Verbal: Motor: Total: Psychiatric (brief) FOUND: alert, attentive, normal affect, oriented Laboratory Laboratory Tests Test 02/08/17 05:00 White Blood Count 9.0T/MM3 Red Blood Count 3.19M/MM3 Hemoglobin 9.9GM/DL Hematocrit 30.6% Mean Corpuscular Volume 95.9UM3 Mean Corpuscular Hemoglobin 31.0UUG Mean Corpuscular Hemoglobin Concent 32.4GM/DL RDW Standard Deviation 51.4FL Platelet Count 204T/MM3 Mean Platelet Volume 10.7UM3 Immature Granulocyte % (Auto) 0.2% Neutrophils (%) (Auto) 62.0% Lymphocytes (%) (Auto) 20.9% Monocytes (%) (Auto) 13.3% Eosinophils (%) (Auto) 3.4% Basophils (%) (Auto) 0.2% Absolute Immature Granulocyte (auto 0.02T/MM3 Absolute Neutrophils (auto) 5.6T/MM3 Absolute Lymphocytes (auto) 1.9T/MM3 Absolute Monocytes (auto) 1.2T/MM3 Absolute Eosinophils (auto) 0.3T/MM3 Absolute Basophils (auto) 0.0T/MM3 Turbidity < 20 Sodium Level 144MEQ/L Potassium Level 3.9MEQ/L Chloride Level 110MEQ/L Carbon Dioxide Level 23MEQ/L Anion Gap 11MEQ/L Blood Urea Nitrogen 13.0MG/DL Creatinine 0.7MG/DL Glomerular Filtration Rate Calc 107 BUN/Creatinine Ratio 19RATIO Glucose Level 131MG/DL Calculated Osmolality 279MOSM/KG Calcium Level 8.5MG/DL Icterus Index < 2 Chemistry Specimen Hemolysis < 15 Impression/Recommendation Problems: (1) Paroxysmal atrial fibrillation Status: Chronic (2) Aortic stenosis, mild Status: Chronic (3) Lumbar spinal stenosis Status: Chronic (4) Constipation Status: Chronic (5) History of non-ST elevation myocardial infarction (NSTEMI) Status: Resolved (6) Atherosclerosis of coronary artery bypass graft of [place] heart without angina pectoris Status: Chronic (7) Aortic stenosis, moderate Status: Chronic (8) CAD (coronary artery disease) Status: Chronic (9) Anemia due to GI blood loss Status: Chronic (10) Acute Coronary Syndrome Status: Resolved (11) History of non-Hodgkin's lymphoma Status: Chronic (12) Type II diabetes mellitus Status: Chronic (13) History of DC (myocardial infarction) Status: Resolved (14) Hypertension Status: Chronic (15) Allergic rhinitis Status: Chronic (16) OA (osteoarthritis) Status: Chronic (17) GERD (gastroesophageal reflux disease) Status: Chronic Recommendation Rehabilitation orders under the care of Dr Denise Today is day 7 of Levaquin. Will stop after todays dose. Treatment of Providencia Rettgeri UTI. Continue with post-pacemaker instructions with arm sling. Continue with Minocycline for 7 days. Last dose 02/12/17 Monitor blood sugars. Continue with Metformin. Carafate with meals and at bedtime and Protonix BID for GI protection given recent GI bleeding. Continue to monitor Hgb closely. Goal Hgb is 10 given coronary artery disease. Encourage work with PT/OT for strengthening and improved function given patient hopes to return home independently Appreciate medical consultation. The nurses will continue to follow patient medically manage her during his stay on the rehabilitation unit. At time of discharge medical care will return to primary care provider RICHMOND Tinoco MD 02/08/17 1170: Past Medical History Current Medications Home Meds Active Scripts Losartan Potassium (Cozaar) 25 Mg Tablet, 25 MG PO DAILY for Cardiomyopathy, #30 Prov:RICHMOND WOODWARD MD 02/07/17 Sucralfate (Sucralfate) 1 Gm Tablet, 1 GM PO ACHS, #120 TAB Take 1 tablet, by mouth, 4 times a day (Before meals and at BEDTIME). Prov:RICHMOND WOODWARD MD 02/07/17 Metformin HCl (Glucophage) 1,000 Mg Tablet, 1000 MG PO BIDWM, #60 TAB Prov:RICHMOND WOODWARD MD 02/07/17 Acetaminophen with Codeine (Acetaminophen-Cod #3 Tablet) 300-30 Tablet, 1-2 TAB PO Q4H Y for PAIN, #20 TAB Prov:RICHMOND WOODWARD MD 02/07/17 Metoprolol Tartrate (Metoprolol Tartrate) 25 Mg Tablet, 25 MG PO BIDWM, #60 TAB Prov:RICHMOND WOODWARD MD 02/07/17 Nystatin (Nystatin) 50,000,000 Unit Powder.ea., 1 APPLIC TOP TID, #1 BOTTLE Prov:RICHMOND WOODWARD MD 02/07/17 Minocycline HCl (Minocin) 100 Mg Capsule, 100 MG PO BID, #13 CAP Prov:RICHMOND WOODWARD MD 02/07/17 Levofloxacin (Levaquin) 750 Mg Tablet, 750 MG PO ACB, #1 TAB Prov:RICHMOND WOODWARD MD 02/07/17 Reported Medications Nitroglycerin (Nitrostat) 0.4 Mg Tablet, 0.4 MG PO Q5MIN Y for CHEST PAIN 07/27/16 Ferrous Sulfate (Iron Supplement) 325 Mg Tablet, 325 MG PO HS 05/10/16 Ascorbic Acid (Ascorbic Acid) 500 Mg Tablet, 500 MG PO HS 05/10/16 Atorvastatin Calcium (Atorvastatin Calcium) 40 Mg Tablet, 40 MG PO HS 05/10/16 Fexofenadine HCl (Fexofenadine HCl) 180 Mg Tablet, 180 MG PO AM 05/10/16 Calcium Carbonate/Vitamin D3 (Calcium + Vitamin D Tablet) 1 Each Tablet, 1 TAB PO HS 01/28/16 Pantoprazole Sodium (Pantoprazole Sodium) 40 Mg Tablet.dr, 40 MG PO BID 01/12/16 Discontinued Reported Medications Oxymetazoline HCl (Afrin) 15 Ml Mist, 1 SPRAY NS DAILY 02/05/17 Metoprolol Tartrate (Metoprolol Tartrate) 25 Mg Tablet, 25 MG PO BID 02/02/17 Clopidogrel Bisulfate (Clopidogrel) 75 Mg Tablet, 75 MG PO AM 05/10/16 Metformin HCl (Metformin HCl) 1,000 Mg Tablet, 1000 MG PO BID 01/28/16 Aspirin (Aspirin) 325 Mg Tablet, 325 MG PO AM 01/11/16 Allergies: Coded Allergies: lisinopril (Verified Adverse Reaction, Unknown, COUGH, 02/02/17) Impression/Recommendation Recommendation Have independently interviewed and examined pt. Chart reviewed. Case discussed with my FOUNDRY SUPERINTENDANT. Above care plan developed with my supervision; agree with above. Doing well this evening. Not having pain, discomfort, or drainage from pacemaker site. No chest pain. Breathing well. No nausea or ab pain. Tolerating therapy. Lungs; decreased, no crackles or distress CV: regular AB: soft nt/nd +BS MSE: awake alert SKIN: pacer site clean and dry. No drainage. Steri-strips in place. Plan: Agree with admission to IRU to maximize functional status. Blood thinners on hold due to recent GI bleeding. Monitor hemoglobin. Carafate added for additional upper GI protection. Levaquin course completed - continue Minocycline for pacer coverage. Encourage therapy. Medically stable for IRU floor activities. ARY JEAN BAPTISTE APRN Feb 08, 2017 08:44 RICHMOND WOODWARD MD Feb 08, 2017 18:55
[2017-02-08] MEDS: CALCIUM 600mg + VIT D 400 TABLET PO SCH (20:13)
[2017-02-08] MEDS: ATORVASTATIN 40 MG TABLET PO SCH (20:13)
[2017-02-08] MEDS: FERROUS SULFATE 324 MG TABLET PO SCH (20:13)
[2017-02-08] MEDS: ASCORBIC ACID 500 MG TABLET PO SCH (20:13)
--- NOTE | 2017-02-08 20:18 | HPPDOC ---
HPI Date DATE: 02/08/17 TIME: 0830 Pt seen and evaluated this am at approx 0830 General Chief Complaint: UTI, Anemia History of Present Illness 86 year old gentleman who was recently admitted to [facility] for UTI with Sepsis . He has had an involved hospital stay, being treated for anemia and having a pacemaker placed as well. He is currently unable to manage ADL's due to progressively developing weakness over the course of his hospital admission. He is brought to IRU for inpatient rehab and strengthening in hopes that he can return home. Past Medical History Past Medical History Non-Hodgkin's lympthoma [place]age 62 NIDDM Hypertension Hypercholesterolemia Allergic rhinitis Cataracts Atrial Fibrillation Aortic stenosis CAD Constipation GERD Osteoarthritis Lumbar stenosis Anemia MRSA bacteremia in 02/2016 Surgical History Patient's Surgical History: 02/06/17- Heart Cath, pacemaker placement (Dr. Lovell) 10-06-15 EGD for anemia, normal (Chai) 02-03-15 colonoscopy, diverticulosis F/H colon cancer= Chai 09-15-15 barium enema =showed redundant colon and sigmoid colon diverticulosis 11-15-11 colonoscopy, tubular adenomas x2, diverticulosis = Chai 2005 colonoscopy =Chai RUDY was negative for vegetation on 02/29/16 Multiple recent cardiac catheterizations per Dr. Lovell: 01/19/16: PTCA and stent of vein graft to RCA and posterolateral artery using drug-eluting stents and 1 bare metal stent 01/12/16: Unsuccessful attempt at PTCA of the graft to the RCA. 11/10/15: Ramus intermedius PTCA and stent with a drug-eluting stent. 10/19/15: Multivessel coronary artery disease CABG--4 vessel-1992 Dr. Acosta Right Total Knee Replacement 2009 Dr. Sparrow Bone biopsy right pelvis 2009 Dr. 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 Landrum for osteomyelitis Cardiac catheterization [place] [address] Dickinson for NSTEMI. EF 40-45%. Current Medications Home Meds Active Scripts Losartan Potassium (Cozaar) 25 Mg Tablet, 25 MG PO DAILY for Cardiomyopathy, #30 Prov:RICHMOND WOODWARD MD 02/07/17 Sucralfate (Sucralfate) 1 Gm Tablet, 1 GM PO ACHS, #120 TAB Take 1 tablet, by mouth, 4 times a day (Before meals and at BEDTIME). Prov:RICHMOND WOODWARD MD 02/07/17 Metformin HCl (Glucophage) 1,000 Mg Tablet, 1000 MG PO BIDWM, #60 TAB Prov:RICHMOND WOODWARD MD 02/07/17 Acetaminophen with Codeine (Acetaminophen-Cod #3 Tablet) 300-30 Tablet, 1-2 TAB PO Q4H Y for PAIN, #20 TAB Prov:RICHMOND WOODWARD MD 02/07/17 Metoprolol Tartrate (Metoprolol Tartrate) 25 Mg Tablet, 25 MG PO BIDWM, #60 TAB Prov:RICHMOND WOODWARD MD 02/07/17 Nystatin (Nystatin) 50,000,000 Unit Powder.ea., 1 APPLIC TOP TID, #1 BOTTLE Prov:RICHMOND WOODWARD MD 02/07/17 Minocycline HCl (Minocin) 100 Mg Capsule, 100 MG PO BID, #13 CAP Prov:RICHMOND WOODWARD MD 02/07/17 Levofloxacin (Levaquin) 750 Mg Tablet, 750 MG PO ACB, #1 TAB Prov:RICHMOND WOODWARD MD 02/07/17 Reported Medications Nitroglycerin (Nitrostat) 0.4 Mg Tablet, 0.4 MG PO Q5MIN Y for CHEST PAIN 07/27/16 Ferrous Sulfate (Iron Supplement) 325 Mg Tablet, 325 MG PO HS 05/10/16 Ascorbic Acid (Ascorbic Acid) 500 Mg Tablet, 500 MG PO HS 05/10/16 Atorvastatin Calcium (Atorvastatin Calcium) 40 Mg Tablet, 40 MG PO HS 05/10/16 Fexofenadine HCl (Fexofenadine HCl) 180 Mg Tablet, 180 MG PO AM 05/10/16 Calcium Carbonate/Vitamin D3 (Calcium + Vitamin D Tablet) 1 Each Tablet, 1 TAB PO HS 01/28/16 Pantoprazole Sodium (Pantoprazole Sodium) 40 Mg Tablet.dr, 40 MG PO BID 01/12/16 Discontinued Reported Medications Oxymetazoline HCl (Afrin) 15 Ml Mist, 1 SPRAY NS DAILY 02/05/17 Metoprolol Tartrate (Metoprolol Tartrate) 25 Mg Tablet, 25 MG PO BID 02/02/17 Clopidogrel Bisulfate (Clopidogrel) 75 Mg Tablet, 75 MG PO AM 05/10/16 Metformin HCl (Metformin HCl) 1,000 Mg Tablet, 1000 MG PO BID 01/28/16 Aspirin (Aspirin) 325 Mg Tablet, 325 MG PO AM 01/11/16 Allergies: Coded Allergies: lisinopril (Verified Adverse Reaction, Unknown, COUGH, 02/02/17) Family History Family History: Mother-hypertension, CVA, diabetes Fatherdiabetes Brotherliver cancer Brotherlung cancer Brother - colon carcinoma Social History Smoking Status: Never smoker Does patient use chewing tobac: No Second Hand Exposure: No Substance Use Type: does not use Alcohol Intake: none Marital Status: Single Housing: apartment Advance Directives: Yes DPOA for Healthcare Only (Yue Zamora) Review of Systems Cardiovascular see HPI Rhythm/Rate: see HPI GI Upper Abdomen: see HPI General: see HPI Musculoskeletal General: see HPI Neurological General: weakness All Other Systems All Other Systems: Reviewed Physical Exam General General Nourishment: obese, adult General Body Habitus: disheveled Vital Signs Vital Signs Date Time Temp Pulse Resp B/P Pulse Ox O2 Delivery O2 Flow Rate FiO2 02/08/17 19:22 99 Room Air 02/08/17 16:09 98.2 77 18 94/65 02/08/17 10:35 21 Height (Feet): 5 Height (Inches): 9.00 Telemetry Rhythm: Sinus Rhythm Eyes Brief: FOUND: EOMI, PERRL ENMT Brief: FOUND: TM clear, TM good light reflex Neck Brief: NOT FOUND: adenopathy, carotid bruits, thyromegaly Respiratory Brief: FOUND: clear all villaseñor, equal bilaterally, NOT FOUND: rales Cardiovascular (brief) Cardiac Brief: FOUND: pedal edema, regular rate, regular rhythm Abdomen (brief) Abdominal Brief: FOUND: BS normo active x4, soft, NOT FOUND: tender Musculoskeletal (brief) Comments generalized weakness noted. DIff ambulating without assist. Neurologic (brief) Neurological Brief: FOUND: cranial 2-12 intact, motor (4+ to 4/5 strength overall.) Neurologic RN Documented GCS Eye Opening: Verbal: Motor: Total: Laboratory Laboratory Tests Test 02/08/17 05:00 02/08/17 11:18 02/08/17 17:23 White Blood Count 9.0T/MM3 Red Blood Count 3.19M/MM3 Hemoglobin 9.9GM/DL Hematocrit 30.6% Mean Corpuscular Volume 95.9UM3 Mean Corpuscular Hemoglobin 31.0UUG Mean Corpuscular Hemoglobin Concent 32.4GM/DL RDW Standard Deviation 51.4FL Platelet Count 204T/MM3 Mean Platelet Volume 10.7UM3 Immature Granulocyte % (Auto) 0.2% Neutrophils (%) (Auto) 62.0% Lymphocytes (%) (Auto) 20.9% Monocytes (%) (Auto) 13.3% Eosinophils (%) (Auto) 3.4% Basophils (%) (Auto) 0.2% Absolute Immature Granulocyte (auto 0.02T/MM3 Absolute Neutrophils (auto) 5.6T/MM3 Absolute Lymphocytes (auto) 1.9T/MM3 Absolute Monocytes (auto) 1.2T/MM3 Absolute Eosinophils (auto) 0.3T/MM3 Absolute Basophils (auto) 0.0T/MM3 Turbidity < 20 Sodium Level 144MEQ/L Potassium Level 3.9MEQ/L Chloride Level 110MEQ/L Carbon Dioxide Level 23MEQ/L Anion Gap 11MEQ/L Blood Urea Nitrogen 13.0MG/DL Creatinine 0.7MG/DL Glomerular Filtration Rate Calc 107 BUN/Creatinine Ratio 19RATIO Glucose Level 131MG/DL Calculated Osmolality 279MOSM/KG Calcium Level 8.5MG/DL Icterus Index < 2 Chemistry Specimen Hemolysis < 15 Glucometer 149mg/dL 126mg/dL Assessment & Plan Problems: (1) Myopathy Assessment & Plan: PT and OT will work with pt to assemble plan of care. Evaluate in am. (2) Severe sepsis Status: Acute Assessment & Plan: managed by medical. (3) Urinary tract infection Status: Acute Assessment & Plan: managed by medical. DVT Prophylaxis: SCD'S Code Status Do Not Resuscitate Interventions to Obtain Goals PT Treatment Plan: Therapeutic Exercise, Gait Training, Functional Activities , Patient/Family Education, Balance/Proprioception OT Treatment Plan: ADL's (basic care), Ther. Exercise for ADL's, UE Functional Training, Balance Training, Pt./Family Education Hospital Course Summary Disclaimer The hospital course summary below is not to be considered part of the above Progress Note. ROSITA BIRD MD Feb 08, 2017 20:14
--- NOTE | 2017-02-08 20:20 | IRU24PDOC ---
24 Hour Post Admission Eval Relevant Changes Relevant Changes: No I have reviewed the patient's information and concur with the finding and results of the pre-admission screen. Certification I certify the patient for rehabilitation. Patient Condition Prior Medical Conditions: (1) Myopathy Additional Information: PT and OT will work with pt to assemble plan of care. Evaluate in am. (2) Severe sepsis Status: Acute Additional Information: managed by medical. (3) Urinary tract infection Status: Acute Additional Information: managed by medical. Current Medical Conditions: (1) Myopathy Additional Information: PT and OT will work with pt to assemble plan of care. Evaluate in am. (2) Severe sepsis Status: Acute Additional Information: managed by medical. (3) Urinary tract infection Status: Acute Additional Information: managed by medical. Prior Functional Condition Lives With: Alone Residence Type: Private home/apartment Assistive Devices: Front Wheeled Walker, Small Base Quad Cane Prior Functional Status: Indep. at home or school Current Functional Status Failed Alternative Therapy Tri: Arrived from acute care Patient Requirements * Patient has been determined to have significant functional limitations requiring at least two therapy disciplines. * Rehabilitation medical practitioner will provide admission approval, assessment and oversight and program coordination at least daily. * Intensive rehabilitative nursing services on site and available 24 hours a day. * The treatment plan will be developed within 24 hours of admission. * Interdisciplinary and goal oriented treatment by professional nursing, community mental health social worker, and rehabilitation therapist. * Interdisciplinary team meeting weekly inclusive of ongoing comprehensive discharge planning. First team meeting by day seven. Weekly meetings to follow. * Rehab Physician is the team meeting leader. * Pharmacy and diagnostic services will be available. * Ongoing comprehensive rehab program with at least 2 disciplines and greater than or equal to 3 hours a day, 5 days a week. Limitations require: limited mobility, ADL impairment Physical Therapy Minutes: 90 Occupational Therapy Minutes: 90 Therapy The patient is to receive therapy at least 5 days a week. Current Functional Status: Using assistive device PT Treatment Plan: Therapeutic Exercise, Gait Training, Functional Activities , Patient/Family Education, Balance/Proprioception Treatment Plan Frequency: five times per week Treatment Plan Duration: three weeks Plan of Care Comment: 6x/week for first week, then 5x/week for following weeks OT Treatment Plan: ADL's (basic care), Ther. Exercise for ADL's, UE Functional Training, Balance Training, Pt./Family Education OT Treatment Plan Frequency: five times per week OT Treatment Plan Duration: three weeks ROM Deficit: Left Lower Extremity ROM Comment: L UE limited d/t pacemaker precautions - see OT eval for details; B LE's are grossly WFL both actively and passively Muscle Weakness Location: Left Lower Extremity Complication/Comorbidities Patient Complication Risk: (1) Myopathy Comments: PT and OT will work with pt to assemble plan of care. Evaluate in am. (2) Severe sepsis Status: Acute Comments: managed by medical. (3) Urinary tract infection Status: Acute Comments: managed by medical. Impact on Functional Outcomes Pt should be able to return to preillness status and function. Barriers to Discharge: weakness, endurance, balance Plan to Avoid Complications Plan to Avoid Complications The patient cannot receive this care in a lesser intensive setting such as Senior Living or Outpatient Therapy due to the patient requiring the following Risk of fall, reoccurance of sepsis and cardiac complications. The patient requires oversight by a rehabilitation physician to manage their rehabilitation treatment plan and the multidisciplinary approach to care that can only be provided in an IRF and requires a multidisciplinary approach to care , provided by professional PTs, OTs, STs, dieticians, RTs, rehabilitation nurses and is not available in lesser levels of care. The frequency and duration for therapy, as recommended by the professional Rehabilitation therapists, meet the patient's initial rehabilitation treatment plan needs and will be further evaluated on a weekly basis for progress and/or changes needed. ROSITA BIRD MD Feb 08, 2017 20:20
--- NOTE | 2017-02-08 20:49 | NUR ---
SHIFT SUMMARY PT HAS BEEN PLEASANT AND COOPERATIVE. HAS WORKED WITH THERAPY. AMBULATES WITH FWW AND GAIT BELT. WENT TO DINING ROOM FOR MEALS.
--- NOTE | 2017-02-08 23:40 | NUR ---
Chart Check 24 hour chart check completed
--- NOTE | 2017-02-08 23:53 | NUR ---
Summary Patient is alert to self and place. He is pleasant and cooperative. He has telemetry in place and he has been running AFIB. He has Alvarez dependant to drainage. He is in bed now with call light within reach, SCDs on, side rails up times tow and bed alarm on.
[2017-02-09] VITALS (10 sets, daily range): BP systolic 108–131; BP diastolic 62–76; PULSE 69–99; RESP 18–25; TEMP 97.8–98.4; O2SAT 67–100
[2017-02-09 05:00] LABS: BASOPHILS % (AUTO) 0.4 % (0-2); EOSINOPHILS # (AUTO) 0.3 T/MM3 (0-0.5); EOSINOPHILS % (AUTO) 3.9 % (0-4); HCT - HEMATOCRIT 29.7 % (41-53); HGB - HEMOGLOBIN 9.3 GM/DL (13.5-17.5); IMMATURE GRANULOCYTE # (AUTO) 0.03 T/MM3 (0.00-0.03); IMMATURE GRANULOCYTE % (AUTO) 0.4 % (0.0-0.5); LYMPHOCYTES % (AUTO) 24.3 % (23-45); MEAN CORPUSCULAR HGB 30.1 UUG (26-34); MEAN CORPUSCULAR HGB CONC(MCHC 31.3 GM/DL (31-37); MEAN CORPUSCULAR VOLUME 96.1 UM3 (80-100); MEAN PLATELET VOLUME 10.5 UM3 (9.4-12.4); MONOCYTES % (AUTO) 12.4 % (0-9.0); NEUTROPHILS #(AUTO)-ABSOLUTE 4.9 T/MM3 (1.8-7.7); NEUTROPHILS % (AUTO) 58.6 % (33-66); RED BLOOD COUNT 3.09 M/MM3 (4.50-5.90); WBC - WHITE BLOOD COUNT 8.4 T/MM3 (4.5-11.0)
[2017-02-09] MEDS: LEVOFLOXACIN 750 MG TABLET PO SCH (06:03)
[2017-02-09] MEDS: PANTOPRAZOLE 40 MG TABLET PO SCH ×2 (06:03→16:34)
[2017-02-09] MEDS: SUCRALFATE 1 G TABLET PO SCH ×4 (06:03→21:04)
--- NOTE | 2017-02-09 06:13 | NUR ---
Shift Note Pt. slept well overnight. Alvarez draining urine. Pt. denies pain.
[2017-02-09] MEDS: NYSTATIN POWDER 15gm BOTTLE TOP SCH ×3 (07:50→21:04)
[2017-02-09] MEDS: DOCUSATE SODIUM 100 MG CAPSULE PO SCH ×2 (08:39→21:03)
[2017-02-09] MEDS: METFORMIN 1,000 MG TABLET PO SCH ×2 (08:39→17:59)
[2017-02-09] MEDS: MINOCYCLINE 100 MG CAPSULE PO SCH ×2 (08:39→21:04)
[2017-02-09] MEDS: LOSARTAN 50 MG TABLET PO SCH (08:39)
[2017-02-09] MEDS: FEXOFENADINE 180 MG TABLET PO SCH (08:41)
--- NOTE | 2017-02-09 09:47 | NUR ---
MESERET BATES SCORE IS 8. Addendum: 02/09/17 at 0947 by ADAN VENCES Amended: Links added.
--- NOTE | 2017-02-09 10:04 | NUR ---
CM THIS WORKER VISITED PT IN ROOM, INTRODUCED SELF AND ROLE OF CASE MANAGEMENT. PT STATED SHE HAS GOOD FAMILY SUPPORT, HER HAS BEEN VISITING FREQUENTLY. PT STATED HER FAMILY LIVE NEARBY. PT DENIED NEEDING HOME HEALTH, PT STATED HER AND SON WILL BE ABLE TO HELP HER OUT ONCE SHE D/C. PT DENIED NEEDING MEDICAL EQUIPMENT, PT STATED HER DAUGHTER HAS A CRUTCH AND WALKER FOR HER IF SHE NEEDS IT ONCE SHE D/C. PT STATED SHE IS GOING ON A 38 DAY CRUISE IN MAY, SO SHE IS EAGER TO GET BETTER. PT DENIED ANY NEEDS AT THIS TIME AND WAS ENCOURAGED TO PROFESSOR OF FORESTRY IF ANY QUESTIONS/CONCERNS ARISE. Addendum: 02/09/17 at 1010 by ADAN VENCES Amended: Links added. Addendum: 02/09/17 at 1102 by ADAN VENCES NOTE ENTERED ON WRONG PT.
--- NOTE | 2017-02-09 11:03 | NUR ---
CM THIS WORKER VISITED PT IN ROOM, INTRODUCED SELF AND ROLE OF CASE MANAGEMENT. PT REPORTED HE HAS A 2WW AND CANE AT HOME. PT DENIED NEEDING HOME HEALTH, STATING HE HAS GOOD FAMILY SUPPORT NEARBY. PT REPORTED HE PLANS ON RETURNING HOME ONCE HE DISCHARGES, STATING "READY TO GO NOW". PT DENIED ANY NEEDS. PT WAS GIVEN THIS WORKER'S CONTACT INFORMATION AND ENCOURAGED TO CALL WITH ANY QUESTIONS/NEEDS. Addendum: 02/09/17 at 1122 by ADAN VENCES Amended: Links added.
--- NOTE | 2017-02-09 11:38 | NUR ---
ELEVATED BLOOD GLUCOSE BS TAKEN BY FREYA NURSING ASSISTENT, BS 466, BLOOD SUGAR RE-CHECKED BY ME IN DIFFERENT FINGER, [id number]. ARY JEAN BAPTISTE NOTIFIED OF DISCREPANCY OF BLOOD SUGAR LEVELS. SHE ADVISED TO CALL LAB AND TROUBLE SHOT PROBLEM. S/W LAB ABOUT PROBLEM. THEY SAID CONTROL CHECKS WERE DONE LAST NIGHT. LAB SAID MOST LIKELY A CONTAMINATION ERROR. S/W FREYA TRANSPORTATION EQUIPMENT PAINTER WELL ABOUT WHAT LAB D/W WITH ME.
--- NOTE | 2017-02-09 17:40 | PDIRUOPC ---
Overall Plan of Care Date DATE: 02/09/17 TIME: 17:38 Relevant Changes Relevant Changes: No I have reviewed the patient's information and concur with the finding and results of the pre-admission screen. Certification I certify the patient for rehabilitation. Patient Impairments Prior Medical Conditions: (1) Myopathy Additional Information: PT and OT will work with pt to assemble plan of care. Evaluate in am. (2) Severe sepsis Status: Acute Additional Information: managed by medical. (3) Urinary tract infection Status: Acute Additional Information: managed by medical. Current Medical Conditions: (1) Myopathy Additional Information: PT and OT will work with pt to assemble plan of care. Evaluate in am. (2) Severe sepsis Status: Acute Additional Information: managed by medical. (3) Urinary tract infection Status: Acute Additional Information: managed by medical. Medical Prognosis Fair IRF Tx That Should Address Dx: Dx Requiring Medical FU: Vital Signs Vital Signs Date Time Temp Pulse Resp B/P Pulse Ox O2 Delivery O2 Flow Rate FiO2 02/09/17 16:45 98.4 69 24 111/65 99 Room Air 02/08/17 10:35 21 Laboratory Laboratory Tests Test 02/08/17 05:00 02/08/17 11:18 02/08/17 17:23 02/09/17 04:10 White Blood Count 9.0T/MM3 8.4T/MM3 Red Blood Count 3.19M/MM3 3.09M/MM3 Hemoglobin 9.9GM/DL 9.3GM/DL Hematocrit 30.6% 29.7% Mean Corpuscular Volume 95.9UM3 96.1UM3 Mean Corpuscular Hemoglobin 31.0UUG 30.1UUG Mean Corpuscular Hemoglobin Concent 32.4GM/DL 31.3GM/DL RDW Standard Deviation 51.4FL 51.2FL Platelet Count 204T/MM3 214T/MM3 Mean Platelet Volume 10.7UM3 10.5UM3 Immature Granulocyte % (Auto) 0.2% 0.4% Neutrophils (%) (Auto) 62.0% 58.6% Lymphocytes (%) (Auto) 20.9% 24.3% Monocytes (%) (Auto) 13.3% 12.4% Eosinophils (%) (Auto) 3.4% 3.9% Basophils (%) (Auto) 0.2% 0.4% Absolute Immature Granulocyte (auto 0.02T/MM3 0.03T/MM3 Absolute Neutrophils (auto) 5.6T/MM3 4.9T/MM3 Absolute Lymphocytes (auto) 1.9T/MM3 2.0T/MM3 Absolute Monocytes (auto) 1.2T/MM3 1.0T/MM3 Absolute Eosinophils (auto) 0.3T/MM3 0.3T/MM3 Absolute Basophils (auto) 0.0T/MM3 0.0T/MM3 Turbidity < 20 Sodium Level 144MEQ/L Potassium Level 3.9MEQ/L Chloride Level 110MEQ/L Carbon Dioxide Level 23MEQ/L Anion Gap 11MEQ/L Blood Urea Nitrogen 13.0MG/DL Creatinine 0.7MG/DL Glomerular Filtration Rate Calc 107 BUN/Creatinine Ratio 19RATIO Glucose Level 131MG/DL Calculated Osmolality 279MOSM/KG Calcium Level 8.5MG/DL Icterus Index < 2 Chemistry Specimen Hemolysis < 15 Glucometer 149mg/dL 126mg/dL Test 02/09/17 05:21 02/09/17 11:30 02/09/17 11:38 Glucometer 144mg/dL 466mg/dL 137mg/dL Anticipated Interventions The patient requires inpatient IRF care for PT, OT, and/or ST for residuals remaining from sepsis and myopathy resulting in muscular weakness and strength deficits. Strength Deficits: Left Lower Extremity, Right Lower Extremity FIM Scores Ambulation Distance: 184 Wheelchair Propulsion Distance: 82 Ambulation Ability: 4 Minimal Assistance Ambulation Assistance Needed: 1 Person Walk FIM Score Reason: pt required increase time and cues for safety secondary to L knee weakeness Wheelchair Propulsion Ability: 2 Maximum Assistance Wheelchair Propulsion [place]: 1 Person Stairs: 4 Minimal Assistance Stair Assistance Needed: 1 Person Number of Stairs: 4 Reason for Stair FIM: cues for sequencing of B LE Eating Ability-FIM: 6 Modified [place] Grooming Ability: 5 Supervision/Setup Grooming FIM Score Reason: setup assist while sitting EOB . Bathing Ability: 3 Moderate Assistance Upper Body Dressing Ability: 5 Supervision/Setup Lower Body Dressing Ability: 3 Moderate Assistance Lower Body Dressing Assistance: 1 Person Toileting Ability: 4 Minimal Assistance Toileting Assistance Needed: 1 Person Toileting FIM Score Reason: has a strong;not up to the toilet to have a bm Bed Transfer Ability: 4 Minimal Assistance Bed Transfer Assistance Needed: 1 Person Bed FIM Score Reason: safety Chair Transfer Ability: 4 Minimal Assistance Chair Transfer Assistance Need: 1 Person Chair FIM Score Reason: Safety Overall Wheelchair Transfer Ab: 4 Minimal Assistance Overall Toilet / Commode Trans: 4 Minimal Assistance Toilet / Commode Transfer Assi: 1 Person Tub / Shower Transfer Ability: 4 Minimal Assistance Tub / Shower Transfer [place]istan: 1 Person Comprehension Ability: 5 Supervision/Setup Comprehension FIM Score Reason: [place] Social Interaction: 5 Supervision/Setup Problem [place]vin Minimal Assistance Expression Ability: 5 Supervision/Setup Memory: 4 Minimal Assistance Current Functional Status Failed Alternative Therapy: Arrived from acute care Patient Requires * Patient has been determined to have significant functional limitations requiring at least two therapy disciplines. * Rehabilitation medical practitioner will provide admission approval, assessment and oversight and program coordination at least daily. * Intensive rehabilitative nursing services on site and available 24 hours a day. * The treatment plan will be developed within 24 hours of admission. * Interdisciplinary and goal oriented treatment by professional nursing, manager social, and rehabilitation therapist. * Interdisciplinary team meeting weekly inclusive of ongoing comprehensive discharge planning. First team meeting by . Weekly meetings to follow. * Rehab Physician is the team meeting leader. * Pharmacy and diagnostic services will be available. * Ongoing comprehensive rehab program with at least 2 disciplines and greater than or equal to 3 hours a day, 5 days a week. Limitations require: limited mobility, ADL impairment Physical Therapy Minutes: 90 Occupational Therapy Minutes: 90 Therapy The patient is to receive therapy at least 5 days a week. PT Treatment Plan: Therapeutic Exercise, Gait Training, Functional Activities , Patient/Family Education, Balance/Proprioception Treatment Plan Frequency: five times per week Treatment Plan Duration: three weeks Plan of Care Comment: 6x/week for first week, then 5x/week for following weeks OT Treatment Plan: ADL's (basic care), Ther. Exercise for ADL's, UE Functional Training, Balance Training, Pt./Family Education OT Treatment Plan Frequency: five times per week OT Treatment Plan Duration: three weeks Anticapted LOS/Outcomes Anticipated Functional Outcome improvement in stamina and strength allowing pt to return to independent living. Anticipated DC Destination: Home Health Service Home Safety Plan The patient will be provided with the development of a Home Safety Plan for return to a home or home-like environment and to ensure safety post discharge. Complicating Conditions Complications since IRF admit: (1) Myopathy Comments: PT and OT will work with pt to assemble plan of care. Evaluate in am. (2) Severe sepsis Status: Acute Comments: managed by medical. (3) Urinary tract infection Status: Acute Comments: managed by medical. Other Contributing Factors: Plan to Avoid Complications Barriers to Attaining Goals: weakness, balance, endurance Plan to Avoid Complications The patient cannot receive this care in a lesser intensive setting such as [facility]pc or Outpatient Therapy due to the patient requiring the following risk of complications from severe UTI with sepsis The patient requires oversight by a rehabilitation physician to manage their rehabilitation treatment plan and the multidisciplinary approach to care that can only be provided in an IRF and requires a multidisciplinary approach to care , provided by professional PTs, OTs, STs, dieticians, RTs, rehabilitation nurses and is not available in lesser levels of care. The frequency and duration for therapy, as recommended by the professional Rehabilitation therapists, meet the patient's initial rehabilitation treatment plan needs and will be further evaluated on a weekly basis for progress and/or changes needed. ROSITA BIRD MD Feb 09, 2017 17:40
--- NOTE | 2017-02-09 19:22 | NUR ---
SHIFT SUMMARY PATIENT COOPERATIVE AND PLEASENT TODAY. DENIES PAIN. STERI-STIPS TO L CHEST, NEW PACEMAKER SITE. IV LEAKING TODAY, NEW IV STARTED TO RFA #20, ONL IV D/NICHELLE. PATIENT A FIB, WITH PVCS AND PACED ON TELE. PATIENT UP WITH ONE WITH GAIT BELT AND FRONT WHEEL WALKER. INDWELLING BACA, PATENT, DRAINING CLEAR YELLOW. LARGE INCONTINENT BM TODAY. VITALS STABLE. WILL CONT TO MONITOR.
[2017-02-09] MEDS: ATORVASTATIN 40 MG TABLET PO SCH (21:03)
[2017-02-09] MEDS: FERROUS SULFATE 324 MG TABLET PO SCH (21:04)
[2017-02-09] MEDS: CALCIUM 600mg + VIT D 400 TABLET PO SCH (21:04)
[2017-02-09] MEDS: ASCORBIC ACID 500 MG TABLET PO SCH (21:04)
--- NOTE | 2017-02-09 23:04 | NUR ---
Chart Check 24 hour chart check completed
--- NOTE | 2017-02-09 23:04 | NUR ---
Status Patient in bed with side rails up times two, bed alarm paint grinder [employer] light within reach. He has been pleasant and cooperative. Alert and oriented to person and place. He chose to stay in the shirt he was in for the night. IVL flushed well. Telemetry is in place and continues to show AFIB, PVCs and Trigeminy. Not paced at this time. Alvarez is in place and dependent to drainage. Pt took all medication whole with no problem. Nystatin applied to groin area which continues to have a little redness.
[2017-02-10] VITALS (10 sets, daily range): BP systolic 96–143; BP diastolic 63–65; PULSE 78–90; RESP 18–22; TEMP 97.6; O2SAT 97–100
[2017-02-10 05:16] LABS: BASOPHILS % (AUTO) 0.4 % (0-2); EOSINOPHILS # (AUTO) 0.3 T/MM3 (0-0.5); HCT - HEMATOCRIT 30.8 % (41-53); HGB - HEMOGLOBIN 9.8 GM/DL (13.5-17.5); IMMATURE GRANULOCYTE # (AUTO) 0.02 T/MM3 (0.00-0.03); IMMATURE GRANULOCYTE % (AUTO) 0.2 % (0.0-0.5); LYMPHOCYTES # (AUTO) 1.7 T/MM3 (1-4.8); LYMPHOCYTES % (AUTO) 20.2 % (23-45); MEAN CORPUSCULAR HGB 30.7 UUG (26-34); MEAN CORPUSCULAR HGB CONC(MCHC 31.8 GM/DL (31-37); MEAN CORPUSCULAR VOLUME 96.6 UM3 (80-100); MEAN PLATELET VOLUME 10.3 UM3 (9.4-12.4); NEUTROPHILS #(AUTO)-ABSOLUTE 5.2 T/MM3 (1.8-7.7); NEUTROPHILS % (AUTO) 63.2 % (33-66); RED BLOOD COUNT 3.19 M/MM3 (4.50-5.90); WBC - WHITE BLOOD COUNT 8.3 T/MM3 (4.5-11.0)
[2017-02-10 05:28] LABS: ANION GAP 11 MEQ/L (5-15); BUN/CREATININE RATIO 18 RATIO (6-26); CALCIUM 9.3 MG/DL (8.4-10.2); CHLORIDE 108 MEQ/L (98-107); CO2 - CARBON DIOXIDE 25 MEQ/L (22-30); CREATININE 0.8 MG/DL (0.8-1.5); GLOMERULAR FILTRATION RATE 92; GLUCOSE 134 MG/DL (75-110); POTASSIUM 3.8 MEQ/L (3.6-5); SODIUM 144 MEQ/L (134-144)
--- NOTE | 2017-02-10 05:38 | NUR ---
Summary Patient slept well. He did get up to restroom once and had a moderate soft formed BM. He had problems wiping due to probe on his finger and ended up getting fingers and probe messy. Probe replaced. Good output in Alvarez, over 1000mL out, clear and yellow. He ambulated with one assist using FWW and gait belt. He was able to get himself back in bed.
[2017-02-10] MEDS: PANTOPRAZOLE 40 MG TABLET PO SCH ×2 (06:12→17:36)
[2017-02-10] MEDS: LEVOFLOXACIN 750 MG TABLET PO SCH (06:12)
[2017-02-10] MEDS: SUCRALFATE 1 G TABLET PO SCH ×4 (06:12→21:32)
[2017-02-10] MEDS: DOCUSATE SODIUM 100 MG CAPSULE PO SCH ×3 (08:43→21:32)
[2017-02-10] MEDS: FEXOFENADINE 180 MG TABLET PO SCH (08:44)
[2017-02-10] MEDS: METFORMIN 1,000 MG TABLET PO SCH ×2 (08:44→17:36)
[2017-02-10] MEDS: MINOCYCLINE 100 MG CAPSULE PO SCH ×2 (08:44→21:32)
[2017-02-10] MEDS: NYSTATIN POWDER 15gm BOTTLE TOP SCH ×3 (09:00→21:33)
[2017-02-10] MEDS: LOSARTAN 50 MG TABLET PO SCH (09:00)
--- NOTE | 2017-02-10 13:10 | PDIRUTEAM ---
Multidisciplinary Team Meeting Nursing Hx Incontinence: No Bladder Goal: 5 Supervision/Setup Strong Y/N: Yes Bladder Continent or Incontine: Continent Incontinent Product Used: None Cleaning Ability-Bladder: 1 Total Assistance Bowel Goal: 6 Modified Bayard Colostomy Y/N: No Bowel Incontinent/Continent: Incontinent Bowel Number of Accidents: 0 Number of times Incontinent of: 0 Cleaning Ability-Bowel: 2 Maximum Assistance Bowel Incontinence Management: 2 Maximum Assistance Toileting Ability: 4 Minimal Assistance Vital Signs Vital Signs Date Time Temp Pulse Resp B/P Pulse Ox O2 Delivery O2 Flow Rate FiO2 02/10/17 08:00 90 96/63 97 Room Air 02/09/17 22:43 98.3 18 02/08/17 10:35 21 Current Medications Current Medications Medications (Trade) Dose Ordered Sig/Jocelyne Route PRN Reason Start Time Stop Time Status Last Admin Dose Admin Docusate Sodium (Colace) 100 mg BID PO 02/07/17 21:00 02/09/17 21:03 Ascorbic Acid (VITAMIN C 500 mg Tablet) 500 mg HS PO 02/07/17 22:00 02/09/17 21:04 Atorvastatin Calcium (LIPITOR 40 mg) 40 mg HS PO 02/07/17 22:00 02/09/17 21:03 Ferrous Sulfate (Feosol) 324 mg HS PO 02/07/17 22:00 02/09/17 21:04 Fexofenadine HCl (Brenda) 180 mg DAILY PO 02/08/17 09:00 02/10/17 08:44 Levofloxacin (LEVAQUIN 750 mg tablet) 750 mg ACB PO 02/08/17 06:30 02/10/17 06:12 Metformin HCl (Glucophage) 1,000 mg BIDWM PO 02/07/17 17:30 02/10/17 08:44 Metoprolol Tartrate (Lopressor) 25 mg BIDWM PO 02/07/17 17:30 02/09/17 18:03 Minocycline HCl (Minocin) 100 mg BID PO 02/07/17 21:00 02/10/17 08:44 Nystatin (Nystatin Powder) 1 applic TID TOP 02/07/17 21:00 02/09/17 21:04 Pantoprazole Sodium (Protonix) 40 mg ACBID PO 02/08/17 06:30 02/10/17 06:12 Sucralfate (Carafate) 1 g ACHS PO 02/07/17 22:00 02/10/17 12:42 Calcium/Vitamin D (Caltrate + D) 1 tab HS PO 02/08/17 22:00 02/09/17 21:04 Losartan Potassium (COZAAR 50 mg) 25 mg DAILY PO 02/08/17 09:00 02/09/17 08:39 Comments UTI sepsis, aftib. Pacemaker placed. Blood sugars stable, continues with occ pvc. Physical Therapy Bed Transfer Ability: 5 Supervision/Setup Bed Transfer Assistance Needed: 1 Person Bed FIM Score Reason: safety Chair Transfer Ability: 5 Supervision/Setup Chair Transfer Assistance Need: 1 Person Chair FIM Score Reason: Safety Overall Wheelchair Transfer Ab: 4 Minimal Assistance Wheelchair Transfer Assistance: 1 Person Overall Toilet / Commode Trans: 2 Maximum Assistance Ambulation Ability: 4 Minimal Assistance Ambulation Assistance Needed: 1 Person Walk FIM Score Reason: SBA for safety and pt takes 3 rest breaks Ambulation Distance: 240 Comments FIMS--4's weak, freq rest breaks. Occupational Therapy Grooming Ability: 5 Supervision/Setup Grooming FIM Score Reason: setup assist while sitting EOB . Bathing Ability: 3 Moderate Assistance Upper Body Dressing Ability: 5 Supervision/Setup Lower Body Dressing Ability: 3 Moderate Assistance Lower Body Dressing Assistance: 1 Person Toileting Assistance Needed: 1 Person Toileting FIM Score Reason: has a strong;not up to the toilet to have a bm Comments poor safety awareness. Care Plan Condition at time of discharge: Fair IRU Discharge Disposition: Home Health Service Interventions/Goals Barriers to d/c-safety awareness, weakness, stamina. reeval next monday ROSITA BIRD MD Feb 10, 2017 13:08
--- NOTE | 2017-02-10 14:08 | WOUNDPN ---
Nurse to Nurse Wound Consult Pt noted to have some moisture associated dermitis. At this time Barrier cream applied, also discussed staying off of his bottom a little, not sitting so long in one spot. Pt verbalized understanding. ADAN LEO RN Feb 10, 2017 14:08
--- NOTE | 2017-02-10 15:24 | PNPDOC ---
Subjective Date DATE: 02/10/17 TIME: 15:14 Subjective Mr Anton is seen today in follow up. He is alert and doing good today. He does complain of general fatigue, however, no specific complaints. Denies chest pain , GI complaints or shortness of breath. Blood sugars are overall controlled. Fasting sugar is slightly elevated at 134. Blood pressure this morning was slightly low, 96/63. Objective Vital Signs Vital signs Vital Signs Date Time Temp Pulse Resp B/P Pulse Ox O2 Delivery O2 Flow Rate FiO2 02/10/17 13:30 98 Room Air 02/10/17 08:00 90 96/63 02/09/17 22:43 98.3 18 02/08/17 10:35 21 Telemetry Rhythm: Sinus Rhythm Height (Feet): 5 Height (Inches): 9.00 Weight (Kilograms): 103.800 General General Appearance: Alert, Orientated x 3, Cooperative, No Acute Distress Eyes (Brief) Eyes: FOUND: EOMI ENMT (Brief) ENMT: FOUND: mucosa moist, normal dentition, NOT FOUND: pharnyx erythema Neck (Brief) Neck: FOUND: midline, NOT FOUND: adenopathy, carotid bruits, tracheal deviation Respiratory (Brief) Respiratory: FOUND: clear all villaseñor, equal bilaterally, NOT FOUND: wheezes Cardiovascular (Brief) Cardiac: FOUND: regular rate, regular rhythm, NOT FOUND: murmur, pedal edema Capillary Refill: <2 sec Abdomen (Brief) Abdominal: FOUND: BS normo active x4, soft, NOT FOUND: distended, tender Lymphatic (Brief) Lymphatic: NOT FOUND: adenopathy Musculoskeletal (Brief) Musculoskeletal: NOT FOUND: tenderness Integumentary (Brief) Integumentary: FOUND: dry, pink, warm Neurologic (Brief) Neurological: FOUND: cranial 2-12 intact Psychiatric (Brief) Psychiatric: FOUND: alert, attentive, normal affect, oriented Laboratory Laboratory Laboratory Tests 02/10/17 04:12 Laboratory Tests 02/09/17 04:10 02/10/17 04:12 Assessment & Plan Problems: (1) Paroxysmal atrial fibrillation Status: Chronic (2) Aortic stenosis, mild Status: Chronic (3) Lumbar spinal stenosis Status: Chronic (4) Constipation Status: Chronic (5) History of non-ST elevation myocardial infarction (NSTEMI) Status: Resolved (6) 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: Chronic (7) Aortic stenosis, moderate Status: Chronic (8) CAD (coronary artery disease) Status: Chronic (9) 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 Maintain postop precautions. Continue on minocycline prophylactically, End date 02/12. Chronically in atrial fibrillation, rate controlled. Noted to be mildly hypotensive. Will continue to monitor carefully. Completed course of Levaquin for treatment of urinary tract infection. Right indwelling Alvarez catheter, leg bag Continue to monitor blood sugars Carafate and Protonix for GI protection. Given recent GI bleeding Current week with PT and OT for ongoing strengthening Code Status Do Not Resuscitate Hospital Course Summary Disclaimer The hospital course summary below is not to be considered part of the above Progress Note. Hospital Course Summary 02/10/17 No difficulty with pacemaker site. Maintain postop precautions. Continue on minocycline prophylactically, End date 02/12. Chronically in atrial fibrillation, rate controlled. Noted to be mildly hypotensive. Will continue to monitor carefully. Completed course of Levaquin for treatment of urinary tract infection. Right indwelling Alvarez catheter, leg bag Continue to monitor blood sugars Carafate and Protonix for GI protection. Given recent GI bleeding Current week with PT and OT for ongoing strengthening ARY JEAN BAPTISTE APRN Feb 10, 2017 15:17
--- NOTE | 2017-02-10 18:11 | NUR ---
SHIFT SUMMARY PT HAS BEEN PLEASANT AND COOPERATIVE. PT HAS BEEN OUT TO DINING ROOM FOR MEALS. AMBULATES WITH FWW AND GAIT BELT. PT HAS A BACA CATHETER, A LEG BAG WAS ATTACHED THIS AFTERNOON. PT WORKED WITH THERAPY. PT WAS INCONTINENT OF BOWEL X1 TODAY. IT REMAINED IN THE BRIEF, REQUIRED TOTAL ASSIST WITH CLOTHING MANAGEMENT AND SKIN CARE.
[2017-02-10] MEDS: ATORVASTATIN 40 MG TABLET PO SCH (21:32)
[2017-02-10] MEDS: CALCIUM 600mg + VIT D 400 TABLET PO SCH (21:32)
[2017-02-10] MEDS: FERROUS SULFATE 324 MG TABLET PO SCH (21:32)
[2017-02-10] MEDS: ASCORBIC ACID 500 MG TABLET PO SCH (21:32)
[2017-02-11] VITALS (10 sets, daily range): BP systolic 99–153; BP diastolic 62–89; PULSE 68–79; RESP 16–18; TEMP 97.5–98.1; O2SAT 95–100
--- NOTE | 2017-02-11 04:48 | NUR ---
Chart Check 24 hour chart check completed
--- NOTE | 2017-02-11 05:43 | NUR ---
Summary Patient is sleeping well in his bed with side rail up times two, bed alarm on and call light within reach. On rounding he seems to stop breathing periodically and wakes himself up. I have received no calls from Telemetry however reporting low O2 during sleeping. Will report this to first shift. He requires some assist with transfers due to poor safety awareness. At one point he tried to sit in the chair without being backed all the way to it, then used just one hand to sit himself down. His leg bag is removed for the night and his night bag is on. Drainage is clear and yellow. Patient has required total assist with toilet hygiene with bowel movements. This is partly due to oxygen probe on his finger. He is pleasant and cooperative. Nystatin continues to be applied to groin area, however redness has cleared up. Buttock continues to have some redness to it and barrier cream has been applied.
[2017-02-11] MEDS: PANTOPRAZOLE 40 MG TABLET PO SCH ×2 (06:54→17:33)
[2017-02-11] MEDS: SUCRALFATE 1 G TABLET PO SCH ×4 (06:54→20:07)
--- NOTE | 2017-02-11 07:15 | NUR ---
bedside report from jace nolasco. pt sleeping at this time. no distress noted. call light within reach.
[2017-02-11] MEDS: MINOCYCLINE 100 MG CAPSULE PO SCH ×2 (08:27→20:06)
[2017-02-11] MEDS: FEXOFENADINE 180 MG TABLET PO SCH (08:28)
[2017-02-11] MEDS: LOSARTAN 50 MG TABLET PO SCH (08:28)
[2017-02-11] MEDS: NYSTATIN POWDER 15gm BOTTLE TOP SCH ×3 (08:29→20:06)
[2017-02-11] MEDS: METFORMIN 1,000 MG TABLET PO SCH ×2 (08:29→17:31)
[2017-02-11] MEDS: DOCUSATE SODIUM 100 MG CAPSULE PO SCH ×2 (08:30→20:06)
--- NOTE | 2017-02-11 13:37 | NUR ---
pt sleeping in chair at this time. call light within reach.
--- NOTE | 2017-02-11 18:38 | NUR ---
SHIFT SUMMARY PT PLEASANT AND COOPERATIVE. PT FOLLOWS COMMANDS AND IS APPROPRIATE. HAD THERAPY BEFORE LUNCH AND TOOK A 2 HOUR AFTERNOON NAP. ATE GOOD AT MEALS. PT HAS CHRONIC BACA, URINE IS CLEAR AND YELLOW. PT RESTING IN BED WATCHING TV AT THIS TIME.
[2017-02-11] MEDS: CALCIUM 600mg + VIT D 400 TABLET PO SCH (20:07)
[2017-02-11] MEDS: FERROUS SULFATE 324 MG TABLET PO SCH (20:07)
[2017-02-11] MEDS: ATORVASTATIN 40 MG TABLET PO SCH (20:08)
[2017-02-11] MEDS: ASCORBIC ACID 500 MG TABLET PO SCH (20:08)
[2017-02-12] VITALS (7 sets, daily range): BP systolic 102–121; BP diastolic 66–69; PULSE 64–75; RESP 16–20; TEMP 97.9–98.4; O2SAT 92–100
--- NOTE | 2017-02-12 04:49 | NUR ---
Chart Check 24 hour chart check completed
[2017-02-12] MEDS: SUCRALFATE 1 G TABLET PO SCH ×4 (06:59→20:26)
[2017-02-12] MEDS: PANTOPRAZOLE 40 MG TABLET PO SCH ×2 (06:59→17:57)
--- NOTE | 2017-02-12 07:29 | NUR ---
Summary Keegan had a good night last night. Alvarez in place with clear yellow drainage. He has been continent of bowel. He ambulates with FWW and gait belt. He still is requiring assist with clothing management and Hygiene. Education has been given re need to try to do it himself to be independent enough to go home. BG stable. He is in bed currently with side rails up times two, bed alarm on and call light within reach.
[2017-02-12] MEDS: NYSTATIN POWDER 15gm BOTTLE TOP SCH ×3 (09:00→20:27)
[2017-02-12] MEDS: FEXOFENADINE 180 MG TABLET PO SCH (09:09)
[2017-02-12] MEDS: METFORMIN 1,000 MG TABLET PO SCH ×2 (09:10→17:57)
[2017-02-12] MEDS: MINOCYCLINE 100 MG CAPSULE PO SCH ×2 (09:10→20:25)
[2017-02-12] MEDS: LOSARTAN 50 MG TABLET PO SCH (09:10)
[2017-02-12] MEDS: DOCUSATE SODIUM 100 MG CAPSULE PO SCH ×2 (09:10→20:25)
--- NOTE | 2017-02-12 18:44 | NUR ---
SHIFT SUMMARY PT HAS BEEN PLEASANT AND COOPERATIVE. HAS BEEN OUT TO DINING ROOM FOR MEALS. PT AMBULATES WITH FWW AND GAIT BELT. PT HAS HAD SOME VISITORS THIS AFTERNOON. PT DID WEAR LEG BAG TODAY. PT FILLS THIS BAG QUICKLY. IS CURRENTLY RESTING IN BED.
[2017-02-12] MEDS: FERROUS SULFATE 324 MG TABLET PO SCH (20:26)
[2017-02-12] MEDS: CALCIUM 600mg + VIT D 400 TABLET PO SCH (20:26)
[2017-02-12] MEDS: ATORVASTATIN 40 MG TABLET PO SCH (20:26)
[2017-02-12] MEDS: ASCORBIC ACID 500 MG TABLET PO SCH (20:26)
--- NOTE | 2017-02-12 22:01 | PNPDOC ---
IRU Subjective Date DATE: 02/12/17 TIME: 21:58 Subjective [place] today. He worked with PT and OT over the weekend. See FIMS for improvement. IRU Objective Vital Signs Vital signs Vital Signs Date Time Temp Pulse Resp B/P Pulse Ox O2 Delivery O2 Flow Rate FiO2 02/12/17 19:37 98.4 75 20 110/69 97 Room Air 02/08/17 10:35 21 Telemetry Rhythm: Sinus Rhythm Height (Feet): 5 Height (Inches): 9.00 Weight (Kilograms): 103.800 General General Appearance: Alert, Orientated x 2 Respiratory (Brief) Respiratory: FOUND: clear all villaseñor, equal bilaterally Cardiovascular (Brief) Cardiac: FOUND: regular rate, regular rhythm Capillary Refill: <2 sec Laboratory Laboratory Laboratory Tests Test 02/11/17 06:52 02/11/17 11:29 02/11/17 17:10 02/11/17 19:44 Glucometer 127mg/dL 133mg/dL 120mg/dL 155mg/dL Test 02/12/17 17:09 02/12/17 20:25 Glucometer 126mg/dL 184mg/dL Assessment & Plan Problems: (1) Myopathy Assessment & Plan: Should respond well this next week. Cont with PT and OT plan of care as currently authored. (2) Severe sepsis Status: Acute Assessment & Plan: medical management (3) Urinary tract infection Status: Acute Assessment & Plan: stable, medical management Code Status Do Not Resuscitate Interventions to Obtain Goals PT Treatment Plan: Therapeutic Exercise, Gait Training, Functional Activities , Patient/Family Education, Balance/Proprioception OT Treatment Plan: ADL's (basic care), Cognitive Skills Develop., Ther. Exercise for ADL's, Balance Training Hospital Course Summary Disclaimer The hospital course summary below is not to be considered part of the above Progress Note. Hospital Course Summary 02/10/17 No difficulty with pacemaker site. Maintain postop precautions. Continue on minocycline prophylactically, End date 02/12. Chronically in atrial fibrillation, rate controlled. Noted to be mildly hypotensive. Will continue to monitor carefully. Completed course of Levaquin for treatment of urinary tract infection. Right indwelling Alvarez catheter, leg bag Continue to monitor blood sugars Carafate and Protonix for GI protection. Given recent GI bleeding Current week with PT and OT for ongoing strengthening ROSITA BIRD MD Feb 12, 2017 22:00
--- NOTE | 2017-02-13 00:33 | NUR ---
Chart Check 24 hour chart check completed
[2017-02-13] MEDS: PANTOPRAZOLE 40 MG TABLET PO SCH ×2 (06:00→17:04)
[2017-02-13] MEDS: SUCRALFATE 1 G TABLET PO SCH ×4 (06:01→21:17)
--- NOTE | 2017-02-13 06:11 | NUR ---
Summary Patient is alert and oriented times two and very pleasant. He was in bed upon my arrival. He is on Telemetry and running A-FIB with occasional PVCs. He was only 2% paced when strip was printed. Pace maker site steri strips dry and intact. IVL to LFA flushes well and is asymptomatic. Alvarez and night bag is in place and drainage is clear and yellow. Edema and bruising to left hand has improved. SCDs are being implemented. He has taken his medications whole with no problem. Vitals have been WNL. Pt ambulates to restroom with FWW and gait belt. He managed his own clothing, but it took him a while as he had to hold rail with one arm while using the other. Blood sugar last night was a little high at 184 and was educated some on diabetic diet. Pt was also educated on what medications he was taking and what each was for and also on his pace maker. He stated understanding. Bed rails are up times two, bed alarm on and call light within reach.
[2017-02-13 07:38] VITALS: BP 103/62; PULSE 80; RESP 16; TEMP 98.2; O2SAT 100
[2017-02-13 08:10] VITALS: PULSE 80; RESP 16
[2017-02-13] MEDS: DOCUSATE SODIUM 100 MG CAPSULE PO SCH ×2 (08:40→21:16)
[2017-02-13] MEDS: FEXOFENADINE 180 MG TABLET PO SCH (08:41)
[2017-02-13] MEDS: METFORMIN 1,000 MG TABLET PO SCH ×2 (08:41→17:04)
[2017-02-13] MEDS: NYSTATIN POWDER 15gm BOTTLE TOP SCH ×3 (08:42→21:16)
[2017-02-13] MEDS: LOSARTAN 50 MG TABLET PO SCH (08:44)
[2017-02-13] MEDS: MINOCYCLINE 100 MG CAPSULE PO SCH ×2 (08:47→21:16)
--- NOTE | 2017-02-13 08:53 | NUR ---
BP Pts BP this morning was 103/62 and HR 80, spoke with Liu Ayoub APRN regarding pts Metoprolol and Cozaar medication. She wanted to go ahead and give his dose of Metoprolol but hold his dose of Cozaar.
--- NOTE | 2017-02-13 12:58 | PNPDOC ---
IRU Subjective Date DATE: 02/13/17 TIME: 12:56 Subjective Patient up and working with physical therapy. Eating in the [facility] area. IRU Objective Vital Signs Vital signs Vital Signs Date Time Temp Pulse Resp B/P Pulse Ox O2 Delivery O2 Flow Rate FiO2 02/13/17 08:10 80 16 02/13/17 07:38 98.2 103/62 100 Room Air Telemetry Rhythm: Sinus Rhythm Height (Feet): 5 Height (Inches): 9.00 Weight (Kilograms): 103.800 General General Appearance: Alert, Orientated x 2 Respiratory (Brief) Respiratory: FOUND: clear all villaseñor, equal bilaterally Cardiovascular (Brief) Cardiac: FOUND: regular rate, regular rhythm Neurologic (Brief) Comments Significant fatigue and weakness. 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 Physical therapy and occupational therapy are working with patient to increase strength and stamina. Plan of care established. Reevaluate Monday at team meeting. (2) Severe sepsis Status: Acute Assessment & Plan: Managed by medical (3) Urinary tract infection Status: Acute Assessment & Plan: Stable, managed by medical DVT Prophylaxis: SCD'S Code Status Do Not Resuscitate Interventions to Obtain Goals PT Treatment Plan: Therapeutic Exercise, Gait Training, Functional Activities , Patient/Family Education, Balance/Proprioception OT Treatment Plan: ADL's (basic care), Cognitive Skills Develop., Ther. Exercise for ADL's, Balance Training Hospital Course Summary Disclaimer The hospital course summary below is not to be considered part of the above Progress Note. Hospital Course Summary 02/10/17 No difficulty with pacemaker site. Maintain postop precautions. Continue on minocycline prophylactically, End date 02/12. Chronically in atrial fibrillation, rate controlled. Noted to be mildly hypotensive. Will continue to monitor carefully. Completed course of Levaquin for treatment of urinary tract infection. Right indwelling Alvarez catheter, leg bag Continue to monitor blood sugars Carafate and Protonix for GI protection. Given recent GI bleeding Current week with PT and OT for ongoing strengthening ROSITA BIRD MD Feb 13, 2017 12:58
--- NOTE | 2017-02-13 13:02 | PNPDOC ---
IRU Subjective Date DATE: 02/10/17 TIME: 1944 Eval and treatment on 02/10/17 at approximately 1945, inadvertently not entered on chart, being entered today. Subjective Pt very tired and feeling weak. Feels he was unable to get much out of PT or OT due to the fatigue. Planning on accomplishing more tomorrow. IRU Objective Vital Signs Vital signs Vital Signs Date Time Temp Pulse Resp B/P Pulse Ox O2 Delivery O2 Flow Rate FiO2 02/13/17 08:10 80 16 02/13/17 07:38 98.2 103/62 100 Room Air Telemetry Rhythm: Sinus Rhythm Height (Feet): 5 Height (Inches): 9.00 Weight (Kilograms): 103.800 General General Appearance: Alert, Orientated x 2 Respiratory (Brief) Respiratory: FOUND: clear all villaseñor, equal bilaterally Cardiovascular (Brief) Cardiac: FOUND: regular rate ( no irregularity in rhythm noted.), regular rhythm Laboratory Laboratory Laboratory Tests Test 02/11/17 17:10 02/11/17 19:44 02/12/17 17:09 02/12/17 20:25 Glucometer 120mg/dL 155mg/dL 126mg/dL 184mg/dL Test 02/13/17 05:57 02/13/17 11:26 Glucometer 124mg/dL 156mg/dL Assessment & Plan Problems: (1) Myopathy Status: Acute Assessment & Plan: PT and OT still doing initial eval for plan of care. WIll reeval on monday. They are aware of pt's fatigue. (2) Severe sepsis Status: Acute Assessment & Plan: managed by medical. (3) Urinary tract infection Status: Acute Assessment & Plan: managed by medical. DVT Prophylaxis: SCD'S Code Status Do Not Resuscitate Interventions to Obtain Goals PT Treatment Plan: Therapeutic Exercise, Gait Training, Functional Activities , Patient/Family Education, Balance/Proprioception OT Treatment Plan: ADL's (basic care), Cognitive Skills Develop., Ther. Exercise for ADL's, Balance Training Hospital Course Summary Disclaimer The hospital course summary below is not to be considered part of the above Progress Note. Hospital Course Summary 02/10/17 No difficulty with pacemaker site. Maintain postop precautions. Continue on minocycline prophylactically, End date 02/12. Chronically in atrial fibrillation, rate controlled. Noted to be mildly hypotensive. Will continue to monitor carefully. Completed course of Levaquin for treatment of urinary tract infection. Right indwelling Alvarez catheter, leg bag Continue to monitor blood sugars Carafate and Protonix for GI protection. Given recent GI bleeding Current week with PT and OT for ongoing strengthening ROSITA BIRD MD Feb 13, 2017 13:02
[2017-02-13 15:56] VITALS: BP 117/60; PULSE 79; RESP 16; TEMP 98; O2SAT 98
--- NOTE | 2017-02-13 16:05 | NUR ---
CM SPOKE WITH PT, RE: [facility] [employer]. REVIEWED HIS PLAN OF HOME ALONE IN [place]. HE SAID HIS GRANDDAUGHTER, ZULEIMA, COMES OVER AND CHECKS ON HIM EVERY MORNING. HE SAID HE THEN DRIVES TO THE DINER FOR BREAKFAST. REVIEWED IRU POC WITH PT; HE SIGNED IT WITH NO QUESTIONS/CONCERNS.
[2017-02-13 19:27] VITALS: BP 104/64; PULSE 73; RESP 16; TEMP 97.5; O2SAT 97
--- NOTE | 2017-02-13 19:43 | NUR ---
Shift Summary Pt is resting in bed at this time. Ambulates well with assist of 1, FWW, and gait belt. Has a Alvarez catheter in place. Has been continent of bowel, needed minimal assist with his pants, needed total assist with hygiene cares. Ate well for meals, did not need assist with his tray, ambulated to the dining room. Telemetry in place, running a-fib with PVC. IVL to the Rt forearm flushed well. Worked well with therapy today. When in bed or the chair the alarm is in use and call light is within reach.
[2017-02-13] MEDS: CALCIUM 600mg + VIT D 400 TABLET PO SCH (21:16)
[2017-02-13] MEDS: FERROUS SULFATE 324 MG TABLET PO SCH (21:17)
[2017-02-13] MEDS: ATORVASTATIN 40 MG TABLET PO SCH (21:17)
[2017-02-13] MEDS: ASCORBIC ACID 500 MG TABLET PO SCH (21:17)
--- NOTE | 2017-02-13 23:22 | NUR ---
Shift Note Pt. gets up with assist of one, walker, gait belt to bathroom and back to bed. Required assist of one to remove pants for bedtime. Sleeping at this time.
--- NOTE | 2017-02-13 23:42 | NUR ---
Chart Check 24 hour chart check completed
[2017-02-14 04:40] VITALS: BP 137/71; PULSE 74; RESP 20; TEMP 97.2; O2SAT 98
[2017-02-14] MEDS: SUCRALFATE 1 G TABLET PO SCH ×4 (06:00→20:30)
[2017-02-14] MEDS: PANTOPRAZOLE 40 MG TABLET PO SCH ×2 (06:00→17:53)
--- NOTE | 2017-02-14 06:06 | NUR ---
Shift Note Ambulates to bathroom and back to bed; assist of one and gait belt and walker. Needs assistance with pulling pull-ups up and down. Needs total assistance with bowel cleaning.
[2017-02-14 08:36] VITALS: BP 115/69; PULSE 70; RESP 16; TEMP 98.1; O2SAT 98
[2017-02-14] MEDS: FEXOFENADINE 180 MG TABLET PO SCH (09:00)
[2017-02-14] MEDS: METFORMIN 1,000 MG TABLET PO SCH ×2 (09:00→17:53)
[2017-02-14] MEDS: NYSTATIN POWDER 15gm BOTTLE TOP SCH ×3 (09:00→20:31)
[2017-02-14] MEDS: MINOCYCLINE 100 MG CAPSULE PO SCH ×2 (09:01→20:30)
[2017-02-14] MEDS: LOSARTAN 50 MG TABLET PO SCH (09:01)
[2017-02-14] MEDS: DOCUSATE SODIUM 100 MG CAPSULE PO SCH ×2 (09:01→20:31)
[2017-02-14 09:59] VITALS: PULSE 70
[2017-02-14] MEDS ORDERED: INSULIN REGULAR 100 UNIT/ML SQ PRN (11:30)
[2017-02-14 16:05] VITALS: BP 121/65; PULSE 71; RESP 16; TEMP 95.5; O2SAT 97
--- NOTE | 2017-02-14 17:38 | NUR ---
CM CALLED PT'S GRANDDAUGHTER, ZULEIMA. UPDATED HER: THERE IS NOT A DC DATE KNOWN YET. REVIEWED PT'S PLAN OF RETURNING HOME ALONE. SHE SAID SHE DOES CHECK ON HIM 3 TIMES A DAY (MORNING, NOON, AND NIGHT); SHE SAID SHE HAS BEEN DOING THIS FOR THE PAST 3 YEARS AND WILL CONTINUE TO DO SO. REVIEWED THAT PT HAS DECLINED HOME HEALTH BECAUSE HE WANTS TO CONTINUE BEING ACTIVE AND DRIVING; SHE WAS AGREEABLE TO HIS WISHES. SHE HAS THIS WORKER'S CONTACT INFO, AND THIS WORKER ASKED HER TO CALL IF QUESTIONS ARISE.
--- NOTE | 2017-02-14 19:32 | NUR ---
SHIFT SUMMARY PT HAS BEEN PLEASANT AND COOPERATIVE. PT HAD LEG BAG ON ALL DAY. PT AMBULATES WITH FWW AND GAIT BELT. PT HAD ONE HIGH BGM AT 1100 RESULTS WERE CALLED IN TO SUZIE CHRISTINE APRN, SHE ORDERED A LOW DOSE SLIDING SCALE OF NOVOLIN R. PT HAS BEEN OUT TO DINING ROOM FOR ALL MEALS, APPETITE HAS BEEN GOOD.
[2017-02-14 20:22] VITALS: BP 109/68; PULSE 69; TEMP 98.1; O2SAT 96
[2017-02-14] MEDS: FERROUS SULFATE 324 MG TABLET PO SCH (20:30)
[2017-02-14] MEDS: ASCORBIC ACID 500 MG TABLET PO SCH (20:30)
[2017-02-14] MEDS: CALCIUM 600mg + VIT D 400 TABLET PO SCH (20:30)
[2017-02-14] MEDS: ATORVASTATIN 40 MG TABLET PO SCH (20:30)
--- NOTE | 2017-02-15 00:30 | NUR ---
Chart Check 24 hour chart check completed
--- NOTE | 2017-02-15 05:43 | NUR ---
Summary' Pt ambulates with 1 assist, walker and gait belt. Pt requests assistance with pants when toileting. Urinary cath remains patent. Pacemaker restrictions maintained. Telemetry has been paced with Afib and PVC's. Barrier cream to buttocks. Pt states "I know I can get better but I am ready to go home too".
[2017-02-15] MEDS: PANTOPRAZOLE 40 MG TABLET PO SCH ×2 (06:19→18:16)
[2017-02-15] MEDS: SUCRALFATE 1 G TABLET PO SCH ×4 (06:20→20:20)
[2017-02-15 08:00] VITALS: BP 107/65; PULSE 92; RESP 22; TEMP 98.3; O2SAT 96
[2017-02-15] MEDS: DOCUSATE SODIUM 100 MG CAPSULE PO SCH ×2 (08:49→20:19)
[2017-02-15] MEDS: MINOCYCLINE 100 MG CAPSULE PO SCH (08:50)
[2017-02-15] MEDS: FEXOFENADINE 180 MG TABLET PO SCH (08:50)
[2017-02-15] MEDS: METFORMIN 1,000 MG TABLET PO SCH ×2 (08:50→18:16)
[2017-02-15] MEDS: LOSARTAN 50 MG TABLET PO SCH (08:50)
[2017-02-15] MEDS: NYSTATIN POWDER 15gm BOTTLE TOP SCH ×3 (09:00→20:19)
--- NOTE | 2017-02-15 12:59 | PDIRUTEAM ---
Multidisciplinary Team Meeting Nursing Hx Incontinence: No Bladder Goal: 5 Supervision/Setup Strong Y/N: Yes Bladder Continent or Incontine: Continent Incontinent Product Used: Pull-up Cleaning Ability-Bladder: 1 Total Assistance Bowel Goal: 6 Modified [place] Colostomy Y/N: No Bowel Incontinent/Continent: Continent Bowel Number of Accidents: 0 Number of times Incontinent of: 0 Cleaning Ability-Bowel: 1 Total Assistance Bowel Incontinence Management: 1 Total Assistance Toileting Ability: 5 Supervision/Setup Vital Signs Vital Signs Date Time Temp Pulse Resp B/P Pulse Ox O2 Delivery O2 Flow Rate FiO2 02/15/17 08:00 98.3 92 22 107/65 96 Room Air Current Medications Current Medications Medications (Trade) Dose Ordered Sig/Jocelyne Route PRN Reason Start Time Stop Time Status Last Admin Dose Admin Docusate Sodium (Colace) 100 mg BID PO 02/07/17 21:00 02/15/17 08:49 Ascorbic Acid (VITAMIN C 500 mg Tablet) 500 mg HS PO 02/07/17 22:00 02/14/17 20:30 Atorvastatin Calcium (LIPITOR 40 mg) 40 mg HS PO 02/07/17 22:00 02/14/17 20:30 Ferrous Sulfate (Feosol) 324 mg HS PO 02/07/17 22:00 02/14/17 20:30 Fexofenadine HCl (Brenda) 180 mg DAILY PO 02/08/17 09:00 02/15/17 08:50 Levofloxacin (LEVAQUIN 750 mg tablet) 750 mg ACB PO 02/08/17 06:30 02/10/17 15:23 DC 02/10/17 06:12 Metformin HCl (Glucophage) 1,000 mg BIDWM PO 02/07/17 17:30 02/15/17 08:50 Metoprolol Tartrate (Lopressor) 25 mg BIDWM PO 02/07/17 17:30 02/15/17 08:50 Minocycline HCl (Minocin) 100 mg BID PO 02/07/17 21:00 02/15/17 08:50 Nystatin (Nystatin Powder) 1 applic TID TOP 02/07/17 21:00 02/14/17 20:31 Pantoprazole Sodium (Protonix) 40 mg ACBID PO 02/08/17 06:30 02/15/17 06:19 Sucralfate (Carafate) 1 g ACHS PO 02/07/17 22:00 02/15/17 12:13 Calcium/Vitamin D (Caltrate + D) 1 tab HS PO 02/08/17 22:00 02/14/17 20:30 Losartan Potassium (COZAAR 50 mg) 25 mg DAILY PO 02/08/17 09:00 02/15/17 08:50 Insulin Human Regular (Novolin R) SS PRN SQ 02/14/17 11:30 02/14/17 11:32 Comments BG was high at 372 with lunch yesterday, added sliding scale insulin. Physical Therapy Bed Transfer Ability: 6 Modified [place] Bed Transfer Assistance Needed: 1 Person Bed FIM Score Reason: safety Chair Transfer Ability: 4 Minimal Assistance Chair Transfer Assistance Need: 1 Person Chair FIM Score Reason: patient didn't back up all the way to the chair then tried to sit using only one hand. Overall Wheelchair Transfer Ab: 4 Minimal Assistance Wheelchair Transfer Assistance: 1 Person Overall Toilet / Commode Trans: 5 Supervision/Setup Ambulation Ability: 5 Supervision/Setup Ambulation Assistance Needed: 1 Person Walk FIM Score Reason: SBA for safety and pt takes 3 rest breaks Ambulation Distance: 264 Comments is insistent to use a single point cane despite safety issue. He will not use four point cane or walker. Recommending custodial placement. Occupational Therapy Grooming Ability: 5 Supervision/Setup Grooming FIM Score Reason: setup assist while sitting EOB . Bathing Ability: 5 Supervision/Setup Upper Body Dressing Ability: 5 Supervision/Setup Lower Body Dressing Ability: 5 Supervision/Setup Lower Body Dressing Assistance: 1 Person Toileting Assistance Needed: 1 Person Toileting FIM Score Reason: has a strong;not up to the toilet to have a bm Comments poor safety. Care Plan Condition at time of discharge: Fair IRU Discharge Disposition: Home Health Service Interventions/Goals Planning to go home. Family recognizes safety issues as well, but pt insistent to go home. Not necessarily a cognitive issue based on evaluation by staff, more that he is pleasantly stubborn. Have shared concerns with family and patient and have recommended custodial placement . We have Even stated he would wind up with a fracture or hemorrhagic stroke from falls if he would not let us help with placement. He declined. Cont with strong on d/c due to chronic retention. Barriers to d/c: safety and endurance. ROSITA BIRD MD Feb 15, 2017 12:57
--- NOTE | 2017-02-15 13:17 | PDIRUTEAM ---
Multidisciplinary Team Meeting Nursing Hx Incontinence: No Bladder Goal: 5 Supervision/Setup Strong Y/N: Yes Bladder Continent or Incontine: Continent Incontinent Product Used: Pull-up Cleaning Ability-Bladder: 1 Total Assistance Bowel Goal: 6 Modified [place] Colostomy Y/N: No Bowel Incontinent/Continent: Continent Bowel Number of Accidents: 0 Number of times Incontinent of: 0 Cleaning Ability-Bowel: 1 Total Assistance Bowel Incontinence Management: 1 Total Assistance Toileting Ability: 5 Supervision/Setup Vital Signs Vital Signs Date Time Temp Pulse Resp B/P Pulse Ox O2 Delivery O2 Flow Rate FiO2 02/15/17 08:00 98.3 92 22 107/65 96 Room Air Current Medications Current Medications Medications (Trade) Dose Ordered Sig/Jocelyne Route PRN Reason Start Time Stop Time Status Last Admin Dose Admin Docusate Sodium (Colace) 100 mg BID PO 02/07/17 21:00 02/15/17 08:49 Ascorbic Acid (VITAMIN C 500 mg Tablet) 500 mg HS PO 02/07/17 22:00 02/14/17 20:30 Atorvastatin Calcium (LIPITOR 40 mg) 40 mg HS PO 02/07/17 22:00 02/14/17 20:30 Ferrous Sulfate (Feosol) 324 mg HS PO 02/07/17 22:00 02/14/17 20:30 Fexofenadine HCl (Brenda) 180 mg DAILY PO 02/08/17 09:00 02/15/17 08:50 Levofloxacin (LEVAQUIN 750 mg tablet) 750 mg ACB PO 02/08/17 06:30 02/10/17 15:23 DC 02/10/17 06:12 Metformin HCl (Glucophage) 1,000 mg BIDWM PO 02/07/17 17:30 02/15/17 08:50 Metoprolol Tartrate (Lopressor) 25 mg BIDWM PO 02/07/17 17:30 02/15/17 08:50 Minocycline HCl (Minocin) 100 mg BID PO 02/07/17 21:00 02/15/17 08:50 Nystatin (Nystatin Powder) 1 applic TID TOP 02/07/17 21:00 02/14/17 20:31 Pantoprazole Sodium (Protonix) 40 mg ACBID PO 02/08/17 06:30 02/15/17 06:19 Sucralfate (Carafate) 1 g ACHS PO 02/07/17 22:00 02/15/17 12:13 Calcium/Vitamin D (Caltrate + D) 1 tab HS PO 02/08/17 22:00 02/14/17 20:30 Losartan Potassium (COZAAR 50 mg) 25 mg DAILY PO 02/08/17 09:00 02/15/17 08:50 Insulin Human Regular (Novolin R) SS PRN SQ 02/14/17 11:30 02/14/17 11:32 Comments refuses to wear SLO brace. Showering last night and had an assisted fall . No injury. Tripped on left toe and was caught by PT, but then took hand off walker prior to full recovery and lost balance and had to be lowered to the floor. Physical Therapy Bed Transfer Ability: 6 Modified [place] Bed Transfer Assistance Needed: 1 Person Bed FIM Score Reason: safety Chair Transfer Ability: 4 Minimal Assistance Chair Transfer Assistance Need: 1 Person Chair FIM Score Reason: patient didn't back up all the way to the chair then tried to sit using only one hand. Overall Wheelchair Transfer Ab: 4 Minimal Assistance Wheelchair Transfer Assistance: 1 Person Overall Toilet / Commode Trans: 5 Supervision/Setup Ambulation Ability: 5 Supervision/Setup Ambulation Assistance Needed: 1 Person Walk FIM Score Reason: SBA for safety and pt takes 3 rest breaks Ambulation Distance: 264 Comments See note above re assisted fall with PT and earlier in shower. Declines adaptive equipment. Occupational Therapy Grooming Ability: 5 Supervision/Setup Grooming FIM Score Reason: setup assist while sitting EOB . Bathing Ability: 5 Supervision/Setup Upper Body Dressing Ability: 5 Supervision/Setup Lower Body Dressing Ability: 5 Supervision/Setup Lower Body Dressing Assistance: 1 Person Toileting Assistance Needed: 1 Person Toileting FIM Score Reason: has a strong;not up to the toilet to have a bm Comments declines adaptive equipment. Care Plan Condition at time of discharge: Fair IRU Discharge Disposition: Home Health Service Interventions/Goals Currently stating he is going home tomorrow. Work with him to try and extend visit. Not compliant with staff recommendations and is not using DME as directed. Recommending Shower chair and front wheeled walker. Barriers to d/c: safety, balance, strength, cooperation. ROSITA BIRD MD Feb 15, 2017 13:08
--- NOTE | 2017-02-15 15:02 | PNPDOC ---
Subjective Date DATE: 02/15/17 TIME: 14:56 Subjective Mr Cazraes is seen this afternoon while napping. Is alert, active and appropriate. He is in no acute distress, comfortably breathing on room air. Pacemaker incision appears to be healing well without any evidence of erythema or drainage. Chronic indwelling Alvaerz catheter remains intact. Bowels last moved yesterday. Objective Vital Signs Vital signs Vital Signs Date Time Temp Pulse Resp B/P Pulse Ox O2 Delivery O2 Flow Rate FiO2 02/15/17 08:00 98.3 92 22 107/65 96 Room Air Telemetry Rhythm: Sinus Rhythm Height (Feet): 5 Height (Inches): 9.00 Weight (Kilograms): 102.100 General General Appearance: Alert, Orientated x 3, Cooperative, No Acute Distress Eyes (Brief) Eyes: FOUND: EOMI ENMT (Brief) ENMT: FOUND: mucosa moist, normal dentition, NOT FOUND: pharnyx erythema Neck (Brief) Neck: FOUND: midline, NOT FOUND: adenopathy, carotid bruits, tracheal deviation Respiratory (Brief) Respiratory: FOUND: clear all villaseñor, equal bilaterally, NOT FOUND: wheezes Cardiovascular (Brief) Cardiac: FOUND: regular rate, regular rhythm, NOT FOUND: murmur, pedal edema Capillary Refill: <2 sec Abdomen (Brief) Abdominal: FOUND: BS normo active x4, soft, NOT FOUND: distended, tender Lymphatic (Brief) Lymphatic: NOT FOUND: adenopathy Musculoskeletal (Brief) Musculoskeletal: NOT FOUND: tenderness Integumentary (Brief) Integumentary: FOUND: dry, pink, warm Neurologic (Brief) Neurological: FOUND: cranial 2-12 intact Psychiatric (Brief) Psychiatric: FOUND: alert, attentive, normal affect, oriented Assessment & Plan Problems: (1) Paroxysmal atrial fibrillation Status: Chronic (2) Aortic stenosis, mild Status: Chronic (3) Lumbar spinal stenosis Status: Chronic (4) Constipation Status: Chronic (5) History of non-ST elevation myocardial infarction (NSTEMI) Status: Resolved (6) 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: Chronic (7) Aortic stenosis, moderate Status: Chronic (8) CAD (coronary artery disease) Status: Chronic (9) 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 Atrial fib continues to be controlled Chronic indwelling Alvarez catheter, leg bag Continue to monitor blood sugars Carafate and Protonix for GI protection. Given recent GI bleeding Current week with PT and OT for ongoing strengthening Planning for discharge tomorrow. Overall medical stable. Recommend follow up with PCP in 1 week to follow CBC to follow anemia Code Status Do Not Resuscitate Hospital Course Summary Disclaimer The hospital course summary below is not to be considered part of the above Progress Note. Hospital Course Summary 02/10/17 No difficulty with pacemaker site. Maintain postop precautions. Continue on minocycline prophylactically, End date 02/12. Chronically in atrial fibrillation, rate controlled. Noted to be mildly hypotensive. Will continue to monitor carefully. Completed course of Levaquin for treatment of urinary tract infection. Right indwelling Alvarez catheter, leg bag Continue to monitor blood sugars Carafate and Protonix for GI protection. Given recent GI bleeding Current week with PT and OT for ongoing strengthening 02/15/17 Minocycline discontinued as patient has completed full course of prophylactic treatment post pacemaker insertion. Atrial fib continues to be controlled Chronic indwelling Alvarez catheter, leg bag Continue to monitor blood sugars Carafate and Protonix for GI protection. Given recent GI bleeding Current week with PT and OT for ongoing strengthening Planning for discharge tomorrow. Overall medical stable. Recommend follow up with PCP in 1 week to follow CBC to follow anemia ARY JEAN BAPTISTE APRN Feb 15, 2017 14:59
[2017-02-15 16:19] VITALS: BP 103/67; PULSE 77; RESP 18; TEMP 97.5; O2SAT 97
--- NOTE | 2017-02-15 17:48 | NUR ---
CM ANTICIPATED RELEASE DATE THIS WEEK. THIS WORKER CALLED PT'S GRANDDAUGHTER, ZULEIMA. UPDATED HER. SHE SAID SHE IS "PERFECTLY FINE" WITH PT BEING RELEASED TOMORROW. SHE SAID SHE KNOWS HE IS EAGER TO RETURN HOME. SHE SAID SHE WILL BE HERE TO PICK HIM UP TOMORROW; TIME WAS SET FOR 2:00 PM.
--- NOTE | 2017-02-15 17:52 | NUR ---
MESERET BATES RE-SCORED (CALCULATING LOS); SCORE WAS 11. THIS WORKER WILL ADDRESS ROTP WITH PT. Addendum: 02/15/17 at 1753 by ELIZA VENCES Amended: Links added.
--- NOTE | 2017-02-15 19:04 | NUR ---
CM SPOKE WITH PT AND GRANDDAUGHTER, ZULEIMA, WAS PRESENT IN ROOM, RE: ANTICIPATED DC DATE THIS WEEK. PT STATED HE WOULD LIKE TO LEAVE TOMORROW AND FEELS COMFORTABLE LEAVING. ZULEIMA WAS AGREEABLE TOO. REVIEWED IM LETTER WITH PT; HE SIGNED AND HAD NO QUESTIONS/CONCERNS. REVIEWED ROTP; HE AND ZULEIMA WERE AGREEABLE TO THIS. PT HAS DECLINED HOME HEALTH. REVIEWED DME/SUPPLIES: PT AND ZULEIMA STATED PT DOES NOT NEED ANYTHING FURTHER. HE HAS A 2 WHEELED WALKER AND CANE. HE HAS BACA CATHETER SUPPLIES (RECEIVES THESE BY MAIL Q. 3 MONTHS. HE HAS DIABETIC SUPPLIES (INCLUDING GLUCOMETER, TEST STRIPS, ETC, THEY BUY THESE AT [facility]). THIS WORKER REVIEWED THE TEAM'S RECOMMENDATIONS OF SUPERVISION AT HOME AND NOT DRIVING. PT WAS AGREEABLE TO THIS, AND STATED HIS FAMILY ALSO HAS HAD CONCERNS WITH HIM DRIVING. THIS WORKER ENCOURAGED HIM TO ALLOW ZULEIMA AND OTHER FAMILY/FRIENDS TO PROVIDE TRANSPORTATION WHEN NEEDED. PT AND ZULEIMA STATED THEY ARE FINE WITH PT RETURNING HOME ALONE, AND WITH ZULEIMA CHECKING IN 3 TIMES A DAY. NEITHER OF THEM HAD ANY QUESTIONS/CONCERNS REGARDING DC. Addendum: 02/15/17 at 1910 by ELIZA VENCES Amended: Links added.
[2017-02-15 19:32] VITALS: BP 133/85; PULSE 72; RESP 18; TEMP 98.3; O2SAT 96
--- NOTE | 2017-02-15 19:55 | NUR ---
SHIFT SUMMARY PT HAS BEEN PLEASANT AND COOPERATIVE. HAS BEEN OUT TO DINING ROOM FOR MEALS. AMBULATES WITH FWW AND GAIT BELT. PT HAS CHRONIC BACA. PT WORKED WITH THERAPY. PT'S GRAND DAUGHTER ZULEIMA WILL BE HERE TOMORROW 02/16/17 AFTERNOON AROUND 1400.
[2017-02-15] MEDS: FERROUS SULFATE 324 MG TABLET PO SCH (20:19)
[2017-02-15] MEDS: ATORVASTATIN 40 MG TABLET PO SCH (20:19)
[2017-02-15] MEDS: CALCIUM 600mg + VIT D 400 TABLET PO SCH (20:19)
[2017-02-15] MEDS: ASCORBIC ACID 500 MG TABLET PO SCH (20:20)
[2017-02-15 22:28] VITALS: BP 133/85; PULSE 72; RESP 18; TEMP 98.3; O2SAT 96
--- NOTE | 2017-02-16 06:02 | NUR ---
Summary Telemetry monitored. Pt denies pain, states he slept well, and is resting in bed at this time.
[2017-02-16] MEDS: SUCRALFATE 1 G TABLET PO SCH ×2 (06:34→12:36)
[2017-02-16] MEDS: PANTOPRAZOLE 40 MG TABLET PO SCH (06:37)
[2017-02-16 08:00] VITALS: PULSE 72; RESP 18
--- NOTE | 2017-02-16 08:00 | NUR ---
RECEIVED REPORT PATIENT IS ALERT. NOTED EXPRESSIVE APHAGIA. DENIES PAIN THIS MORNING. RIGHT UPPER ARM REMAINS WEAKER THAN THE LEFT. RA. VSS.
[2017-02-16] MEDS: DOCUSATE SODIUM 100 MG CAPSULE PO SCH (08:20)
[2017-02-16] MEDS: LOSARTAN 50 MG TABLET PO SCH (08:20)
[2017-02-16] MEDS: METFORMIN 1,000 MG TABLET PO SCH (08:20)
[2017-02-16] MEDS: FEXOFENADINE 180 MG TABLET PO SCH (08:20)
[2017-02-16 08:25] VITALS: BP 97/59; PULSE 82; RESP 18; TEMP 98.2; O2SAT 99
--- NOTE | 2017-02-16 10:34 | PNPDOC ---
IRU Subjective Date DATE: 02/16/17 TIME: 10:32 Subjective Patient working with physical therapy and occupational therapy. He is cooperating with staff, showing improvement. IRU Objective Vital Signs Vital signs Vital Signs Date Time Temp Pulse Resp B/P Pulse Ox O2 Delivery O2 Flow Rate FiO2 02/16/17 08:25 98.2 82 18 97/59 99 Room Air Telemetry Rhythm: Sinus Rhythm Height (Feet): 5 Height (Inches): 9.00 Weight (Kilograms): 102.100 General General Appearance: Alert, Orientated x 2 Respiratory (Brief) Respiratory: FOUND: clear all villaseñor, equal bilaterally Cardiovascular (Brief) Cardiac: FOUND: regular rate, regular rhythm Capillary Refill: <2 sec Laboratory Laboratory Laboratory Tests Test 02/14/17 11:08 02/14/17 17:04 02/14/17 23:00 02/15/17 06:01 Glucometer 372mg/dL 90mg/dL 119mg/dL 146mg/dL Test 02/15/17 11:25 02/15/17 17:04 Glucometer 143mg/dL 113mg/dL Assessment & Plan Problems: (1) Myopathy Status: Acute Assessment & Plan: Patient is showing improvement, is not yet ready to manage discharge on his own. PT and OT continue to work with him (2) Severe sepsis Status: Acute Assessment & Plan: Medical to manage (3) Urinary tract infection Status: Acute Assessment & Plan: Resolved, medical to manage Code Status Do Not Resuscitate Interventions to Obtain Goals PT Treatment Plan: Therapeutic Exercise, Gait Training, Functional Activities , Patient/Family Education, Balance/Proprioception OT Treatment Plan: ADL's (basic care), Cognitive Skills Develop., Ther. Exercise for ADL's, Balance Training Hospital Course Summary Disclaimer The hospital course summary below is not to be considered part of the above Progress Note. Hospital Course Summary 02/10/17 No difficulty with pacemaker site. Maintain postop precautions. Continue on minocycline prophylactically, End date 02/12. Chronically in atrial fibrillation, rate controlled. Noted to be mildly hypotensive. Will continue to monitor carefully. Completed course of Levaquin for treatment of urinary tract infection. Right indwelling Alvarez catheter, leg bag Continue to monitor blood sugars Carafate and Protonix for GI protection. Given recent GI bleeding Current week with PT and OT for ongoing strengthening 02/15/17 Minocycline discontinued as patient has completed full course of prophylactic treatment post pacemaker insertion. Atrial fib continues to be controlled Chronic indwelling Alvarez catheter, leg bag Continue to monitor blood sugars Carafate and Protonix for GI protection. Given recent GI bleeding Current week with PT and OT for ongoing strengthening Planning for discharge tomorrow. Overall medical stable. Recommend follow up with PCP in 1 week to follow CBC to follow anemia ROSITA BIRD MD Feb 16, 2017 10:34
--- NOTE | 2017-02-16 11:17 | NUR ---
CM THIS WORKER REVIEWED IRU PLAN OF CARE WITH PT, PT AGREED AND SIGNED.
[2017-02-16 11:34] VITALS: BP 104/63; PULSE 61
--- NOTE | 2017-02-16 12:30 | NUR ---
V.TACH PATIENT HAD A RUN OF V. TACH LAST NIGHT AND THIS MORNING. DR. RIOS IS NOTIFIED. NO NEW ORDERS AT THIS TIME.
[2017-02-16] MEDS: NYSTATIN POWDER 15gm BOTTLE TOP SCH (12:36)
--- NOTE | 2017-02-16 13:01 | NUR ---
ACTIVITY PATIENT IS UP TO MEALS WITH WALKER. AMBULATES TO MEALS WITH CONTACT GUARD ASSISTANCE. PATIENT FEEDS HIMSELF. SWALLOWS PILLS WHOLE WITHOUT ANY TROUBLE. PATIENT DOES NOT USE HIS RIGHT ARM AT ALL BUT THE HAND HAS A COVER SEAMER AND CAN MOVE IT HOWEVER DIRECTIONS HE MAY WISH. HE USES LEFT ARM FOR EVERYTHING.
[2017-02-16] MEDS ORDERED: MINO100C43 PO (13:24)
[2017-02-16] MEDS ORDERED: LEVO750T20 PO (13:24)
[2017-02-16] MEDS ORDERED: ACET1TAB25 PO (13:24)
[2017-02-16 14:06] LABS: BASOPHILS # (AUTO) 0.1 T/MM3 (0-0.2); BASOPHILS % (AUTO) 0.7 % (0-2); EOSINOPHILS # (AUTO) 0.3 T/MM3 (0-0.5); EOSINOPHILS % (AUTO) 3.6 % (0-4); HCT - HEMATOCRIT 33.5 % (41-53); HGB - HEMOGLOBIN 10.6 GM/DL (13.5-17.5); IMMATURE GRANULOCYTE # (AUTO) 0.01 T/MM3 (0.00-0.03); IMMATURE GRANULOCYTE % (AUTO) 0.1 % (0.0-0.5); LYMPHOCYTES # (AUTO) 2.2 T/MM3 (1-4.8); LYMPHOCYTES % (AUTO) 31.8 % (23-45); MEAN CORPUSCULAR HGB 30.6 UUG (26-34); MEAN CORPUSCULAR HGB CONC(MCHC 31.6 GM/DL (31-37); MEAN CORPUSCULAR VOLUME 96.8 UM3 (80-100); MEAN PLATELET VOLUME 10.1 UM3 (9.4-12.4); MONOCYTES # (AUTO) 0.9 T/MM3 (0-0.8); MONOCYTES % (AUTO) 13.4 % (0-9.0); NEUTROPHILS #(AUTO)-ABSOLUTE 3.5 T/MM3 (1.8-7.7); NEUTROPHILS % (AUTO) 50.4 % (33-66); RED BLOOD COUNT 3.46 M/MM3 (4.50-5.90)
[2017-02-16 14:15] LABS: ANION GAP 15 MEQ/L (5-15); BUN/CREATININE RATIO 19 RATIO (6-26); CALCIUM 9.7 MG/DL (8.4-10.2); CHLORIDE 105 MEQ/L (98-107); CO2 - CARBON DIOXIDE 24 MEQ/L (22-30); CREATININE 0.8 MG/DL (0.8-1.5); GLOMERULAR FILTRATION RATE 92; GLUCOSE 110 MG/DL (75-110); MAGNESIUM 1.5 MG/DL (1.6-2.3); POTASSIUM 4.3 MEQ/L (3.6-5); SODIUM 144 MEQ/L (134-144)
[2017-02-16] MEDS ORDERED: MAGN400T31 PO (14:26)
--- NOTE | 2017-02-16 14:40 | PNPDOC ---
Progress Note Date 02/16/17 Keegan had a short 9-beat run of A-fib RVR this am - I also discussed with Yue Wilson APRN with Dr. Lovell. I rechecked labs, which were normal except for mild hypomagnesemia. I provided Rx for MagOx 400 mg daily x1 week. Recommend to have CBC, BMP, and mag redrawn around 02/23/17. I also discontinued Levaquin (for UTI), because he completed a 7-day course during his hospitalization. Pacemaker site has steristrips intact and is healing well without erythema, swelling, or drainage. Continue routine Alvarez care. SUZIE CHRISTINE APRN Feb 16, 2017 14:40
--- NOTE | 2017-02-16 14:55 | NUR ---
DISCHARGED PATIENT DISCHARGEE AND MEDICATION INSTRUCTIONS ARE GIVEN TO PATIENT AND GRANDDAUGHTER. NO QUESTIONS ASKED AT THIS TIME. PATIENT IS WHEELED OUT TO FAMILY VEHICLE AT THIS TIME. PATIENT DISCHARGES WITH INDWELLING BACA CATHETER. SCRIPTS ARE GIVEN TO THE DAUGHTER.
--- NOTE | 2017-02-17 11:06 | PDONTRACK ---
Right on Track Program Date of Discharge Feb 16, 2017 at 14:55 Scheduled Ascorbic Acid (Ascorbic Acid), 500 MG PO HS, (Reported) Atorvastatin Calcium (Atorvastatin Calcium), 40 MG PO HS, (Reported) Calcium Carbonate/Vitamin D3 (Calcium + Vitamin D Tablet), 1 TAB PO HS, ( Reported) Ferrous Sulfate (Iron Supplement), 325 MG PO HS, (Reported) Fexofenadine HCl (Fexofenadine HCl), 180 MG PO AM, (Reported) Losartan Potassium (Cozaar), 25 MG PO DAILY Magnesium Oxide (Magox 400), 400 MG PO DAILY Metformin HCl (Glucophage), 1,000 MG PO BIDWM Metoprolol Tartrate (Metoprolol Tartrate), 25 MG PO BIDWM Minocycline HCl (Minocin), 100 MG PO BID Nystatin (Nystatin), 1 APPLIC TOP TID Pantoprazole Sodium (Pantoprazole Sodium), 40 MG PO BID, (Reported) Sucralfate (Sucralfate), 1 GM PO ACHS Scheduled PRN Acetaminophen with Codeine (Acetaminophen-Cod #3 Tablet), 1-2 TAB PO Q4H PRN for PAIN Nitroglycerin (Nitrostat), 0.4 MG PO Q5MIN PRN for CHEST PAIN, (Reported) Discontinued Medications Levofloxacin (Levaquin), 750 MG PO ACB Date: Feb 17, 2017 Right on Track Program: 24 Hour Follow-Up Discharge Summary Received: No Care Plan Received: Yes Follow up: Follow Up Appt. Scheduled (02/[address] Madden) Education: Diagnosis Ed. Review, Education to Metal Dresser Total LACE Score: 11 Comments I spoke with Keegan [facility]. She stated his first night at home went well. They have no concerns. She denies any questions about the discharge instructions. I called her yesterday and instructed her not to fill the Minocycline (course completed) and she states she got my message. I also informed her that he will need to f/u with Dr. Lovell in a couple weeks for pacemaker incision check. We arranged a time for a home visit on 02/28/17 at 1 pm. F/U appt planned with Dr. Madden. Discussed w/pt and caregiver: Yes Recommendations for follow-up 1. Continue ROTP - phone calls + home visit. 2. F/U with Dr. Madden as planned 3. F/U with Dr. Lovell for incision check. 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
== END 2017-02-16 14:55 | disposition home or self-care (01) | DRG 92 ==
PROVIDERS: ADMIT Family Medicine; ATTEND Family Medicine
PROC: F07Z9FZ Gait Training/Functional Ambulation Treatment using Assistive, Adaptive, Supportive or Protective Equipment (ICD-10-PCS; principal; 2017-02-07)
PROC: F07M6ZZ Therapeutic Exercise Treatment of Musculoskeletal System - Whole Body (ICD-10-PCS; 2017-02-07)
PROC: F08Z4ZZ Home Management Treatment (ICD-10-PCS; 2017-02-07)
DX: G72.9 Myopathy, unspecified (principal); N39.0 Urinary tract infection, site not specified; E83.42 Hypomagnesemia; Z66 Do not resuscitate; E11.9 Type 2 diabetes mellitus without complications; I10 Essential (primary) hypertension; I48.0 Paroxysmal atrial fibrillation; E78.00 Pure hypercholesterolemia, unspecified; I25.10 Atherosclerotic heart disease of native coronary artery without angina pectoris; I35.0 Nonrheumatic aortic (valve) stenosis; K21.9 Gastro-esophageal reflux disease without esophagitis; K59.00 Constipation, unspecified; I25.2 Old myocardial infarction; Z79.82 Long term (current) use of aspirin; Z95.1 Presence of aortocoronary bypass graft; Z95.0 Presence of cardiac pacemaker
CPT/HCPCS: 36415; 80048; 82948; 83735; 85025; 94762